=== PATIENT | female | born 1985 | race African-American/Black ===

== ENCOUNTER 2017-09-22 23:35 | Inpatient (IN) ==
[2017-09-23] MEDS ORDERED: ONDANSETRON 4 MG/2 ML VIAL IV STA ×2 (00:25→03:13)
[2017-09-23] MEDS ORDERED: HYDROmorphone 2 MG/1 ML VIAL IV STA (00:25)
[2017-09-23] MEDS ORDERED: SODIUM CHLORIDE 0.9% 1,000 ML IV STA (00:25)
[2017-09-23] MEDS ORDERED: metroNIDAZOLE INJ 500 MG in PREMIX 1 EACH IV STA (00:28)
[2017-09-23] MEDS ORDERED: LEVOFLOXACIN INJ 750 MG in PREMIX 1 EACH IV STA (00:28)
[2017-09-23] MEDS ORDERED: metroNIDAZOLE 500 MG/100 ML PREMIX IV ONE (00:51)
[2017-09-23] MEDS ORDERED: HYDROmorphone 2 MG/1 ML VIAL ONE (00:51)
[2017-09-23] MEDS ORDERED: LEVOFLOXACIN INJ 150 ML IV ONE (00:51)
[2017-09-23] MEDS ORDERED: ONDANSETRON 4 MG/2 ML VIAL ONE ×2 (00:51→03:14)
[2017-09-23 01:31] LABS: Basophils # 0.1 10*3/uL (0.0-0.2); Basophils % 0.3 % (0.0-0.8); Eosinophils # 0.1 10*3/uL (0.0-0.87); Eosinophils % 0.6 % (0.00-10.9); Hematocrit 21.6 VOL% (35.7-47.0); Hemoglobin 6.7 GM/DL (12.0-16.0); Immature Granulocytes % 0.4 %; Immature Granulocytes Absolute 0.07 #; Lymphocytes # 1.5 10*3/uL (1.4-4.0); Mean Corpuscular Hemoglobin 25 PG (27-34); Mean Corpuscular Volume 80.3 FL (87-102); Mean Platelet Volume 9.1 FL (9.6-12.0); Monocytes # 0.8 10*3/uL (0.11-0.8); Monocytes % 4.5 % (1.7-12.7); Neutrophils # 14.3 10*3/uL (1.4-7.4); Neutrophils % 85.2 % (38.7-73.9); Platelet Count 490 T/CUMM (130-400); Red Blood Count 2.69 MC/CUMM (3.8-5.5); Red Cell Distribution Width 13.4 % (9.3-17.3); White Blood Count 16.7 T/CUMM (4-12)
[2017-09-23 01:52] LABS: Alanine Aminotransferase < 6 U/L (13-56); Alkaline Phosphatase 95 U/L (45-117); Amylase 26 U/L (25-115); Aspartate Amino Transferase 4 U/L (0-37); Bilirubin,Total < 0.39 MG/DL (0.2-1.0); Blood Urea Nitrogen 52 MG/DL (7-18); Calcium 7.8 MG/DL (8.5-10.1); Glucose 364 MG/DL (74-106); Osmolality,Calculated 292.5 MOS/KG (273-304); Potassium 4.5 MMOL/L (3.5-5.1); Sodium 132 MMOL/L (136-145)
[2017-09-23] MEDS ORDERED: DEXTROSE 50% 25 GM/50 ML VIAL IV PRN (06:05)
[2017-09-23] MEDS ORDERED: ENOXAPARIN 30 MG/0.3 ML SYRINGE SUBCUT SCH (06:05)
[2017-09-23] MEDS ORDERED: GLUCAGON 1 MG VIAL IM PRN (06:05)
[2017-09-23] MEDS ORDERED: INFLUENZA VIRUS VACCINE 0.5 ML SYRINGE IM ONE (06:34)
[2017-09-23] MEDS ORDERED: CEFEPIME 2,000 MG in SODIUM CHLORIDE 0.9% 50 ML IV SCH (07:00)
[2017-09-23] MEDS: SODIUM CHLORIDE 0.9% 1,000 ML IV SCH ×2 (07:00→21:17)
[2017-09-23] MEDS: ONDANSETRON 4 MG/2 ML VIAL IV PRN ×3 (07:02→23:06)
[2017-09-23] MEDS: MORPHINE 2 MG/1 ML SYRINGE IV PRN ×5 (07:04→23:06)
[2017-09-23] MEDS: INSULIN LISPRO 100 UNIT/ML SUBCUT SCH ×3 (07:06→18:17)
[2017-09-23 07:49] LABS: Basophils # 0.1 10*3/uL (0.0-0.2); Basophils % 0.3 % (0.0-0.8); Eosinophils % 0.3 % (0.00-10.9); Hematocrit 21.7 VOL% (35.7-47.0); Hemoglobin 6.7 GM/DL (12.0-16.0); Immature Granulocytes % 0.5 %; Immature Granulocytes Absolute 0.08 #; Lymphocytes # 1.5 10*3/uL (1.4-4.0); Lymphocytes % 9.7 % (21.3-54.2); Mean Corpuscular HGB Conc 30.9 GM/DL (32-36); Mean Corpuscular Hemoglobin 25 PG (27-34); Mean Corpuscular Volume 80.4 FL (87-102); Monocytes # 0.4 10*3/uL (0.11-0.8); Monocytes % 2.7 % (1.7-12.7); Neutrophils # 13.2 10*3/uL (1.4-7.4); Neutrophils % 86.5 % (38.7-73.9); Platelet Count 483 T/CUMM (130-400); Red Cell Distribution Width 13.5 % (9.3-17.3); White Blood Count 15.2 T/CUMM (4-12)
[2017-09-23 08:16] LABS: Lymphocytes 4 % (20-55); Rouleau 1+; Segmented Neutrophils 93 % (50-85); Total Cells Counted 100
[2017-09-23 08:17] LABS: Hypochromasia 1+; Microcytosis 2+; Platelet Estimate Increased
[2017-09-23 08:23] LABS: Folate 5.5 NG/ML (5.4-24.0); Vitamin B12 432 PG/ML (211-911)
[2017-09-23 08:36] LABS: Hemoglobin A1 (Alkaline) 97.2 % (96.5-98.5); Hemoglobin A2 (Alkaline) 2.8 % (1.5-3.5)
[2017-09-23] MEDS ORDERED: PANTOPRAZOLE 40 MG TABLET PO ONE (08:40)
[2017-09-23] MEDS: CARVEDILOL 3.125 MG TABLET PO SCH (08:48)
[2017-09-23] MEDS ORDERED: VANCOMYCIN INJ 1,000 MG in SODIUM CHLORIDE 0.9% 250 ML IV SCH (09:00)
[2017-09-23] MEDS ORDERED: SODIUM CHLORIDE 0.9% 250 ML IV SCH (09:00)
[2017-09-23 09:30] LABS: Apearance,Urine CLOUDY (Clear); Bacteria,Urine Occasional /HPF (Few); Bilirubin,Urine Negative (Negative); Blood, Urine Moderate mg/dL (Negative); Glucose,Urine (UA) Negative (Negative); Ketones,Urine 5 mg/dL (Negative); Mucus,Urine Many /LPF (Occasional); Nitrite,Urine Negative (Negative); Protein,Urine >=500 MG/DL; Urine Urobilinogen < 2.0 EU/DL (0.2-1.0); WBC,Urine 490 /HPF (0-6)
[2017-09-23 09:31] LABS: Urine Color Yellow (Yellow)
[2017-09-23] MEDS ORDERED: VANCOMYCIN INJ 1,250 MG in SODIUM CHLORIDE 0.9% 250 ML IV PRN (09:36)
[2017-09-23] MEDS ORDERED: VANCOMYCIN INJ 1,500 MG in SODIUM CHLORIDE 0.9% 500 ML IV ONE (10:00)
[2017-09-23 10:47] LABS: Barbiturates Screen,Urine Negative (Negative); Benzodiazepines Screen,Urine Negative (Negative); Cannabinoid Screen,Urine Positive (Negative); Opiate Screen,Urine Positive (Negative); Phencyclidine Screen,Urine Negative (Negative)
[2017-09-23 11:53] LABS: Sedimentation Rate-Westergren 127 MM/HR (0-20)
[2017-09-23 12:21] LABS: % Iron Saturation 22.9 % (18-50)
[2017-09-23] MEDS: prednisoLONE ACETATE 1% OPH SUSP 5 ML BOTTLE BOTH EYES SCH ×3 (12:49→21:11)
[2017-09-23] MEDS: TIMOLOL 0.5% OPH SOLN 5 ML BOTTLE BOTH EYES SCH ×3 (12:50→21:11)
[2017-09-23] MEDS: DOCUSATE SODIUM 100 MG CAPSULE PO SCH ×2 (13:33→21:11)
[2017-09-23] MEDS: sulfaSALAzine 500 MG TABLET PO SCH ×3 (13:33→21:12)
[2017-09-23] MEDS: PIPERACILLIN/TAZOBACTAM 3,375 MG in SODIUM CHLORIDE 0.9% 100 ML IV SCH (14:00)
[2017-09-23] MEDS: PANTOPRAZOLE 40 MG TABLET PO SCH (14:06)
[2017-09-23] MEDS ORDERED: PROPOFOL 200 MG/20 ML VIAL IV ONE (14:17)
[2017-09-23] MEDS ORDERED: KETAMINE 500 MG/10 ML VIAL ONE (14:17)
[2017-09-23] MEDS ORDERED: fentaNYL 100 MCG/2 ML VIAL ONE (14:17)
[2017-09-23] MEDS ORDERED: SODIUM CHLORIDE 0.9% 100 ML IV ONE (14:17)
[2017-09-23] MEDS ORDERED: MIDAZOLAM 2 MG/2 ML VIAL ONE (14:17)
[2017-09-23] MEDS: SODIUM CHLORIDE 23.4% CONC INJ 38.5 MEQ, SODIUM BICARB INJ 150 MEQ in STERILE WATER INJ... IV SCH (18:11)
[2017-09-23] MEDS ORDERED: oxyCODONE/ACETAMINOPHEN 5-325 MG TABLET PO PRN (18:11)
[2017-09-23] MEDS: ERYTHROMYCIN IV SCH (21:03)
[2017-09-23] MEDS: SODIUM CHLORIDE 0.9% IV SCH (21:03)
[2017-09-23] MEDS: amLODIPine 5 MG TABLET PO SCH (21:11)
[2017-09-23] MEDS: tiZANidine 4 MG TABLET PO SCH (21:12)
[2017-09-24] MEDS: ERYTHROMYCIN IV SCH ×2 (00:47→11:07)
[2017-09-24] MEDS: INSULIN LISPRO 100 UNIT/ML SUBCUT SCH ×4 (00:47→18:59)
[2017-09-24] MEDS: SODIUM CHLORIDE 0.9% IV SCH ×2 (00:47→11:07)
[2017-09-24] MEDS: PIPERACILLIN/TAZOBACTAM 3,375 MG in SODIUM CHLORIDE 0.9% 100 ML IV SCH ×2 (01:19→13:08)
[2017-09-24] MEDS: ONDANSETRON 4 MG/2 ML VIAL IV PRN ×5 (03:14→20:37)
[2017-09-24] MEDS: MORPHINE 2 MG/1 ML SYRINGE IV PRN ×5 (03:14→20:38)
[2017-09-24] MEDS: SODIUM CHLORIDE 23.4% CONC INJ 38.5 MEQ, SODIUM BICARB INJ 150 MEQ in STERILE WATER INJ... IV SCH ×3 (06:29→20:35)
[2017-09-24 06:35] LABS: Basophils % 0.2 % (0.0-0.8); Eosinophils # 0.1 10*3/uL (0.0-0.87); Eosinophils % 0.9 % (0.00-10.9); Hematocrit 19.1 VOL% (35.7-47.0); Immature Granulocytes % 0.5 %; Immature Granulocytes Absolute 0.06 #; Lymphocytes # 1.7 10*3/uL (1.4-4.0); Lymphocytes % 14.1 % (21.3-54.2); Mean Corpuscular HGB Conc 29.8 GM/DL (32-36); Mean Corpuscular Hemoglobin 24 PG (27-34); Mean Corpuscular Volume 80.3 FL (87-102); Mean Platelet Volume 9.6 FL (9.6-12.0); Monocytes # 0.7 10*3/uL (0.11-0.8); Monocytes % 5.5 % (1.7-12.7); Neutrophils # 9.4 10*3/uL (1.4-7.4); Neutrophils % 78.8 % (38.7-73.9); Platelet Count 459 T/CUMM (130-400); Red Blood Count 2.38 MC/CUMM (3.8-5.5); Red Cell Distribution Width 13.8 % (9.3-17.3); White Blood Count 11.9 T/CUMM (4-12)
[2017-09-24 06:40] LABS: Hemoglobin 5.7 GM/DL (12.0-16.0)
[2017-09-24] MEDS ORDERED: CEFEPIME 2,000 MG in SODIUM CHLORIDE 0.9% 50 ML IV SCH (07:00)
[2017-09-24 07:02] LABS: Calcium 7.9 MG/DL (8.5-10.1); Magnesium 1.8 MG/DL (1.8-2.4); Osmolality,Calculated 294.5 MOS/KG (273-304); Potassium 4.6 MMOL/L (3.5-5.1)
[2017-09-24] MEDS ORDERED: INSULIN GLARGINE 100 UNIT/ML SUBCUT SCH (09:00)
[2017-09-24] MEDS: SODIUM HYPOCHLORITE 0.25% IRRIG 473 ML BOTTLE TOP SCH ×2 (09:28→20:36)
[2017-09-24] MEDS: PANTOPRAZOLE 40 MG TABLET PO SCH (09:37)
[2017-09-24] MEDS: sulfaSALAzine 500 MG TABLET PO SCH ×3 (09:37→20:30)
[2017-09-24] MEDS: DOCUSATE SODIUM 100 MG CAPSULE PO SCH ×2 (09:37→20:31)
[2017-09-24] MEDS: TIMOLOL 0.5% OPH SOLN 5 ML BOTTLE BOTH EYES SCH ×2 (09:37→20:30)
[2017-09-24] MEDS: tiZANidine 4 MG TABLET PO SCH ×2 (09:37→20:33)
[2017-09-24] MEDS: IRON (CARBONYL)/VIT C/B12/FA TABLET PO SCH (09:37)
[2017-09-24] MEDS: prednisoLONE ACETATE 1% OPH SUSP 5 ML BOTTLE BOTH EYES SCH ×2 (09:37→20:30)
[2017-09-24] MEDS: CARVEDILOL 3.125 MG TABLET PO SCH (09:37)
[2017-09-24] MEDS: METOCLOPRAMIDE 10 MG/2 ML VIAL IV SCH ×2 (12:08→18:59)
[2017-09-24] MEDS ORDERED: ACETAMINOPHEN 325 MG TABLET PO PRN (13:18)
[2017-09-24] MEDS ORDERED: diphenhydrAMINE CAP 25 MG CAPSULE PO PRN (13:18)
[2017-09-24] MEDS ORDERED: SODIUM CHLORIDE 0.9% 250 ML IV PRN (13:18)
[2017-09-24] MEDS: INSULIN REGULAR 100 UNIT/ML SUBCUT SCH (20:30)
[2017-09-24] MEDS: amLODIPine 5 MG TABLET PO SCH (20:34)
[2017-09-25] MEDS: ONDANSETRON 4 MG/2 ML VIAL IV PRN ×2 (00:49→05:44)
[2017-09-25] MEDS: PIPERACILLIN/TAZOBACTAM 3,375 MG in SODIUM CHLORIDE 0.9% 100 ML IV SCH ×2 (00:49→16:41)
[2017-09-25] MEDS: METOCLOPRAMIDE 10 MG/2 ML VIAL IV SCH ×4 (00:50→17:22)
[2017-09-25] MEDS: MORPHINE 2 MG/1 ML SYRINGE IV PRN ×4 (00:50→14:24)
[2017-09-25] MEDS: INSULIN LISPRO 100 UNIT/ML SUBCUT SCH ×4 (00:50→18:20)
[2017-09-25] MEDS: SODIUM HYPOCHLORITE 0.25% IRRIG 473 ML BOTTLE TOP SCH ×2 (07:35→22:37)
[2017-09-25] MEDS: INSULIN REGULAR 100 UNIT/ML SUBCUT SCH ×4 (08:35→20:33)
[2017-09-25] MEDS ORDERED: VANCOMYCIN INJ 1,250 MG in SODIUM CHLORIDE 0.9% 250 ML IV ONE (10:00)
[2017-09-25] MEDS: SODIUM CHLORIDE 23.4% CONC INJ 38.5 MEQ, SODIUM BICARB INJ 150 MEQ in STERILE WATER INJ... IV SCH (10:10)
[2017-09-25] MEDS: PANTOPRAZOLE 40 MG TABLET PO SCH (10:16)
[2017-09-25] MEDS: sulfaSALAzine 500 MG TABLET PO SCH ×3 (10:16→20:34)
[2017-09-25] MEDS: IRON (CARBONYL)/VIT C/B12/FA TABLET PO SCH (10:16)
[2017-09-25] MEDS: tiZANidine 4 MG TABLET PO SCH ×2 (10:16→20:34)
[2017-09-25] MEDS: DOCUSATE SODIUM 100 MG CAPSULE PO SCH ×2 (10:16→20:34)
[2017-09-25] MEDS: CARVEDILOL 3.125 MG TABLET PO SCH (10:16)
[2017-09-25] MEDS: prednisoLONE ACETATE 1% OPH SUSP 5 ML BOTTLE BOTH EYES SCH ×2 (10:17→20:34)
[2017-09-25] MEDS: TIMOLOL 0.5% OPH SOLN 5 ML BOTTLE BOTH EYES SCH ×2 (10:17→20:34)
[2017-09-25] MEDS: INSULIN GLARGINE 100 UNIT/ML SUBCUT SCH (10:17)
[2017-09-25] MEDS: amLODIPine 5 MG TABLET PO SCH (20:33)
[2017-09-26] MEDS: INSULIN LISPRO 100 UNIT/ML SUBCUT SCH ×3 (00:05→14:22)
[2017-09-26] MEDS: METOCLOPRAMIDE 10 MG/2 ML VIAL IV SCH ×3 (00:06→14:23)
[2017-09-26] MEDS: PIPERACILLIN/TAZOBACTAM 3,375 MG in SODIUM CHLORIDE 0.9% 100 ML IV SCH (00:09)
[2017-09-26] MEDS: MORPHINE 2 MG/1 ML SYRINGE IV PRN ×3 (02:23→11:23)
[2017-09-26] MEDS: SODIUM CHLORIDE 23.4% CONC INJ 38.5 MEQ, SODIUM BICARB INJ 150 MEQ in STERILE WATER INJ... IV SCH (04:13)
[2017-09-26 07:01] LABS: Basophils # 0.1 10*3/uL (0.0-0.2); Basophils % 0.5 % (0.0-0.8); Eosinophils # 0.2 10*3/uL (0.0-0.87); Eosinophils % 2.1 % (0.00-10.9); Hematocrit 23.4 VOL% (35.7-47.0); Hemoglobin 7.1 GM/DL (12.0-16.0); Immature Granulocytes % 0.6 %; Immature Granulocytes Absolute 0.06 #; Lymphocytes # 3.4 10*3/uL (1.4-4.0); Lymphocytes % 31.2 % (21.3-54.2); Mean Corpuscular HGB Conc 30.3 GM/DL (32-36); Mean Corpuscular Hemoglobin 24 PG (27-34); Mean Corpuscular Volume 80.1 FL (87-102); Mean Platelet Volume 9.3 FL (9.6-12.0); Monocytes # 0.5 10*3/uL (0.11-0.8); Monocytes % 4.8 % (1.7-12.7); Neutrophils # 6.5 10*3/uL (1.4-7.4); Neutrophils % 60.8 % (38.7-73.9); Platelet Count 546 T/CUMM (130-400); Red Blood Count 2.92 MC/CUMM (3.8-5.5); Red Cell Distribution Width 13.8 % (9.3-17.3); White Blood Count 10.7 T/CUMM (4-12)
[2017-09-26 07:23] LABS: Calcium 7.9 MG/DL (8.5-10.1); Potassium 4.5 MMOL/L (3.5-5.1)
[2017-09-26] MEDS: prednisoLONE ACETATE 1% OPH SUSP 5 ML BOTTLE BOTH EYES SCH (08:06)
[2017-09-26] MEDS: DOCUSATE SODIUM 100 MG CAPSULE PO SCH (08:07)
[2017-09-26] MEDS: INSULIN REGULAR 100 UNIT/ML SUBCUT SCH ×2 (08:07→14:21)
[2017-09-26] MEDS: tiZANidine 4 MG TABLET PO SCH (08:07)
[2017-09-26] MEDS: CARVEDILOL 3.125 MG TABLET PO SCH (08:07)
[2017-09-26] MEDS: sulfaSALAzine 500 MG TABLET PO SCH (08:07)
[2017-09-26] MEDS: PANTOPRAZOLE 40 MG TABLET PO SCH (08:07)
[2017-09-26] MEDS: TIMOLOL 0.5% OPH SOLN 5 ML BOTTLE BOTH EYES SCH (08:07)
[2017-09-26] MEDS: IRON (CARBONYL)/VIT C/B12/FA TABLET PO SCH (08:07)
[2017-09-26] MEDS: SODIUM HYPOCHLORITE 0.25% IRRIG 473 ML BOTTLE TOP SCH (10:15)
[2017-09-26] MEDS: INSULIN GLARGINE 100 UNIT/ML SUBCUT SCH (11:18)
[2017-09-26 11:30] VITALS: BP 139/82
== END 2017-09-26 12:45 | disposition home health service (06) | DRG 854 ==
LOC: EDUNIT# → N.ED 23:35 → N.EDINP 09-23 05:08 → N.3E 09-23 05:32
PROVIDERS: ADMIT Internal Medicine; ATTEND Internal Medicine

== ENCOUNTER 2019-07-30 21:17 | Inpatient (IN) ==
[2019-07-30] MEDS ORDERED: VANCOMYCIN INJ 1,000 MG in SODIUM CHLORIDE 0.9% 250 ML IV STA (21:42)
[2019-07-30] MEDS ORDERED: SODIUM CHLORIDE 0.9% 1,000 ML IV STA (21:42)
[2019-07-30] MEDS ORDERED: CEFEPIME 2,000 MG in SODIUM CHLORIDE 0.9% 100 ML IV STA (21:42)
[2019-07-30 23:39] LABS: Apearance,Urine Slightly Hazy (Clear); Bacteria,Urine Occasional /HPF (Few); Bilirubin,Urine Negative (Negative); Blood, Urine Small mg/dL (Negative); Glucose,Urine (UA) >=500 mg/dL (Negative); Ketones,Urine 20 mg/dL (Negative); Mucus,Urine Occasional /LPF (Occasional); Nitrite,Urine Positive (Negative); Protein,Urine >=500 MG/DL; RBC,Urine 4 /HPF (0-4); Squamous Epithelial Cell,Urine Occasional /HPF (0-10); Urine Color Yellow (Yellow); Urine Specific Gravity 1.011 (1.001-1.035); Urine Urobilinogen < 2.0 EU/DL (0.2-1.0); WBC,Urine 52 /HPF (0-6)
[2019-07-31 00:05] LABS: Basophils % 0.4 % (0.0-0.8); Eosinophils % 0.2 % (0.00-10.9); Hematocrit 25.7 VOL% (35.7-47.0); Hemoglobin 7.7 GM/DL (12.0-16.0); Immature Granulocytes % 0.6 %; Immature Granulocytes Absolute 0.07 #; Lymphocytes # 1.6 10*3/uL (1.4-4.0); Lymphocytes % 14.6 % (21.3-54.2); Mean Corpuscular Volume 78.4 FL (87-102); Mean Platelet Volume 9.1 FL (9.6-12.0); Monocytes % 6.5 % (1.7-12.7); Neutrophils % 77.7 % (38.7-73.9); Platelet Count 424 T/CUMM (130-400); Red Blood Count 3.28 MC/CUMM (3.8-5.5); Red Cell Distribution Width 15.4 % (9.3-17.3); White Blood Count 10.9 T/CUMM (4-12)
[2019-07-31] MEDS ORDERED: hydrALAZINE 20 MG/1 ML VIAL IV STA (00:20)
[2019-07-31] MEDS ORDERED: MORPHINE 4 MG/1 ML VIAL IV STA (00:20)
[2019-07-31] MEDS ORDERED: ONDANSETRON 4 MG/2 ML VIAL IV STA (00:20)
[2019-07-31] MEDS ORDERED: VANCOMYCIN INJ 1,000 MG in SODIUM CHLORIDE 0.9% 250 ML IV STA (00:34)
[2019-07-31 00:40] LABS: Alanine Aminotransferase 9 U/L (13-56); Albumin 2.9 G/DL (3.4-5.0); Aspartate Amino Transferase 4 U/L (0-37); Calcium 8.5 MG/DL (8.5-10.1)
[2019-07-31 00:41] LABS: Alkaline Phosphatase 158 U/L (45-117); Blood Urea Nitrogen 81 MG/DL (7-18)
[2019-07-31 00:42] LABS: Bilirubin,Total < 0.39 MG/DL (0.2-1.0); Glucose 290 MG/DL (74-106); Osmolality,Calculated 324.6 MOS/KG (273-304); Total Protein 8.8 G/DL (6.4-8.3)
[2019-07-31] MEDS ORDERED: INSULIN REGULAR DRIP 100 ML IV PRN (01:00)
[2019-07-31] MEDS ORDERED: POTASSIUM CHLORIDE RIDER 10 MEQ in PREMIX 1 EACH IV PRN (02:15)
[2019-07-31] MEDS ORDERED: DEXTROSE 50% 25 GM/50 ML VIAL IV PRN ×2 (02:15)
[2019-07-31] MEDS ORDERED: SODIUM PHOSPHATE INJ 15.9 MMOL in SODIUM CHLORIDE 0.9% 250 ML IV PRN (02:15)
[2019-07-31] MEDS ORDERED: MAGNESIUM SULF RIDER 2 GM in PREMIX 1 EACH IV PRN (02:15)
[2019-07-31] MEDS ORDERED: MAGNESIUM SULF RIDER 4 GM in PREMIX 1 EACH IV PRN (02:15)
[2019-07-31 02:19] LABS: Sedimentation Rate-Westergren 98 MM/HR (0-20)
[2019-07-31] MEDS ORDERED: SODIUM CHLORIDE 0.9% 1,000 ML IV SCH (02:33)
[2019-07-31] MEDS ORDERED: PROMETHAZINE 25 MG/1 ML VIAL IM PRN (02:44)
[2019-07-31 03:01] LABS: Calcium 8.4 MG/DL (8.5-10.1); Osmolality,Calculated 327.3 MOS/KG (273-304)
[2019-07-31] MEDS: HYDROmorphone 2 MG/1 ML VIAL IV PRN ×6 (03:30→22:32)
[2019-07-31] MEDS ORDERED: INSULIN REGULAR DRIP 100 ML IV SCH (03:30)
[2019-07-31] MEDS ORDERED: SODIUM BICARB INJ 100 MEQ in STERILE WATER INJ 400 ML IV PRN (03:30)
[2019-07-31] MEDS: hydrALAZINE 20 MG/1 ML VIAL IV PRN ×3 (04:01→18:29)
[2019-07-31] MEDS: ONDANSETRON 4 MG/2 ML VIAL IV PRN ×4 (04:01→17:04)
[2019-07-31 05:10] LABS: Basophils % 0.3 % (0.0-0.8); Eosinophils % 0.1 % (0.00-10.9); Hematocrit 24.8 VOL% (35.7-47.0); Hemoglobin 7.5 GM/DL (12.0-16.0); Immature Granulocytes % 1.1 %; Immature Granulocytes Absolute 0.14 #; Lymphocytes # 2.1 10*3/uL (1.4-4.0); Lymphocytes % 16.2 % (21.3-54.2); Mean Corpuscular HGB Conc 30.2 GM/DL (32-36); Mean Corpuscular Volume 79.5 FL (87-102); Mean Platelet Volume 9.3 FL (9.6-12.0); Monocytes % 5.6 % (1.7-12.7); Neutrophils % 76.7 % (38.7-73.9); Platelet Count 430 T/CUMM (130-400); Red Blood Count 3.12 MC/CUMM (3.8-5.5); Red Cell Distribution Width 15.3 % (9.3-17.3); White Blood Count 13.1 T/CUMM (4-12)
[2019-07-31 05:29] LABS: Hypochromasia 1+; Platelet Estimate Adequate
[2019-07-31] MEDS ORDERED: SODIUM CHLORIDE 0.45% 1,000 ML IV SCH (06:33)
[2019-07-31 07:14] LABS: Calcium 8.8 MG/DL (8.5-10.1); Osmolality,Calculated 320.3 MOS/KG (273-304)
[2019-07-31] MEDS ORDERED: VANCOMYCIN INJ 1,000 MG in SODIUM CHLORIDE 0.9% 250 ML IV PRN (08:11)
[2019-07-31] MEDS ORDERED: DEXTROSE 5% NACL 0.45% 1,000 ML IV SCH ×2 (08:27→13:30)
[2019-07-31 12:00] LABS: Calcium 8.8 MG/DL (8.5-10.1); Osmolality,Calculated 313.3 MOS/KG (273-304)
[2019-07-31 15:24] LABS: Calcium 8.5 MG/DL (8.5-10.1); Osmolality,Calculated 311.6 MOS/KG (273-304)
[2019-07-31 19:15] LABS: Calcium 8.7 MG/DL (8.5-10.1); Osmolality,Calculated 300.1 MOS/KG (273-304)
[2019-07-31] MEDS: SODIUM CHLORIDE 0.45% 1,000 ML IV SCH (20:32)
[2019-07-31] MEDS: DEXTROSE 5% NACL 0.45% 1,000 ML IV SCH ×2 (20:33→21:21)
[2019-07-31] MEDS ORDERED: DEXTROSE 10% 250 ML BAG IV PRN (20:35)
[2019-07-31] MEDS ORDERED: GLUCAGON 1 MG VIAL IM PRN (20:35)
[2019-07-31] MEDS: INSULIN REGULAR 100 UNIT/ML SUBCUT SCH (21:22)
[2019-07-31] MEDS: CARVEDILOL 3.125 MG TABLET PO SCH (21:59)
[2019-07-31] MEDS: prednisoLONE ACETATE 1% OPH SUSP 5 ML BOTTLE BOTH EYES SCH (22:00)
[2019-07-31] MEDS: TIMOLOL 0.5% OPH SOLN 5 ML BOTTLE BOTH EYES SCH (22:00)
[2019-07-31 23:03] LABS: Calcium 8.5 MG/DL (8.5-10.1); Osmolality,Calculated 295.3 MOS/KG (273-304)
[2019-08-01] MEDS: INSULIN REGULAR 100 UNIT/ML SUBCUT SCH ×6 (00:44→21:03)
[2019-08-01] MEDS: CEFEPIME 1,000 MG in SODIUM CHLORIDE 0.9% 100 ML IV SCH (01:06)
[2019-08-01] MEDS: HYDROmorphone 2 MG/1 ML VIAL IV PRN ×4 (01:13→22:50)
[2019-08-01] MEDS: SODIUM CHLORIDE 0.45% 1,000 ML IV SCH ×2 (05:20→12:11)
[2019-08-01 05:42] LABS: Basophils # 0.1 10*3/uL (0.0-0.2); Basophils % 0.5 % (0.0-0.8); Eosinophils # 0.4 10*3/uL (0.0-0.87); Eosinophils % 3.4 % (0.00-10.9); Hematocrit 25.3 VOL% (35.7-47.0); Hemoglobin 7.3 GM/DL (12.0-16.0); Immature Granulocytes % 0.8 %; Lymphocytes # 4.2 10*3/uL (1.4-4.0); Lymphocytes % 33.4 % (21.3-54.2); Mean Corpuscular HGB Conc 28.9 GM/DL (32-36); Mean Corpuscular Volume 83.2 FL (87-102); Mean Platelet Volume 9.2 FL (9.6-12.0); Monocytes % 9.1 % (1.7-12.7); Neutrophils % 52.8 % (38.7-73.9); Platelet Count 347 T/CUMM (130-400); Red Blood Count 3.04 MC/CUMM (3.8-5.5); Red Cell Distribution Width 15.5 % (9.3-17.3); White Blood Count 12.5 T/CUMM (4-12)
[2019-08-01 06:08] LABS: Calcium 8.5 MG/DL (8.5-10.1); Osmolality,Calculated 293.4 MOS/KG (273-304)
[2019-08-01 06:20] LABS: Platelet Estimate Normal; Poikilocytosis Slight
[2019-08-01 06:21] LABS: Anisocytosis 2+
[2019-08-01] MEDS ORDERED: LIDOCAINE 1% 20 ML VIAL ONE (07:28)
[2019-08-01] MEDS ORDERED: fentaNYL 100 MCG/2 ML VIAL ONE (08:16)
[2019-08-01] MEDS ORDERED: MIDAZOLAM 2 MG/2 ML VIAL ONE (08:16)
[2019-08-01] MEDS: TIMOLOL 0.5% OPH SOLN 5 ML BOTTLE BOTH EYES SCH ×2 (08:32→22:55)
[2019-08-01] MEDS: CARVEDILOL 3.125 MG TABLET PO SCH ×2 (08:32→22:47)
[2019-08-01] MEDS: MULTIVITAMIN (CENTRUM) TABLET PO SCH (08:32)
[2019-08-01] MEDS: prednisoLONE ACETATE 1% OPH SUSP 5 ML BOTTLE BOTH EYES SCH ×2 (08:32→22:55)
[2019-08-01] MEDS: hydrALAZINE 20 MG/1 ML VIAL IV PRN (12:03)
[2019-08-01] MEDS: LACTATED RINGERS 1,000 ML IV SCH (12:05)
[2019-08-01] MEDS ORDERED: VANCOMYCIN INJ 1,000 MG in SODIUM CHLORIDE 0.9% 250 ML IV ONE (15:30)
[2019-08-01] MEDS: amLODIPine 5 MG TABLET PO SCH (22:47)
[2019-08-02] MEDS: hydrALAZINE 20 MG/1 ML VIAL IV PRN ×2 (01:09→14:29)
[2019-08-02] MEDS: INSULIN REGULAR 100 UNIT/ML SUBCUT SCH ×6 (01:15→21:49)
[2019-08-02] MEDS: CEFEPIME 1,000 MG in SODIUM CHLORIDE 0.9% 100 ML IV SCH (01:20)
[2019-08-02 06:04] LABS: Basophils # 0.1 10*3/uL (0.0-0.2); Basophils % 0.6 % (0.0-0.8); Eosinophils # 0.4 10*3/uL (0.0-0.87); Eosinophils % 4.5 % (0.00-10.9); Hematocrit 24.5 VOL% (35.7-47.0); Hemoglobin 7.2 GM/DL (12.0-16.0); Immature Granulocytes % 0.8 %; Immature Granulocytes Absolute 0.07 #; Lymphocytes # 3.3 10*3/uL (1.4-4.0); Lymphocytes % 37.8 % (21.3-54.2); Mean Corpuscular HGB Conc 29.4 GM/DL (32-36); Mean Corpuscular Volume 80.3 FL (87-102); Mean Platelet Volume 9.8 FL (9.6-12.0); Monocytes % 10.6 % (1.7-12.7); Neutrophils % 45.7 % (38.7-73.9); Platelet Count 374 T/CUMM (130-400); Red Blood Count 3.05 MC/CUMM (3.8-5.5); Red Cell Distribution Width 15.2 % (9.3-17.3); White Blood Count 8.7 T/CUMM (4-12)
[2019-08-02 06:20] LABS: % Iron Saturation 35.3 % (18-50); Ferritin 535.5 ng/ml (8-252)
[2019-08-02 06:28] LABS: Folate 7.4 NG/ML (5.4-24.0); Vitamin B12 377 PG/ML (211-911)
[2019-08-02 07:58] LABS: Sedimentation Rate-Westergren 106 MM/HR (0-20)
[2019-08-02] MEDS: MULTIVITAMIN (CENTRUM) TABLET PO SCH (08:41)
[2019-08-02] MEDS: TIMOLOL 0.5% OPH SOLN 5 ML BOTTLE BOTH EYES SCH ×2 (08:41→21:49)
[2019-08-02] MEDS: CARVEDILOL 3.125 MG TABLET PO SCH ×2 (08:41→21:47)
[2019-08-02] MEDS: prednisoLONE ACETATE 1% OPH SUSP 5 ML BOTTLE BOTH EYES SCH ×2 (08:41→21:49)
[2019-08-02] MEDS: LACTATED RINGERS 1,000 ML IV SCH ×3 (08:45→23:23)
[2019-08-02] MEDS: HYDROmorphone 2 MG/1 ML VIAL IV PRN ×4 (09:04→23:01)
[2019-08-02] MEDS ORDERED: VANCOMYCIN INJ 1,000 MG in SODIUM CHLORIDE 0.9% 250 ML IV ONE (16:30)
[2019-08-02] MEDS: HEPARIN LOCK FLUSH 500 UNIT/5 ML SYRINGE IV SCH (21:49)
[2019-08-02] MEDS: amLODIPine 5 MG TABLET PO SCH (23:23)
[2019-08-03] MEDS: CEFEPIME 1,000 MG in SODIUM CHLORIDE 0.9% 100 ML IV SCH (01:03)
[2019-08-03] MEDS: INSULIN REGULAR 100 UNIT/ML SUBCUT SCH ×3 (01:28→08:59)
[2019-08-03] MEDS: ONDANSETRON 4 MG/2 ML VIAL IV PRN (04:31)
[2019-08-03] MEDS: LACTATED RINGERS 1,000 ML IV SCH (07:48)
[2019-08-03] MEDS: prednisoLONE ACETATE 1% OPH SUSP 5 ML BOTTLE BOTH EYES SCH (08:59)
[2019-08-03] MEDS: MULTIVITAMIN (CENTRUM) TABLET PO SCH (08:59)
[2019-08-03] MEDS: CARVEDILOL 3.125 MG TABLET PO SCH (08:59)
[2019-08-03] MEDS: TIMOLOL 0.5% OPH SOLN 5 ML BOTTLE BOTH EYES SCH (08:59)
[2019-08-03] MEDS: HEPARIN LOCK FLUSH 500 UNIT/5 ML SYRINGE IV SCH (09:01)
[2019-08-03 10:03] VITALS: BP 148/97
[2019-08-04 07:54] LABS: Hemoglobin A1 (Alkaline) 97.8 % (96.5-98.5); Hemoglobin A2 (Alkaline) 2.2 % (1.5-3.5)
== END 2019-08-03 10:08 | disposition home or self-care (01) | DRG 623 ==
LOC: EDUNIT# → EDBD → N.ED 21:17 → SUATTDRO 07-31 02:15 → N.EDINP 07-31 02:15 → SUPCPDRO 07-31 02:15 → N.ICU 07-31 02:59 → N.3E 08-01 15:30
PROVIDERS: ADMIT Family Medicine; ATTEND Hospitalist

== ENCOUNTER 2019-10-22 18:32 | Inpatient (IN) ==
[2019-10-22] MEDS ORDERED: SODIUM CHLORIDE 0.9% 1,000 ML IV STA (18:55)
[2019-10-22] MEDS ORDERED: ONDANSETRON 4 MG/2 ML VIAL IV STA (18:55)
[2019-10-22] MEDS ORDERED: PANTOPRAZOLE 40 MG VIAL IV STA (18:55)
[2019-10-22 19:55] LABS: ABG Base Excess -10.3 MMOL/L (-2.5-2.5); ABG HCO3 16.2 MMOL/L (20-26); ABG PCO2 31.2 MM HG (35-48); ABG PH 7.298 (7.35-7.45); ABG TCO2 14.5 MMOL/L (23-27); Allen Test Positive; Pt O2 Delivery Device Room Air
[2019-10-22] MEDS ORDERED: HYDROmorphone 2 MG/1 ML VIAL IV ONE (19:58)
[2019-10-22 20:15] LABS: Apearance,Urine Slightly Hazy (Clear); Bacteria,Urine Moderate /HPF (Few); Bilirubin,Urine Negative (Negative); Blood, Urine Small mg/dL (Negative); Glucose,Urine (UA) >=500 mg/dL (Negative); Ketones,Urine 5 mg/dL (Negative); Nitrite,Urine Negative (Negative); Protein,Urine >=500 MG/DL; RBC,Urine 16 /HPF (0-4); Squamous Epithelial Cell,Urine Occasional /HPF (0-10); Urine Color Yellow (Yellow); Urine Specific Gravity 1.009 (1.001-1.035); Urine Urobilinogen < 2.0 EU/DL (0.2-1.0); WBC,Urine 51 /HPF (0-6)
[2019-10-22 20:18] LABS: Basophils # 0.1 10*3/uL (0.0-0.2); Basophils % 0.5 % (0.0-0.8); Hematocrit 24.4 VOL% (35.7-47.0); Hemoglobin 7.4 GM/DL (12.0-16.0); Immature Granulocytes % 0.4 %; Immature Granulocytes Absolute 0.04 #; Lymphocytes % 9.9 % (21.3-54.2); Mean Corpuscular HGB Conc 30.3 GM/DL (32-36); Mean Corpuscular Volume 77.5 FL (87-102); Mean Platelet Volume 9.9 FL (9.6-12.0); Monocytes % 1.3 % (1.7-12.7); Neutrophils % 87.9 % (38.7-73.9); Platelet Count 365 T/CUMM (130-400); Red Blood Count 3.15 MC/CUMM (3.8-5.5); Red Cell Distribution Width 15.6 % (9.3-17.3); White Blood Count 10.3 T/CUMM (4-12)
[2019-10-22] MEDS ORDERED: cefTRIAXone 1,000 MG in SODIUM CHLORIDE 0.9% 100 ML IV STA (20:24)
[2019-10-22 20:29] LABS: Alanine Aminotransferase 11 U/L (13-56); Alkaline Phosphatase 153 U/L (45-117); Amylase 53 U/L (25-115); Aspartate Amino Transferase 9 U/L (0-37); Bilirubin,Total < 0.39 MG/DL (0.2-1.0); Blood Urea Nitrogen 42 MG/DL (7-18); Calcium 8.3 MG/DL (8.5-10.1); Estimated Glom Filtration Rate 13 ML/MIN; Glucose 304 MG/DL (74-106); Total Protein 8.1 G/DL (6.4-8.3)
[2019-10-22] MEDS ORDERED: INSULIN REGULAR 100 UNIT/ML IV STA ×2 (20:31→21:02)
[2019-10-22] MEDS ORDERED: DOCUSATE SODIUM 100 MG CAPSULE PO PRN (23:23)
[2019-10-22] MEDS ORDERED: traZODone 50 MG TABLET PO PRN (23:23)
[2019-10-22] MEDS ORDERED: PROMETHAZINE 25 MG/1 ML VIAL IM PRN (23:23)
[2019-10-22] MEDS ORDERED: ACETAMINOPHEN 325 MG TABLET PO PRN (23:23)
[2019-10-22] MEDS ORDERED: GLUCAGON 1 MG VIAL IM PRN (23:28)
[2019-10-22] MEDS ORDERED: DEXTROSE 50% 25 GM/50 ML VIAL IV PRN (23:28)
[2019-10-23] MEDS: MORPHINE 4 MG/1 ML VIAL IV PRN ×6 (00:10→23:12)
[2019-10-23] MEDS: SODIUM CHLORIDE 0.9% 1,000 ML IV SCH ×2 (00:14→08:59)
[2019-10-23] MEDS: ONDANSETRON 4 MG/2 ML VIAL IV PRN ×5 (02:09→23:12)
[2019-10-23] MEDS: INSULIN REGULAR 100 UNIT/ML SUBCUT SCH ×5 (02:16→22:26)
[2019-10-23 09:20] LABS: Calcium 8.3 MG/DL (8.5-10.1); Osmolality,Calculated 301.6 MOS/KG (273-304)
[2019-10-23] MEDS: PANTOPRAZOLE 40 MG VIAL IV SCH (09:25)
[2019-10-23 10:45] LABS: Basophils % 0.1 % (0.0-0.8); Hematocrit 24.5 VOL% (35.7-47.0); Hemoglobin 7.4 GM/DL (12.0-16.0); Immature Granulocytes % 0.5 %; Immature Granulocytes Absolute 0.07 #; Lymphocytes # 1.6 10*3/uL (1.4-4.0); Mean Corpuscular HGB Conc 30.2 GM/DL (32-36); Mean Corpuscular Volume 77.8 FL (87-102); Mean Platelet Volume 9.3 FL (9.6-12.0); Monocytes % 4.1 % (1.7-12.7); Neutrophils % 83.3 % (38.7-73.9); Platelet Count 365 T/CUMM (130-400); Red Blood Count 3.15 MC/CUMM (3.8-5.5); Red Cell Distribution Width 15.5 % (9.3-17.3); White Blood Count 13.6 T/CUMM (4-12)
[2019-10-23] MEDS: SODIUM CHLORIDE 23.4% CONC INJ 38.5 MEQ, SODIUM BICARB INJ 100 MEQ in STERILE WATER INJ... IV SCH ×2 (10:46→20:20)
[2019-10-23] MEDS: METOPROLOL TARTRATE 5 MG/5 ML VIAL IV PRN (15:21)
[2019-10-23] MEDS: cefTRIAXone 1,000 MG in SYRINGE 1 EACH IV SCH (20:20)
[2019-10-24] MEDS: ONDANSETRON 4 MG/2 ML VIAL IV PRN ×3 (04:55→12:57)
[2019-10-24] MEDS: MORPHINE 4 MG/1 ML VIAL IV PRN ×5 (04:55→21:21)
[2019-10-24] MEDS: SODIUM CHLORIDE 23.4% CONC INJ 38.5 MEQ, SODIUM BICARB INJ 100 MEQ in STERILE WATER INJ... IV SCH ×2 (04:59→13:38)
[2019-10-24 05:19] LABS: Basophils % 0.2 % (0.0-0.8); Eosinophils % 0.3 % (0.00-10.9); Hematocrit 24.7 VOL% (35.7-47.0); Hemoglobin 7.6 GM/DL (12.0-16.0); Immature Granulocytes % 0.4 %; Immature Granulocytes Absolute 0.06 #; Lymphocytes # 2.4 10*3/uL (1.4-4.0); Lymphocytes % 16.5 % (21.3-54.2); Mean Corpuscular HGB Conc 30.8 GM/DL (32-36); Mean Corpuscular Volume 76.7 FL (87-102); Mean Platelet Volume 9.6 FL (9.6-12.0); Monocytes % 3.7 % (1.7-12.7); Neutrophils % 78.9 % (38.7-73.9); Platelet Count 377 T/CUMM (130-400); Red Blood Count 3.22 MC/CUMM (3.8-5.5); Red Cell Distribution Width 15.2 % (9.3-17.3); White Blood Count 14.6 T/CUMM (4-12)
[2019-10-24 05:49] LABS: Calcium 7.9 MG/DL (8.5-10.1); Osmolality,Calculated 288.3 MOS/KG (273-304)
[2019-10-24] MEDS: INSULIN REGULAR 100 UNIT/ML SUBCUT SCH ×4 (08:51→21:22)
[2019-10-24] MEDS: PANTOPRAZOLE 40 MG VIAL IV SCH (08:58)
[2019-10-24] MEDS: METOPROLOL TARTRATE 5 MG/5 ML VIAL IV PRN (13:00)
[2019-10-24] MEDS: METOCLOPRAMIDE 10 MG/2 ML VIAL IV PRN ×2 (16:58→22:42)
[2019-10-24] MEDS: SODIUM BICARB INJ 100 MEQ in DEXTROSE 5% 1,000 ML IV SCH (17:02)
[2019-10-24] MEDS: cloNIDine 0.1 MG TABLET PO SCH (21:20)
[2019-10-24] MEDS: carvediloL 12.5 MG TABLET PO SCH (21:20)
[2019-10-24] MEDS: cefTRIAXone 1,000 MG in SYRINGE 1 EACH IV SCH (21:21)
[2019-10-25] MEDS: SODIUM BICARB INJ 100 MEQ in DEXTROSE 5% 1,000 ML IV SCH ×2 (03:06→11:50)
[2019-10-25] MEDS: MORPHINE 4 MG/1 ML VIAL IV PRN ×2 (06:23→11:06)
[2019-10-25] MEDS: METOCLOPRAMIDE 10 MG/2 ML VIAL IV PRN (06:23)
[2019-10-25 06:30] LABS: Basophils # 0.1 10*3/uL (0.0-0.2); Basophils % 0.5 % (0.0-0.8); Eosinophils # 0.2 10*3/uL (0.0-0.87); Eosinophils % 1.5 % (0.00-10.9); Hematocrit 22.9 VOL% (35.7-47.0); Immature Granulocytes % 0.4 %; Immature Granulocytes Absolute 0.04 #; Lymphocytes # 3.8 10*3/uL (1.4-4.0); Lymphocytes % 33.2 % (21.3-54.2); Mean Corpuscular HGB Conc 30.6 GM/DL (32-36); Mean Corpuscular Volume 75.8 FL (87-102); Mean Platelet Volume 9.8 FL (9.6-12.0); Monocytes % 5.9 % (1.7-12.7); Neutrophils % 58.5 % (38.7-73.9); Platelet Count 335 T/CUMM (130-400); Red Blood Count 3.02 MC/CUMM (3.8-5.5); Red Cell Distribution Width 15.1 % (9.3-17.3); White Blood Count 11.3 T/CUMM (4-12)
[2019-10-25 06:44] LABS: Calcium 6.8 MG/DL (8.5-10.1); Osmolality,Calculated 284.5 MOS/KG (273-304)
[2019-10-25] MEDS ORDERED: SODIUM CHLORIDE 0.9% 1,000 ML IV PRN (06:52)
[2019-10-25] MEDS ORDERED: POTASSIUM CHLORIDE RIDER 10 MEQ in PREMIX 1 EACH IV PRN (06:52)
[2019-10-25] MEDS: INSULIN REGULAR 100 UNIT/ML SUBCUT SCH ×2 (07:59→12:01)
[2019-10-25] MEDS ORDERED: FERROUS SULFATE ER 140 MG TABLET PO SCH (09:30)
[2019-10-25 09:54] LABS: % Iron Saturation 27.7 % (18-50); Ferritin 372.5 ng/ml (8-252)
[2019-10-25] MEDS: PANTOPRAZOLE 40 MG VIAL IV SCH (09:55)
[2019-10-25] MEDS: POTASSIUM CHLORIDE 20 MEQ TABLET PO PRN ×2 (09:56→12:02)
[2019-10-25] MEDS: cloNIDine 0.1 MG TABLET PO SCH (09:56)
[2019-10-25] MEDS: carvediloL 12.5 MG TABLET PO SCH (09:56)
[2019-10-25] MEDS ORDERED: SODIUM CHLOR 0.9% KCL 20 MEQ 20 MEQ/1,000 ML BAG IV SCH (10:00)
[2019-10-25] MEDS ORDERED: CALCIUM (CARBONATE) 600 MG TABLET PO SCH (10:00)
[2019-10-25] MEDS: ONDANSETRON 4 MG/2 ML VIAL IV PRN (11:06)
[2019-10-25] MEDS ORDERED: HEPARIN LOCK FLUSH 500 UNIT/5 ML SYRINGE IV PRN (15:28)
[2019-10-25 15:54] VITALS: BP 162/90
== END 2019-10-25 16:20 | disposition home or self-care (01) | DRG 689 ==
LOC: EDBD → EDUNIT# → N.EDINP 18:32 → N.ED 18:32 → N.2W 23:20 → N.2E 10-23 12:51
PROVIDERS: ADMIT Internal Medicine; ATTEND Internal Medicine

== ENCOUNTER 2019-12-24 11:45 | Inpatient (IN) ==
[2019-12-24 12:24] LABS: Basophils % 0.3 % (0.0-0.8); Eosinophils % 0.3 % (0.00-10.9); Hematocrit 29.8 VOL% (35.7-47.0); Hemoglobin 9.5 GM/DL (12.0-16.0); Immature Granulocytes % 0.2 %; Immature Granulocytes Absolute 0.02 #; Lymphocytes # 2.1 10*3/uL (1.4-4.0); Lymphocytes % 21.3 % (21.3-54.2); Mean Corpuscular HGB Conc 31.9 GM/DL (32-36); Mean Corpuscular Volume 74.9 FL (87-102); Mean Platelet Volume 10.2 FL (9.6-12.0); Monocytes % 3.9 % (1.7-12.7); Platelet Count 345 T/CUMM (130-400); Red Blood Count 3.98 MC/CUMM (3.8-5.5); Red Cell Distribution Width 15.2 % (9.3-17.3); White Blood Count 9.9 T/CUMM (4-12)
[2019-12-24 12:39] LABS: Alanine Aminotransferase 12 U/L (13-56); Albumin 3.1 G/DL (3.4-5.0); Alkaline Phosphatase 178 U/L (45-117); Aspartate Amino Transferase 9 U/L (0-37); Blood Urea Nitrogen 46 MG/DL (7-18); Calcium 7.9 MG/DL (8.5-10.1); Estimated Glom Filtration Rate 11 ML/MIN; Glucose 394 MG/DL (74-106); Osmolality,Calculated 291.5 MOS/KG (273-304); Total Protein 8.6 G/DL (6.4-8.3)
[2019-12-24] MEDS ORDERED: SODIUM CHLORIDE 0.9% 1,000 ML IV STA (12:54)
[2019-12-24] MEDS ORDERED: INSULIN REGULAR 100 UNIT/ML IV STA (12:55)
[2019-12-24] MEDS ORDERED: ZALEPLON 5 MG CAPSULE PO PRN (13:25)
[2019-12-24] MEDS ORDERED: ACETAMINOPHEN 325 MG TABLET PO PRN (13:25)
[2019-12-24] MEDS ORDERED: GLUCAGON 1 MG VIAL IM PRN (13:29)
[2019-12-24] MEDS ORDERED: DEXTROSE 10% 250 ML BAG IV PRN (13:29)
[2019-12-24] MEDS ORDERED: ONDANSETRON 4 MG TABLET PO PRN (13:29)
[2019-12-24] MEDS ORDERED: BACLOFEN 10 MG TABLET PO PRN (13:29)
[2019-12-24] MEDS: ONDANSETRON 4 MG/2 ML VIAL IV PRN ×2 (14:57→20:27)
[2019-12-24] MEDS: SODIUM CHLORIDE 0.9% 1,000 ML IV SCH (14:57)
[2019-12-24] MEDS: MORPHINE 4 MG/1 ML VIAL IV PRN ×2 (14:58→20:25)
[2019-12-24] MEDS: INSULIN REGULAR 100 UNIT/ML SUBCUT SCH ×2 (15:40→23:28)
[2019-12-24] MEDS: PROMETHAZINE 25 MG/1 ML VIAL IM PRN (15:45)
[2019-12-24] MEDS: PANTOPRAZOLE 40 MG TABLET PO SCH (15:46)
[2019-12-24] MEDS: PROCHLORPERAZINE 5 MG TABLET PO SCH ×2 (15:47→20:27)
[2019-12-24 15:55] LABS: Apearance,Urine CLOUDY (Clear); Bacteria,Urine Many /HPF (Few); Bilirubin,Urine Negative (Negative); Blood, Urine Small mg/dL (Negative); Glucose,Urine (UA) >=500 mg/dL (Negative); Ketones,Urine 5 mg/dL (Negative); Nitrite,Urine Negative (Negative); Protein,Urine >=500 MG/DL; RBC,Urine 9 /HPF (0-4); Squamous Epithelial Cell,Urine Occasional /HPF (0-10); Urine Color Amber (Yellow); Urine Specific Gravity 1.012 (1.001-1.035); Urine Urobilinogen < 2.0 EU/DL (0.2-1.0); WBC,Urine 677 /HPF (0-6)
[2019-12-24] MEDS ORDERED: INSULIN REGULAR 100 UNIT/ML SUBCUT SCH (16:30)
[2019-12-24] MEDS ORDERED: VANCOMYCIN INJ 1,000 MG in SODIUM CHLORIDE 0.9% 250 ML IV SCH (16:30)
[2019-12-24] MEDS ORDERED: SODIUM CHLORIDE 0.9% 1,500 ML IV ONE (16:38)
[2019-12-24] MEDS ORDERED: hydrALAZINE 20 MG/1 ML VIAL IV PRN (16:40)
[2019-12-24] MEDS ORDERED: cefTRIAXone 2,000 MG in SODIUM CHLORIDE 0.9% 100 ML IV SCH (17:00)
[2019-12-24] MEDS: METOCLOPRAMIDE 10 MG/2 ML VIAL IV SCH (18:17)
[2019-12-24] MEDS: HEPARIN 5,000 UNIT/1 ML VIAL SUBCUT SCH (20:26)
[2019-12-24] MEDS: TIMOLOL 0.5% OPH SOLN 5 ML BOTTLE BOTH EYES SCH (20:27)
[2019-12-24] MEDS: CEFTAROLINE 200 MG in SODIUM CHLORIDE 0.9% 100 ML IV SCH (20:27)
[2019-12-24] MEDS: prednisoLONE ACETATE 1% OPH SUSP 5 ML BOTTLE BOTH EYES SCH (20:27)
[2019-12-24] MEDS: cloNIDine 0.1 MG TABLET PO SCH (20:31)
[2019-12-24] MEDS ORDERED: amLODIPine 5 MG TABLET PO SCH (21:00)
[2019-12-24] MEDS: oxyCODONE/ACETAMINOPHEN 5-325 MG TABLET PO PRN (23:29)
[2019-12-25] MEDS: METOCLOPRAMIDE 10 MG/2 ML VIAL IV SCH ×2 (00:45→06:28)
[2019-12-25] MEDS: INSULIN REGULAR 100 UNIT/ML SUBCUT SCH ×4 (03:38→22:14)
[2019-12-25] MEDS: MORPHINE 4 MG/1 ML VIAL IV PRN (05:05)
[2019-12-25] MEDS: ONDANSETRON 4 MG/2 ML VIAL IV PRN (05:08)
[2019-12-25 05:19] LABS: Basophils % 0.5 % (0.0-0.8); Eosinophils # 0.1 10*3/uL (0.0-0.87); Eosinophils % 1.2 % (0.00-10.9); Hematocrit 27.1 VOL% (35.7-47.0); Hemoglobin 8.3 GM/DL (12.0-16.0); Immature Granulocytes % 0.1 %; Immature Granulocytes Absolute 0.01 #; Lymphocytes # 3.3 10*3/uL (1.4-4.0); Lymphocytes % 42.6 % (21.3-54.2); Mean Corpuscular HGB Conc 30.6 GM/DL (32-36); Mean Corpuscular Volume 78.1 FL (87-102); Mean Platelet Volume 10.3 FL (9.6-12.0); Monocytes % 6.9 % (1.7-12.7); Neutrophils % 48.7 % (38.7-73.9); Platelet Count 287 T/CUMM (130-400); Red Blood Count 3.47 MC/CUMM (3.8-5.5); White Blood Count 7.7 T/CUMM (4-12)
[2019-12-25 05:39] LABS: Albumin 2.5 G/DL (3.4-5.0); Bilirubin,Total 0.4 MG/DL (0.2-1.0); Calcium 7.3 MG/DL (8.5-10.1); Osmolality,Calculated 287.4 MOS/KG (273-304); Total Protein 6.9 G/DL (6.4-8.3)
[2019-12-25] MEDS: SODIUM CHLORIDE 0.9% 1,000 ML IV SCH ×3 (06:25→19:11)
[2019-12-25] MEDS ORDERED: MAGNESIUM SULF RIDER 2 GM in PREMIX 1 EACH IV ONE (07:42)
[2019-12-25] MEDS: cloNIDine 0.1 MG TABLET PO SCH ×2 (08:57→21:08)
[2019-12-25] MEDS: MULTIVITAMIN (CENTRUM) TABLET PO SCH (08:57)
[2019-12-25] MEDS: carvediloL 12.5 MG TABLET PO SCH (08:57)
[2019-12-25] MEDS: PANTOPRAZOLE 40 MG TABLET PO SCH (08:57)
[2019-12-25] MEDS: TIMOLOL 0.5% OPH SOLN 5 ML BOTTLE BOTH EYES SCH ×2 (08:58→21:08)
[2019-12-25] MEDS: PROCHLORPERAZINE 5 MG TABLET PO SCH ×3 (08:58→21:08)
[2019-12-25] MEDS: prednisoLONE ACETATE 1% OPH SUSP 5 ML BOTTLE BOTH EYES SCH ×2 (09:10→21:08)
[2019-12-25] MEDS: PROMETHAZINE 25 MG/1 ML VIAL IM PRN ×3 (09:10→23:19)
[2019-12-25] MEDS: HEPARIN 5,000 UNIT/1 ML VIAL SUBCUT SCH ×2 (09:10→21:09)
[2019-12-25] MEDS ORDERED: METOCLOPRAMIDE 10 MG/2 ML VIAL IV SCH (09:27)
[2019-12-25] MEDS ORDERED: LEVOFLOXACIN 750 MG TABLET PO ONE (10:00)
[2019-12-25] MEDS: CEFTAROLINE 200 MG in SODIUM CHLORIDE 0.9% 100 ML IV SCH (10:57)
[2019-12-25] MEDS ORDERED: AZITHROMYCIN INJ 500 MG in SODIUM CHLORIDE 0.9% 250 ML IV SCH (11:00)
[2019-12-25] MEDS: DOCUSATE/SENNA 50-8.6 MG TABLET PO SCH ×2 (11:28→21:08)
[2019-12-25] MEDS: amLODIPine 5 MG TABLET PO SCH (11:34)
[2019-12-25] MEDS: SODIUM HYPOCHLORITE 0.25% IRRIG 473 ML BOTTLE TOP SCH (14:05)
[2019-12-25] MEDS: oxyCODONE/ACETAMINOPHEN 5-325 MG TABLET PO PRN ×2 (14:09→23:18)
[2019-12-25] MEDS: CHLORHEXIDINE 4% SOLN 118 ML BOTTLE TOP SCH (14:12)
[2019-12-25] MEDS: METOCLOPRAMIDE 10 MG/10 ML UDCUP PO SCH ×2 (16:51→21:09)
[2019-12-25] MEDS ORDERED: KETOROLAC 15 MG/1 ML VIAL IV ONE (20:20)
[2019-12-26] MEDS: SODIUM CHLORIDE 0.9% 1,000 ML IV SCH (02:28)
[2019-12-26] MEDS: INSULIN REGULAR 100 UNIT/ML SUBCUT SCH ×2 (02:45→09:36)
[2019-12-26 05:36] LABS: Basophils # 0.1 10*3/uL (0.0-0.2); Basophils % 0.5 % (0.0-0.8); Eosinophils # 0.2 10*3/uL (0.0-0.87); Eosinophils % 1.3 % (0.00-10.9); Hematocrit 24.9 VOL% (35.7-47.0); Hemoglobin 7.5 GM/DL (12.0-16.0); Immature Granulocytes % 0.4 %; Immature Granulocytes Absolute 0.05 #; Lymphocytes # 2.7 10*3/uL (1.4-4.0); Lymphocytes % 24.2 % (21.3-54.2); Mean Corpuscular HGB Conc 30.1 GM/DL (32-36); Mean Corpuscular Volume 79.6 FL (87-102); Mean Platelet Volume 10.1 FL (9.6-12.0); Monocytes % 6.7 % (1.7-12.7); Neutrophils % 66.9 % (38.7-73.9); Platelet Count 251 T/CUMM (130-400); Red Blood Count 3.13 MC/CUMM (3.8-5.5); White Blood Count 11.1 T/CUMM (4-12)
[2019-12-26 05:51] LABS: Calcium 7.2 MG/DL (8.5-10.1); Osmolality,Calculated 287.7 MOS/KG (273-304)
[2019-12-26] MEDS: oxyCODONE/ACETAMINOPHEN 5-325 MG TABLET PO PRN ×2 (08:07→13:10)
[2019-12-26] MEDS: PROMETHAZINE 25 MG/1 ML VIAL IM PRN (08:09)
[2019-12-26] MEDS: TIMOLOL 0.5% OPH SOLN 5 ML BOTTLE BOTH EYES SCH (08:12)
[2019-12-26] MEDS: MULTIVITAMIN (CENTRUM) TABLET PO SCH (08:12)
[2019-12-26] MEDS: METOCLOPRAMIDE 10 MG/10 ML UDCUP PO SCH ×2 (08:12→12:00)
[2019-12-26] MEDS: prednisoLONE ACETATE 1% OPH SUSP 5 ML BOTTLE BOTH EYES SCH (08:12)
[2019-12-26] MEDS: amLODIPine 5 MG TABLET PO SCH (08:13)
[2019-12-26] MEDS: carvediloL 12.5 MG TABLET PO SCH (08:13)
[2019-12-26] MEDS: cloNIDine 0.1 MG TABLET PO SCH (08:13)
[2019-12-26] MEDS: HEPARIN 5,000 UNIT/1 ML VIAL SUBCUT SCH (08:13)
[2019-12-26] MEDS: DOCUSATE/SENNA 50-8.6 MG TABLET PO SCH (08:13)
[2019-12-26] MEDS: PROCHLORPERAZINE 5 MG TABLET PO SCH (08:13)
[2019-12-26] MEDS: SODIUM HYPOCHLORITE 0.25% IRRIG 473 ML BOTTLE TOP SCH (08:17)
[2019-12-26] MEDS: CHLORHEXIDINE 4% SOLN 118 ML BOTTLE TOP SCH (08:18)
[2019-12-26] MEDS: PANTOPRAZOLE 40 MG TABLET PO SCH (09:28)
[2019-12-26 12:37] VITALS: BP 112/66
[2019-12-26] MEDS ORDERED: INSULIN ASPART PROTAMINE/ASPART 70/30 100 UNIT/ML SUBCUT SCH (13:41)
[2019-12-27] MEDS ORDERED: LEVOFLOXACIN 500 MG TABLET PO SCH (09:00)
[2019-12-28] MEDS ORDERED: CEFUROXIME 250 MG TABLET PO SCH (12:16)
== END 2019-12-26 16:00 | disposition left against medical advice (07) | DRG 74 ==
LOC: N.ED 11:45 → N.EDINP 11:45 → SUATTDRO 13:25 → N.2W 14:23
PROVIDERS: ADMIT Internal Medicine; ATTEND Internal Medicine

== ENCOUNTER 2019-12-30 04:21 | Inpatient (IN) ==
[2019-12-30] MEDS ORDERED: METOCLOPRAMIDE 10 MG/2 ML VIAL IV STA (04:41)
[2019-12-30] MEDS ORDERED: SODIUM CHLORIDE 0.9% 1,000 ML IV STA (04:41)
[2019-12-30] MEDS ORDERED: ONDANSETRON 4 MG/2 ML VIAL IV STA (04:41)
[2019-12-30] MEDS ORDERED: HYDROmorphone 2 MG/1 ML VIAL IV STA (04:41)
[2019-12-30] MEDS ORDERED: PIPERACILLIN/TAZOBACTAM 3,375 MG in SODIUM CHLORIDE 0.9% 100 ML IV STA (04:41)
[2019-12-30] MEDS ORDERED: PANTOPRAZOLE 40 MG VIAL IV STA (04:41)
[2019-12-30 05:26] LABS: Basophils % 0.5 % (0.0-0.8); Eosinophils # 0.1 10*3/uL (0.0-0.87); Hematocrit 46.2 VOL% (35.7-47.0); Hemoglobin 14.2 GM/DL (12.0-16.0); Immature Granulocytes % 0.3 %; Immature Granulocytes Absolute 0.02 #; Lymphocytes # 1.3 10*3/uL (1.4-4.0); Lymphocytes % 21.3 % (21.3-54.2); Mean Corpuscular HGB Conc 30.7 GM/DL (32-36); Mean Corpuscular Volume 77.3 FL (87-102); Mean Platelet Volume 9.5 FL (9.6-12.0); Monocytes % 4.5 % (1.7-12.7); Neutrophils % 72.4 % (38.7-73.9); Platelet Count 238 T/CUMM (130-400); Red Blood Count 5.98 MC/CUMM (3.8-5.5); Red Cell Distribution Width 15.6 % (9.3-17.3)
[2019-12-30 05:46] LABS: Albumin 2.8 G/DL (3.4-5.0); Bilirubin,Total 0.6 MG/DL (0.2-1.0); Calcium 8.7 MG/DL (8.5-10.1); Total Protein 8.6 G/DL (6.4-8.3)
[2019-12-30] MEDS ORDERED: PROMETHAZINE 25 MG/1 ML VIAL IM PRN ×2 (06:04→11:22)
[2019-12-30] MEDS ORDERED: DEXTROSE 50% 25 GM/50 ML SYRINGE IV PRN (06:14)
[2019-12-30] MEDS ORDERED: GLUCAGON 1 MG VIAL IM PRN (06:14)
[2019-12-30] MEDS ORDERED: LEVOFLOXACIN 500 MG TABLET PO ONE (06:30)
[2019-12-30] MEDS: SODIUM CHLORIDE 0.9% 1,000 ML IV SCH ×2 (07:30→22:31)
[2019-12-30 07:40] LABS: Amorphous Crystals,Urine Few /HPF (Few); Apearance,Urine CLEAR (Clear); Bacteria,Urine Occasional /HPF (Few); Bilirubin,Urine Negative (Negative); Blood, Urine Small mg/dL (Negative); Glucose,Urine (UA) >=500 mg/dL (Negative); Ketones,Urine 5 mg/dL (Negative); Mucus,Urine Occasional /LPF (Occasional); Nitrite,Urine Negative (Negative); Protein,Urine 100 MG/DL; RBC,Urine 4 /HPF (0-4); Squamous Epithelial Cell,Urine Occasional /HPF (0-10); Urine Color Straw (Yellow); Urine Specific Gravity 1.008 (1.001-1.035); Urine Urobilinogen < 2.0 EU/DL (0.2-1.0); WBC,Urine 2 /HPF (0-6)
[2019-12-30] MEDS: INSULIN REGULAR 100 UNIT/ML SUBCUT SCH ×4 (07:55→21:16)
[2019-12-30] MEDS: LEVOFLOXACIN 500 MG TABLET PO SCH (08:29)
[2019-12-30] MEDS ORDERED: ENOXAPARIN 30 MG/0.3 ML SYRINGE SUBCUT SCH (09:00)
[2019-12-30] MEDS: ONDANSETRON 4 MG/2 ML VIAL IV PRN ×2 (10:42→21:09)
[2019-12-30] MEDS ORDERED: oxyCODONE/ACETAMINOPHEN 5-325 MG TABLET PO PRN (11:37)
[2019-12-30] MEDS ORDERED: DAPTOmycin 500 MG VIAL IV SCH (12:00)
[2019-12-30] MEDS: cloNIDine 0.1 MG TABLET PO SCH ×2 (12:07→21:08)
[2019-12-30] MEDS: MORPHINE 4 MG/1 ML VIAL IV PRN ×2 (12:07→17:45)
[2019-12-30] MEDS: carvediloL 12.5 MG TABLET PO SCH (12:07)
[2019-12-30] MEDS: METOCLOPRAMIDE 10 MG/2 ML VIAL IV SCH ×2 (12:08→17:01)
[2019-12-30] MEDS: HEPARIN 5,000 UNIT/1 ML VIAL SUBCUT SCH ×2 (12:08→22:30)
[2019-12-30] MEDS: amLODIPine 5 MG TABLET PO SCH (21:08)
[2019-12-30] MEDS: prednisoLONE ACETATE 1% OPH SUSP 5 ML BOTTLE BOTH EYES SCH (21:18)
[2019-12-30] MEDS: TIMOLOL 0.5% OPH SOLN 5 ML BOTTLE BOTH EYES SCH (21:18)
[2019-12-31] MEDS: INSULIN REGULAR 100 UNIT/ML SUBCUT SCH ×4 (00:05→21:34)
[2019-12-31] MEDS: METOCLOPRAMIDE 10 MG/2 ML VIAL IV SCH ×4 (00:09→17:43)
[2019-12-31] MEDS: MORPHINE 4 MG/1 ML VIAL IV PRN ×3 (00:11→20:26)
[2019-12-31 08:00] LABS: Albumin 2.1 G/DL (3.4-5.0); Bilirubin,Total 0.4 MG/DL (0.2-1.0); Calcium 7.6 MG/DL (8.5-10.1); Osmolality,Calculated 282.8 MOS/KG (273-304); Total Protein 6.8 G/DL (6.4-8.3)
[2019-12-31 08:21] LABS: Basophils % 0.5 % (0.0-0.8); Eosinophils # 0.2 10*3/uL (0.0-0.87); Eosinophils % 1.7 % (0.00-10.9); Hematocrit 25.6 VOL% (35.7-47.0); Immature Granulocytes % 0.3 %; Immature Granulocytes Absolute 0.03 #; Lymphocytes # 2.7 10*3/uL (1.4-4.0); Lymphocytes % 31.7 % (21.3-54.2); Mean Corpuscular HGB Conc 30.1 GM/DL (32-36); Mean Corpuscular Volume 78.3 FL (87-102); Monocytes % 7.8 % (1.7-12.7); Red Cell Distribution Width 15.4 % (9.3-17.3)
[2019-12-31 08:22] LABS: Platelet Count 364 T/CUMM (130-400); Red Blood Count 3.27 MC/CUMM (3.8-5.5); White Blood Count 8.6 T/CUMM (4-12)
[2019-12-31 08:23] LABS: Hemoglobin 7.7 GM/DL (12.0-16.0)
[2019-12-31] MEDS: carvediloL 12.5 MG TABLET PO SCH (09:04)
[2019-12-31] MEDS: cloNIDine 0.1 MG TABLET PO SCH ×2 (09:04→20:32)
[2019-12-31] MEDS: ONDANSETRON 4 MG/2 ML VIAL IV PRN ×2 (09:07→20:30)
[2019-12-31] MEDS: prednisoLONE ACETATE 1% OPH SUSP 5 ML BOTTLE BOTH EYES SCH ×2 (10:05→20:37)
[2019-12-31] MEDS: TIMOLOL 0.5% OPH SOLN 5 ML BOTTLE BOTH EYES SCH ×2 (10:05→20:37)
[2019-12-31] MEDS: HEPARIN 5,000 UNIT/1 ML VIAL SUBCUT SCH (10:11)
[2019-12-31] MEDS: SODIUM CHLORIDE 0.9% 1,000 ML IV SCH (11:55)
[2019-12-31] MEDS ORDERED: BACLOFEN 10 MG TABLET PO PRN (14:48)
[2019-12-31] MEDS ORDERED: SODIUM CHLORIDE 0.9% 1,000 ML IV PRN (14:50)
[2019-12-31] MEDS: INSULIN GLARGINE 100 UNIT/ML SUBCUT SCH (17:46)
[2019-12-31] MEDS: amLODIPine 5 MG TABLET PO SCH (20:32)
[2020-01-01] MEDS ORDERED: DEXTROSE 10% 250 ML IV PRN (00:14)
[2020-01-01] MEDS: MORPHINE 4 MG/1 ML VIAL IV PRN ×2 (00:45→03:53)
[2020-01-01] MEDS: METOCLOPRAMIDE 10 MG/2 ML VIAL IV SCH ×3 (01:06→12:27)
[2020-01-01 03:39] LABS: Basophils # 0.1 10*3/uL (0.0-0.2); Basophils % 0.7 % (0.0-0.8); Eosinophils # 0.3 10*3/uL (0.0-0.87); Eosinophils % 2.7 % (0.00-10.9); Hemoglobin 8.4 GM/DL (12.0-16.0); Immature Granulocytes % 0.5 %; Immature Granulocytes Absolute 0.05 #; Lymphocytes # 3.5 10*3/uL (1.4-4.0); Lymphocytes % 36.6 % (21.3-54.2); Mean Corpuscular Volume 78.4 FL (87-102); Mean Platelet Volume 8.9 FL (9.6-12.0); Monocytes % 7.9 % (1.7-12.7); Neutrophils % 51.6 % (38.7-73.9); Platelet Count 446 T/CUMM (130-400); Red Blood Count 3.57 MC/CUMM (3.8-5.5); Red Cell Distribution Width 15.3 % (9.3-17.3); White Blood Count 9.7 T/CUMM (4-12)
[2020-01-01 03:59] LABS: Calcium 8.1 MG/DL (8.5-10.1)
[2020-01-01] MEDS ORDERED: DEXTROSE 5% NACL 0.9% 1,000 ML IV SCH (05:00)
[2020-01-01] MEDS: SODIUM CHLORIDE 0.9% 1,000 ML IV SCH (05:58)
[2020-01-01] MEDS: INSULIN REGULAR 100 UNIT/ML SUBCUT SCH ×2 (08:27→12:26)
[2020-01-01] MEDS: cloNIDine 0.1 MG TABLET PO SCH (08:28)
[2020-01-01] MEDS: LEVOFLOXACIN 500 MG TABLET PO SCH (08:28)
[2020-01-01] MEDS: carvediloL 12.5 MG TABLET PO SCH (08:28)
[2020-01-01] MEDS ORDERED: LEVOFLOXACIN 500 MG TABLET PO SCH (09:00)
[2020-01-01] MEDS: prednisoLONE ACETATE 1% OPH SUSP 5 ML BOTTLE BOTH EYES SCH (10:48)
[2020-01-01] MEDS: TIMOLOL 0.5% OPH SOLN 5 ML BOTTLE BOTH EYES SCH (10:48)
[2020-01-01] MEDS: INSULIN GLARGINE 100 UNIT/ML SUBCUT SCH (10:48)
[2020-01-01 12:02] VITALS: BP 185/110
== END 2020-01-01 15:30 | disposition home health service (06) | DRG 74 ==
LOC: EDUNIT# → EDBD → N.ED 04:21 → N.EDINP 06:04 → N.2W 08:05
PROVIDERS: ADMIT Internal Medicine; ATTEND Internal Medicine

== ENCOUNTER 2020-02-01 18:18 | Inpatient (IN) ==
[2020-02-01] MEDS ORDERED: SODIUM CHLORIDE 0.9% 1,000 ML IV STA (18:45)
[2020-02-01] MEDS ORDERED: PANTOPRAZOLE 40 MG VIAL IV STA (18:45)
[2020-02-01] MEDS ORDERED: ONDANSETRON 4 MG/2 ML VIAL IV STA (18:45)
[2020-02-01] MEDS ORDERED: METOCLOPRAMIDE 10 MG/2 ML VIAL IV STA (18:45)
[2020-02-01 19:03] LABS: Basophils # 0.1 10*3/uL (0.0-0.2); Basophils % 0.7 % (0.0-0.8); Eosinophils % 0.1 % (0.00-10.9); Hematocrit 27.6 VOL% (35.7-47.0); Hemoglobin 8.5 GM/DL (12.0-16.0); Immature Granulocytes % 0.4 %; Immature Granulocytes Absolute 0.03 #; Lymphocytes # 1.1 10*3/uL (1.4-4.0); Lymphocytes % 14.1 % (21.3-54.2); Mean Corpuscular HGB Conc 30.8 GM/DL (32-36); Mean Corpuscular Volume 76.5 FL (87-102); Mean Platelet Volume 9.7 FL (9.6-12.0); Monocytes % 2.3 % (1.7-12.7); Neutrophils % 82.4 % (38.7-73.9); Platelet Count 350 T/CUMM (130-400); Red Blood Count 3.61 MC/CUMM (3.8-5.5); Red Cell Distribution Width 16.1 % (9.3-17.3); White Blood Count 8.1 T/CUMM (4-12)
[2020-02-01] MEDS ORDERED: HYDROmorphone 2 MG/1 ML VIAL IV ONE (19:20)
[2020-02-01] MEDS ORDERED: hydrALAZINE 20 MG/1 ML VIAL IV STA ×2 (19:21→20:54)
[2020-02-01] MEDS ORDERED: hydrALAZINE 20 MG/1 ML VIAL ONE (19:21)
[2020-02-01] MEDS ORDERED: HYDROmorphone 2 MG/1 ML VIAL ONE (19:22)
[2020-02-01 19:45] LABS: ABG Oxygen Saturation 98.8 % (95-100); ABG PCO2 27.3 MM HG (35-48); ABG PH 7.375 (7.35-7.45); ABG TCO2 14.3 MMOL/L (23-27); Allen Test Positive; Pt O2 Delivery Device Room Air
[2020-02-01 20:02] LABS: Alanine Aminotransferase 12 U/L (13-56); Albumin 3.1 G/DL (3.4-5.0); Alkaline Phosphatase 195 U/L (45-117); Amylase 68 U/L (25-115); Aspartate Amino Transferase 9 U/L (0-37); Bilirubin,Total < 0.39 MG/DL (0.2-1.0); Blood Urea Nitrogen 48 MG/DL (7-18); Calcium 8.9 MG/DL (8.5-10.1); Estimated Glom Filtration Rate 11 ML/MIN; Glucose 340 MG/DL (74-106); Osmolality,Calculated 298.8 MOS/KG (273-304)
[2020-02-01] MEDS ORDERED: INSULIN REGULAR 100 UNIT/ML IV STA (20:07)
[2020-02-01 20:08] LABS: Apearance,Urine CLEAR (Clear); Bacteria,Urine Occasional /HPF (Few); Bilirubin,Urine Negative (Negative); Blood, Urine Negative (Negative); Glucose,Urine (UA) >=500 mg/dL (Negative); Ketones,Urine 5 mg/dL (Negative); Nitrite,Urine Negative (Negative); Protein,Urine >=500 MG/DL; RBC,Urine 1 /HPF (0-4); Squamous Epithelial Cell,Urine Occasional /HPF (0-10); Urine Color Straw (Yellow); Urine Specific Gravity 1.011 (1.001-1.035); Urine Urobilinogen < 2.0 EU/DL (0.2-1.0); WBC,Urine 3 /HPF (0-6)
[2020-02-01] MEDS ORDERED: PROMETHAZINE 25 MG/1 ML VIAL ONE (20:52)
[2020-02-01] MEDS ORDERED: PROMETHAZINE 25 MG/1 ML VIAL IM STA (20:54)
[2020-02-01] MEDS ORDERED: diphenhydrAMINE CAP 25 MG CAPSULE PO PRN (20:55)
[2020-02-01] MEDS ORDERED: NICOTINE 21 MG/24 HR PATCH TRANSDERM PRN (20:55)
[2020-02-01] MEDS ORDERED: traZODone 50 MG TABLET PO PRN (20:55)
[2020-02-01] MEDS ORDERED: ACETAMINOPHEN 325 MG TABLET PO PRN (20:55)
[2020-02-01] MEDS ORDERED: ALUMINUM/MAGNES/SIMETH MAX STR 30 ML UDCUP PO PRN (20:55)
[2020-02-01] MEDS ORDERED: DEXTROSE 50% 25 GM/50 ML VIAL IV PRN ×2 (21:41→22:21)
[2020-02-01] MEDS ORDERED: GLUCAGON 1 MG VIAL IM PRN ×2 (21:41→22:21)
[2020-02-01] MEDS: LACTATED RINGERS 1,000 ML IV SCH (22:20)
[2020-02-01] MEDS ORDERED: Timolol Maleate [Timolol Maleate] 1 DROP BOTH EYES SCH (22:21)
[2020-02-01] MEDS ORDERED: PROMETHAZINE 25 MG TABLET PO PRN (22:21)
[2020-02-01] MEDS ORDERED: INSULIN REGULAR 100 UNIT/ML SUBCUT SCH (22:21)
[2020-02-01] MEDS ORDERED: PREDNISOLONE ACETATE BOTH EYES SCH (22:21)
[2020-02-01] MEDS ORDERED: amLODIPine 5 MG TABLET PO SCH (22:21)
[2020-02-01] MEDS ORDERED: LACTATED RINGERS 1,000 ML IV ONE (22:31)
[2020-02-01] MEDS: METOCLOPRAMIDE 10 MG TABLET PO SCH (22:49)
[2020-02-01] MEDS: AMITRIPTYLINE 25 MG TABLET PO SCH (22:49)
[2020-02-01] MEDS: cloNIDine 0.1 MG TABLET PO SCH (22:49)
[2020-02-01] MEDS: INSULIN LISPRO 100 UNIT/ML SUBCUT SCH (23:16)
[2020-02-01] MEDS: ONDANSETRON 4 MG/2 ML VIAL IV PRN (23:17)
[2020-02-01 23:21] LABS: Calcium 8.4 MG/DL (8.5-10.1); Osmolality,Calculated 304.1 MOS/KG (273-304)
[2020-02-02] MEDS: hydrALAZINE 20 MG/1 ML VIAL IV PRN ×2 (00:10→09:04)
[2020-02-02] MEDS: MORPHINE 4 MG/1 ML VIAL IV PRN ×2 (00:13→07:39)
[2020-02-02] MEDS: TIMOLOL 0.5% OPH SOLN 5 ML BOTTLE BOTH EYES SCH ×3 (00:58→21:04)
[2020-02-02] MEDS: INSULIN LISPRO 100 UNIT/ML SUBCUT SCH ×6 (03:47→23:39)
[2020-02-02] MEDS: LACTATED RINGERS 1,000 ML IV SCH ×4 (04:27→23:43)
[2020-02-02 05:25] LABS: Basophils % 0.4 % (0.0-0.8); Hematocrit 27.4 VOL% (35.7-47.0); Hemoglobin 8.3 GM/DL (12.0-16.0); Immature Granulocytes % 0.3 %; Immature Granulocytes Absolute 0.03 #; Lymphocytes # 1.6 10*3/uL (1.4-4.0); Lymphocytes % 17.6 % (21.3-54.2); Mean Corpuscular HGB Conc 30.3 GM/DL (32-36); Mean Corpuscular Volume 76.1 FL (87-102); Mean Platelet Volume 9.6 FL (9.6-12.0); Monocytes % 4.6 % (1.7-12.7); Neutrophils % 77.1 % (38.7-73.9); Platelet Count 342 T/CUMM (130-400); Red Cell Distribution Width 16.5 % (9.3-17.3); White Blood Count 8.9 T/CUMM (4-12)
[2020-02-02 05:51] LABS: Calcium 8.7 MG/DL (8.5-10.1); Osmolality,Calculated 297.3 MOS/KG (273-304)
[2020-02-02] MEDS ORDERED: INSULIN LISPRO 100 UNIT/ML SUBCUT SCH (07:30)
[2020-02-02 07:33] LABS: Calcium 8.7 MG/DL (8.5-10.1)
[2020-02-02] MEDS: ONDANSETRON 4 MG/2 ML VIAL IV PRN (07:37)
[2020-02-02] MEDS ORDERED: carvediloL 12.5 MG TABLET PO SCH ×2 (08:00→14:15)
[2020-02-02] MEDS: METOCLOPRAMIDE 10 MG TABLET PO SCH ×4 (09:00→21:03)
[2020-02-02] MEDS: prednisoLONE ACETATE 1% OPH SUSP 5 ML BOTTLE BOTH EYES SCH ×2 (09:07→21:04)
[2020-02-02] MEDS ORDERED: DAPTOmycin 500 MG VIAL IV SCH (09:30)
[2020-02-02] MEDS ORDERED: PROCHLORPERAZINE 25 MG SUPP RECTAL ONE (10:30)
[2020-02-02] MEDS ORDERED: PROMETHAZINE INJ 25 MG in SODIUM CHLORIDE 0.9% 50 ML IV ONE (10:30)
[2020-02-02 11:17] LABS: Calcium 8.8 MG/DL (8.5-10.1); Osmolality,Calculated 295.5 MOS/KG (273-304)
[2020-02-02] MEDS: cloNIDine 0.1 MG TABLET PO SCH ×2 (12:02→21:02)
[2020-02-02] MEDS ORDERED: amLODIPine 10 MG TABLET PO ONE (14:15)
[2020-02-02] MEDS ORDERED: LABETALOL 20 MG/4 ML SYRINGE IV ONE (14:16)
[2020-02-02] MEDS ORDERED: BISACODYL 10 MG SUPP RECTAL ONE (14:21)
[2020-02-02] MEDS: PROMETHAZINE INJ 25 MG in SODIUM CHLORIDE 0.9% 50 ML IV SCH ×2 (14:55→21:01)
[2020-02-02] MEDS: MULTIVITAMIN (CENTRUM) TABLET PO SCH (14:55)
[2020-02-02] MEDS ORDERED: amLODIPine 5 MG TABLET PO SCH (21:00)
[2020-02-02] MEDS: carvediloL 12.5 MG TABLET PO SCH (21:03)
[2020-02-02] MEDS: AMITRIPTYLINE 25 MG TABLET PO SCH (21:03)
[2020-02-03 04:21] LABS: Basophils # 0.1 10*3/uL (0.0-0.2); Basophils % 0.6 % (0.0-0.8); Eosinophils # 0.1 10*3/uL (0.0-0.87); Eosinophils % 0.8 % (0.00-10.9); Hematocrit 23.1 VOL% (35.7-47.0); Hemoglobin 6.7 GM/DL (12.0-16.0); Immature Granulocytes % 0.3 %; Immature Granulocytes Absolute 0.03 #; Lymphocytes # 4.1 10*3/uL (1.4-4.0); Lymphocytes % 47.6 % (21.3-54.2); Mean Corpuscular Volume 79.4 FL (87-102); Mean Platelet Volume 10.3 FL (9.6-12.0); Monocytes % 7.3 % (1.7-12.7); Neutrophils % 43.4 % (38.7-73.9); Platelet Count 276 T/CUMM (130-400); Red Blood Count 2.91 MC/CUMM (3.8-5.5); Red Cell Distribution Width 16.5 % (9.3-17.3); White Blood Count 8.6 T/CUMM (4-12)
[2020-02-03] MEDS: PROMETHAZINE INJ 25 MG in SODIUM CHLORIDE 0.9% 50 ML IV SCH ×2 (04:38→09:33)
[2020-02-03] MEDS: INSULIN LISPRO 100 UNIT/ML SUBCUT SCH ×3 (04:38→13:04)
[2020-02-03 04:46] LABS: Calcium 7.8 MG/DL (8.5-10.1); Osmolality,Calculated 286.5 MOS/KG (273-304)
[2020-02-03] MEDS ORDERED: MAGNESIUM SULF RIDER 2 GM in PREMIX 1 EACH IV ONE (07:25)
[2020-02-03] MEDS ORDERED: PANTOPRAZOLE 40 MG TABLET PO SCH (09:00)
[2020-02-03] MEDS: prednisoLONE ACETATE 1% OPH SUSP 5 ML BOTTLE BOTH EYES SCH (09:22)
[2020-02-03] MEDS: TIMOLOL 0.5% OPH SOLN 5 ML BOTTLE BOTH EYES SCH (09:22)
[2020-02-03] MEDS: METOCLOPRAMIDE 10 MG TABLET PO SCH ×2 (09:32→13:05)
[2020-02-03 12:11] VITALS: BP 141/79
[2020-02-03] MEDS: carvediloL 12.5 MG TABLET PO SCH (13:04)
[2020-02-03] MEDS: MULTIVITAMIN (CENTRUM) TABLET PO SCH (13:05)
[2020-02-03] MEDS: cloNIDine 0.1 MG TABLET PO SCH (13:05)
== END 2020-02-03 15:59 | disposition left against medical advice (07) | DRG 74 ==
LOC: N.ED 18:18 → SUATTDRO 20:55 → N.EDINP 20:55 → N.TELEN 21:13
PROVIDERS: ADMIT Internal Medicine; ATTEND Internal Medicine

== ENCOUNTER 2020-02-29 11:36 | Inpatient (IN) ==
[2020-02-29] MEDS ORDERED: PANTOPRAZOLE 40 MG VIAL IV STA (12:13)
[2020-02-29] MEDS ORDERED: SODIUM CHLORIDE 0.9% 1,000 ML IV STA (12:13)
[2020-02-29] MEDS ORDERED: METOCLOPRAMIDE 10 MG/2 ML VIAL IV STA (12:13)
[2020-02-29] MEDS ORDERED: HYDROmorphone 2 MG/1 ML VIAL IV STA (12:13)
[2020-02-29] MEDS ORDERED: ONDANSETRON 4 MG/2 ML VIAL IV STA (12:13)
[2020-02-29 12:31] LABS: Basophils # 0.1 10*3/uL (0.0-0.2); Basophils % 0.5 % (0.0-0.8); Eosinophils % 0.1 % (0.00-10.9); Hematocrit 28.9 VOL% (35.7-47.0); Hemoglobin 8.7 GM/DL (12.0-16.0); Immature Granulocytes % 0.4 %; Immature Granulocytes Absolute 0.04 #; Lymphocytes # 1.3 10*3/uL (1.4-4.0); Mean Corpuscular HGB Conc 30.1 GM/DL (32-36); Mean Corpuscular Volume 77.7 FL (87-102); Monocytes % 1.4 % (1.7-12.7); Neutrophils % 85.6 % (38.7-73.9); Platelet Count 437 T/CUMM (130-400); Red Blood Count 3.72 MC/CUMM (3.8-5.5); Red Cell Distribution Width 15.4 % (9.3-17.3); White Blood Count 11.1 T/CUMM (4-12)
[2020-02-29 12:42] LABS: Alanine Aminotransferase 22 U/L (13-56); Albumin 3.2 G/DL (3.4-5.0); Alkaline Phosphatase 181 U/L (45-117); Amylase 64 U/L (25-115); Aspartate Amino Transferase 20 U/L (0-37); Bilirubin,Total < 0.39 MG/DL (0.2-1.0); Blood Urea Nitrogen 44 MG/DL (7-18); Calcium 8.8 MG/DL (8.5-10.1); Estimated Glom Filtration Rate 13 ML/MIN; Glucose 392 MG/DL (74-106); Osmolality,Calculated 301.7 MOS/KG (273-304); Total Protein 8.9 G/DL (6.4-8.3); Troponin I < 0.015 NG/ML (0.00-0.045)
[2020-02-29 12:43] LABS: ABG Base Excess -7.1 MMOL/L (-2.5-2.5); ABG HCO3 17.8 MMOL/L (20-26); ABG Oxygen Saturation 98.7 % (95-100); ABG PCO2 33.1 MM HG (35-48); ABG PH 7.348 (7.35-7.45); ABG PO2 154.9 MM HG (80-95); ABG TCO2 18.8 MMOL/L (23-27)
[2020-02-29] MEDS ORDERED: INSULIN REGULAR 100 UNIT/ML IV STA (12:48)
[2020-02-29] MEDS ORDERED: hydrALAZINE 20 MG/1 ML VIAL IV STA (12:49)
[2020-02-29] MEDS ORDERED: PANTOPRAZOLE 40 MG VIAL IV SCH (13:30)
[2020-02-29] MEDS ORDERED: SCOPOLAMINE 1.5 MG PATCH TRANSDERM ONE (13:45)
[2020-02-29] MEDS ORDERED: GLUCAGON 1 MG VIAL IM PRN (13:48)
[2020-02-29] MEDS ORDERED: DEXTROSE 50% 25 GM/50 ML VIAL IV PRN (13:48)
[2020-02-29] MEDS ORDERED: niCARdipine INJ 50 MG in SODIUM CHLORIDE 0.9% 230 ML IV SCH (14:00)
[2020-02-29] MEDS ORDERED: ONDANSETRON 4 MG/2 ML VIAL IV ONE (14:27)
[2020-02-29] MEDS ORDERED: MAGNESIUM SULF RIDER 2 GM in PREMIX 1 EACH IV PRN (14:33)
[2020-02-29] MEDS ORDERED: MAGNESIUM SULF RIDER 4 GM in PREMIX 1 EACH IV PRN (14:33)
[2020-02-29] MEDS: MORPHINE 4 MG/1 ML VIAL IV PRN ×3 (15:14→23:49)
[2020-02-29] MEDS: HEPARIN 5,000 UNIT/1 ML VIAL SUBCUT SCH ×2 (15:25→22:49)
[2020-02-29] MEDS: SODIUM CHLORIDE 0.9% 1,000 ML IV SCH (15:27)
[2020-02-29] MEDS ORDERED: VANCOMYCIN INJ 1,500 MG in SODIUM CHLORIDE 0.9% 500 ML IV ONE (16:00)
[2020-02-29] MEDS ORDERED: LABETALOL 20 MG/4 ML SYRINGE IV PRN (16:28)
[2020-02-29] MEDS ORDERED: ONDANSETRON 4 MG/2 ML VIAL IV PRN (16:31)
[2020-02-29] MEDS ORDERED: cloNIDine 0.1 MG/24 HR PATCH TRANSDERM SCH (17:00)
[2020-02-29] MEDS: INSULIN REGULAR 100 UNIT/ML SUBCUT SCH ×2 (17:29→23:33)
[2020-02-29] MEDS ORDERED: VANCOMYCIN INJ 1,000 MG in SODIUM CHLORIDE 0.9% 250 ML IV PRN (18:00)
[2020-02-29] MEDS ORDERED: IRON DEXTRAN 25 MG in SYRINGE 1 EACH IV ONE (20:00)
[2020-02-29] MEDS: PROMETHAZINE INJ 25 MG in SODIUM CHLORIDE 0.9% 50 ML IV PRN (20:14)
[2020-02-29] MEDS: hydrALAZINE 20 MG/1 ML VIAL IV PRN (21:40)
[2020-02-29] MEDS: AZITHROMYCIN INJ 250 MG in SODIUM CHLORIDE 0.9% 250 ML IV SCH (21:50)
[2020-02-29] MEDS: PANTOPRAZOLE 40 MG VIAL IV SCH (22:12)
[2020-02-29] MEDS ORDERED: IRON DEXTRAN IV ONE (23:00)
[2020-02-29] MEDS ORDERED: SODIUM CHLORIDE 0.9% IV ONE (23:00)
[2020-02-29] MEDS: METOCLOPRAMIDE 10 MG/2 ML VIAL IV SCH (23:48)
[2020-03-01] MEDS: INSULIN REGULAR 100 UNIT/ML SUBCUT SCH ×3 (05:43→18:28)
[2020-03-01] MEDS: HEPARIN 5,000 UNIT/1 ML VIAL SUBCUT SCH ×3 (05:43→21:41)
[2020-03-01] MEDS: METOCLOPRAMIDE 10 MG/2 ML VIAL IV SCH ×3 (05:44→18:27)
[2020-03-01] MEDS: hydrALAZINE 20 MG/1 ML VIAL IV PRN (05:44)
[2020-03-01] MEDS: MORPHINE 4 MG/1 ML VIAL IV PRN ×3 (05:44→21:42)
[2020-03-01] MEDS: PROMETHAZINE INJ 25 MG in SODIUM CHLORIDE 0.9% 50 ML IV PRN (05:45)
[2020-03-01 06:01] LABS: Basophils % 0.4 % (0.0-0.8); Eosinophils # 0.1 10*3/uL (0.0-0.87); Hematocrit 24.8 VOL% (35.7-47.0); Hemoglobin 7.5 GM/DL (12.0-16.0); Immature Granulocytes % 0.3 %; Immature Granulocytes Absolute 0.03 #; Lymphocytes # 3.6 10*3/uL (1.4-4.0); Lymphocytes % 33.4 % (21.3-54.2); Mean Corpuscular HGB Conc 30.2 GM/DL (32-36); Mean Corpuscular Volume 78.7 FL (87-102); Mean Platelet Volume 9.8 FL (9.6-12.0); Monocytes % 5.9 % (1.7-12.7); Platelet Count 430 T/CUMM (130-400); Red Blood Count 3.15 MC/CUMM (3.8-5.5); Red Cell Distribution Width 15.4 % (9.3-17.3); White Blood Count 10.8 T/CUMM (4-12)
[2020-03-01 06:24] LABS: Apearance,Urine CLEAR (Clear); Bacteria,Urine Occasional /HPF (Few); Bilirubin,Urine Negative (Negative); Blood, Urine Negative (Negative); Glucose,Urine (UA) 150 mg/dL (Negative); Ketones,Urine Negative (Negative); Mucus,Urine Occasional /LPF (Occasional); Nitrite,Urine Negative (Negative); Protein,Urine >=500 MG/DL; RBC,Urine 3 /HPF (0-4); Squamous Epithelial Cell,Urine Occasional /HPF (0-10); Urine Color Straw (Yellow); Urine Urobilinogen < 2.0 EU/DL (0.2-1.0); WBC,Urine 6 /HPF (0-6)
[2020-03-01 06:38] LABS: % Iron Saturation 146.9 % (18-50); Ferritin 543.6 ng/ml (8-252)
[2020-03-01 06:40] LABS: Barbiturates Screen,Urine Negative (Negative); Benzodiazepines Screen,Urine Negative (Negative); Cannabinoid Screen,Urine Positive (Negative); Opiate Screen,Urine Positive (Negative); Phencyclidine Screen,Urine Negative (Negative)
[2020-03-01 06:46] LABS: Albumin 2.7 G/DL (3.4-5.0); Bilirubin,Total 0.4 MG/DL (0.2-1.0); Calcium 8.1 MG/DL (8.5-10.1); Osmolality,Calculated 289.3 MOS/KG (273-304); Risk Ratio 3.05; Total Protein 7.4 G/DL (6.4-8.3); VLDL CHOLESTEROL 22.6 MG/DL
[2020-03-01 06:59] LABS: Folate 18.3 NG/ML (5.4-24.0)
[2020-03-01] MEDS ORDERED: BACLOFEN 10 MG TABLET PO PRN (07:08)
[2020-03-01] MEDS: SODIUM CHLORIDE 0.9% 1,000 ML IV SCH ×2 (07:21→08:26)
[2020-03-01] MEDS: MULTIVITAMIN (CENTRUM) TABLET PO SCH (08:26)
[2020-03-01] MEDS: carvediloL 6.25 MG TABLET PO SCH ×2 (08:26→21:41)
[2020-03-01] MEDS: PANTOPRAZOLE 40 MG VIAL IV SCH ×2 (08:26→21:42)
[2020-03-01] MEDS: AZITHROMYCIN INJ 250 MG in SODIUM CHLORIDE 0.9% 250 ML IV SCH (21:41)
[2020-03-01] MEDS: amLODIPine 5 MG TABLET PO SCH (22:32)
[2020-03-02] MEDS: METOCLOPRAMIDE 10 MG/2 ML VIAL IV SCH ×6 (01:08→23:54)
[2020-03-02] MEDS: INSULIN REGULAR 100 UNIT/ML SUBCUT SCH ×5 (01:08→23:54)
[2020-03-02] MEDS ORDERED: DEXTROSE 10% 250 ML BAG IV PRN (04:30)
[2020-03-02 05:31] LABS: Total Protein (Chem) 8.5 G/DL (6.4-8.3)
[2020-03-02] MEDS: MORPHINE 4 MG/1 ML VIAL IV PRN ×2 (05:45→21:58)
[2020-03-02] MEDS: HEPARIN 5,000 UNIT/1 ML VIAL SUBCUT SCH ×3 (05:45→21:59)
[2020-03-02 06:03] LABS: Basophils # 0.1 10*3/uL (0.0-0.2); Basophils % 0.5 % (0.0-0.8); Eosinophils # 0.4 10*3/uL (0.0-0.87); Eosinophils % 2.7 % (0.00-10.9); Hematocrit 25.5 VOL% (35.7-47.0); Hemoglobin 7.7 GM/DL (12.0-16.0); Immature Granulocytes % 0.3 %; Immature Granulocytes Absolute 0.04 #; Lymphocytes # 3.9 10*3/uL (1.4-4.0); Lymphocytes % 29.2 % (21.3-54.2); Mean Corpuscular HGB Conc 30.2 GM/DL (32-36); Mean Corpuscular Volume 79.7 FL (87-102); Monocytes % 5.3 % (1.7-12.7); Platelet Count 434 T/CUMM (130-400); Red Cell Distribution Width 15.7 % (9.3-17.3); White Blood Count 13.3 T/CUMM (4-12)
[2020-03-02 06:52] LABS: Albumin 2.8 G/DL (3.4-5.0); Alkaline Phosphatase 166 U/L (45-117); Aspartate Amino Transferase 15 U/L (0-37); Bilirubin,Total < 0.39 MG/DL (0.2-1.0); Blood Urea Nitrogen 28 MG/DL (7-18); Calcium 8.3 MG/DL (8.5-10.1); Estimated Glom Filtration Rate 14 ML/MIN; Glucose 113 MG/DL (74-106); Osmolality,Calculated 283.5 MOS/KG (273-304); Total Protein 7.6 G/DL (6.4-8.3)
[2020-03-02 08:04] LABS: Alanine Aminotransferase < 9 U/L (13-56)
[2020-03-02] MEDS: MULTIVITAMIN (CENTRUM) TABLET PO SCH (08:33)
[2020-03-02] MEDS: SODIUM CHLORIDE 0.9% 1,000 ML IV SCH ×2 (08:33→18:16)
[2020-03-02] MEDS: PANTOPRAZOLE 40 MG VIAL IV SCH ×2 (08:33→21:59)
[2020-03-02] MEDS: carvediloL 6.25 MG TABLET PO SCH ×2 (08:33→21:59)
[2020-03-02 08:53] LABS: Albumin (SPE) 4.4 G/DL (3.2-5.3); Albumin (SPE) Rel % 51.5 %; Alpha 1 (SPE) 0.2 G/DL (0.1-0.4); Alpha 1 (SPE) Rel % 2.6 %; Alpha 2 (SPE) 1.2 G/DL (0.4-1.0); Alpha 2 (SPE) Rel % 14.3 %; Beta (SPE) 0.8 G/DL (0.5-1.1); Beta (SPE) Rel % 9.2 %; Gamma (SPE) 1.9 G/DL (0.7-1.7); Gamma (SPE) Rel % 22.4 %
[2020-03-02] MEDS ORDERED: DEXTROSE 50% 25 GM/50 ML VIAL IV PRN (11:56)
[2020-03-02] MEDS ORDERED: GLUCAGON 1 MG VIAL IM PRN (11:56)
[2020-03-02 18:17] LABS: Protein/Creatinine Ratio,Urine 6.2 RATIO
[2020-03-02] MEDS: amLODIPine 5 MG TABLET PO SCH (21:59)
[2020-03-02] MEDS: AZITHROMYCIN INJ 250 MG in SODIUM CHLORIDE 0.9% 250 ML IV SCH (22:09)
[2020-03-03] MEDS: HEPARIN 5,000 UNIT/1 ML VIAL SUBCUT SCH (05:14)
[2020-03-03] MEDS: METOCLOPRAMIDE 10 MG/2 ML VIAL IV SCH (05:15)
[2020-03-03] MEDS: MORPHINE 4 MG/1 ML VIAL IV PRN (05:15)
[2020-03-03] MEDS: INSULIN REGULAR 100 UNIT/ML SUBCUT SCH (05:58)
[2020-03-03 06:37] LABS: Albumin 2.2 G/DL (3.4-5.0); Bilirubin,Total 0.5 MG/DL (0.2-1.0); Calcium 7.6 MG/DL (8.5-10.1); Osmolality,Calculated 280.7 MOS/KG (273-304); Total Protein 6.4 G/DL (6.4-8.3)
[2020-03-03] MEDS ORDERED: AZITHROMYCIN 250 MG TABLET PO ONE (07:45)
[2020-03-03] MEDS: PANTOPRAZOLE 40 MG VIAL IV SCH (08:00)
[2020-03-03] MEDS: carvediloL 6.25 MG TABLET PO SCH (08:05)
[2020-03-03] MEDS: MULTIVITAMIN (CENTRUM) TABLET PO SCH (08:05)
[2020-03-03 08:22] LABS: Basophils % 0.5 % (0.0-0.8); Eosinophils # 0.3 10*3/uL (0.0-0.87); Eosinophils % 3.7 % (0.00-10.9); Hematocrit 22.6 VOL% (35.7-47.0); Hemoglobin 6.9 GM/DL (12.0-16.0); Immature Granulocytes % 0.4 %; Immature Granulocytes Absolute 0.03 #; Lymphocytes # 3.9 10*3/uL (1.4-4.0); Lymphocytes % 45.9 % (21.3-54.2); Mean Corpuscular HGB Conc 30.5 GM/DL (32-36); Mean Corpuscular Volume 77.9 FL (87-102); Mean Platelet Volume 9.7 FL (9.6-12.0); Monocytes % 5.9 % (1.7-12.7); Neutrophils % 43.6 % (38.7-73.9); Platelet Count 352 T/CUMM (130-400); Red Cell Distribution Width 15.8 % (9.3-17.3); White Blood Count 8.5 T/CUMM (4-12)
[2020-03-03] MEDS ORDERED: LEVOFLOXACIN 250 MG TABLET PO ONE (09:04)
[2020-03-03 09:09] LABS: Total Volume,Urine 1100 ML (400-2000)
[2020-03-03 09:17] LABS: Total Protein 24 Hr Ur Result 3190 MG/24HR (0-149.1)
[2020-03-03] MEDS ORDERED: FERROUS SULFATE 325 MG TABLET PO SCH (10:00)
[2020-03-03 10:08] LABS: Albumin (UPE) Rel % 66.4 %; Alpha 1 (UPE) Rel % 4.4 %; Alpha 2 (UPE) Rel % 6.2 %; Beta (UPE) Rel % 7.2 %; Gamma (UPE) Rel % 15.8 %
[2020-03-03 10:10] LABS: Albumin (UPE) 2118.2 MG/24H; Alpha 1 (UPE) 140.4 MG/24H; Alpha 2 (UPE) 197.8 MG/24H; Beta (UPE) 229.7 MG/24H
[2020-03-03 11:00] VITALS: BP 154/95
[2020-03-03] MEDS: SODIUM CHLORIDE 0.9% 1,000 ML IV SCH (11:01)
[2020-03-03 12:04] LABS: Immuno Free Light Chain Kappa 17.11 MG/DL (0.33-1.94); Immuno Free Light Chain Lambda 6.87 MG/DL (0.57-2.63); Immuno Free Light Chain Ratio 2.49 MG/DL (0.26-1.65)
== END 2020-03-03 11:15 | disposition home or self-care (01) | DRG 74 ==
LOC: N.ED 11:36 → SUATTDRO 13:30 → N.EDINP 13:30 → N.CC 13:52 → N.5E 03-01 08:52
PROVIDERS: ADMIT Internal Medicine Cardiovascular Disease; ATTEND Internal Medicine

== ENCOUNTER 2020-03-05 09:45 | Inpatient (IN) ==
[2020-03-05] MEDS ORDERED: LABETALOL 20 MG/4 ML SYRINGE IV STA (10:11)
[2020-03-05] MEDS ORDERED: MORPHINE 4 MG/1 ML VIAL IV ONE (10:11)
[2020-03-05] MEDS ORDERED: SODIUM CHLORIDE 0.9% 1,000 ML IV STA ×2 (10:11→10:53)
[2020-03-05] MEDS ORDERED: ONDANSETRON 4 MG/2 ML VIAL IV ONE (10:11)
[2020-03-05 10:23] LABS: Basophils % 0.4 % (0.0-0.8); Eosinophils # 0.2 10*3/uL (0.0-0.87); Eosinophils % 1.7 % (0.00-10.9); Hematocrit 26.6 VOL% (35.7-47.0); Immature Granulocytes % 0.3 %; Immature Granulocytes Absolute 0.03 #; Lymphocytes # 1.7 10*3/uL (1.4-4.0); Lymphocytes % 17.8 % (21.3-54.2); Mean Corpuscular HGB Conc 30.1 GM/DL (32-36); Mean Corpuscular Volume 77.3 FL (87-102); Mean Platelet Volume 9.4 FL (9.6-12.0); Monocytes % 3.5 % (1.7-12.7); Neutrophils % 76.3 % (38.7-73.9); Platelet Count 385 T/CUMM (130-400); Red Blood Count 3.44 MC/CUMM (3.8-5.5); Red Cell Distribution Width 16.2 % (9.3-17.3); White Blood Count 9.7 T/CUMM (4-12)
[2020-03-05 10:32] LABS: INR 0.9
[2020-03-05 10:48] LABS: Alanine Aminotransferase 19 U/L (13-56); Albumin 2.7 G/DL (3.4-5.0); Alkaline Phosphatase 189 U/L (45-117); Aspartate Amino Transferase 19 U/L (0-37); Bilirubin,Total < 0.39 MG/DL (0.2-1.0); Blood Urea Nitrogen 21 MG/DL (7-18); Calcium 8.8 MG/DL (8.5-10.1); Estimated Glom Filtration Rate 14 ML/MIN; Glucose 377 MG/DL (74-106); Osmolality,Calculated 287.1 MOS/KG (273-304); Total Protein 7.9 G/DL (6.4-8.3)
[2020-03-05] MEDS ORDERED: PIPERACILLIN/TAZOBACTAM 3,375 MG in SODIUM CHLORIDE 0.9% 100 ML IV STA (10:57)
[2020-03-05] MEDS ORDERED: VANCOMYCIN INJ 1,000 MG in SODIUM CHLORIDE 0.9% 250 ML IV STA (10:57)
[2020-03-05 11:21] LABS: Apearance,Urine Slightly Hazy (Clear); Bacteria,Urine Occasional /HPF (Few); Bilirubin,Urine Negative (Negative); Blood, Urine Negative (Negative); Glucose,Urine (UA) >=500 mg/dL (Negative); Ketones,Urine Negative (Negative); Nitrite,Urine Negative (Negative); Protein,Urine 100 MG/DL; RBC,Urine 4 /HPF (0-4); Squamous Epithelial Cell,Urine Moderate /HPF (0-10); Urine Color Straw (Yellow); Urine Specific Gravity 1.007 (1.001-1.035); Urine Urobilinogen < 2.0 EU/DL (0.2-1.0); WBC,Urine <1 /HPF (0-6)
[2020-03-05 11:38] LABS: Barbiturates Screen,Urine Negative (Negative); Benzodiazepines Screen,Urine Negative (Negative); Cannabinoid Screen,Urine Positive (Negative); Opiate Screen,Urine Positive (Negative); Phencyclidine Screen,Urine Negative (Negative)
[2020-03-05 11:47] LABS: ABG HCO3 17.9 MMOL/L (20-26); ABG Oxygen Saturation 98.3 % (95-100); ABG PCO2 35.5 MM HG (35-48); ABG PH 7.304 (7.35-7.45); ABG TCO2 16.7 MMOL/L (23-27)
[2020-03-05] MEDS ORDERED: DEXTROSE 50% 25 GM/50 ML VIAL IV PRN (12:54)
[2020-03-05] MEDS ORDERED: MORPHINE 4 MG/1 ML VIAL IV PRN (12:54)
[2020-03-05] MEDS ORDERED: GLUCAGON 1 MG VIAL IM PRN (12:54)
[2020-03-05] MEDS ORDERED: LEVOFLOXACIN INJ 250 MG in PREMIX 1 EACH IV STA (12:57)
[2020-03-05] MEDS ORDERED: AZITHROMYCIN INJ 500 MG in SODIUM CHLORIDE 0.9% 250 ML IV SCH ×2 (13:00→18:00)
[2020-03-05] MEDS: METOCLOPRAMIDE 10 MG/2 ML VIAL IV SCH ×2 (14:37→18:19)
[2020-03-05] MEDS: ONDANSETRON 4 MG/2 ML VIAL IV PRN (15:03)
[2020-03-05] MEDS: MORPHINE 4 MG/1 ML VIAL IV PRN (15:10)
[2020-03-05] MEDS: INSULIN REGULAR 100 UNIT/ML SUBCUT SCH (16:48)
[2020-03-05] MEDS: PROMETHAZINE INJ 25 MG in SODIUM CHLORIDE 0.9% 50 ML IV PRN (18:18)
[2020-03-06] MEDS: MORPHINE 4 MG/1 ML VIAL IV PRN ×4 (00:29→21:09)
[2020-03-06] MEDS: METOCLOPRAMIDE 10 MG/2 ML VIAL IV SCH ×4 (00:30→18:31)
[2020-03-06] MEDS: INSULIN REGULAR 100 UNIT/ML SUBCUT SCH ×5 (01:31→21:44)
[2020-03-06 05:13] LABS: Basophils # 0.1 10*3/uL (0.0-0.2); Basophils % 0.6 % (0.0-0.8); Eosinophils # 0.3 10*3/uL (0.0-0.87); Eosinophils % 3.8 % (0.00-10.9); Hematocrit 21.6 VOL% (35.7-47.0); Hemoglobin 6.6 GM/DL (12.0-16.0); Immature Granulocytes % 0.2 %; Immature Granulocytes Absolute 0.02 #; Lymphocytes # 3.1 10*3/uL (1.4-4.0); Lymphocytes % 35.6 % (21.3-54.2); Mean Corpuscular HGB Conc 30.6 GM/DL (32-36); Mean Corpuscular Volume 79.4 FL (87-102); Mean Platelet Volume 9.8 FL (9.6-12.0); Monocytes % 6.8 % (1.7-12.7); Platelet Count 334 T/CUMM (130-400); Red Blood Count 2.72 MC/CUMM (3.8-5.5); Red Cell Distribution Width 16.5 % (9.3-17.3); White Blood Count 8.7 T/CUMM (4-12)
[2020-03-06] MEDS: hydrALAZINE 20 MG/1 ML VIAL IV PRN (05:38)
[2020-03-06 05:47] LABS: Albumin 2.3 G/DL (3.4-5.0); Bilirubin,Total 0.6 MG/DL (0.2-1.0); Calcium 8.2 MG/DL (8.5-10.1); Osmolality,Calculated 280.5 MOS/KG (273-304); Total Protein 6.7 G/DL (6.4-8.3)
[2020-03-06] MEDS: PROMETHAZINE INJ 25 MG in SODIUM CHLORIDE 0.9% 50 ML IV PRN ×2 (07:25→13:34)
[2020-03-06] MEDS ORDERED: SODIUM CHLORIDE 0.9% 1,000 ML IV PRN (07:36)
[2020-03-06] MEDS ORDERED: tiZANidine 4 MG TABLET PO PRN (07:38)
[2020-03-06] MEDS ORDERED: BACLOFEN 10 MG TABLET PO PRN (07:38)
[2020-03-06] MEDS ORDERED: cloNIDine 0.1 MG/24 HR PATCH TRANSDERM SCH (09:00)
[2020-03-06] MEDS ORDERED: IRON SUCROSE 300 MG in SODIUM CHLORIDE 0.9% 100 ML IV ONE (09:00)
[2020-03-06] MEDS: carvediloL 12.5 MG TABLET PO SCH (09:08)
[2020-03-06] MEDS: PANTOPRAZOLE 40 MG TABLET PO SCH ×2 (09:08→21:10)
[2020-03-06] MEDS: MULTIVITAMIN (CENTRUM) TABLET PO SCH (09:08)
[2020-03-06] MEDS: SODIUM CHLORIDE 0.45% 1,000 ML IV SCH (09:09)
[2020-03-06] MEDS: oxyCODONE/ACETAMINOPHEN 5-325 MG TABLET PO PRN ×2 (17:47→23:26)
[2020-03-06] MEDS: AZITHROMYCIN 40 MG/ML 15 ML/BOTTLE PO SCH (17:48)
[2020-03-06] MEDS ORDERED: amLODIPine 5 MG TABLET PO SCH (19:00)
[2020-03-06] MEDS: ONDANSETRON 4 MG/2 ML VIAL IV PRN (21:10)
[2020-03-06] MEDS ORDERED: DEXTROSE 10% 250 ML IV ONE (22:32)
[2020-03-06] MEDS: DEXTROSE 10% 250 ML IV SCH (23:04)
[2020-03-06] MEDS ORDERED: DEXTROSE 10% 250 ML BAG IV PRN (23:30)
[2020-03-07] MEDS: DEXTROSE 10% 250 ML IV SCH (00:45)
[2020-03-07] MEDS: METOCLOPRAMIDE 10 MG/2 ML VIAL IV SCH ×3 (03:18→13:57)
[2020-03-07] MEDS: oxyCODONE/ACETAMINOPHEN 5-325 MG TABLET PO PRN ×2 (05:36→12:02)
[2020-03-07] MEDS: SODIUM CHLORIDE 0.45% 1,000 ML IV SCH (05:40)
[2020-03-07 06:09] LABS: Basophils % 0.5 % (0.0-0.8); Eosinophils # 0.3 10*3/uL (0.0-0.87); Eosinophils % 4.2 % (0.00-10.9); Hematocrit 23.3 VOL% (35.7-47.0); Immature Granulocytes % 0.4 %; Immature Granulocytes Absolute 0.03 #; Lymphocytes # 3.1 10*3/uL (1.4-4.0); Lymphocytes % 39.6 % (21.3-54.2); Mean Corpuscular Volume 77.9 FL (87-102); Mean Platelet Volume 9.7 FL (9.6-12.0); Monocytes % 7.3 % (1.7-12.7); Platelet Count 375 T/CUMM (130-400); Red Blood Count 2.99 MC/CUMM (3.8-5.5); Red Cell Distribution Width 16.6 % (9.3-17.3); White Blood Count 7.9 T/CUMM (4-12)
[2020-03-07 06:23] LABS: Albumin 2.4 G/DL (3.4-5.0); Bilirubin,Total 0.5 MG/DL (0.2-1.0); Osmolality,Calculated 269.5 MOS/KG (273-304); Total Protein 6.8 G/DL (6.4-8.3)
[2020-03-07] MEDS: INSULIN REGULAR 100 UNIT/ML SUBCUT SCH ×3 (08:45→15:35)
[2020-03-07] MEDS: carvediloL 12.5 MG TABLET PO SCH (08:47)
[2020-03-07] MEDS: MULTIVITAMIN (CENTRUM) TABLET PO SCH (08:47)
[2020-03-07] MEDS: PANTOPRAZOLE 40 MG TABLET PO SCH (08:47)
[2020-03-07] MEDS: AZITHROMYCIN 40 MG/ML 15 ML/BOTTLE PO SCH (08:48)
[2020-03-07] MEDS: hydrALAZINE 20 MG/1 ML VIAL IV PRN (08:51)
[2020-03-07] MEDS ORDERED: EPOETIN ALFA 10,000 UNIT/1 ML VIAL SUBCUT SCH (09:00)
[2020-03-07 15:35] VITALS: BP 145/84
[2020-03-07] MEDS: MORPHINE 4 MG/1 ML VIAL IV PRN (16:15)
[2020-03-07] MEDS ORDERED: HEPARIN LOCK FLUSH 500 UNIT/5 ML SYRINGE IV ONE (18:24)
[2020-03-07] MEDS ORDERED: GENTAMICIN 0.1% CREAM 15 GM TUBE TOP SCH (21:00)
== END 2020-03-07 18:58 | disposition home or self-care (01) | DRG 74 ==
LOC: N.ED 09:45 → SUATTDRO 14:06 → N.EDINP 14:06 → N.3E 15:42
PROVIDERS: ADMIT Internal Medicine; ATTEND Internal Medicine

== ENCOUNTER 2020-05-29 13:30 | Inpatient (IN) ==
[2020-05-29] MEDS ORDERED: SODIUM CHLORIDE 0.9% 1,000 ML IV STA (13:56)
[2020-05-29] MEDS ORDERED: ONDANSETRON 4 MG/2 ML VIAL IV STA (14:08)
[2020-05-29] MEDS ORDERED: HYDROmorphone 2 MG/1 ML VIAL IV STA (14:08)
[2020-05-29 14:48] LABS: Basophils # 0.1 10*3/uL (0.0-0.2); Basophils % 0.5 % (0.0-0.8); Eosinophils % 0.2 % (0.00-10.9); Hematocrit 31.8 VOL% (35.7-47.0); Hemoglobin 9.7 GM/DL (12.0-16.0); Immature Granulocytes % 0.5 %; Immature Granulocytes Absolute 0.05 #; Lymphocytes # 1.7 10*3/uL (1.4-4.0); Lymphocytes % 16.6 % (21.3-54.2); Mean Corpuscular HGB Conc 30.5 GM/DL (32-36); Mean Corpuscular Volume 79.7 FL (87-102); Mean Platelet Volume 9.3 FL (9.6-12.0); Monocytes % 4.5 % (1.7-12.7); Neutrophils % 77.7 % (38.7-73.9); Platelet Count 327 T/CUMM (130-400); Red Blood Count 3.99 MC/CUMM (3.8-5.5); Red Cell Distribution Width 14.8 % (9.3-17.3); White Blood Count 10.4 T/CUMM (4-12)
[2020-05-29 15:02] LABS: Calcium 7.2 MG/DL (8.5-10.1); Osmolality,Calculated 305.7 MOS/KG (273-304)
[2020-05-29] MEDS ORDERED: MAGNESIUM SULF RIDER 2 GM in PREMIX 1 EACH IV PRN (15:11)
[2020-05-29] MEDS ORDERED: PROMETHAZINE 25 MG/1 ML VIAL IM PRN (15:11)
[2020-05-29] MEDS ORDERED: MAGNESIUM SULF RIDER 4 GM in PREMIX 1 EACH IV PRN (15:11)
[2020-05-29 15:15] LABS: Apearance,Urine CLOUDY (Clear); Bilirubin,Urine Negative (Negative); Blood, Urine Negative (Negative); Glucose,Urine (UA) >=500 mg/dL (Negative); Ketones,Urine 5 mg/dL (Negative); Nitrite,Urine Negative (Negative); Protein,Urine >=500 MG/DL; RBC,Urine 2 /HPF (0-4); Squamous Epithelial Cell,Urine Occasional /HPF (0-10); Urine Color Yellow (Yellow); Urine Specific Gravity 1.015 (1.001-1.035); Urine Urobilinogen < 2.0 EU/DL (0.2-1.0); WBC,Urine 165 /HPF (0-6)
[2020-05-29] MEDS ORDERED: GLUCAGON 1 MG VIAL IM PRN (15:24)
[2020-05-29] MEDS ORDERED: DEXTROSE 50% 25 GM/50 ML VIAL IV PRN (15:24)
[2020-05-29] MEDS: hydrALAZINE 20 MG/1 ML VIAL IV SCH ×2 (16:23→21:27)
[2020-05-29] MEDS: HYDROmorphone 2 MG/1 ML VIAL IV PRN ×3 (17:45→22:43)
[2020-05-29] MEDS: SODIUM CHLORIDE 0.9% 1,000 ML IV SCH (17:46)
[2020-05-29] MEDS: AZITHROMYCIN INJ 500 MG in SODIUM CHLORIDE 0.9% 250 ML IV SCH (17:46)
[2020-05-29] MEDS ORDERED: tiZANidine 4 MG TABLET PO PRN (18:12)
[2020-05-29] MEDS: INSULIN REGULAR 100 UNIT/ML SUBCUT SCH (18:16)
[2020-05-29] MEDS: METOCLOPRAMIDE 10 MG/2 ML VIAL IV SCH (18:16)
[2020-05-29] MEDS: MEROPENEM 500 MG in SODIUM CHLORIDE 0.9% 100 ML IV SCH (18:56)
[2020-05-29] MEDS ORDERED: cloNIDine 0.1 MG/24 HR PATCH TRANSDERM SCH (21:00)
[2020-05-29] MEDS: amLODIPine 5 MG TABLET PO SCH (21:26)
[2020-05-29] MEDS: oxyCODONE/ACETAMINOPHEN 5-325 MG TABLET PO PRN (21:59)
[2020-05-29] MEDS: ONDANSETRON 4 MG/2 ML VIAL IV PRN (22:00)
[2020-05-30] MEDS: METOCLOPRAMIDE 10 MG/2 ML VIAL IV SCH ×4 (00:52→17:16)
[2020-05-30] MEDS: HYDROmorphone 2 MG/1 ML VIAL IV PRN ×6 (00:53→22:44)
[2020-05-30] MEDS: INSULIN REGULAR 100 UNIT/ML SUBCUT SCH ×4 (01:08→17:23)
[2020-05-30] MEDS: hydrALAZINE 20 MG/1 ML VIAL IV SCH ×4 (03:45→22:16)
[2020-05-30] MEDS: MEROPENEM 500 MG in SODIUM CHLORIDE 0.9% 100 ML IV SCH ×2 (03:46→16:58)
[2020-05-30] MEDS ORDERED: ALTEPLASE 2 MG VIAL IV ONE (07:44)
[2020-05-30] MEDS ORDERED: PANTOPRAZOLE 40 MG VIAL IV SCH (09:00)
[2020-05-30] MEDS: carvediloL 12.5 MG TABLET PO SCH (09:27)
[2020-05-30] MEDS: PANTOPRAZOLE 40 MG VIAL IV SCH ×2 (09:28→22:16)
[2020-05-30] MEDS: ONDANSETRON 4 MG/2 ML VIAL IV PRN (09:29)
[2020-05-30 11:40] LABS: Basophils % 0.3 % (0.0-0.8); Eosinophils # 0.1 10*3/uL (0.0-0.87); Eosinophils % 0.4 % (0.00-10.9); Hematocrit 28.9 VOL% (35.7-47.0); Hemoglobin 8.6 GM/DL (12.0-16.0); Immature Granulocytes % 0.3 %; Immature Granulocytes Absolute 0.04 #; Lymphocytes # 1.8 10*3/uL (1.4-4.0); Lymphocytes % 15.6 % (21.3-54.2); Mean Corpuscular HGB Conc 29.8 GM/DL (32-36); Mean Corpuscular Volume 82.1 FL (87-102); Mean Platelet Volume 10.2 FL (9.6-12.0); Neutrophils % 79.4 % (38.7-73.9); Platelet Count 318 T/CUMM (130-400); Red Blood Count 3.52 MC/CUMM (3.8-5.5); Red Cell Distribution Width 15.1 % (9.3-17.3); White Blood Count 11.6 T/CUMM (4-12)
[2020-05-30 12:05] LABS: Alanine Aminotransferase 12 U/L (13-56); Albumin 2.7 G/DL (3.4-5.0); Alkaline Phosphatase 127 U/L (45-117); Aspartate Amino Transferase 9 U/L (0-37); Bilirubin,Total < 0.39 MG/DL (0.2-1.0); Blood Urea Nitrogen 49 MG/DL (7-18); Calcium 7.3 MG/DL (8.5-10.1); Estimated Glom Filtration Rate 10 ML/MIN; Glucose 427 MG/DL (74-106); Osmolality,Calculated 300.1 MOS/KG (273-304); Total Protein 6.9 G/DL (6.4-8.3)
[2020-05-30] MEDS: oxyCODONE/ACETAMINOPHEN 5-325 MG TABLET PO PRN (14:33)
[2020-05-30] MEDS: SODIUM CHLORIDE 0.9% 1,000 ML IV SCH (16:58)
[2020-05-30] MEDS: GENTAMICIN 0.1% OINT 15 GM TUBE TOP SCH ×2 (16:59→22:15)
[2020-05-30] MEDS: AZITHROMYCIN INJ 500 MG in SODIUM CHLORIDE 0.9% 250 ML IV SCH (17:25)
[2020-05-30] MEDS: amLODIPine 5 MG TABLET PO SCH (22:15)
[2020-05-31] MEDS: METOCLOPRAMIDE 10 MG/2 ML VIAL IV SCH ×2 (01:09→05:36)
[2020-05-31] MEDS: INSULIN REGULAR 100 UNIT/ML SUBCUT SCH ×4 (01:09→17:21)
[2020-05-31] MEDS: HYDROmorphone 2 MG/1 ML VIAL IV PRN ×7 (01:10→23:15)
[2020-05-31] MEDS: SODIUM CHLORIDE 0.9% 1,000 ML IV SCH ×4 (02:52→23:17)
[2020-05-31] MEDS: hydrALAZINE 20 MG/1 ML VIAL IV SCH ×4 (03:41→21:04)
[2020-05-31] MEDS: MEROPENEM 500 MG in SODIUM CHLORIDE 0.9% 100 ML IV SCH ×2 (04:48→17:19)
[2020-05-31 05:13] LABS: Basophils % 0.4 % (0.0-0.8); Eosinophils # 0.2 10*3/uL (0.0-0.87); Eosinophils % 2.4 % (0.00-10.9); Hematocrit 24.8 VOL% (35.7-47.0); Hemoglobin 7.5 GM/DL (12.0-16.0); Immature Granulocytes % 0.5 %; Immature Granulocytes Absolute 0.05 #; Lymphocytes # 3.3 10*3/uL (1.4-4.0); Lymphocytes % 33.8 % (21.3-54.2); Mean Corpuscular HGB Conc 30.2 GM/DL (32-36); Mean Corpuscular Volume 80.5 FL (87-102); Mean Platelet Volume 10.1 FL (9.6-12.0); Monocytes % 5.6 % (1.7-12.7); Neutrophils % 57.3 % (38.7-73.9); Platelet Count 273 T/CUMM (130-400); Red Blood Count 3.08 MC/CUMM (3.8-5.5); Red Cell Distribution Width 14.9 % (9.3-17.3); White Blood Count 9.7 T/CUMM (4-12)
[2020-05-31 05:34] LABS: Albumin 2.3 G/DL (3.4-5.0); Bilirubin,Total 0.4 MG/DL (0.2-1.0); Calcium 6.8 MG/DL (8.5-10.1); Osmolality,Calculated 287.5 MOS/KG (273-304); Total Protein 5.8 G/DL (6.4-8.3)
[2020-05-31 07:11] LABS: Eosinophils 2 % (0-10); Lymphocytes 37 % (20-55); Segmented Neutrophils 56 % (50-85); Total Cells Counted 100
[2020-05-31 07:12] LABS: Hypochromasia 1+; Microcytosis Slight; Platelet Estimate Normal
[2020-05-31] MEDS ORDERED: propofoL 200 MG/20 ML VIAL IV ONE (09:00)
[2020-05-31] MEDS ORDERED: LIDOCAINE 2% 5 ML VIAL ONE (09:00)
[2020-05-31] MEDS: carvediloL 12.5 MG TABLET PO SCH (09:28)
[2020-05-31] MEDS: PANTOPRAZOLE 40 MG VIAL IV SCH ×2 (09:30→21:03)
[2020-05-31] MEDS: AZITHROMYCIN 40 MG/ML 15 ML/BOTTLE PO SCH (09:30)
[2020-05-31] MEDS: METOCLOPRAMIDE 10 MG/10 ML UDCUP PO SCH ×3 (11:53→21:02)
[2020-05-31] MEDS: GENTAMICIN 0.1% OINT 15 GM TUBE TOP SCH ×3 (15:05→21:11)
[2020-05-31] MEDS: amLODIPine 5 MG TABLET PO SCH (21:02)
[2020-06-01] MEDS: INSULIN REGULAR 100 UNIT/ML SUBCUT SCH ×3 (00:55→11:54)
[2020-06-01] MEDS: HYDROmorphone 2 MG/1 ML VIAL IV PRN ×3 (01:15→06:05)
[2020-06-01] MEDS: hydrALAZINE 20 MG/1 ML VIAL IV SCH ×2 (03:22→08:57)
[2020-06-01] MEDS: MEROPENEM 500 MG in SODIUM CHLORIDE 0.9% 100 ML IV SCH (03:55)
[2020-06-01 05:47] LABS: Basophils % 0.3 % (0.0-0.8); Eosinophils # 0.2 10*3/uL (0.0-0.87); Eosinophils % 2.4 % (0.00-10.9); Hemoglobin 7.6 GM/DL (12.0-16.0); Immature Granulocytes % 0.2 %; Immature Granulocytes Absolute 0.02 #; Lymphocytes # 3.4 10*3/uL (1.4-4.0); Lymphocytes % 38.6 % (21.3-54.2); Mean Corpuscular HGB Conc 31.7 GM/DL (32-36); Mean Corpuscular Volume 78.9 FL (87-102); Mean Platelet Volume 9.6 FL (9.6-12.0); Monocytes % 5.7 % (1.7-12.7); Neutrophils % 52.8 % (38.7-73.9); Platelet Count 241 T/CUMM (130-400); Red Blood Count 3.04 MC/CUMM (3.8-5.5); Red Cell Distribution Width 14.6 % (9.3-17.3); White Blood Count 8.8 T/CUMM (4-12)
[2020-06-01 06:09] LABS: Albumin 2.2 G/DL (3.4-5.0); Bilirubin,Total 0.4 MG/DL (0.2-1.0); Osmolality,Calculated 290.4 MOS/KG (273-304); Total Protein 5.7 G/DL (6.4-8.3)
[2020-06-01] MEDS: carvediloL 12.5 MG TABLET PO SCH (08:56)
[2020-06-01] MEDS: PANTOPRAZOLE 40 MG VIAL IV SCH (08:57)
[2020-06-01] MEDS: AZITHROMYCIN 40 MG/ML 15 ML/BOTTLE PO SCH (08:57)
[2020-06-01] MEDS: METOCLOPRAMIDE 10 MG/10 ML UDCUP PO SCH ×2 (08:57→11:57)
[2020-06-01] MEDS: oxyCODONE/ACETAMINOPHEN 5-325 MG TABLET PO PRN (08:58)
[2020-06-01] MEDS: GENTAMICIN 0.1% OINT 15 GM TUBE TOP SCH (08:59)
[2020-06-01] MEDS ORDERED: HEPARIN LOCK FLUSH 500 UNIT/5 ML SYRINGE IV ONE (10:27)
[2020-06-01 11:46] VITALS: BP 121/73
== END 2020-06-01 12:29 | disposition home or self-care (01) | DRG 73 ==
LOC: EDUNIT# → N.ED 13:30 → N.EDINP 16:31 → SUATTDRO 16:31 → N.TELEN 17:20
PROVIDERS: ADMIT Hospitalist; ATTEND Emergency Medicine

== ENCOUNTER 2020-07-25 07:29 | Inpatient (IN) ==
[2020-07-25] MEDS ORDERED: VANCOMYCIN INJ 1,000 MG in SODIUM CHLORIDE 0.9% 250 ML IV STA ×2 (08:05→08:19)
[2020-07-25] MEDS ORDERED: MEROPENEM 2,000 MG in SODIUM CHLORIDE 0.9% 100 ML IV ONE (08:06)
[2020-07-25] MEDS ORDERED: ONDANSETRON 4 MG/2 ML VIAL IV STA (08:07)
[2020-07-25] MEDS ORDERED: HYDROmorphone 2 MG/1 ML VIAL IV STA (08:07)
[2020-07-25] MEDS ORDERED: DEXTROSE 50% 25 GM/50 ML VIAL IV PRN (08:41)
[2020-07-25] MEDS ORDERED: BISACODYL 5 MG TABLET PO PRN (08:41)
[2020-07-25] MEDS ORDERED: ALBUTEROL/IPRATROPIUM 3 ML NEB RESP TX PRN (08:41)
[2020-07-25] MEDS ORDERED: GLUCAGON 1 MG VIAL IM PRN (08:41)
[2020-07-25] MEDS ORDERED: ACETAMINOPHEN 325 MG TABLET PO PRN (08:41)
[2020-07-25] MEDS ORDERED: tiZANidine 4 MG TABLET PO PRN (08:44)
[2020-07-25] MEDS ORDERED: LACTATED RINGERS 1,000 ML IV SCH (09:00)
[2020-07-25] MEDS ORDERED: PANTOPRAZOLE 40 MG TABLET PO SCH (09:00)
[2020-07-25] MEDS ORDERED: DIAZEPAM 5 MG TABLET PO ONE (09:00)
[2020-07-25 09:12] LABS: Basophils % 0.2 % (0.0-0.8); Hematocrit 28.6 VOL% (35.7-47.0); Hemoglobin 8.9 GM/DL (12.0-16.0); Immature Granulocytes % 0.5 %; Immature Granulocytes Absolute 0.07 #; Lymphocytes # 0.9 10*3/uL (1.4-4.0); Lymphocytes % 6.4 % (21.3-54.2); Mean Corpuscular HGB Conc 31.1 GM/DL (32-36); Mean Corpuscular Volume 81.7 FL (87-102); Mean Platelet Volume 9.9 FL (9.6-12.0); Monocytes % 1.3 % (1.7-12.7); Neutrophils % 91.6 % (38.7-73.9); Platelet Count 342 T/CUMM (130-400); Red Cell Distribution Width 15.1 % (9.3-17.3); White Blood Count 13.5 T/CUMM (4-12)
[2020-07-25] MEDS ORDERED: LIDOCAINE 1% 20 ML VIAL ONE (09:16)
[2020-07-25 09:23] LABS: PT Patient Result 10.7 SECS (9.8-11.9); Partial Thromboplastin Time 26.2 SECS (23.9-33.8)
[2020-07-25 09:31] LABS: Hypochromasia 1+; Lymphocytes 7 % (20-55); Segmented Neutrophils 93 % (50-85); Total Cells Counted 100
[2020-07-25 09:32] LABS: Microcytosis 1+; Platelet Estimate Normal
[2020-07-25 09:33] LABS: Albumin 3.7 G/DL (3.4-5.0); Bilirubin,Total 0.4 MG/DL (0.2-1.0); Calcium 8.6 MG/DL (8.5-10.1); Total Protein 8.7 G/DL (6.4-8.3)
[2020-07-25] MEDS ORDERED: fentaNYL 100 MCG/2 ML VIAL ONE (11:57)
[2020-07-25] MEDS ORDERED: MIDAZOLAM 2 MG/2 ML VIAL ONE (11:57)
[2020-07-25] MEDS ORDERED: SODIUM CHLORIDE 0.9% 250 ML IV ONE (11:57)
[2020-07-25] MEDS ORDERED: PROMETHAZINE 25 MG/1 ML VIAL ONE (11:57)
[2020-07-25] MEDS ORDERED: propofoL 200 MG/20 ML VIAL IV ONE (11:57)
[2020-07-25] MEDS: INSULIN LISPRO 100 UNIT/ML SUBCUT SCH ×2 (12:00→16:47)
[2020-07-25] MEDS: MULTIVITAMIN (CENTRUM) TABLET PO SCH (12:36)
[2020-07-25] MEDS: carvediloL 12.5 MG TABLET PO SCH (12:36)
[2020-07-25] MEDS: PANTOPRAZOLE 40 MG TABLET PO SCH ×2 (12:37→21:52)
[2020-07-25] MEDS: HYDROmorphone 2 MG/1 ML VIAL IV PRN ×3 (14:04→21:52)
[2020-07-25] MEDS: ONDANSETRON 4 MG/2 ML VIAL IV PRN (14:06)
[2020-07-25] MEDS: SODIUM CHLORIDE 23.4% CONC INJ 38.5 MEQ, SODIUM BICARB INJ 50 MEQ in STERILE WATER INJ ... IV SCH (17:44)
[2020-07-25] MEDS: amLODIPine 5 MG TABLET PO SCH (18:41)
[2020-07-26] MEDS: HYDROmorphone 2 MG/1 ML VIAL IV PRN ×4 (02:11→11:52)
[2020-07-26] MEDS: SODIUM CHLORIDE 23.4% CONC INJ 38.5 MEQ, SODIUM BICARB INJ 50 MEQ in STERILE WATER INJ ... IV SCH ×2 (04:22→15:42)
[2020-07-26 05:47] LABS: Basophils # 0.1 10*3/uL (0.0-0.2); Basophils % 0.5 % (0.0-0.8); Eosinophils # 0.2 10*3/uL (0.0-0.87); Eosinophils % 2.1 % (0.00-10.9); Hematocrit 25.9 VOL% (35.7-47.0); Immature Granulocytes % 0.2 %; Immature Granulocytes Absolute 0.02 #; Lymphocytes # 3.2 10*3/uL (1.4-4.0); Lymphocytes % 32.2 % (21.3-54.2); Mean Corpuscular HGB Conc 30.9 GM/DL (32-36); Mean Corpuscular Volume 79.2 FL (87-102); Mean Platelet Volume 9.6 FL (9.6-12.0); Monocytes % 6.4 % (1.7-12.7); Neutrophils % 58.6 % (38.7-73.9); Platelet Count 274 T/CUMM (130-400); Red Blood Count 3.27 MC/CUMM (3.8-5.5); Red Cell Distribution Width 14.7 % (9.3-17.3)
[2020-07-26 06:00] LABS: Calcium 7.9 MG/DL (8.5-10.1); Osmolality,Calculated 284.1 MOS/KG (273-304)
[2020-07-26] MEDS: INSULIN LISPRO 100 UNIT/ML SUBCUT SCH ×7 (07:34→18:46)
[2020-07-26] MEDS: ONDANSETRON 4 MG/2 ML VIAL IV PRN (08:55)
[2020-07-26] MEDS: carvediloL 12.5 MG TABLET PO SCH (08:56)
[2020-07-26] MEDS: MULTIVITAMIN (CENTRUM) TABLET PO SCH (08:56)
[2020-07-26] MEDS: PANTOPRAZOLE 40 MG TABLET PO SCH (08:57)
[2020-07-26] MEDS ORDERED: SODIUM HYPOCHLORITE 0.25% IRRIG 473 ML BOTTLE TOP SCH (11:00)
[2020-07-26] MEDS ORDERED: oxyCODONE/ACETAMINOPHEN 5-325 MG TABLET PO PRN (11:54)
[2020-07-26] MEDS ORDERED: BENZONATATE 100 MG CAPSULE PO PRN (12:11)
[2020-07-26] MEDS ORDERED: ERTAPENEM 500 MG in SODIUM CHLORIDE 0.9% 100 ML IV SCH (18:00)
[2020-07-26 18:04] VITALS: BP 168/101
[2020-07-26] MEDS: amLODIPine 5 MG TABLET PO SCH (18:08)
[2020-07-27] MEDS ORDERED: VANCOMYCIN INJ 1,000 MG in SODIUM CHLORIDE 0.9% 250 ML IV SCH (09:00)
[2020-07-30] MEDS ORDERED: cloNIDine 0.1 MG/24 HR PATCH TRANSDERM SCH (09:00)
== END 2020-07-26 19:24 | disposition home health service (06) | DRG 464 ==
LOC: EDBD → EDUNIT# → N.ED 07:29 → N.EDINP 08:41 → N.3E 11:00
PROVIDERS: ADMIT Surgery; ATTEND Surgery

== ENCOUNTER 2020-09-24 11:46 | Inpatient (IN) ==
[2020-09-24] MEDS ORDERED: PANTOPRAZOLE 40 MG VIAL IV STA (12:59)
[2020-09-24] MEDS ORDERED: ONDANSETRON 4 MG/2 ML VIAL IV STA (12:59)
[2020-09-24] MEDS ORDERED: MORPHINE 4 MG/1 ML VIAL IV STA (12:59)
[2020-09-24] MEDS ORDERED: SODIUM CHLORIDE 0.9% 1,000 ML IV STA (12:59)
[2020-09-24 13:10] LABS: Basophils # 0.1 10*3/uL (0.0-0.2); Basophils % 0.5 % (0.0-0.8); Eosinophils # 0.1 10*3/uL (0.0-0.87); Eosinophils % 0.6 % (0.00-10.9); Hemoglobin 9.3 GM/DL (12.0-16.0); Immature Granulocytes % 0.5 %; Immature Granulocytes Absolute 0.05 #; Lymphocytes # 1.7 10*3/uL (1.4-4.0); Lymphocytes % 15.2 % (21.3-54.2); Mean Corpuscular HGB Conc 32.1 GM/DL (32-36); Mean Corpuscular Volume 78.2 FL (87-102); Mean Platelet Volume 10.1 FL (9.6-12.0); Monocytes % 4.7 % (1.7-12.7); Neutrophils % 78.5 % (38.7-73.9); Platelet Count 430 T/CUMM (130-400); Red Blood Count 3.71 MC/CUMM (3.8-5.5); Red Cell Distribution Width 15.1 % (9.3-17.3); White Blood Count 10.9 T/CUMM (4-12)
[2020-09-24 13:16] LABS: Amorphous Crystals,Urine Few /HPF (Few); Bilirubin,Urine Negative (Negative); Blood, Urine Negative (Negative); Glucose,Urine (UA) >=500 mg/dL (Negative); Ketones,Urine Negative (Negative); Nitrite,Urine Negative (Negative); Protein,Urine >=500 MG/DL; RBC,Urine 5 /HPF (0-4); Squamous Epithelial Cell,Urine Few /HPF (0-10); Urine Appearance Slightly Hazy (Clear); Urine Color Yellow (Yellow); Urine Specific Gravity 1.014 (1.001-1.035); Urine Urobilinogen < 2.0 EU/DL (0.2-1.0); WBC,Urine 1 /HPF (0-6)
[2020-09-24 14:00] LABS: Alanine Aminotransferase 18 U/L (13-56); Albumin 3.1 G/DL (3.4-5.0); Alkaline Phosphatase 189 U/L (45-117); Amylase 43 U/L (25-115); Aspartate Amino Transferase 7 U/L (0-37); Bilirubin,Total < 0.39 MG/DL (0.2-1.0); Blood Urea Nitrogen 59 MG/DL (7-18); Estimated Glom Filtration Rate 8 ML/MIN; Glucose 404 MG/DL (74-106); Osmolality,Calculated 301.2 MOS/KG (273-304); Total Protein 8.6 G/DL (6.4-8.3)
[2020-09-24] MEDS ORDERED: hydrALAZINE 20 MG/1 ML VIAL IV STA (15:05)
[2020-09-24] MEDS ORDERED: DOCUSATE SODIUM 100 MG CAPSULE PO PRN (15:27)
[2020-09-24] MEDS ORDERED: hydrALAZINE 20 MG/1 ML VIAL IV PRN (15:27)
[2020-09-24] MEDS ORDERED: GLUCAGON 1 MG VIAL IM PRN (15:27)
[2020-09-24] MEDS ORDERED: DEXTROSE 50% 25 GM/50 ML VIAL IV PRN (15:27)
[2020-09-24] MEDS ORDERED: guaiFENesin/DM ER 600-30 MG TABLET PO PRN (15:27)
[2020-09-24] MEDS ORDERED: ACETAMINOPHEN 325 MG TABLET PO PRN (15:27)
[2020-09-24] MEDS ORDERED: cloNIDine 0.1 MG/24 HR PATCH TRANSDERM STA (15:35)
[2020-09-24] MEDS ORDERED: INFLUENZA VIRUS VACCINE 0.5 ML SYRINGE IM ONE (16:55)
[2020-09-24] MEDS: INSULIN REGULAR 100 UNIT/ML SUBCUT SCH ×2 (17:27→21:29)
[2020-09-24] MEDS: ONDANSETRON 4 MG/2 ML VIAL IV PRN ×2 (17:28→21:48)
[2020-09-24] MEDS: MORPHINE 4 MG/1 ML VIAL IV PRN ×2 (17:28→21:31)
[2020-09-24] MEDS: SODIUM CHLORIDE 0.9% 1,000 ML IV SCH (17:29)
[2020-09-24] MEDS ORDERED: amLODIPine 5 MG TABLET PO SCH (21:00)
[2020-09-24] MEDS ORDERED: INSULIN GLARGINE 100 UNIT/ML SUBCUT SCH (21:00)
[2020-09-24] MEDS: PANTOPRAZOLE 40 MG VIAL IV SCH (21:30)
[2020-09-24] MEDS: ENOXAPARIN 40 MG/0.4 ML SYRINGE SUBCUT SCH (21:30)
[2020-09-25] MEDS: SODIUM CHLORIDE 0.9% 1,000 ML IV SCH ×3 (01:58→22:04)
[2020-09-25] MEDS: MORPHINE 4 MG/1 ML VIAL IV PRN ×4 (05:08→22:58)
[2020-09-25] MEDS: ONDANSETRON 4 MG/2 ML VIAL IV PRN ×2 (07:33→17:58)
[2020-09-25] MEDS ORDERED: PANTOPRAZOLE 40 MG TABLET PO SCH (09:00)
[2020-09-25] MEDS ORDERED: carvediloL 12.5 MG TABLET PO SCH (09:00)
[2020-09-25] MEDS: amLODIPine 10 MG TABLET PO SCH (09:03)
[2020-09-25] MEDS: carvediloL 25 MG TABLET PO SCH (09:03)
[2020-09-25] MEDS: INSULIN REGULAR 100 UNIT/ML SUBCUT SCH ×4 (09:03→20:30)
[2020-09-25] MEDS: PANTOPRAZOLE 40 MG VIAL IV SCH ×2 (09:03→20:50)
[2020-09-25] MEDS: METOCLOPRAMIDE 10 MG TABLET PO SCH ×3 (11:47→20:42)
[2020-09-25] MEDS ORDERED: AZITHROMYCIN 250 MG TABLET ONE (19:22)
[2020-09-25] MEDS: ENOXAPARIN 40 MG/0.4 ML SYRINGE SUBCUT SCH (20:42)
[2020-09-25] MEDS ORDERED: AZITHROMYCIN INJ 250 MG in SODIUM CHLORIDE 0.9% 250 ML IV SCH (21:00)
[2020-09-26] MEDS: MORPHINE 4 MG/1 ML VIAL IV PRN ×4 (03:20→21:58)
[2020-09-26] MEDS: INSULIN REGULAR 100 UNIT/ML SUBCUT SCH ×3 (08:57→21:57)
[2020-09-26] MEDS: PANTOPRAZOLE 40 MG VIAL IV SCH ×2 (09:29→22:11)
[2020-09-26] MEDS: ONDANSETRON 4 MG/2 ML VIAL IV PRN ×3 (09:29→22:11)
[2020-09-26] MEDS: amLODIPine 10 MG TABLET PO SCH (09:30)
[2020-09-26] MEDS: carvediloL 25 MG TABLET PO SCH (09:30)
[2020-09-26] MEDS: METOCLOPRAMIDE 10 MG TABLET PO SCH (09:30)
[2020-09-26] MEDS ORDERED: HEPARIN LOCK FLUSH 500 UNIT/5 ML SYRINGE IV PRN (10:31)
[2020-09-26] MEDS: METOCLOPRAMIDE 5 MG TABLET PO SCH ×3 (11:30→21:57)
[2020-09-26] MEDS ORDERED: AZITHROMYCIN INJ 250 MG in SODIUM CHLORIDE 0.9% 250 ML IV SCH (21:00)
[2020-09-26] MEDS: HEPARIN 5,000 UNIT/1 ML VIAL SUBCUT SCH (22:11)
[2020-09-27] MEDS: SODIUM CHLORIDE 0.9% 1,000 ML IV SCH ×2 (01:07→02:07)
[2020-09-27] MEDS: MORPHINE 4 MG/1 ML VIAL IV PRN ×3 (04:39→13:37)
[2020-09-27 05:41] LABS: Basophils % 0.3 % (0.0-0.8); Eosinophils # 0.2 10*3/uL (0.0-0.87); Eosinophils % 1.9 % (0.00-10.9); Hematocrit 22.7 VOL% (35.7-47.0); Hemoglobin 7.3 GM/DL (12.0-16.0); Immature Granulocytes % 0.4 %; Immature Granulocytes Absolute 0.05 #; Lymphocytes # 2.3 10*3/uL (1.4-4.0); Lymphocytes % 17.8 % (21.3-54.2); Mean Corpuscular HGB Conc 32.2 GM/DL (32-36); Mean Corpuscular Volume 80.8 FL (87-102); Monocytes % 6.2 % (1.7-12.7); Neutrophils % 73.4 % (38.7-73.9); Platelet Count 284 T/CUMM (130-400); Red Blood Count 2.81 MC/CUMM (3.8-5.5); Red Cell Distribution Width 14.9 % (9.3-17.3); White Blood Count 12.9 T/CUMM (4-12)
[2020-09-27 06:14] LABS: Calcium 6.8 MG/DL (8.5-10.1)
[2020-09-27] MEDS: ONDANSETRON 4 MG/2 ML VIAL IV PRN ×2 (08:38→13:38)
[2020-09-27] MEDS: PANTOPRAZOLE 40 MG VIAL IV SCH (08:39)
[2020-09-27] MEDS: HEPARIN 5,000 UNIT/1 ML VIAL SUBCUT SCH (08:42)
[2020-09-27] MEDS ORDERED: carvediloL 12.5 MG TABLET PO SCH (09:00)
[2020-09-27] MEDS: amLODIPine 10 MG TABLET PO SCH (09:51)
[2020-09-27] MEDS: METOCLOPRAMIDE 5 MG TABLET PO SCH (11:32)
[2020-09-27 11:55] VITALS: BP 148/91
== END 2020-09-27 14:21 | disposition home or self-care (01) | DRG 74 ==
LOC: EDUNIT# → N.ED 11:46 → N.EDINP 15:27 → SUATTDRO 15:27 → N.3E 16:09
PROVIDERS: ADMIT Internal Medicine; ATTEND Emergency Medicine

== ENCOUNTER 2020-11-07 12:28 | Inpatient (IN) ==
[2020-11-07] MEDS ORDERED: HYDROmorphone 2 MG/1 ML VIAL IV STA (12:50)
[2020-11-07] MEDS ORDERED: PROMETHAZINE 25 MG/1 ML VIAL IM STA (12:50)
[2020-11-07] MEDS ORDERED: SODIUM CHLORIDE 0.9% 1,000 ML IV STA ×2 (12:50→15:36)
[2020-11-07 13:58] LABS: Bacteria,Urine Occasional /HPF (Few); Bilirubin,Urine Negative (Negative); Blood, Urine Negative (Negative); Glucose,Urine (UA) >=500 mg/dL (Negative); Ketones,Urine 5 mg/dL (Negative); Mucus,Urine Occasional /LPF (Occasional); Nitrite,Urine Negative (Negative); Protein,Urine >=500 MG/DL; RBC,Urine 4 /HPF (0-4); Squamous Epithelial Cell,Urine Occasional /HPF (0-10); Urine Appearance CLEAR (Clear); Urine Color Yellow (Yellow); Urine Specific Gravity 1.012 (1.001-1.035); Urine Urobilinogen < 2.0 EU/DL (0.2-1.0); WBC,Urine 8 /HPF (0-6)
[2020-11-07 14:09] LABS: Basophils # 0.1 10*3/uL (0.0-0.2); Basophils % 0.4 % (0.0-0.8); Eosinophils % 0.1 % (0.00-10.9); Immature Granulocytes % 0.4 %; Immature Granulocytes Absolute 0.06 #; Lymphocytes # 2.1 10*3/uL (1.4-4.0); Lymphocytes % 15.6 % (21.3-54.2); Mean Corpuscular Volume 79.5 FL (87-102); Mean Platelet Volume 9.9 FL (9.6-12.0); Monocytes % 3.6 % (1.7-12.7); Neutrophils % 79.9 % (38.7-73.9); Platelet Count 480 T/CUMM (130-400); Red Blood Count 3.65 MC/CUMM (3.8-5.5); Red Cell Distribution Width 16.3 % (9.3-17.3); White Blood Count 13.4 T/CUMM (4-12)
[2020-11-07 14:28] LABS: Albumin 3.7 G/DL (3.4-5.0); Bilirubin,Total 0.4 MG/DL (0.2-1.0); Calcium 8.8 MG/DL (8.5-10.1); Osmolality,Calculated 300.4 MOS/KG (273-304); Total Protein 9.4 G/DL (6.4-8.3)
[2020-11-07] MEDS ORDERED: MEROPENEM 1,000 MG in SODIUM CHLORIDE 0.9% 100 ML IV STA (15:37)
[2020-11-07] MEDS ORDERED: GLUCAGON 1 MG VIAL IM PRN (16:13)
[2020-11-07] MEDS ORDERED: DEXTROSE 50% 25 GM/50 ML VIAL IV PRN (16:13)
[2020-11-07] MEDS ORDERED: MEROPENEM 500 MG VIAL ONE (16:15)
[2020-11-07] MEDS ORDERED: SODIUM PHOSPHATE ENEMA 133 ML BOTTLE RECTAL ONE (16:29)
[2020-11-07] MEDS ORDERED: cloNIDine 0.1 MG/24 HR PATCH TRANSDERM SCH (16:30)
[2020-11-07] MEDS: INSULIN LISPRO 100 UNIT/ML SUBCUT SCH ×2 (21:00→21:01)
[2020-11-07] MEDS: ONDANSETRON 4 MG/2 ML VIAL IV PRN (21:27)
[2020-11-07] MEDS: MORPHINE 4 MG/1 ML VIAL IV PRN (21:27)
[2020-11-07] MEDS: SODIUM CHLORIDE 0.45% 1,000 ML IV SCH (21:48)
[2020-11-08] MEDS ORDERED: hydrALAZINE 20 MG/1 ML VIAL IV PRN (00:26)
[2020-11-08] MEDS: ONDANSETRON 4 MG/2 ML VIAL IV PRN ×4 (00:51→20:38)
[2020-11-08] MEDS: MORPHINE 4 MG/1 ML VIAL IV PRN ×5 (00:51→20:37)
[2020-11-08] MEDS ORDERED: LABETALOL 20 MG/4 ML SYRINGE IV ONE ×2 (01:00→01:30)
[2020-11-08] MEDS: SODIUM CHLORIDE 0.45% 1,000 ML IV SCH ×3 (01:48→09:25)
[2020-11-08] MEDS ORDERED: ONDANSETRON 4 MG/2 ML VIAL IV ONE (03:15)
[2020-11-08] MEDS: INSULIN LISPRO 100 UNIT/ML SUBCUT SCH ×4 (08:25→20:38)
[2020-11-08] MEDS ORDERED: MAGNESIUM CITRATE 300 ML BOTTLE PO ONE (09:00)
[2020-11-08 09:59] LABS: Basophils # 0.1 10*3/uL (0.0-0.2); Basophils % 0.5 % (0.0-0.8); Eosinophils # 0.2 10*3/uL (0.0-0.87); Eosinophils % 1.4 % (0.00-10.9); Hematocrit 24.1 VOL% (35.7-47.0); Immature Granulocytes % 0.4 %; Immature Granulocytes Absolute 0.05 #; Lymphocytes % 25.6 % (21.3-54.2); Mean Corpuscular HGB Conc 30.3 GM/DL (32-36); Mean Corpuscular Volume 81.4 FL (87-102); Mean Platelet Volume 9.8 FL (9.6-12.0); Monocytes % 5.1 % (1.7-12.7); Red Blood Count 2.96 MC/CUMM (3.8-5.5); Red Cell Distribution Width 16.5 % (9.3-17.3); White Blood Count 11.8 T/CUMM (4-12)
[2020-11-08 10:00] LABS: Hemoglobin 7.3 GM/DL (12.0-16.0); Platelet Count 383 T/CUMM (130-400)
[2020-11-08 10:35] LABS: Osmolality,Calculated 290.8 MOS/KG (273-304)
[2020-11-08] MEDS: ACETIC ACID 0.25% IRRIGATION 1,000 ML BOTTLE IRRIG SCH (16:07)
[2020-11-08] MEDS: GENTAMICIN 0.1% OINT 15 GM TUBE TOP SCH (16:08)
[2020-11-08] MEDS ORDERED: DEXTROSE 50% 25 GM/50 ML VIAL IV PRN (16:12)
[2020-11-08] MEDS ORDERED: GLUCAGON 1 MG VIAL IM PRN (16:12)
[2020-11-08] MEDS ORDERED: MEROPENEM 500 MG in SODIUM CHLORIDE 0.9% 100 ML IV SCH (17:00)
[2020-11-09] MEDS: SODIUM CHLORIDE 0.45% 1,000 ML IV SCH (02:43)
[2020-11-09] MEDS: MORPHINE 4 MG/1 ML VIAL IV PRN ×3 (02:43→14:58)
[2020-11-09 05:50] LABS: Basophils # 0.1 10*3/uL (0.0-0.2); Basophils % 0.6 % (0.0-0.8); Eosinophils # 0.3 10*3/uL (0.0-0.87); Eosinophils % 3.1 % (0.00-10.9); Hemoglobin 6.6 GM/DL (12.0-16.0); Immature Granulocytes % 0.3 %; Immature Granulocytes Absolute 0.03 #; Lymphocytes # 4.5 10*3/uL (1.4-4.0); Lymphocytes % 46.3 % (21.3-54.2); Mean Corpuscular Volume 80.9 FL (87-102); Monocytes % 5.7 % (1.7-12.7); Platelet Count 319 T/CUMM (130-400); Red Blood Count 2.72 MC/CUMM (3.8-5.5); Red Cell Distribution Width 16.1 % (9.3-17.3); White Blood Count 9.7 T/CUMM (4-12)
[2020-11-09 06:40] LABS: Calcium 7.9 MG/DL (8.5-10.1); Osmolality,Calculated 279.1 MOS/KG (273-304)
[2020-11-09] MEDS: INSULIN LISPRO 100 UNIT/ML SUBCUT SCH ×3 (08:01→16:00)
[2020-11-09] MEDS: ONDANSETRON 4 MG/2 ML VIAL IV PRN ×2 (08:21→14:58)
[2020-11-09] MEDS: ACETIC ACID 0.25% IRRIGATION 1,000 ML BOTTLE IRRIG SCH (08:24)
[2020-11-09] MEDS: GENTAMICIN 0.1% OINT 15 GM TUBE TOP SCH (08:25)
[2020-11-09] MEDS ORDERED: SODIUM CHLORIDE 0.9% 1,000 ML IV PRN (08:44)
[2020-11-09] MEDS ORDERED: CEFEPIME 1,000 MG in SODIUM CHLORIDE 0.9% 100 ML IV SCH (14:00)
[2020-11-09 15:53] VITALS: BP 142/88
== END 2020-11-09 17:50 | disposition home health service (06) | DRG 638 ==
LOC: EDUNIT# → EDBD → N.ED 12:28 → N.EDINP 16:13 → N.3E 11-08 00:15
PROVIDERS: ADMIT Internal Medicine; ATTEND Internal Medicine

== ENCOUNTER 2020-12-07 09:37 | Inpatient (IN) ==
[2020-12-07] MEDS ORDERED: SODIUM CHLORIDE 0.9% 1,000 ML IV STA (10:17)
[2020-12-07] MEDS ORDERED: HYDROmorphone 2 MG/1 ML VIAL IV STA (10:17)
[2020-12-07] MEDS ORDERED: ONDANSETRON 4 MG/2 ML VIAL IV STA (10:17)
[2020-12-07 10:27] LABS: Basophils % 0.2 % (0.0-0.8); Hematocrit 28.3 VOL% (35.7-47.0); Immature Granulocytes % 0.4 %; Immature Granulocytes Absolute 0.06 #; Lymphocytes # 1.4 10*3/uL (1.4-4.0); Lymphocytes % 9.4 % (21.3-54.2); Mean Corpuscular HGB Conc 31.8 GM/DL (32-36); Mean Corpuscular Volume 80.2 FL (87-102); Mean Platelet Volume 9.9 FL (9.6-12.0); Monocytes % 3.1 % (1.7-12.7); Neutrophils % 86.9 % (38.7-73.9); Platelet Count 422 T/CUMM (130-400); Red Blood Count 3.53 MC/CUMM (3.8-5.5); Red Cell Distribution Width 15.3 % (9.3-17.3); White Blood Count 14.7 T/CUMM (4-12)
[2020-12-07 10:49] LABS: Alanine Aminotransferase 12 U/L (13-56); Albumin 3.4 G/DL (3.4-5.0); Alkaline Phosphatase 184 U/L (45-117); Aspartate Amino Transferase 7 U/L (0-37); Bilirubin,Total < 0.39 MG/DL (0.2-1.0); Blood Urea Nitrogen 48 MG/DL (7-18); Calcium 8.1 MG/DL (8.5-10.1); Carbon Dioxide 20 MMOL/L (21-32); Estimated Glom Filtration Rate 9 ML/MIN; Glucose 273 MG/DL (74-106); Osmolality,Calculated 303.3 MOS/KG (273-304); Potassium 4.2 MMOL/L (3.5-5.1); Sodium 141 MMOL/L (136-145); Total Protein 9.1 G/DL (6.4-8.3)
[2020-12-07 11:06] LABS: Amorphous Crystals,Urine Few /HPF (Few); Bilirubin,Urine Negative (Negative); Blood, Urine Negative (Negative); Glucose,Urine (UA) >=500 mg/dL (Negative); Ketones,Urine 5 mg/dL (Negative); Nitrite,Urine Negative (Negative); Protein,Urine >=500 MG/DL; RBC,Urine 2 /HPF (0-4); Squamous Epithelial Cell,Urine Occasional /HPF (0-10); Urine Appearance CLEAR (Clear); Urine Color Yellow (Yellow); Urine Specific Gravity 1.015 (1.001-1.035); Urine Urobilinogen < 2.0 EU/DL (0.2-1.0); WBC,Urine <1 /HPF (0-6)
[2020-12-07] MEDS ORDERED: hydrALAZINE 20 MG/1 ML VIAL ONE (11:38)
[2020-12-07] MEDS ORDERED: PROMETHAZINE 25 MG/1 ML VIAL ONE (11:43)
[2020-12-07] MEDS ORDERED: hydrALAZINE 20 MG/1 ML VIAL IV STA (11:46)
[2020-12-07] MEDS ORDERED: PROMETHAZINE 25 MG/1 ML VIAL IM STA (11:46)
[2020-12-07] MEDS ORDERED: INFLUENZA VIRUS VACCINE 0.5 ML SYRINGE IM ONE (13:19)
[2020-12-07] MEDS ORDERED: ACETAMINOPHEN 325 MG TABLET PO PRN (13:50)
[2020-12-07] MEDS ORDERED: GLUCAGON 1 MG VIAL IM PRN ×2 (13:50→14:19)
[2020-12-07] MEDS ORDERED: MAGNESIUM CITRATE 300 ML BOTTLE PO PRN (13:59)
[2020-12-07] MEDS ORDERED: DEXTROSE 50% 25 GM/50 ML VIAL IV PRN (14:19)
[2020-12-07] MEDS: DOCUSATE SODIUM 100 MG CAPSULE PO SCH ×3 (15:09→20:48)
[2020-12-07] MEDS: ONDANSETRON 4 MG/2 ML VIAL IV PRN ×2 (15:09→20:38)
[2020-12-07] MEDS: POLYETHYLENE GLYCOL POWDER 17 GM PACK PO SCH (15:09)
[2020-12-07] MEDS: HEPARIN 5,000 UNIT/1 ML VIAL SUBCUT SCH ×2 (15:23→21:47)
[2020-12-07] MEDS: HYDROmorphone 2 MG/1 ML VIAL IV PRN ×2 (16:08→20:37)
[2020-12-07] MEDS: INSULIN LISPRO 100 UNIT/ML SUBCUT SCH ×2 (16:42→23:03)
[2020-12-07] MEDS: hydrALAZINE 20 MG/1 ML VIAL IV PRN (16:58)
[2020-12-07] MEDS: SODIUM CHLORIDE 0.45% 1,000 ML IV SCH (17:01)
[2020-12-08] MEDS: HYDROmorphone 2 MG/1 ML VIAL IV PRN ×6 (01:50→22:17)
[2020-12-08] MEDS: ONDANSETRON 4 MG/2 ML VIAL IV PRN ×5 (01:50→22:13)
[2020-12-08] MEDS: hydrALAZINE 20 MG/1 ML VIAL IV PRN ×2 (05:14→16:34)
[2020-12-08] MEDS: HEPARIN 5,000 UNIT/1 ML VIAL SUBCUT SCH ×3 (05:15→22:18)
[2020-12-08 06:08] LABS: Basophils % 0.3 % (0.0-0.8); Eosinophils # 0.2 10*3/uL (0.0-0.87); Eosinophils % 1.2 % (0.00-10.9); Hematocrit 25.9 VOL% (35.7-47.0); Hemoglobin 7.9 GM/DL (12.0-16.0); Immature Granulocytes % 0.3 %; Immature Granulocytes Absolute 0.04 #; Lymphocytes # 3.9 10*3/uL (1.4-4.0); Lymphocytes % 31.7 % (21.3-54.2); Mean Corpuscular HGB Conc 30.5 GM/DL (32-36); Mean Corpuscular Volume 80.9 FL (87-102); Mean Platelet Volume 10.4 FL (9.6-12.0); Monocytes % 6.2 % (1.7-12.7); Neutrophils % 60.3 % (38.7-73.9); Platelet Count 340 T/CUMM (130-400); Red Cell Distribution Width 15.1 % (9.3-17.3); White Blood Count 12.3 T/CUMM (4-12)
[2020-12-08 06:12] LABS: Albumin 2.9 G/DL (3.4-5.0); Bilirubin,Total 0.4 MG/DL (0.2-1.0); Calcium 7.8 MG/DL (8.5-10.1); Potassium 3.5 MMOL/L (3.5-5.1); Total Protein 7.3 G/DL (6.4-8.3)
[2020-12-08] MEDS: SODIUM CHLORIDE 0.45% 1,000 ML IV SCH (06:44)
[2020-12-08] MEDS: INSULIN LISPRO 100 UNIT/ML SUBCUT SCH ×4 (08:46→21:00)
[2020-12-08] MEDS: POLYETHYLENE GLYCOL POWDER 17 GM PACK PO SCH (09:00)
[2020-12-08] MEDS: DOCUSATE SODIUM 100 MG CAPSULE PO SCH ×2 (09:00→20:59)
[2020-12-08] MEDS: PANTOPRAZOLE 40 MG TABLET PO SCH (09:00)
[2020-12-08] MEDS: GENTAMICIN 0.1% OINT 15 GM TUBE TOP SCH (13:43)
[2020-12-08] MEDS: DEXTROSE 50% 25 GM/50 ML VIAL IV PRN (16:31)
[2020-12-08] MEDS: amLODIPine 10 MG TABLET PO SCH (17:48)
[2020-12-08] MEDS ORDERED: cloNIDine 0.1 MG/24 HR PATCH TRANSDERM SCH (18:00)
[2020-12-08] MEDS: oxyCODONE/ACETAMINOPHEN 5-325 MG TABLET PO PRN (20:59)
[2020-12-08] MEDS: carvediloL 6.25 MG TABLET PO SCH (21:01)
[2020-12-09] MEDS: DEXTROSE 50% 25 GM/50 ML VIAL IV PRN ×3 (00:02→23:22)
[2020-12-09] MEDS: SODIUM CHLORIDE 0.45% 1,000 ML IV SCH ×2 (00:41→11:19)
[2020-12-09] MEDS: oxyCODONE/ACETAMINOPHEN 5-325 MG TABLET PO PRN ×4 (01:41→17:57)
[2020-12-09] MEDS: HYDROmorphone 2 MG/1 ML VIAL IV PRN ×4 (02:17→15:31)
[2020-12-09] MEDS: ONDANSETRON 4 MG/2 ML VIAL IV PRN ×3 (02:17→15:31)
[2020-12-09] MEDS: HEPARIN 5,000 UNIT/1 ML VIAL SUBCUT SCH ×3 (05:07→21:16)
[2020-12-09 05:55] LABS: Basophils # 0.1 10*3/uL (0.0-0.2); Basophils % 0.4 % (0.0-0.8); Eosinophils # 0.2 10*3/uL (0.0-0.87); Eosinophils % 1.6 % (0.00-10.9); Hematocrit 26.9 VOL% (35.7-47.0); Hemoglobin 8.3 GM/DL (12.0-16.0); Immature Granulocytes % 0.4 %; Immature Granulocytes Absolute 0.05 #; Lymphocytes # 3.2 10*3/uL (1.4-4.0); Lymphocytes % 26.3 % (21.3-54.2); Mean Corpuscular HGB Conc 30.9 GM/DL (32-36); Mean Corpuscular Volume 81.3 FL (87-102); Mean Platelet Volume 9.9 FL (9.6-12.0); Monocytes % 5.6 % (1.7-12.7); Neutrophils % 65.7 % (38.7-73.9); Platelet Count 366 T/CUMM (130-400); Red Blood Count 3.31 MC/CUMM (3.8-5.5); Red Cell Distribution Width 14.9 % (9.3-17.3); White Blood Count 12.2 T/CUMM (4-12)
[2020-12-09 06:18] LABS: Alanine Aminotransferase 10 U/L (13-56); Albumin 2.7 G/DL (3.4-5.0); Alkaline Phosphatase 155 U/L (45-117); Aspartate Amino Transferase 10 U/L (0-37); Bilirubin,Total < 0.39 MG/DL (0.2-1.0); Blood Urea Nitrogen 35 MG/DL (7-18); Calcium 7.9 MG/DL (8.5-10.1); Carbon Dioxide 21 MMOL/L (21-32); Estimated Glom Filtration Rate 10 ML/MIN; Glucose 204 MG/DL (74-106); Osmolality,Calculated 275.7 MOS/KG (273-304); Potassium 4.3 MMOL/L (3.5-5.1); Sodium 131 MMOL/L (136-145); Total Protein 7.3 G/DL (6.4-8.3)
[2020-12-09] MEDS: carvediloL 6.25 MG TABLET PO SCH ×2 (09:29→20:53)
[2020-12-09] MEDS: DOCUSATE SODIUM 100 MG CAPSULE PO SCH ×2 (09:29→20:53)
[2020-12-09] MEDS: amLODIPine 10 MG TABLET PO SCH (09:29)
[2020-12-09] MEDS: POLYETHYLENE GLYCOL POWDER 17 GM PACK PO SCH (09:29)
[2020-12-09] MEDS: INSULIN LISPRO 100 UNIT/ML SUBCUT SCH ×4 (09:30→20:53)
[2020-12-09] MEDS: GENTAMICIN 0.1% OINT 15 GM TUBE TOP SCH (09:31)
[2020-12-09] MEDS: PANTOPRAZOLE 40 MG TABLET PO SCH (09:31)
[2020-12-09] MEDS ORDERED: KETOROLAC 15 MG/1 ML VIAL IV ONE (21:02)
[2020-12-09] MEDS: hydrALAZINE 20 MG/1 ML VIAL IV PRN (23:58)
[2020-12-10] MEDS: HEPARIN 5,000 UNIT/1 ML VIAL SUBCUT SCH ×3 (05:15→21:17)
[2020-12-10 05:55] LABS: Basophils # 0.1 10*3/uL (0.0-0.2); Basophils % 0.6 % (0.0-0.8); Eosinophils # 0.1 10*3/uL (0.0-0.87); Eosinophils % 1.5 % (0.00-10.9); Hemoglobin 8.1 GM/DL (12.0-16.0); Immature Granulocytes % 0.3 %; Immature Granulocytes Absolute 0.03 #; Lymphocytes # 2.1 10*3/uL (1.4-4.0); Lymphocytes % 23.2 % (21.3-54.2); Mean Corpuscular HGB Conc 31.2 GM/DL (32-36); Mean Corpuscular Volume 80.7 FL (87-102); Mean Platelet Volume 10.4 FL (9.6-12.0); Monocytes % 4.9 % (1.7-12.7); Neutrophils % 69.5 % (38.7-73.9); Platelet Count 346 T/CUMM (130-400); Red Blood Count 3.22 MC/CUMM (3.8-5.5); Red Cell Distribution Width 14.8 % (9.3-17.3); White Blood Count 8.9 T/CUMM (4-12)
[2020-12-10 06:12] LABS: Alanine Aminotransferase 9 U/L (13-56); Albumin 2.4 G/DL (3.4-5.0); Alkaline Phosphatase 156 U/L (45-117); Aspartate Amino Transferase 11 U/L (0-37); Bilirubin,Total < 0.39 MG/DL (0.2-1.0); Blood Urea Nitrogen 30 MG/DL (7-18); Calcium 7.6 MG/DL (8.5-10.1); Carbon Dioxide 20 MMOL/L (21-32); Estimated Glom Filtration Rate 10 ML/MIN; Glucose 247 MG/DL (74-106); Osmolality,Calculated 271.9 MOS/KG (273-304); Potassium 4.5 MMOL/L (3.5-5.1); Sodium 129 MMOL/L (136-145); Total Protein 6.9 G/DL (6.4-8.3)
[2020-12-10] MEDS: oxyCODONE/ACETAMINOPHEN 5-325 MG TABLET PO PRN ×2 (07:36→15:30)
[2020-12-10] MEDS: PROMETHAZINE INJ 12.5 MG in SODIUM CHLORIDE 0.9% 50 ML IV PRN ×2 (08:10→14:10)
[2020-12-10] MEDS: amLODIPine 10 MG TABLET PO SCH (09:21)
[2020-12-10] MEDS: DOCUSATE SODIUM 100 MG CAPSULE PO SCH (09:21)
[2020-12-10] MEDS: PANTOPRAZOLE 40 MG TABLET PO SCH (09:21)
[2020-12-10] MEDS: POLYETHYLENE GLYCOL POWDER 17 GM PACK PO SCH ×2 (09:23→18:59)
[2020-12-10] MEDS: GENTAMICIN 0.1% OINT 15 GM TUBE TOP SCH (09:24)
[2020-12-10] MEDS: INSULIN LISPRO 100 UNIT/ML SUBCUT SCH ×4 (12:21→21:18)
[2020-12-10] MEDS: METOCLOPRAMIDE 10 MG/2 ML VIAL IV SCH ×3 (12:32→23:06)
[2020-12-10] MEDS: carvediloL 6.25 MG TABLET PO SCH ×2 (13:02→21:17)
[2020-12-10] MEDS: SODIUM CHLORIDE 0.45% 1,000 ML IV SCH (16:31)
[2020-12-11] MEDS: oxyCODONE/ACETAMINOPHEN 5-325 MG TABLET PO PRN ×2 (00:42→09:57)
[2020-12-11] MEDS: PROMETHAZINE INJ 12.5 MG in SODIUM CHLORIDE 0.9% 50 ML IV PRN (01:05)
[2020-12-11] MEDS: HEPARIN 5,000 UNIT/1 ML VIAL SUBCUT SCH (05:16)
[2020-12-11] MEDS: METOCLOPRAMIDE 10 MG/2 ML VIAL IV SCH (05:16)
[2020-12-11] MEDS: INSULIN LISPRO 100 UNIT/ML SUBCUT SCH (08:00)
[2020-12-11 08:48] VITALS: BP 148/93
[2020-12-11] MEDS: amLODIPine 10 MG TABLET PO SCH (09:54)
[2020-12-11] MEDS: PANTOPRAZOLE 40 MG TABLET PO SCH (09:54)
[2020-12-11] MEDS: carvediloL 6.25 MG TABLET PO SCH (09:54)
== END 2020-12-11 10:47 | disposition home or self-care (01) | DRG 74 ==
LOC: EDUNIT# → EDBD → N.ED 09:37 → N.EDINP 09:37 → SUATTDRO 12:09 → N.EDINP 12:50 → N.3E 13:07
PROVIDERS: ADMIT Internal Medicine Geriatric Medicine; ATTEND Internal Medicine Geriatric Medicine

== ENCOUNTER 2021-01-26 04:34 | Inpatient (IN) ==
[2021-01-26] MEDS ORDERED: SODIUM CHLORIDE 0.9% 1,000 ML IV STA (04:54)
[2021-01-26] MEDS ORDERED: PANTOPRAZOLE 40 MG VIAL IV STA (04:54)
[2021-01-26] MEDS ORDERED: METOCLOPRAMIDE 10 MG/2 ML VIAL IV STA (04:54)
[2021-01-26] MEDS ORDERED: ONDANSETRON 4 MG/2 ML VIAL IV STA (04:54)
[2021-01-26] MEDS ORDERED: MORPHINE 4 MG/1 ML VIAL IV STA (04:54)
[2021-01-26 05:00] LABS: Basophils # 0.1 10*3/uL (0.0-0.2); Basophils % 0.5 % (0.0-0.8); Eosinophils # 0.1 10*3/uL (0.0-0.87); Eosinophils % 0.4 % (0.00-10.9); Hematocrit 28.7 VOL% (35.7-47.0); Hemoglobin 8.9 GM/DL (12.0-16.0); Immature Granulocytes % 0.5 %; Immature Granulocytes Absolute 0.07 #; Lymphocytes # 2.6 10*3/uL (1.4-4.0); Lymphocytes % 18.3 % (21.3-54.2); Mean Corpuscular Volume 79.1 FL (87-102); Mean Platelet Volume 9.1 FL (9.6-12.0); Monocytes % 4.3 % (1.7-12.7); Platelet Count 484 T/CUMM (130-400); Red Blood Count 3.63 MC/CUMM (3.8-5.5); Red Cell Distribution Width 16.5 % (9.3-17.3); White Blood Count 14.3 T/CUMM (4-12)
[2021-01-26 05:20] LABS: Alanine Aminotransferase 10 U/L (13-56); Albumin 2.5 G/DL (3.4-5.0); Alkaline Phosphatase 165 U/L (45-117); Aspartate Amino Transferase 10 U/L (0-37); Bilirubin,Total < 0.39 MG/DL (0.2-1.0); Blood Urea Nitrogen 45 MG/DL (7-18); Calcium 8.6 MG/DL (8.5-10.1); Carbon Dioxide 17 MMOL/L (21-32); Estimated Glom Filtration Rate 8 ML/MIN; Glucose 189 MG/DL (74-106); Osmolality,Calculated 295.4 MOS/KG (273-304); Sodium 140 MMOL/L (136-145); Total Protein 8.1 G/DL (6.4-8.3)
[2021-01-26] MEDS ORDERED: HYDROmorphone 2 MG/1 ML VIAL ONE (05:26)
[2021-01-26] MEDS ORDERED: HYDROmorphone 2 MG/1 ML VIAL IV STA (05:27)
[2021-01-26] MEDS ORDERED: ONDANSETRON 4 MG/2 ML VIAL IV PRN (05:36)
[2021-01-26] MEDS ORDERED: GLUCAGON 1 MG VIAL IM PRN (05:36)
[2021-01-26] MEDS ORDERED: LACTULOSE 20 GM/30 ML UDCUP PO PRN (05:36)
[2021-01-26] MEDS ORDERED: DEXTROSE 50% 25 GM/50 ML VIAL IV PRN (05:36)
[2021-01-26 05:55] LABS: Bacteria,Urine Occasional /HPF (Few); Bilirubin,Urine Negative (Negative); Blood, Urine Negative (Negative); Glucose,Urine (UA) >=500 mg/dL (Negative); Ketones,Urine 5 mg/dL (Negative); Nitrite,Urine Negative (Negative); Protein,Urine >=500 MG/DL; RBC,Urine 1 /HPF (0-4); Squamous Epithelial Cell,Urine Occasional /HPF (0-10); Transitional Epi Cells,Urine Occasional /HPF (<1); Urine Appearance CLEAR (Clear); Urine Color Yellow (Yellow); Urine Specific Gravity 1.015 (1.001-1.035); Urine Urobilinogen < 2.0 EU/DL (0.2-1.0); WBC,Urine 2 /HPF (0-6)
[2021-01-26] MEDS: hydrALAZINE 20 MG/1 ML VIAL IV PRN ×3 (06:11→17:16)
[2021-01-26] MEDS: ENOXAPARIN 30 MG/0.3 ML SYRINGE SUBCUT SCH (06:11)
[2021-01-26] MEDS: PANTOPRAZOLE 40 MG VIAL IV SCH ×2 (08:17→21:59)
[2021-01-26] MEDS ORDERED: MORPHINE 4 MG/1 ML VIAL IV PRN (08:37)
[2021-01-26] MEDS: SODIUM BICARB INJ 50 MEQ in SODIUM CHLORIDE 0.45% 1,000 ML IV SCH ×3 (09:50→20:00)
[2021-01-26] MEDS: HYDROmorphone 2 MG/1 ML VIAL IV PRN ×3 (09:50→22:02)
[2021-01-26] MEDS: INSULIN REGULAR 100 UNIT/ML SUBCUT SCH ×4 (12:19→21:56)
[2021-01-26] MEDS: METOCLOPRAMIDE 10 MG/2 ML VIAL IV SCH ×3 (12:39→23:23)
[2021-01-26] MEDS: PROMETHAZINE 25 MG/1 ML VIAL IM PRN ×2 (12:49→22:00)
[2021-01-26] MEDS ORDERED: LEVOFLOXACIN INJ 750 MG in PREMIX 1 EACH IV ONE (14:00)
[2021-01-26] MEDS: SILVER SULFADIAZINE 1% CREAM 25 GM TUBE TOP SCH (14:35)
[2021-01-27] MEDS: ENOXAPARIN 30 MG/0.3 ML SYRINGE SUBCUT SCH (05:22)
[2021-01-27] MEDS: METOCLOPRAMIDE 10 MG/2 ML VIAL IV SCH ×2 (05:24→13:05)
[2021-01-27] MEDS: HYDROmorphone 2 MG/1 ML VIAL IV PRN ×4 (05:26→23:25)
[2021-01-27] MEDS: SODIUM BICARB INJ 50 MEQ in SODIUM CHLORIDE 0.45% 1,000 ML IV SCH ×2 (06:14→12:54)
[2021-01-27] MEDS: INSULIN REGULAR 100 UNIT/ML SUBCUT SCH ×5 (07:21→21:01)
[2021-01-27 09:01] LABS: Basophils # 0.1 10*3/uL (0.0-0.2); Basophils % 0.4 % (0.0-0.8); Eosinophils # 0.2 10*3/uL (0.0-0.87); Eosinophils % 1.2 % (0.00-10.9); Hematocrit 25.3 VOL% (35.7-47.0); Hemoglobin 7.6 GM/DL (12.0-16.0); Immature Granulocytes % 0.5 %; Immature Granulocytes Absolute 0.07 #; Lymphocytes # 3.2 10*3/uL (1.4-4.0); Lymphocytes % 21.4 % (21.3-54.2); Mean Corpuscular Volume 82.4 FL (87-102); Mean Platelet Volume 9.4 FL (9.6-12.0); Monocytes % 5.5 % (1.7-12.7); Platelet Count 376 T/CUMM (130-400); Red Blood Count 3.07 MC/CUMM (3.8-5.5); Red Cell Distribution Width 16.3 % (9.3-17.3); White Blood Count 14.7 T/CUMM (4-12)
[2021-01-27] MEDS: PANTOPRAZOLE 40 MG VIAL IV SCH ×2 (09:06→21:03)
[2021-01-27] MEDS: SILVER SULFADIAZINE 1% CREAM 25 GM TUBE TOP SCH (09:13)
[2021-01-27 09:22] LABS: Alanine Aminotransferase < 9 U/L (13-56); Albumin 1.7 G/DL (3.4-5.0); Alkaline Phosphatase 128 U/L (45-117); Aspartate Amino Transferase 8 U/L (0-37); Blood Urea Nitrogen 34 MG/DL (7-18); Calcium 7.6 MG/DL (8.5-10.1); Carbon Dioxide 24 MMOL/L (21-32); Estimated Glom Filtration Rate 9 ML/MIN; Glucose 109 MG/DL (74-106); Osmolality,Calculated 283.7 MOS/KG (273-304); Potassium 3.9 MMOL/L (3.5-5.1); Sodium 138 MMOL/L (136-145); Total Protein 6.2 G/DL (6.4-8.3)
[2021-01-27] MEDS ORDERED: VANCOMYCIN INJ 1,000 MG in SODIUM CHLORIDE 0.9% 250 ML IV PRN (09:40)
[2021-01-27] MEDS ORDERED: VANCOMYCIN INJ 1,500 MG in SODIUM CHLORIDE 0.9% 500 ML IV ONE (10:00)
[2021-01-27] MEDS: GABAPENTIN 300 MG CAPSULE PO SCH (10:19)
[2021-01-27] MEDS: carvediloL 6.25 MG TABLET PO SCH ×2 (10:19→20:59)
[2021-01-27] MEDS: oxyCODONE/ACETAMINOPHEN 5-325 MG TABLET PO PRN ×2 (13:05→20:59)
[2021-01-27] MEDS ORDERED: tiZANidine 4 MG TABLET PO PRN (15:38)
[2021-01-27] MEDS: SODIUM CHLORIDE 0.45% 1,000 ML IV SCH (17:02)
[2021-01-27] MEDS: GENTAMICIN 0.1% CREAM 15 GM TUBE TOP SCH (17:02)
[2021-01-27] MEDS: CEFEPIME 2,000 MG in SODIUM CHLORIDE 0.9% 100 ML IV SCH (17:03)
[2021-01-27] MEDS: METOCLOPRAMIDE 5 MG TABLET PO SCH ×2 (17:03→20:59)
[2021-01-27] MEDS ORDERED: INSULIN GLARGINE 100 UNIT/ML SUBCUT SCH (21:00)
[2021-01-28] MEDS: SODIUM CHLORIDE 0.45% 1,000 ML IV SCH ×2 (01:45→11:11)
[2021-01-28] MEDS: oxyCODONE/ACETAMINOPHEN 5-325 MG TABLET PO PRN (04:26)
[2021-01-28] MEDS: ENOXAPARIN 30 MG/0.3 ML SYRINGE SUBCUT SCH (05:09)
[2021-01-28] MEDS: INSULIN REGULAR 100 UNIT/ML SUBCUT SCH ×2 (08:45→11:47)
[2021-01-28] MEDS ORDERED: LEVOFLOXACIN INJ 500 MG in PREMIX 1 EACH IV SCH (09:00)
[2021-01-28] MEDS ORDERED: MULTIVITAMIN (CENTRUM) TABLET PO SCH (09:00)
[2021-01-28] MEDS: carvediloL 6.25 MG TABLET PO SCH (10:06)
[2021-01-28] MEDS: GABAPENTIN 300 MG CAPSULE PO SCH (10:06)
[2021-01-28] MEDS: METOCLOPRAMIDE 5 MG TABLET PO SCH ×2 (10:06→11:44)
[2021-01-28] MEDS: GENTAMICIN 0.1% CREAM 15 GM TUBE TOP SCH (10:07)
[2021-01-28] MEDS: SILVER SULFADIAZINE 1% CREAM 25 GM TUBE TOP SCH (10:07)
[2021-01-28 10:54] LABS: Basophils # 0.1 10*3/uL (0.0-0.2); Basophils % 0.4 % (0.0-0.8); Eosinophils # 0.3 10*3/uL (0.0-0.87); Eosinophils % 2.1 % (0.00-10.9); Hematocrit 26.1 VOL% (35.7-47.0); Hemoglobin 7.8 GM/DL (12.0-16.0); Immature Granulocytes % 0.4 %; Immature Granulocytes Absolute 0.06 #; Lymphocytes # 3.4 10*3/uL (1.4-4.0); Lymphocytes % 25.2 % (21.3-54.2); Mean Corpuscular HGB Conc 29.9 GM/DL (32-36); Mean Corpuscular Volume 82.1 FL (87-102); Monocytes % 6.7 % (1.7-12.7); Neutrophils % 65.2 % (38.7-73.9); Platelet Count 355 T/CUMM (130-400); Red Blood Count 3.18 MC/CUMM (3.8-5.5); Red Cell Distribution Width 15.9 % (9.3-17.3); White Blood Count 13.5 T/CUMM (4-12)
[2021-01-28] MEDS: CEFEPIME 2,000 MG in SODIUM CHLORIDE 0.9% 100 ML IV SCH (11:11)
[2021-01-28] MEDS: PANTOPRAZOLE 40 MG VIAL IV SCH (11:11)
[2021-01-28 11:59] VITALS: BP 162/100
[2021-01-30] MEDS ORDERED: cloNIDine 0.1 MG/24 HR PATCH TRANSDERM SCH (09:00)
== END 2021-01-28 12:39 | disposition left against medical advice (07) | DRG 74 ==
LOC: EDUNIT# → EDBD → N.ED 04:34 → N.EDINP 05:36 → SUATTDRO 05:36 → N.3E 06:07
PROVIDERS: ADMIT Internal Medicine; ATTEND Internal Medicine

== ENCOUNTER 2021-02-03 03:46 | Inpatient (IN) ==
[2021-02-03] MEDS ORDERED: SODIUM CHLORIDE 0.9% 1,000 ML IV STA (04:17)
[2021-02-03] MEDS ORDERED: METOCLOPRAMIDE 10 MG/2 ML VIAL IV STA (04:17)
[2021-02-03] MEDS ORDERED: ONDANSETRON 4 MG/2 ML VIAL IV STA (04:17)
[2021-02-03] MEDS ORDERED: PANTOPRAZOLE 40 MG VIAL IV STA (04:17)
[2021-02-03] MEDS ORDERED: HYDROmorphone 2 MG/1 ML VIAL IV STA (04:17)
[2021-02-03 04:40] LABS: Basophils # 0.1 10*3/uL (0.0-0.2); Basophils % 0.4 % (0.0-0.8); Eosinophils # 0.1 10*3/uL (0.0-0.87); Eosinophils % 0.2 % (0.00-10.9); Hematocrit 25.5 VOL% (35.7-47.0); Hemoglobin 8.2 GM/DL (12.0-16.0); Immature Granulocytes % 0.7 %; Immature Granulocytes Absolute 0.15 #; Lymphocytes # 1.5 10*3/uL (1.4-4.0); Lymphocytes % 7.5 % (21.3-54.2); Mean Corpuscular HGB Conc 32.2 GM/DL (32-36); Mean Corpuscular Volume 78.2 FL (87-102); Mean Platelet Volume 9.3 FL (9.6-12.0); Monocytes % 3.7 % (1.7-12.7); Neutrophils % 87.5 % (38.7-73.9); Platelet Count 466 T/CUMM (130-400); Red Blood Count 3.26 MC/CUMM (3.8-5.5); Red Cell Distribution Width 15.7 % (9.3-17.3); White Blood Count 20.4 T/CUMM (4-12)
[2021-02-03 05:08] LABS: Alanine Aminotransferase < 9 U/L (13-56); Albumin 1.8 G/DL (3.4-5.0); Alkaline Phosphatase 190 U/L (45-117); Amylase 87 U/L (25-115); Aspartate Amino Transferase 7 U/L (0-37); Bilirubin,Total < 0.39 MG/DL (0.2-1.0); Blood Urea Nitrogen 33 MG/DL (7-18); Carbon Dioxide 24 MMOL/L (21-32); Estimated Glom Filtration Rate 8 ML/MIN; Glucose 266 MG/DL (74-106); Potassium 3.6 MMOL/L (3.5-5.1); Sodium 143 MMOL/L (136-145); Total Protein 7.6 G/DL (5.0-7.5)
[2021-02-03] MEDS ORDERED: hydrALAZINE 20 MG/1 ML VIAL IV STA (05:10)
[2021-02-03 05:11] LABS: Bilirubin,Urine Negative (Negative); Blood, Urine Negative (Negative); Glucose,Urine (UA) >=500 mg/dL (Negative); Ketones,Urine 5 mg/dL (Negative); Nitrite,Urine Negative (Negative); Protein,Urine >=500 MG/DL; RBC,Urine 1 /HPF (0-4); Squamous Epithelial Cell,Urine Occasional /HPF (0-10); Urine Appearance CLEAR (Clear); Urine Color Yellow (Yellow); Urine Specific Gravity 1.012 (1.001-1.035); Urine Urobilinogen < 2.0 EU/DL (0.2-1.0); WBC,Urine <1 /HPF (0-6)
[2021-02-03] MEDS ORDERED: MEPERIDINE 50 MG/1 ML VIAL IV STA (06:00)
[2021-02-03] MEDS ORDERED: diphenhydrAMINE 50 MG/1 ML VIAL IV STA (06:00)
[2021-02-03] MEDS ORDERED: PROMETHAZINE INJ 25 MG in SODIUM CHLORIDE 0.9% 50 ML IV STA (06:00)
[2021-02-03] MEDS ORDERED: PROMETHAZINE 25 MG/1 ML VIAL ONE (06:00)
[2021-02-03] MEDS ORDERED: MEPERIDINE 50 MG/1 ML VIAL ONE (06:01)
[2021-02-03] MEDS ORDERED: diphenhydrAMINE 50 MG/1 ML VIAL ONE (06:01)
[2021-02-03] MEDS ORDERED: GLUCAGON 1 MG VIAL IM PRN (06:12)
[2021-02-03] MEDS ORDERED: diphenhydrAMINE CAP 25 MG CAPSULE PO PRN (06:12)
[2021-02-03] MEDS ORDERED: DEXTROSE 50% 25 GM/50 ML VIAL IV PRN (06:12)
[2021-02-03] MEDS ORDERED: NICOTINE 21 MG/24 HR PATCH TRANSDERM PRN (06:12)
[2021-02-03] MEDS ORDERED: MORPHINE 4 MG/1 ML VIAL IV STA (06:28)
[2021-02-03 06:42] LABS: ABG Base Excess -2.1 MMOL/L (-2.5-2.5); ABG HCO3 22.7 MMOL/L (20-26); ABG Oxygen Saturation 98.7 % (95-100); ABG PCO2 36.8 MM HG (35-48); ABG PH 7.394 (7.35-7.45); ABG TCO2 20.9 MMOL/L (23-27)
[2021-02-03 06:56] LABS: Lymphocytes 8 % (20-55); Platelet Estimate Increased; Segmented Neutrophils 88 % (50-85); Total Cells Counted 100
[2021-02-03 06:57] LABS: Hypochromasia Slight; Microcytosis Slight
[2021-02-03] MEDS: SODIUM CHLORIDE 0.9% 1,000 ML IV SCH ×3 (07:33→17:41)
[2021-02-03] MEDS: MORPHINE 4 MG/1 ML VIAL IV PRN ×3 (08:33→13:29)
[2021-02-03] MEDS: PROMETHAZINE 25 MG/1 ML VIAL IM PRN (08:33)
[2021-02-03] MEDS ORDERED: INFLUENZA VIRUS VACCINE 0.5 ML SYRINGE IM ONE (08:37)
[2021-02-03] MEDS: ONDANSETRON 4 MG/2 ML VIAL IV PRN ×2 (10:26→19:58)
[2021-02-03] MEDS ORDERED: METOCLOPRAMIDE 5 MG TABLET PO PRN (11:31)
[2021-02-03] MEDS ORDERED: HEPARIN LOCK FLUSH 500 UNIT/5 ML SYRINGE IV PRN (12:08)
[2021-02-03] MEDS: INSULIN REGULAR 100 UNIT/ML SUBCUT SCH ×2 (13:28→17:28)
[2021-02-03] MEDS: HYDROmorphone 2 MG/1 ML VIAL IV PRN ×2 (15:19→19:51)
[2021-02-03] MEDS: CEFEPIME 2,000 MG in SODIUM CHLORIDE 0.9% 100 ML IV SCH (15:19)
[2021-02-03] MEDS: HEPARIN LOCK FLUSH 500 UNIT/5 ML SYRINGE IV SCH (21:10)
[2021-02-04] MEDS: INSULIN REGULAR 100 UNIT/ML SUBCUT SCH ×4 (00:09→17:22)
[2021-02-04] MEDS: hydrALAZINE 20 MG/1 ML VIAL IV PRN ×2 (00:17→23:35)
[2021-02-04] MEDS: PROMETHAZINE 25 MG/1 ML VIAL IM PRN ×3 (00:17→19:51)
[2021-02-04] MEDS: HYDROmorphone 2 MG/1 ML VIAL IV PRN ×6 (00:17→20:42)
[2021-02-04] MEDS: ONDANSETRON 4 MG/2 ML VIAL IV PRN ×4 (03:07→23:41)
[2021-02-04] MEDS: SODIUM CHLORIDE 0.9% 1,000 ML IV SCH ×3 (03:07→21:44)
[2021-02-04 06:56] LABS: Basophils # 0.1 10*3/uL (0.0-0.2); Basophils % 0.3 % (0.0-0.8); Eosinophils # 0.3 10*3/uL (0.0-0.87); Eosinophils % 1.3 % (0.00-10.9); Hematocrit 24.5 VOL% (35.7-47.0); Hemoglobin 7.1 GM/DL (12.0-16.0); Immature Granulocytes % 1.1 %; Immature Granulocytes Absolute 0.22 #; Lymphocytes # 2.8 10*3/uL (1.4-4.0); Lymphocytes % 13.9 % (21.3-54.2); Mean Corpuscular Volume 83.3 FL (87-102); Mean Platelet Volume 9.3 FL (9.6-12.0); Monocytes % 4.6 % (1.7-12.7); Neutrophils % 78.8 % (38.7-73.9); Platelet Count 371 T/CUMM (130-400); Red Blood Count 2.94 MC/CUMM (3.8-5.5); Red Cell Distribution Width 15.9 % (9.3-17.3); White Blood Count 20.2 T/CUMM (4-12)
[2021-02-04 07:07] LABS: Calcium 7.5 MG/DL (8.5-10.1); Osmolality,Calculated 285.7 MOS/KG (273-304); Potassium 3.4 MMOL/L (3.5-5.1)
[2021-02-04 07:10] LABS: Alanine Aminotransferase < 6 U/L (13-56); Albumin 1.6 G/DL (3.4-5.0); Alkaline Phosphatase 156 U/L (45-117); Aspartate Amino Transferase 9 U/L (0-37); Bilirubin,Total < 0.39 MG/DL (0.2-1.0); Blood Urea Nitrogen 27 MG/DL (7-18); Calcium 7.4 MG/DL (8.5-10.1); Carbon Dioxide 21 MMOL/L (21-32); Estimated Glom Filtration Rate 10 ML/MIN; Glucose 182 MG/DL (74-106); Osmolality,Calculated 288.4 MOS/KG (273-304); Potassium 3.5 MMOL/L (3.5-5.1); Sodium 140 MMOL/L (136-145); Total Protein 6.3 G/DL (5.0-7.5)
[2021-02-04 07:36] LABS: Hypochromasia 2+; Lymphocytes 15 % (20-55); Microcytosis 1+; Platelet Estimate Adequate; Segmented Neutrophils 82 % (50-85); Total Cells Counted 100
[2021-02-04] MEDS: HEPARIN LOCK FLUSH 500 UNIT/5 ML SYRINGE IV SCH ×2 (08:08→20:45)
[2021-02-04] MEDS ORDERED: SODIUM CHLORIDE 0.9% 1,000 ML IV PRN (09:57)
[2021-02-04] MEDS ORDERED: METOCLOPRAMIDE 5 MG TABLET PO SCH (10:00)
[2021-02-04 10:25] LABS: % Iron Saturation 70.5 % (18-50)
[2021-02-04] MEDS: METOCLOPRAMIDE 10 MG/2 ML VIAL IV SCH ×2 (14:38→21:45)
[2021-02-04] MEDS: CEFEPIME 2,000 MG in SODIUM CHLORIDE 0.9% 100 ML IV SCH (14:50)
[2021-02-05] MEDS: INSULIN REGULAR 100 UNIT/ML SUBCUT SCH ×4 (00:19→17:05)
[2021-02-05] MEDS: PROMETHAZINE 25 MG/1 ML VIAL IM PRN ×3 (03:29→22:05)
[2021-02-05] MEDS: HYDROmorphone 2 MG/1 ML VIAL IV PRN ×3 (03:32→12:20)
[2021-02-05] MEDS ORDERED: LABETALOL 20 MG/4 ML SYRINGE IV ONE (04:19)
[2021-02-05 05:33] LABS: Basophils # 0.1 10*3/uL (0.0-0.2); Basophils % 0.4 % (0.0-0.8); Eosinophils # 0.2 10*3/uL (0.0-0.87); Eosinophils % 1.3 % (0.00-10.9); Hematocrit 23.4 VOL% (35.7-47.0); Hemoglobin 7.1 GM/DL (12.0-16.0); Immature Granulocytes Absolute 0.15 #; Lymphocytes # 2.6 10*3/uL (1.4-4.0); Lymphocytes % 16.9 % (21.3-54.2); Mean Corpuscular HGB Conc 30.3 GM/DL (32-36); Mean Corpuscular Volume 81.5 FL (87-102); Mean Platelet Volume 9.5 FL (9.6-12.0); Neutrophils % 74.4 % (38.7-73.9); Platelet Count 368 T/CUMM (130-400); Red Blood Count 2.87 MC/CUMM (3.8-5.5); Red Cell Distribution Width 15.7 % (9.3-17.3); White Blood Count 15.6 T/CUMM (4-12)
[2021-02-05] MEDS: SODIUM CHLORIDE 0.9% 1,000 ML IV SCH ×4 (06:11→19:00)
[2021-02-05 06:46] LABS: Calcium 6.9 MG/DL (8.5-10.1); Potassium 3.1 MMOL/L (3.5-5.1)
[2021-02-05] MEDS: METOCLOPRAMIDE 10 MG/2 ML VIAL IV SCH ×3 (08:04→21:15)
[2021-02-05] MEDS: HEPARIN LOCK FLUSH 500 UNIT/5 ML SYRINGE IV SCH ×2 (08:07→21:11)
[2021-02-05] MEDS: ONDANSETRON 4 MG/2 ML VIAL IV PRN ×3 (09:53→22:30)
[2021-02-05] MEDS: CYANOCOBALAMIN 1000 MCG/1 ML VIAL SUBCUT SCH (12:21)
[2021-02-05] MEDS: FOLIC ACID INJ 1 MG in SYRINGE 1 EACH IV SCH (12:21)
[2021-02-05] MEDS: hydrALAZINE 20 MG/1 ML VIAL IV PRN ×2 (12:27→17:05)
[2021-02-05] MEDS ORDERED: METOCLOPRAMIDE 10 MG/2 ML VIAL IV SCH (14:00)
[2021-02-05] MEDS: CEFEPIME 2,000 MG in SODIUM CHLORIDE 0.9% 100 ML IV SCH (14:04)
[2021-02-05] MEDS: PANTOPRAZOLE 40 MG VIAL IV SCH (21:12)
[2021-02-05] MEDS: ACETAMINOPHEN 325 MG TABLET PO PRN (22:30)
[2021-02-06] MEDS: SODIUM CHLORIDE 0.9% 1,000 ML IV SCH ×2 (00:40→03:57)
[2021-02-06] MEDS: INSULIN REGULAR 100 UNIT/ML SUBCUT SCH ×4 (00:40→18:26)
[2021-02-06] MEDS: ONDANSETRON 4 MG/2 ML VIAL IV PRN ×4 (02:47→18:15)
[2021-02-06] MEDS: METOCLOPRAMIDE 10 MG/2 ML VIAL IV SCH (05:57)
[2021-02-06] MEDS: PROMETHAZINE 25 MG/1 ML VIAL IM PRN ×3 (05:58→20:40)
[2021-02-06 06:12] LABS: Basophils # 0.1 10*3/uL (0.0-0.2); Basophils % 0.7 % (0.0-0.8); Eosinophils # 0.2 10*3/uL (0.0-0.87); Eosinophils % 1.4 % (0.00-10.9); Hemoglobin 6.8 GM/DL (12.0-16.0); Immature Granulocytes % 1.4 %; Immature Granulocytes Absolute 0.19 #; Lymphocytes # 2.8 10*3/uL (1.4-4.0); Lymphocytes % 21.4 % (21.3-54.2); Mean Corpuscular HGB Conc 29.6 GM/DL (32-36); Mean Corpuscular Volume 82.7 FL (87-102); Mean Platelet Volume 9.4 FL (9.6-12.0); Monocytes % 6.4 % (1.7-12.7); Neutrophils % 68.7 % (38.7-73.9); Platelet Count 421 T/CUMM (130-400); Red Blood Count 2.78 MC/CUMM (3.8-5.5); Red Cell Distribution Width 15.6 % (9.3-17.3); White Blood Count 13.1 T/CUMM (4-12)
[2021-02-06 06:28] LABS: % Iron Saturation 66.3 % (18-50); Calcium 6.8 MG/DL (8.5-10.1); Osmolality,Calculated 291.8 MOS/KG (273-304); Potassium 3.4 MMOL/L (3.5-5.1)
[2021-02-06] MEDS: CYANOCOBALAMIN 1000 MCG/1 ML VIAL SUBCUT SCH (08:47)
[2021-02-06] MEDS: PANTOPRAZOLE 40 MG VIAL IV SCH ×2 (08:49→20:45)
[2021-02-06] MEDS: HEPARIN LOCK FLUSH 500 UNIT/5 ML SYRINGE IV SCH ×2 (08:49→20:45)
[2021-02-06] MEDS: FOLIC ACID INJ 1 MG in SYRINGE 1 EACH IV SCH (08:50)
[2021-02-06] MEDS: SODIUM BICARB INJ 50 MEQ in SODIUM CHLORIDE 0.45% 1,000 ML IV SCH ×2 (09:56→21:07)
[2021-02-06] MEDS: hydrALAZINE 20 MG/1 ML VIAL IV PRN (09:57)
[2021-02-06] MEDS: traMADol 50 MG TABLET PO PRN ×2 (09:57→16:24)
[2021-02-06] MEDS: ACETAMINOPHEN 325 MG TABLET PO PRN (12:49)
[2021-02-06] MEDS ORDERED: MAGNESIUM SULF RIDER 2 GM in PREMIX 1 EACH IV ONE (13:00)
[2021-02-06] MEDS: CEFEPIME 2,000 MG in SODIUM CHLORIDE 0.9% 100 ML IV SCH (14:50)
[2021-02-06] MEDS: ERYTHROMYCIN INJ 250 MG in SODIUM CHLORIDE 0.9% 100 ML IV SCH ×2 (16:24→20:40)
[2021-02-06] MEDS: FERRIC GLUCONATE COMPLEX 125 MG in SODIUM CHLORIDE 0.9% 100 ML IV SCH (17:22)
[2021-02-07] MEDS: INSULIN REGULAR 100 UNIT/ML SUBCUT SCH ×5 (00:09→23:39)
[2021-02-07] MEDS: ONDANSETRON 4 MG/2 ML VIAL IV PRN ×3 (02:27→22:15)
[2021-02-07] MEDS: SODIUM BICARB INJ 50 MEQ in SODIUM CHLORIDE 0.45% 1,000 ML IV SCH ×3 (02:37→23:39)
[2021-02-07] MEDS: ERYTHROMYCIN INJ 250 MG in SODIUM CHLORIDE 0.9% 100 ML IV SCH ×4 (03:40→22:15)
[2021-02-07] MEDS: PROMETHAZINE 25 MG/1 ML VIAL IM PRN ×3 (04:13→16:27)
[2021-02-07] MEDS: traMADol 50 MG TABLET PO PRN ×2 (04:16→16:27)
[2021-02-07 06:14] LABS: Basophils # 0.1 10*3/uL (0.0-0.2); Basophils % 0.6 % (0.0-0.8); Eosinophils # 0.2 10*3/uL (0.0-0.87); Eosinophils % 1.8 % (0.00-10.9); Hematocrit 23.1 VOL% (35.7-47.0); Hemoglobin 6.9 GM/DL (12.0-16.0); Immature Granulocytes % 0.9 %; Immature Granulocytes Absolute 0.11 #; Lymphocytes % 15.9 % (21.3-54.2); Mean Corpuscular HGB Conc 29.9 GM/DL (32-36); Mean Corpuscular Volume 80.8 FL (87-102); Mean Platelet Volume 9.3 FL (9.6-12.0); Monocytes % 5.4 % (1.7-12.7); Neutrophils % 75.4 % (38.7-73.9); Platelet Count 406 T/CUMM (130-400); Red Blood Count 2.86 MC/CUMM (3.8-5.5); Red Cell Distribution Width 15.6 % (9.3-17.3); White Blood Count 12.6 T/CUMM (4-12)
[2021-02-07 06:43] LABS: Calcium 7.2 MG/DL (8.5-10.1); Osmolality,Calculated 287.1 MOS/KG (273-304)
[2021-02-07] MEDS: FOLIC ACID INJ 1 MG in SYRINGE 1 EACH IV SCH (09:08)
[2021-02-07] MEDS: CYANOCOBALAMIN 1000 MCG/1 ML VIAL SUBCUT SCH (09:08)
[2021-02-07] MEDS: PANTOPRAZOLE 40 MG VIAL IV SCH ×2 (09:09→22:13)
[2021-02-07] MEDS: HEPARIN LOCK FLUSH 500 UNIT/5 ML SYRINGE IV SCH ×2 (09:10→22:14)
[2021-02-07] MEDS: GENTAMICIN 0.1% OINT 15 GM TUBE TOP SCH ×3 (09:11→22:45)
[2021-02-07] MEDS: hydrALAZINE 20 MG/1 ML VIAL IV PRN (12:04)
[2021-02-07] MEDS: FERRIC GLUCONATE COMPLEX 125 MG in SODIUM CHLORIDE 0.9% 100 ML IV SCH (12:04)
[2021-02-07] MEDS ORDERED: GLUCAGON 1 MG VIAL IM PRN (14:37)
[2021-02-07] MEDS ORDERED: DEXTROSE 50% 25 GM/50 ML VIAL IV PRN (14:37)
[2021-02-07] MEDS ORDERED: POTASSIUM CHLORIDE 20 MEQ TABLET PO ONE (15:00)
[2021-02-07] MEDS: CEFEPIME 2,000 MG in SODIUM CHLORIDE 0.9% 100 ML IV SCH (16:18)
[2021-02-07] MEDS: LORazepam 2 MG/1 ML VIAL IV PRN (16:27)
[2021-02-08] MEDS: LORazepam 2 MG/1 ML VIAL IV PRN ×2 (01:29→09:21)
[2021-02-08] MEDS: PROMETHAZINE 25 MG/1 ML VIAL IM PRN (01:29)
[2021-02-08] MEDS: ERYTHROMYCIN INJ 250 MG in SODIUM CHLORIDE 0.9% 100 ML IV SCH ×2 (03:58→09:06)
[2021-02-08] MEDS: traMADol 50 MG TABLET PO PRN ×2 (03:58→09:05)
[2021-02-08 04:59] LABS: Basophils # 0.1 10*3/uL (0.0-0.2); Basophils % 0.5 % (0.0-0.8); Eosinophils # 0.3 10*3/uL (0.0-0.87); Eosinophils % 1.9 % (0.00-10.9); Hematocrit 23.1 VOL% (35.7-47.0); Hemoglobin 7.3 GM/DL (12.0-16.0); Immature Granulocytes % 0.9 %; Immature Granulocytes Absolute 0.12 #; Lymphocytes # 2.5 10*3/uL (1.4-4.0); Lymphocytes % 19.3 % (21.3-54.2); Mean Corpuscular HGB Conc 31.6 GM/DL (32-36); Mean Corpuscular Volume 79.4 FL (87-102); Monocytes % 6.1 % (1.7-12.7); Neutrophils % 71.3 % (38.7-73.9); Platelet Count 347 T/CUMM (130-400); Red Blood Count 2.91 MC/CUMM (3.8-5.5); Red Cell Distribution Width 15.7 % (9.3-17.3); White Blood Count 12.9 T/CUMM (4-12)
[2021-02-08 05:17] LABS: Calcium 7.3 MG/DL (8.5-10.1); Osmolality,Calculated 281.4 MOS/KG (273-304); Potassium 3.3 MMOL/L (3.5-5.1)
[2021-02-08] MEDS: INSULIN REGULAR 100 UNIT/ML SUBCUT SCH ×2 (05:18→12:30)
[2021-02-08] MEDS: PANTOPRAZOLE 40 MG VIAL IV SCH (09:03)
[2021-02-08] MEDS: ONDANSETRON 4 MG/2 ML VIAL IV PRN (09:03)
[2021-02-08] MEDS: FOLIC ACID INJ 1 MG in SYRINGE 1 EACH IV SCH (09:04)
[2021-02-08] MEDS: CYANOCOBALAMIN 1000 MCG/1 ML VIAL SUBCUT SCH (09:04)
[2021-02-08] MEDS: GENTAMICIN 0.1% OINT 15 GM TUBE TOP SCH (09:05)
[2021-02-08] MEDS: HEPARIN LOCK FLUSH 500 UNIT/5 ML SYRINGE IV SCH (09:06)
[2021-02-08] MEDS: FERRIC GLUCONATE COMPLEX 125 MG in SODIUM CHLORIDE 0.9% 100 ML IV SCH (10:32)
[2021-02-08] MEDS ORDERED: MAGNESIUM SULFATE 1 GM/2 ML VIAL IM ONE (11:00)
[2021-02-08] MEDS ORDERED: POTASSIUM CHLORIDE 20 MEQ TABLET PO ONE (11:00)
[2021-02-08 12:20] VITALS: BP 152/108
[2021-02-08] MEDS: SODIUM BICARB INJ 50 MEQ in SODIUM CHLORIDE 0.45% 1,000 ML IV SCH (12:29)
== END 2021-02-08 12:08 | disposition home health service (06) | DRG 74 ==
LOC: EDUNIT# → EDBD → SUATTDRO → N.EDINP 03:46 → N.ED 03:46 → N.5E 07:49
PROVIDERS: ADMIT Internal Medicine; ATTEND Internal Medicine

== ENCOUNTER 2021-04-08 10:57 | Inpatient (IN) ==
[2021-04-08] MEDS ORDERED: HYDROmorphone 2 MG/1 ML VIAL IV STA ×2 (11:22→13:45)
[2021-04-08] MEDS ORDERED: ONDANSETRON 4 MG/2 ML VIAL IV STA (11:22)
[2021-04-08] MEDS ORDERED: SODIUM CHLORIDE 0.9% 1,000 ML IV STA (11:22)
[2021-04-08 11:56] LABS: Basophils # 0.1 10*3/uL (0.0-0.2); Basophils % 0.6 % (0.0-0.8); Eosinophils % 0.2 % (0.00-10.9); Hematocrit 30.2 VOL% (35.7-47.0); Hemoglobin 9.2 GM/DL (12.0-16.0); Immature Granulocytes % 0.4 %; Immature Granulocytes Absolute 0.04 #; Lymphocytes % 9.8 % (21.3-54.2); Mean Corpuscular HGB Conc 30.5 GM/DL (32-36); Mean Corpuscular Volume 81.4 FL (87-102); Mean Platelet Volume 9.8 FL (9.6-12.0); Monocytes % 1.8 % (1.7-12.7); Neutrophils % 87.2 % (38.7-73.9); Platelet Count 377 T/CUMM (130-400); Red Blood Count 3.71 MC/CUMM (3.8-5.5); Red Cell Distribution Width 14.4 % (9.3-17.3); White Blood Count 10.3 T/CUMM (4-12)
[2021-04-08 12:13] LABS: Alanine Aminotransferase 11 U/L (13-56); Albumin 2.7 G/DL (3.4-5.0); Alkaline Phosphatase 151 U/L (45-117); Aspartate Amino Transferase 13 U/L (0-37); Bilirubin,Total < 0.39 MG/DL (0.2-1.0); Blood Urea Nitrogen 50 MG/DL (7-18); Calcium 8.2 MG/DL (8.5-10.1); Carbon Dioxide 17 MMOL/L (21-32); Estimated Glom Filtration Rate 7 ML/MIN; Glucose 336 MG/DL (74-106); Osmolality,Calculated 302.5 MOS/KG (273-304); Potassium 4.2 MMOL/L (3.5-5.1); Sodium 139 MMOL/L (136-145); Total Protein 7.5 G/DL (6.4-8.2)
[2021-04-08] MEDS ORDERED: hydrALAZINE 20 MG/1 ML VIAL IV STA (13:45)
[2021-04-08] MEDS ORDERED: PROMETHAZINE 25 MG/1 ML VIAL ONE (13:48)
[2021-04-08] MEDS ORDERED: PROMETHAZINE 25 MG/1 ML VIAL IM STA (13:59)
[2021-04-08] MEDS ORDERED: LABETALOL 20 MG/4 ML SYRINGE IV STA (14:47)
[2021-04-08] MEDS ORDERED: PROMETHAZINE 25 MG/1 ML VIAL IV PRN (14:56)
[2021-04-08] MEDS ORDERED: DEXTROSE 50% 25 GM/50 ML VIAL IV PRN (14:56)
[2021-04-08] MEDS ORDERED: GLUCAGON 1 MG VIAL IM PRN (14:56)
[2021-04-08] MEDS: SODIUM BICARB INJ 100 MEQ in SODIUM CHLORIDE 0.45% 1,000 ML IV SCH (17:43)
[2021-04-08] MEDS: PIPERACILLIN/TAZOBACTAM 3,375 MG in SODIUM CHLORIDE 0.9% 100 ML IV SCH (17:44)
[2021-04-08] MEDS: ONDANSETRON 4 MG/2 ML VIAL IV PRN (17:44)
[2021-04-08] MEDS: INSULIN REGULAR 100 UNIT/ML SUBCUT SCH ×2 (18:02→22:06)
[2021-04-08] MEDS: HEPARIN 5,000 UNIT/1 ML VIAL SUBCUT SCH (18:02)
[2021-04-08] MEDS: ACETAMINOPHEN 325 MG TABLET PO PRN (22:06)
[2021-04-08] MEDS: PROMETHAZINE INJ 25 MG in SODIUM CHLORIDE 0.9% 50 ML IV PRN (22:07)
[2021-04-08] MEDS: PANTOPRAZOLE 40 MG VIAL IV SCH (22:08)
[2021-04-08] MEDS: ERYTHROMYCIN INJ 250 MG in SODIUM CHLORIDE 0.9% 100 ML IV SCH ×2 (22:48→22:55)
[2021-04-09] MEDS: ZALEPLON 5 MG CAPSULE PO PRN ×2 (00:54→20:10)
[2021-04-09] MEDS: HEPARIN 5,000 UNIT/1 ML VIAL SUBCUT SCH ×3 (02:20→17:06)
[2021-04-09] MEDS: ERYTHROMYCIN INJ 250 MG in SODIUM CHLORIDE 0.9% 100 ML IV SCH ×4 (04:30→23:58)
[2021-04-09] MEDS: PIPERACILLIN/TAZOBACTAM 3,375 MG in SODIUM CHLORIDE 0.9% 100 ML IV SCH (07:15)
[2021-04-09] MEDS: PROMETHAZINE INJ 25 MG in SODIUM CHLORIDE 0.9% 50 ML IV PRN ×2 (07:32→15:03)
[2021-04-09 08:08] LABS: Basophils % 0.4 % (0.0-0.8); Eosinophils % 0.1 % (0.00-10.9); Hemoglobin 8.4 GM/DL (12.0-16.0); Immature Granulocytes % 0.4 %; Immature Granulocytes Absolute 0.03 #; Lymphocytes # 1.4 10*3/uL (1.4-4.0); Lymphocytes % 20.2 % (21.3-54.2); Mean Corpuscular HGB Conc 31.1 GM/DL (32-36); Mean Corpuscular Volume 80.6 FL (87-102); Mean Platelet Volume 9.7 FL (9.6-12.0); Monocytes % 5.3 % (1.7-12.7); Neutrophils % 73.6 % (38.7-73.9); Platelet Count 351 T/CUMM (130-400); Red Blood Count 3.35 MC/CUMM (3.8-5.5); Red Cell Distribution Width 14.3 % (9.3-17.3); White Blood Count 6.9 T/CUMM (4-12)
[2021-04-09 08:31] LABS: Alanine Aminotransferase < 9 U/L (13-56); Albumin 2.5 G/DL (3.4-5.0); Alkaline Phosphatase 136 U/L (45-117); Aspartate Amino Transferase 9 U/L (0-37); Bilirubin,Total < 0.39 MG/DL (0.2-1.0); Blood Urea Nitrogen 48 MG/DL (7-18); Calcium 7.6 MG/DL (8.5-10.1); Carbon Dioxide 19 MMOL/L (21-32); Estimated Glom Filtration Rate 7 ML/MIN; Glucose 172 MG/DL (74-106); HDL Cholesterol 54 MG/DL (40-60); Osmolality,Calculated 302.8 MOS/KG (273-304); Potassium 3.5 MMOL/L (3.5-5.1); Risk Ratio 2.46; Sodium 144 MMOL/L (136-145); Total Protein 7.1 G/DL (6.4-8.2); Triglycerides 81 MG/DL (2-150); VLDL CHOLESTEROL 16.2 MG/DL
[2021-04-09] MEDS ORDERED: LABETALOL 20 MG/4 ML SYRINGE IV ONE (10:01)
[2021-04-09] MEDS: SODIUM BICARB INJ 100 MEQ in SODIUM CHLORIDE 0.45% 1,000 ML IV SCH ×3 (10:15→22:28)
[2021-04-09] MEDS: traMADol 50 MG TABLET PO PRN ×2 (10:33→22:31)
[2021-04-09] MEDS: PANTOPRAZOLE 40 MG VIAL IV SCH ×2 (10:37→20:10)
[2021-04-09] MEDS: INSULIN REGULAR 100 UNIT/ML SUBCUT SCH ×4 (10:38→22:26)
[2021-04-09] MEDS: hydrALAZINE 20 MG/1 ML VIAL IV PRN (13:57)
[2021-04-09] MEDS: ACETAMINOPHEN 325 MG TABLET PO PRN (13:57)
[2021-04-09] MEDS ORDERED: cloNIDine 0.2 MG/24 HR PATCH TRANSDERM SCH (16:40)
[2021-04-10] MEDS: PROMETHAZINE INJ 25 MG in SODIUM CHLORIDE 0.9% 50 ML IV PRN ×3 (01:10→21:58)
[2021-04-10] MEDS: HEPARIN 5,000 UNIT/1 ML VIAL SUBCUT SCH ×3 (01:55→17:05)
[2021-04-10] MEDS: ERYTHROMYCIN INJ 250 MG in SODIUM CHLORIDE 0.9% 100 ML IV SCH ×3 (05:34→17:04)
[2021-04-10] MEDS: ONDANSETRON 4 MG/2 ML VIAL IV PRN ×2 (05:55→09:52)
[2021-04-10 06:03] LABS: Basophils # 0.1 10*3/uL (0.0-0.2); Basophils % 0.7 % (0.0-0.8); Eosinophils # 0.1 10*3/uL (0.0-0.87); Eosinophils % 0.7 % (0.00-10.9); Hemoglobin 8.2 GM/DL (12.0-16.0); Immature Granulocytes % 0.4 %; Immature Granulocytes Absolute 0.03 #; Lymphocytes # 1.6 10*3/uL (1.4-4.0); Lymphocytes % 21.5 % (21.3-54.2); Mean Corpuscular HGB Conc 30.4 GM/DL (32-36); Mean Corpuscular Volume 83.9 FL (87-102); Mean Platelet Volume 9.9 FL (9.6-12.0); Monocytes % 4.4 % (1.7-12.7); Neutrophils % 72.3 % (38.7-73.9); Platelet Count 308 T/CUMM (130-400); Red Blood Count 3.22 MC/CUMM (3.8-5.5); Red Cell Distribution Width 14.2 % (9.3-17.3); White Blood Count 7.3 T/CUMM (4-12)
[2021-04-10 06:32] LABS: Alanine Aminotransferase < 9 U/L (13-56); Albumin 2.4 G/DL (3.4-5.0); Alkaline Phosphatase 123 U/L (45-117); Aspartate Amino Transferase 11 U/L (0-37); Bilirubin,Total < 0.39 MG/DL (0.2-1.0); Blood Urea Nitrogen 39 MG/DL (7-18); Carbon Dioxide 21 MMOL/L (21-32); Estimated Glom Filtration Rate 8 ML/MIN; Glucose 178 MG/DL (74-106); Osmolality,Calculated 289.5 MOS/KG (273-304); Potassium 3.1 MMOL/L (3.5-5.1); Sodium 139 MMOL/L (136-145); Total Protein 6.8 G/DL (6.4-8.2)
[2021-04-10] MEDS: hydrALAZINE 20 MG/1 ML VIAL IV PRN ×4 (07:58→20:32)
[2021-04-10] MEDS: INSULIN REGULAR 100 UNIT/ML SUBCUT SCH ×4 (07:59→20:46)
[2021-04-10] MEDS: PANTOPRAZOLE 40 MG VIAL IV SCH ×2 (08:01→21:43)
[2021-04-10] MEDS ORDERED: HYDROmorphone 2 MG/1 ML VIAL IV ONE (09:21)
[2021-04-10] MEDS: SODIUM BICARB INJ 100 MEQ in SODIUM CHLORIDE 0.45% 1,000 ML IV SCH ×3 (13:15→23:55)
[2021-04-10] MEDS: COLLAGENASE OINT 30 GM TUBE TOP SCH (13:21)
[2021-04-10] MEDS: oxyCODONE/ACETAMINOPHEN 5-325 MG TABLET PO PRN ×2 (15:18→21:42)
[2021-04-10] MEDS: ZALEPLON 5 MG CAPSULE PO PRN (21:43)
[2021-04-11] MEDS: ONDANSETRON 4 MG/2 ML VIAL IV PRN ×2 (00:05→06:10)
[2021-04-11] MEDS: ERYTHROMYCIN INJ 250 MG in SODIUM CHLORIDE 0.9% 100 ML IV SCH ×4 (01:13→17:21)
[2021-04-11] MEDS: HEPARIN 5,000 UNIT/1 ML VIAL SUBCUT SCH ×3 (03:20→17:21)
[2021-04-11] MEDS: PROMETHAZINE INJ 25 MG in SODIUM CHLORIDE 0.9% 50 ML IV PRN (03:22)
[2021-04-11] MEDS: hydrALAZINE 20 MG/1 ML VIAL IV PRN (03:28)
[2021-04-11] MEDS: oxyCODONE/ACETAMINOPHEN 5-325 MG TABLET PO PRN (06:10)
[2021-04-11 06:45] LABS: Basophils # 0.1 10*3/uL (0.0-0.2); Basophils % 0.6 % (0.0-0.8); Eosinophils # 0.1 10*3/uL (0.0-0.87); Eosinophils % 0.8 % (0.00-10.9); Hematocrit 27.8 VOL% (35.7-47.0); Hemoglobin 8.4 GM/DL (12.0-16.0); Immature Granulocytes % 0.3 %; Immature Granulocytes Absolute 0.02 #; Lymphocytes # 2.4 10*3/uL (1.4-4.0); Lymphocytes % 30.2 % (21.3-54.2); Mean Corpuscular HGB Conc 30.2 GM/DL (32-36); Mean Corpuscular Volume 82.7 FL (87-102); Mean Platelet Volume 10.3 FL (9.6-12.0); Neutrophils % 63.1 % (38.7-73.9); Platelet Count 340 T/CUMM (130-400); Red Blood Count 3.36 MC/CUMM (3.8-5.5); Red Cell Distribution Width 14.3 % (9.3-17.3)
[2021-04-11 07:06] LABS: Alanine Aminotransferase < 9 U/L (13-56); Albumin 2.3 G/DL (3.4-5.0); Alkaline Phosphatase 118 U/L (45-117); Aspartate Amino Transferase 11 U/L (0-37); Bilirubin,Total < 0.39 MG/DL (0.2-1.0); Blood Urea Nitrogen 33 MG/DL (7-18); Calcium 6.1 MG/DL (8.5-10.1); Carbon Dioxide 26 MMOL/L (21-32); Estimated Glom Filtration Rate 9 ML/MIN; Glucose 171 MG/DL (74-106); Osmolality,Calculated 287.5 MOS/KG (273-304); Potassium 3.1 MMOL/L (3.5-5.1); Sodium 139 MMOL/L (136-145); Total Protein 6.3 G/DL (6.4-8.2)
[2021-04-11] MEDS ORDERED: MULTIVITAMIN (BEROCCA) TABLET PO SCH (09:00)
[2021-04-11] MEDS: PANTOPRAZOLE 40 MG VIAL IV SCH (09:00)
[2021-04-11] MEDS ORDERED: GABAPENTIN 300 MG CAPSULE PO SCH (09:00)
[2021-04-11] MEDS ORDERED: carvediloL 12.5 MG TABLET PO SCH (09:00)
[2021-04-11] MEDS: COLLAGENASE OINT 30 GM TUBE TOP SCH (09:01)
[2021-04-11] MEDS: INSULIN REGULAR 100 UNIT/ML SUBCUT SCH ×3 (09:01→17:21)
[2021-04-11] MEDS ORDERED: SODIUM CHLORIDE 0.45% 1,000 ML IV SCH (09:30)
[2021-04-11] MEDS: SODIUM BICARB INJ 100 MEQ in SODIUM CHLORIDE 0.45% 1,000 ML IV SCH (09:49)
[2021-04-11] MEDS ORDERED: POTASSIUM CHLORIDE RIDER 10 MEQ in PREMIX 1 EACH IV PRN (10:13)
[2021-04-11 13:48] VITALS: BP 145/82
[2021-04-16] MEDS ORDERED: cloNIDine 0.2 MG/24 HR PATCH TRANSDERM SCH (14:15)
== END 2021-04-11 18:00 | disposition home or self-care (01) | DRG 74 ==
LOC: EDUNIT# → N.ED 10:57 → N.EDINP 14:56 → SUATTDRO 14:56 → N.EDINP 16:21 → N.TELEN 16:47
PROVIDERS: ADMIT Internal Medicine; ATTEND Internal Medicine

== ENCOUNTER 2021-06-26 11:18 | Inpatient (IN) ==
[2021-06-26] MEDS ORDERED: ONDANSETRON 4 MG/2 ML VIAL IV STA (15:12)
[2021-06-26] MEDS ORDERED: SODIUM CHLORIDE 0.9% 1,000 ML IV STA ×2 (15:12→17:04)
[2021-06-26] MEDS ORDERED: MORPHINE 2 MG/1 ML SYRINGE IV STA (15:14)
[2021-06-26 16:15] LABS: Basophils % 0.4 % (0.0-0.8); Eosinophils % 0.1 % (0.00-10.9); Hematocrit 28.6 VOL% (35.7-47.0); Immature Granulocytes % 0.5 %; Immature Granulocytes Absolute 0.05 #; Lymphocytes # 0.8 10*3/uL (1.4-4.0); Lymphocytes % 7.8 % (21.3-54.2); Mean Corpuscular HGB Conc 31.5 GM/DL (32-36); Mean Corpuscular Volume 79.4 FL (87-102); Mean Platelet Volume 9.8 FL (9.6-12.0); Monocytes % 1.5 % (1.7-12.7); Neutrophils % 89.7 % (38.7-73.9); Platelet Count 345 T/CUMM (130-400); Red Cell Distribution Width 16.2 % (9.3-17.3); White Blood Count 10.8 T/CUMM (4-12)
[2021-06-26 16:31] LABS: Albumin 2.9 G/DL (3.4-5.0); Bilirubin,Total 0.9 MG/DL (0.20-1.00); Calcium 8.2 MG/DL (8.5-10.1); Potassium 4.5 MMOL/L (3.5-5.1); Total Protein 8.2 G/DL (6.4-8.2)
[2021-06-26 16:43] LABS: Bilirubin,Urine Negative (Negative); Blood, Urine Negative (Negative); Glucose,Urine (UA) >=500 mg/dL (Negative); Ketones,Urine 5 mg/dL (Negative); Mucus,Urine Occasional /LPF (Occasional); Nitrite,Urine Negative (Negative); Protein,Urine >=500 MG/DL; RBC,Urine 1 /HPF (0-4); Squamous Epithelial Cell,Urine Occasional /HPF (0-10); Urine Appearance CLEAR (Clear); Urine Color Yellow (Yellow); Urine Specific Gravity 1.012 (1.001-1.035); Urine Urobilinogen < 2.0 EU/DL (0.2-1.0)
[2021-06-26] MEDS ORDERED: INSULIN REGULAR 100 UNIT/ML IV STA (17:04)
[2021-06-26] MEDS ORDERED: hydrALAZINE 20 MG/1 ML VIAL ONE (17:16)
[2021-06-26] MEDS ORDERED: hydrALAZINE 20 MG/1 ML VIAL IV STA (17:21)
[2021-06-26 17:26] LABS: ABG Base Excess -11.2 MMOL/L (-2.5-2.5); ABG HCO3 15.5 MMOL/L (20-26); ABG Oxygen Saturation 97.8 % (95-100); ABG PCO2 29.3 MM HG (35-48); ABG PH 7.295 (7.35-7.45); ABG TCO2 13.3 MMOL/L (23-27)
[2021-06-26] MEDS ORDERED: SODIUM CHLORIDE 0.9% 1,000 ML IV ONE (17:57)
[2021-06-26] MEDS ORDERED: DEXTROSE 50% 25 GM/50 ML VIAL IV PRN ×2 (17:57)
[2021-06-26] MEDS ORDERED: SODIUM BICARB INJ 100 MEQ in STERILE WATER INJ 400 ML IV PRN (17:57)
[2021-06-26] MEDS ORDERED: POTASSIUM CHLORIDE RIDER 10 MEQ/100 ML PREMIX IV PRN (17:57)
[2021-06-26] MEDS ORDERED: MAGNESIUM SULF RIDER 2 GM/50 ML PREMIX IV PRN (17:57)
[2021-06-26] MEDS ORDERED: MAGNESIUM SULF RIDER 4 GM/100 ML PREMIX IV PRN (17:57)
[2021-06-26] MEDS ORDERED: SODIUM PHOSPHATE INJ 15.9 MMOL in SODIUM CHLORIDE 0.9% 250 ML IV PRN (17:57)
[2021-06-26 19:33] LABS: Calcium 7.5 MG/DL (8.5-10.1); Osmolality,Calculated 306.4 MOS/KG (273-304); Potassium 4.1 MMOL/L (3.5-5.1)
[2021-06-26] MEDS: cefTRIAXone 1,000 MG in SODIUM CHLORIDE 0.9% 100 ML IV SCH (19:50)
[2021-06-26] MEDS: CLINDAMYCIN INJ 600 MG/50 ML PREMIX IV SCH (19:55)
[2021-06-26] MEDS ORDERED: PROMETHAZINE 25 MG/1 ML VIAL ONE (20:04)
[2021-06-26] MEDS: hydrALAZINE 20 MG/1 ML VIAL IV PRN (20:10)
[2021-06-26] MEDS: HYDROmorphone 2 MG/1 ML VIAL IV PRN (20:18)
[2021-06-26] MEDS: ENOXAPARIN 30 MG/0.3 ML SYRINGE SUBCUT SCH (20:19)
[2021-06-26] MEDS: PROMETHAZINE INJ 25 MG in SODIUM CHLORIDE 0.9% 50 ML IV PRN (20:20)
[2021-06-26] MEDS: NACL 0.9% IV SCH (20:40)
[2021-06-26] MEDS: INSULIN REGULAR DRIP 100 ML IV SCH (20:40)
[2021-06-26] MEDS: DEXTROSE 5% IV SCH (20:40)
[2021-06-26] MEDS ORDERED: cloNIDine 0.1 MG/24 HR PATCH TRANSDERM SCH (21:00)
[2021-06-26] MEDS: SODIUM CHLORIDE 0.9% 1,000 ML IV SCH ×2 (21:48→22:40)
[2021-06-26] MEDS ORDERED: SODIUM CHLORIDE 0.9% 1,000 ML IV SCH (23:00)
[2021-06-26 23:13] LABS: Calcium 7.1 MG/DL (8.5-10.1); Osmolality,Calculated 297.5 MOS/KG (273-304); Potassium 3.8 MMOL/L (3.5-5.1)
[2021-06-27] MEDS: SODIUM CHLOR 0.45% KCL 20 MEQ 20 MEQ/1,000 ML BAG IV SCH ×2 (00:40→09:37)
[2021-06-27] MEDS: HYDROmorphone 2 MG/1 ML VIAL IV PRN ×6 (01:58→23:06)
[2021-06-27] MEDS ORDERED: DEXTROSE 50% 25 GM/50 ML SYRINGE IV ONE (02:42)
[2021-06-27] MEDS: DEXT 5% NACL 0.45% KCL 20 MEQ 20 MEQ/1,000 ML BAG IV SCH ×4 (03:00→20:15)
[2021-06-27] MEDS: NACL 0.9% IV SCH (03:06)
[2021-06-27] MEDS: DEXTROSE 5% IV SCH (03:06)
[2021-06-27 03:17] LABS: Potassium 4.2 MMOL/L (3.5-5.1)
[2021-06-27 03:20] LABS: Osmolality,Calculated 293.8 MOS/KG (273-304)
[2021-06-27 03:58] LABS: Basophils % 0.2 % (0.0-0.8); Eosinophils % 0.5 % (0.00-10.9); Hematocrit 25.1 VOL% (35.7-47.0); Hemoglobin 7.3 GM/DL (12.0-16.0); Immature Granulocytes % 0.5 %; Immature Granulocytes Absolute 0.04 #; Lymphocytes # 2.8 10*3/uL (1.4-4.0); Lymphocytes % 32.7 % (21.3-54.2); Mean Corpuscular HGB Conc 29.1 GM/DL (32-36); Mean Corpuscular Volume 83.7 FL (87-102); Mean Platelet Volume 10.4 FL (9.6-12.0); Neutrophils % 53.1 % (38.7-73.9); Platelet Count 271 T/CUMM (130-400); Red Cell Distribution Width 16.4 % (9.3-17.3); White Blood Count 8.7 T/CUMM (4-12)
[2021-06-27] MEDS: CLINDAMYCIN INJ 600 MG/50 ML PREMIX IV SCH ×2 (06:00→14:28)
[2021-06-27] MEDS: ONDANSETRON 4 MG/2 ML VIAL IV PRN ×5 (06:10→23:06)
[2021-06-27] MEDS ORDERED: INSULIN LISPRO 100 UNIT/ML ONE (06:20)
[2021-06-27] MEDS: INSULIN LISPRO 100 UNIT/ML SUBCUT SCH ×5 (06:27→23:07)
[2021-06-27 07:38] LABS: Calcium 7.3 MG/DL (8.5-10.1); Osmolality,Calculated 292.4 MOS/KG (273-304); Potassium 4.1 MMOL/L (3.5-5.1)
[2021-06-27] MEDS: carvediloL 12.5 MG TABLET PO SCH (09:59)
[2021-06-27] MEDS: GABAPENTIN 300 MG CAPSULE PO SCH (09:59)
[2021-06-27 10:57] LABS: Calcium 7.4 MG/DL (8.5-10.1); Osmolality,Calculated 288.3 MOS/KG (273-304); Potassium 4.2 MMOL/L (3.5-5.1)
[2021-06-27] MEDS ORDERED: SODIUM CHLORIDE 0.45% 1,000 ML IV SCH (11:00)
[2021-06-27] MEDS: hydrALAZINE 20 MG/1 ML VIAL IV PRN ×2 (13:09→20:16)
[2021-06-27] MEDS: PROMETHAZINE INJ 25 MG in SODIUM CHLORIDE 0.9% 50 ML IV PRN ×2 (13:10→21:00)
[2021-06-27] MEDS: COLLAGENASE OINT 30 GM TUBE TOP SCH (14:11)
[2021-06-27 14:28] LABS: Calcium 7.4 MG/DL (8.5-10.1); Osmolality,Calculated 288.3 MOS/KG (273-304); Potassium 4.6 MMOL/L (3.5-5.1)
[2021-06-27] MEDS: ENOXAPARIN 30 MG/0.3 ML SYRINGE SUBCUT SCH (18:14)
[2021-06-27 18:57] LABS: Calcium 7.2 MG/DL (8.5-10.1); Osmolality,Calculated 284.7 MOS/KG (273-304); Potassium 4.8 MMOL/L (3.5-5.1)
[2021-06-27] MEDS: INSULIN REGULAR DRIP 100 ML IV SCH (20:15)
[2021-06-27] MEDS: cefTRIAXone 1,000 MG in SODIUM CHLORIDE 0.9% 100 ML IV SCH (20:44)
[2021-06-28] MEDS: CLINDAMYCIN INJ 600 MG/50 ML PREMIX IV SCH ×3 (00:08→17:10)
[2021-06-28] MEDS ORDERED: SODIUM CHLORIDE 0.9% IV ONE (00:23)
[2021-06-28] MEDS ORDERED: PROMETHAZINE IV ONE (00:23)
[2021-06-28] MEDS ORDERED: ATROPINE 1 MG/10 ML SYRINGE IV ONE (00:25)
[2021-06-28] MEDS ORDERED: diphenhydrAMINE 50 MG/1 ML VIAL IV ONE ×2 (00:26→01:26)
[2021-06-28] MEDS: DEXT 5% NACL 0.45% KCL 20 MEQ 20 MEQ/1,000 ML BAG IV SCH ×6 (00:48→21:23)
[2021-06-28] MEDS ORDERED: METOCLOPRAMIDE 10 MG/2 ML VIAL IV ONE (00:57)
[2021-06-28] MEDS ORDERED: PANTOPRAZOLE 40 MG VIAL IV ONE (00:57)
[2021-06-28] MEDS ORDERED: ONDANSETRON 4 MG/2 ML VIAL IV ONE (00:57)
[2021-06-28 01:25] LABS: Calcium 7.5 MG/DL (8.5-10.1); Potassium 4.9 MMOL/L (3.5-5.1)
[2021-06-28] MEDS: INSULIN LISPRO 100 UNIT/ML SUBCUT SCH (03:36)
[2021-06-28] MEDS: HYDROmorphone 2 MG/1 ML VIAL IV PRN ×5 (04:01→21:19)
[2021-06-28 05:21] LABS: Basophils % 0.3 % (0.0-0.8); Eosinophils # 0.1 10*3/uL (0.0-0.87); Eosinophils % 0.5 % (0.00-10.9); Hematocrit 24.8 VOL% (35.7-47.0); Hemoglobin 7.4 GM/DL (12.0-16.0); Immature Granulocytes % 0.6 %; Immature Granulocytes Absolute 0.08 #; Lymphocytes # 1.9 10*3/uL (1.4-4.0); Lymphocytes % 13.2 % (21.3-54.2); Mean Corpuscular HGB Conc 29.8 GM/DL (32-36); Mean Corpuscular Volume 82.4 FL (87-102); Mean Platelet Volume 9.5 FL (9.6-12.0); Monocytes % 5.1 % (1.7-12.7); Neutrophils % 80.3 % (38.7-73.9); Platelet Count 277 T/CUMM (130-400); Red Blood Count 3.01 MC/CUMM (3.8-5.5); Red Cell Distribution Width 16.6 % (9.3-17.3); White Blood Count 14.1 T/CUMM (4-12)
[2021-06-28 05:36] LABS: Calcium 7.1 MG/DL (8.5-10.1); Osmolality,Calculated 284.8 MOS/KG (273-304); Potassium 5.3 MMOL/L (3.5-5.1)
[2021-06-28] MEDS: ONDANSETRON 4 MG/2 ML VIAL IV PRN ×4 (06:09→21:22)
[2021-06-28] MEDS ORDERED: SODIUM BICARBONATE 50 MEQ/50 ML VIAL IV ONE (09:30)
[2021-06-28] MEDS ORDERED: HYDROCORTISONE 100 MG VIAL IV ONE (09:30)
[2021-06-28] MEDS: COLLAGENASE OINT 30 GM TUBE TOP SCH (09:30)
[2021-06-28] MEDS: hydrALAZINE 20 MG/1 ML VIAL IV PRN ×2 (10:08→18:10)
[2021-06-28 12:02] LABS: Calcium 7.3 MG/DL (8.5-10.1); Osmolality,Calculated 281.7 MOS/KG (273-304); Potassium 5.1 MMOL/L (3.5-5.1)
[2021-06-28] MEDS: GABAPENTIN 300 MG CAPSULE PO SCH (13:42)
[2021-06-28] MEDS: carvediloL 12.5 MG TABLET PO SCH (13:42)
[2021-06-28] MEDS: ENOXAPARIN 30 MG/0.3 ML SYRINGE SUBCUT SCH (17:37)
[2021-06-28] MEDS: HYDROCORTISONE 100 MG VIAL IV SCH (17:52)
[2021-06-28] MEDS: INSULIN REGULAR DRIP 100 ML IV SCH (18:09)
[2021-06-28] MEDS: cefTRIAXone 1,000 MG in SODIUM CHLORIDE 0.9% 100 ML IV SCH (21:22)
[2021-06-28] MEDS: PROMETHAZINE INJ 25 MG in SODIUM CHLORIDE 0.9% 50 ML IV PRN (22:40)
[2021-06-28] MEDS: cloNIDine 0.1 MG TABLET PO PRN (23:14)
[2021-06-29] MEDS: DEXT 5% NACL 0.45% KCL 20 MEQ 20 MEQ/1,000 ML BAG IV SCH ×2 (00:20→03:38)
[2021-06-29] MEDS: ONDANSETRON 4 MG/2 ML VIAL IV PRN ×5 (01:30→21:14)
[2021-06-29] MEDS: CLINDAMYCIN INJ 600 MG/50 ML PREMIX IV SCH ×3 (01:30→17:17)
[2021-06-29] MEDS: HYDROCORTISONE 100 MG VIAL IV SCH ×3 (01:34→17:18)
[2021-06-29] MEDS: HYDROmorphone 2 MG/1 ML VIAL IV PRN ×5 (01:36→21:30)
[2021-06-29 03:03] LABS: Basophils % 0.1 % (0.0-0.8); Eosinophils # 0.1 10*3/uL (0.0-0.87); Eosinophils % 0.6 % (0.00-10.9); Hematocrit 22.9 VOL% (35.7-47.0); Hemoglobin 6.9 GM/DL (12.0-16.0); Immature Granulocytes % 0.6 %; Immature Granulocytes Absolute 0.06 #; Lymphocytes # 1.3 10*3/uL (1.4-4.0); Lymphocytes % 12.4 % (21.3-54.2); Mean Corpuscular HGB Conc 30.1 GM/DL (32-36); Mean Corpuscular Volume 82.4 FL (87-102); Mean Platelet Volume 9.5 FL (9.6-12.0); Monocytes % 3.5 % (1.7-12.7); Neutrophils % 82.8 % (38.7-73.9); Platelet Count 254 T/CUMM (130-400); Red Blood Count 2.78 MC/CUMM (3.8-5.5); Red Cell Distribution Width 16.4 % (9.3-17.3); White Blood Count 10.6 T/CUMM (4-12)
[2021-06-29 03:18] LABS: Calcium 7.2 MG/DL (8.5-10.1); Potassium 5.6 MMOL/L (3.5-5.1)
[2021-06-29] MEDS: DEXTROSE 5% NACL 0.45% 1,000 ML IV SCH ×2 (03:30→09:35)
[2021-06-29] MEDS ORDERED: SODIUM CHLORIDE 0.9% 1,000 ML IV PRN (08:22)
[2021-06-29] MEDS: GABAPENTIN 300 MG CAPSULE PO SCH (08:54)
[2021-06-29] MEDS: carvediloL 12.5 MG TABLET PO SCH (08:54)
[2021-06-29] MEDS: SKIN HEALING OINT (AQUAPHOR) 50 GM TUBE TOP PRN (08:55)
[2021-06-29] MEDS: COLLAGENASE OINT 30 GM TUBE TOP SCH (08:55)
[2021-06-29] MEDS: SODIUM BICARBONATE 650 MG TABLET PO SCH ×2 (09:36→21:13)
[2021-06-29] MEDS: PROMETHAZINE INJ 25 MG in SODIUM CHLORIDE 0.9% 50 ML IV PRN ×2 (09:36→22:57)
[2021-06-29] MEDS ORDERED: DEXTROSE 5% NACL 0.45% 1,000 ML IV SCH (10:00)
[2021-06-29] MEDS: INSULIN LISPRO 100 UNIT/ML SUBCUT SCH ×3 (11:40→21:13)
[2021-06-29 13:31] LABS: Calcium 6.9 MG/DL (8.5-10.1); Osmolality,Calculated 278.4 MOS/KG (273-304); Potassium 5.4 MMOL/L (3.5-5.1)
[2021-06-29] MEDS: FERROUS SULFATE 325 MG TABLET PO SCH (13:56)
[2021-06-29] MEDS ORDERED: tiZANidine 4 MG TABLET PO PRN (14:51)
[2021-06-29] MEDS: SODIUM CHLORIDE 0.45% 1,000 ML IV SCH ×2 (15:20→22:52)
[2021-06-29] MEDS: ENOXAPARIN 30 MG/0.3 ML SYRINGE SUBCUT SCH (17:17)
[2021-06-29] MEDS: INSULIN GLARGINE 100 UNIT/ML SUBCUT SCH (21:13)
[2021-06-29] MEDS: cloNIDine 0.1 MG TABLET PO PRN (21:13)
[2021-06-29] MEDS: cefTRIAXone 1,000 MG in SODIUM CHLORIDE 0.9% 100 ML IV SCH (21:31)
[2021-06-29] MEDS: hydrALAZINE 20 MG/1 ML VIAL IV PRN (22:27)
[2021-06-30] MEDS: CLINDAMYCIN INJ 600 MG/50 ML PREMIX IV SCH ×3 (00:19→17:29)
[2021-06-30] MEDS: HYDROCORTISONE 100 MG VIAL IV SCH ×3 (01:08→21:57)
[2021-06-30] MEDS: ONDANSETRON 4 MG/2 ML VIAL IV PRN ×3 (02:38→15:24)
[2021-06-30] MEDS: HYDROmorphone 2 MG/1 ML VIAL IV PRN (02:38)
[2021-06-30 05:52] LABS: Basophils % 0.1 % (0.0-0.8); Eosinophils % 0.4 % (0.00-10.9); Hematocrit 22.4 VOL% (35.7-47.0); Hemoglobin 6.6 GM/DL (12.0-16.0); Immature Granulocytes Absolute 0.08 #; Lymphocytes # 1.2 10*3/uL (1.4-4.0); Lymphocytes % 14.8 % (21.3-54.2); Mean Corpuscular HGB Conc 29.5 GM/DL (32-36); Mean Corpuscular Volume 82.4 FL (87-102); Mean Platelet Volume 10.4 FL (9.6-12.0); Monocytes % 2.9 % (1.7-12.7); Neutrophils % 80.8 % (38.7-73.9); Platelet Count 251 T/CUMM (130-400); Red Blood Count 2.72 MC/CUMM (3.8-5.5); Red Cell Distribution Width 16.4 % (9.3-17.3)
[2021-06-30 06:22] LABS: Calcium 6.5 MG/DL (8.5-10.1); Osmolality,Calculated 276.5 MOS/KG (273-304); Potassium 5.6 MMOL/L (3.5-5.1)
[2021-06-30] MEDS: INSULIN LISPRO 100 UNIT/ML SUBCUT SCH ×4 (10:20→21:57)
[2021-06-30] MEDS: SODIUM CHLORIDE 0.45% 1,000 ML IV SCH ×2 (10:21→22:06)
[2021-06-30] MEDS: GABAPENTIN 300 MG CAPSULE PO SCH (10:22)
[2021-06-30] MEDS: SODIUM BICARBONATE 650 MG TABLET PO SCH ×3 (10:22→21:57)
[2021-06-30] MEDS: FERROUS SULFATE 325 MG TABLET PO SCH (10:22)
[2021-06-30] MEDS: carvediloL 12.5 MG TABLET PO SCH (10:22)
[2021-06-30] MEDS: amLODIPine 5 MG TABLET PO SCH (10:23)
[2021-06-30] MEDS ORDERED: IRON SUCROSE 200 MG in SODIUM CHLORIDE 0.9% 100 ML IV ONE (11:00)
[2021-06-30] MEDS: SKIN HEALING OINT (AQUAPHOR) 50 GM TUBE TOP PRN (14:31)
[2021-06-30] MEDS: oxyCODONE/ACETAMINOPHEN 5-325 MG TABLET PO PRN (14:37)
[2021-06-30] MEDS: COLLAGENASE OINT 30 GM TUBE TOP SCH (15:23)
[2021-06-30] MEDS: ENOXAPARIN 30 MG/0.3 ML SYRINGE SUBCUT SCH (18:12)
[2021-06-30] MEDS: INSULIN GLARGINE 100 UNIT/ML SUBCUT SCH (21:57)
[2021-06-30] MEDS: cefTRIAXone 1,000 MG in SODIUM CHLORIDE 0.9% 100 ML IV SCH (22:00)
[2021-07-01] MEDS: oxyCODONE/ACETAMINOPHEN 5-325 MG TABLET PO PRN ×2 (00:02→07:20)
[2021-07-01] MEDS: PROMETHAZINE INJ 25 MG in SODIUM CHLORIDE 0.9% 50 ML IV PRN (00:03)
[2021-07-01] MEDS: CLINDAMYCIN INJ 600 MG/50 ML PREMIX IV SCH ×2 (01:21→08:43)
[2021-07-01 05:46] LABS: Basophils % 0.1 % (0.0-0.8); Eosinophils # 0.1 10*3/uL (0.0-0.87); Eosinophils % 0.8 % (0.00-10.9); Hematocrit 22.9 VOL% (35.7-47.0); Hemoglobin 6.9 GM/DL (12.0-16.0); Immature Granulocytes % 1.5 %; Immature Granulocytes Absolute 0.14 #; Lymphocytes # 1.8 10*3/uL (1.4-4.0); Lymphocytes % 19.2 % (21.3-54.2); Mean Corpuscular HGB Conc 30.1 GM/DL (32-36); Mean Corpuscular Volume 80.9 FL (87-102); Mean Platelet Volume 9.9 FL (9.6-12.0); Monocytes % 4.9 % (1.7-12.7); Neutrophils % 73.5 % (38.7-73.9); Platelet Count 305 T/CUMM (130-400); Red Blood Count 2.83 MC/CUMM (3.8-5.5); White Blood Count 9.2 T/CUMM (4-12)
[2021-07-01 06:21] LABS: Calcium 6.8 MG/DL (8.5-10.1); Osmolality,Calculated 280.8 MOS/KG (273-304); Potassium 5.5 MMOL/L (3.5-5.1)
[2021-07-01] MEDS: SODIUM CHLORIDE 0.45% 1,000 ML IV SCH ×2 (06:22→09:50)
[2021-07-01] MEDS: INSULIN LISPRO 100 UNIT/ML SUBCUT SCH ×2 (08:10→12:16)
[2021-07-01] MEDS ORDERED: SODIUM POLYSTYRENE SULFATE 15 GM/60 ML BOTTLE PO ONE (08:14)
[2021-07-01] MEDS: HYDROCORTISONE 100 MG VIAL IV SCH (08:45)
[2021-07-01] MEDS ORDERED: IRON SUCROSE 200 MG in SODIUM CHLORIDE 0.9% 100 ML IV ONE (09:30)
[2021-07-01] MEDS: SODIUM BICARBONATE 650 MG TABLET PO SCH (09:51)
[2021-07-01] MEDS: amLODIPine 5 MG TABLET PO SCH (09:51)
[2021-07-01] MEDS: carvediloL 12.5 MG TABLET PO SCH (09:51)
[2021-07-01] MEDS: GABAPENTIN 300 MG CAPSULE PO SCH (09:51)
[2021-07-01] MEDS: COLLAGENASE OINT 30 GM TUBE TOP SCH (09:52)
[2021-07-01 12:30] VITALS: BP 187/97
== END 2021-07-01 17:53 | disposition home or self-care (01) | DRG 638 ==
LOC: N.ED 11:18 → SUATTDRO 17:57 → N.EDINP 17:57 → N.ICU 06-27 11:26 → N.TELES 06-29 22:18
PROVIDERS: ADMIT Family Medicine; ATTEND Internal Medicine

== ENCOUNTER 2021-10-03 19:00 | Inpatient (IN) ==
[2021-10-03] MEDS ORDERED: SODIUM CHLORIDE 0.9% 1,000 ML IV STA (22:20)
[2021-10-03] MEDS ORDERED: HYDROmorphone 2 MG/1 ML VIAL IV STA (22:20)
[2021-10-03] MEDS ORDERED: PROMETHAZINE 25 MG/1 ML VIAL IM STA (22:20)
[2021-10-03] MEDS ORDERED: INSULIN REGULAR 100 UNIT/ML IV STA (22:20)
[2021-10-03 22:43] LABS: ABG Base Excess -7.6 MMOL/L (-2.5-2.5); ABG HCO3 18.2 MMOL/L (20-26); ABG PCO2 29.5 MM HG (35-48); ABG PH 7.364 (7.35-7.45); ABG TCO2 15.7 MMOL/L (23-27)
[2021-10-03 23:06] LABS: Basophils % 0.3 % (0.0-0.8); Eosinophils % 0.2 % (0.00-10.9); Hematocrit 26.1 VOL% (35.7-47.0); Hemoglobin 8.1 GM/DL (12.0-16.0); Immature Granulocytes % 0.5 %; Immature Granulocytes Absolute 0.05 #; Lymphocytes # 1.7 10*3/uL (1.4-4.0); Lymphocytes % 15.4 % (21.3-54.2); Mean Corpuscular Volume 76.3 FL (87-102); Mean Platelet Volume 9.1 FL (9.6-12.0); Monocytes % 5.5 % (1.7-12.7); Neutrophils % 78.1 % (38.7-73.9); Platelet Count 402 T/CUMM (130-400); Red Blood Count 3.42 MC/CUMM (3.8-5.5); Red Cell Distribution Width 15.5 % (9.3-17.3); White Blood Count 11.1 T/CUMM (4-12)
[2021-10-03 23:27] LABS: Alanine Aminotransferase 18 U/L (13-56); Albumin 3.6 G/DL (3.4-5.0); Alkaline Phosphatase 182 U/L (45-117); Amylase 85 U/L (25-115); Aspartate Amino Transferase 10 U/L (0-37); Bilirubin,Total < 0.39 MG/DL (0.20-1.00); Blood Urea Nitrogen 83 MG/DL (7-18); Calcium 7.9 MG/DL (8.5-10.1); Carbon Dioxide 18 MMOL/L (21-32); Estimated Glom Filtration Rate 5 ML/MIN; Glucose 314 MG/DL (74-106); Osmolality,Calculated 315.4 MOS/KG (273-304); Potassium 4.2 MMOL/L (3.5-5.1); Sodium 140 MMOL/L (136-145); Total Protein 8.1 G/DL (6.4-8.2)
[2021-10-03 23:46] LABS: Bilirubin,Urine Negative (Negative); Blood, Urine Negative (Negative); Glucose,Urine (UA) >=500 mg/dL (Negative); Ketones,Urine Negative (Negative); Nitrite,Urine Negative (Negative); Protein,Urine >=500 MG/DL; RBC,Urine 1 /HPF (0-4); Squamous Epithelial Cell,Urine Occasional /HPF (0-10); Urine Appearance CLEAR (Clear); Urine Color Yellow (Yellow); Urine Specific Gravity 1.014 (1.001-1.035); Urine Urobilinogen < 2.0 EU/DL (0.2-1.0)
[2021-10-04] MEDS ORDERED: GLUCAGON 1 MG VIAL IM PRN (01:58)
[2021-10-04] MEDS ORDERED: DEXTROSE 50% 25 GM/50 ML VIAL IV PRN (01:58)
[2021-10-04] MEDS ORDERED: ACETAMINOPHEN 325 MG TABLET PO PRN (01:58)
[2021-10-04] MEDS ORDERED: tiZANidine 4 MG TABLET PO PRN (02:07)
[2021-10-04] MEDS: SODIUM CHLORIDE 0.9% 1,000 ML IV SCH ×2 (03:10→11:50)
[2021-10-04] MEDS: ENOXAPARIN 30 MG/0.3 ML SYRINGE SUBCUT SCH ×2 (03:10→21:09)
[2021-10-04] MEDS: ONDANSETRON 4 MG/2 ML VIAL IV PRN (03:20)
[2021-10-04] MEDS ORDERED: HYDROmorphone 2 MG/1 ML VIAL IV ONE (04:11)
[2021-10-04] MEDS: PROMETHAZINE 25 MG/1 ML VIAL IM PRN ×2 (04:37→17:23)
[2021-10-04] MEDS: LABETALOL 20 MG/4 ML SYRINGE IV PRN ×4 (04:38→17:11)
[2021-10-04 07:21] LABS: Basophils % 0.4 % (0.0-0.8); Eosinophils # 0.1 10*3/uL (0.0-0.87); Eosinophils % 0.7 % (0.00-10.9); Hematocrit 24.9 VOL% (35.7-47.0); Hemoglobin 7.9 GM/DL (12.0-16.0); Immature Granulocytes % 0.6 %; Immature Granulocytes Absolute 0.07 #; Lymphocytes # 2.4 10*3/uL (1.4-4.0); Lymphocytes % 21.5 % (21.3-54.2); Mean Corpuscular HGB Conc 31.7 GM/DL (32-36); Mean Corpuscular Volume 77.6 FL (87-102); Mean Platelet Volume 9.2 FL (9.6-12.0); Monocytes % 5.2 % (1.7-12.7); Neutrophils % 71.6 % (38.7-73.9); Platelet Count 366 T/CUMM (130-400); Red Blood Count 3.21 MC/CUMM (3.8-5.5); Red Cell Distribution Width 15.7 % (9.3-17.3); White Blood Count 11.1 T/CUMM (4-12)
[2021-10-04 07:45] LABS: Albumin 3.2 G/DL (3.4-5.0); Bilirubin,Total 1.1 MG/DL (0.20-1.00); Calcium 7.9 MG/DL (8.5-10.1); Osmolality,Calculated 309.3 MOS/KG (273-304); Total Protein 7.9 G/DL (6.4-8.2)
[2021-10-04] MEDS: INSULIN REGULAR 100 UNIT/ML SUBCUT SCH ×4 (08:52→21:06)
[2021-10-04] MEDS: FERROUS SULFATE 325 MG TABLET PO SCH (09:28)
[2021-10-04] MEDS: amLODIPine 5 MG TABLET PO SCH (09:28)
[2021-10-04] MEDS: GABAPENTIN 300 MG CAPSULE PO SCH (09:28)
[2021-10-04] MEDS: carvediloL 12.5 MG TABLET PO SCH (09:28)
[2021-10-04] MEDS ORDERED: MORPHINE 2 MG/1 ML SYRINGE IV STA (10:55)
[2021-10-04] MEDS ORDERED: PROMETHAZINE INJ 25 MG in SODIUM CHLORIDE 0.9% 50 ML IV STA (11:11)
[2021-10-04] MEDS ORDERED: cloNIDine 0.3 MG/24 HR PATCH TRANSDERM SCH (15:00)
[2021-10-04] MEDS: PANTOPRAZOLE 40 MG VIAL IV SCH ×2 (15:47→21:05)
[2021-10-04] MEDS: SODIUM BICARB INJ 150 MEQ in STERILE WATER INJ 1,000 ML IV SCH (15:47)
[2021-10-05] MEDS: PROMETHAZINE 25 MG/1 ML VIAL IM PRN ×3 (06:07→21:51)
[2021-10-05] MEDS: INSULIN REGULAR 100 UNIT/ML SUBCUT SCH ×4 (09:08→21:36)
[2021-10-05] MEDS: carvediloL 12.5 MG TABLET PO SCH (09:08)
[2021-10-05] MEDS: FERROUS SULFATE 325 MG TABLET PO SCH (09:09)
[2021-10-05] MEDS: amLODIPine 5 MG TABLET PO SCH (09:09)
[2021-10-05] MEDS: GABAPENTIN 300 MG CAPSULE PO SCH (09:09)
[2021-10-05] MEDS: PANTOPRAZOLE 40 MG VIAL IV SCH ×2 (09:15→21:51)
[2021-10-05] MEDS: HYDROmorphone 2 MG/1 ML VIAL IV PRN ×3 (12:42→21:51)
[2021-10-05 14:08] LABS: Basophils % 0.4 % (0.0-0.8); Eosinophils % 0.3 % (0.00-10.9); Hematocrit 24.2 VOL% (35.7-47.0); Hemoglobin 7.6 GM/DL (12.0-16.0); Immature Granulocytes % 0.7 %; Immature Granulocytes Absolute 0.08 #; Lymphocytes # 1.8 10*3/uL (1.4-4.0); Lymphocytes % 16.2 % (21.3-54.2); Mean Corpuscular HGB Conc 31.4 GM/DL (32-36); Mean Corpuscular Volume 75.9 FL (87-102); Mean Platelet Volume 9.8 FL (9.6-12.0); Monocytes % 5.5 % (1.7-12.7); Neutrophils % 76.9 % (38.7-73.9); Platelet Count 392 T/CUMM (130-400); Red Blood Count 3.19 MC/CUMM (3.8-5.5); Red Cell Distribution Width 15.8 % (9.3-17.3); White Blood Count 11.4 T/CUMM (4-12)
[2021-10-05 14:29] LABS: Albumin 2.9 G/DL (3.4-5.0); Bilirubin,Total 0.4 MG/DL (0.20-1.00); Calcium 7.2 MG/DL (8.5-10.1); Osmolality,Calculated 305.1 MOS/KG (273-304); Potassium 3.6 MMOL/L (3.5-5.1); Total Protein 7.1 G/DL (6.4-8.2)
[2021-10-05] MEDS: COLLAGENASE OINT 30 GM TUBE TOP SCH (17:25)
[2021-10-05 19:34] LABS: Calcium 6.5 MG/DL (8.5-10.1); Osmolality,Calculated 306.1 MOS/KG (273-304); Potassium 3.5 MMOL/L (3.5-5.1)
[2021-10-05] MEDS: LACTATED RINGERS 1,000 ML IV SCH (20:10)
[2021-10-05] MEDS: ENOXAPARIN 30 MG/0.3 ML SYRINGE SUBCUT SCH (21:50)
[2021-10-06] MEDS: SODIUM BICARB INJ 150 MEQ in STERILE WATER INJ 1,000 ML IV SCH (02:48)
[2021-10-06] MEDS: PROMETHAZINE 25 MG/1 ML VIAL IM PRN ×3 (05:18→16:32)
[2021-10-06 06:52] LABS: Basophils # 0.1 10*3/uL (0.0-0.2); Basophils % 0.6 % (0.0-0.8); Eosinophils # 0.2 10*3/uL (0.0-0.87); Eosinophils % 1.6 % (0.00-10.9); Hematocrit 23.2 VOL% (35.7-47.0); Immature Granulocytes % 0.3 %; Immature Granulocytes Absolute 0.03 #; Lymphocytes # 3.9 10*3/uL (1.4-4.0); Lymphocytes % 39.9 % (21.3-54.2); Mean Corpuscular HGB Conc 30.2 GM/DL (32-36); Mean Corpuscular Volume 77.3 FL (87-102); Mean Platelet Volume 9.5 FL (9.6-12.0); Monocytes % 6.9 % (1.7-12.7); Neutrophils % 50.7 % (38.7-73.9); Platelet Count 314 T/CUMM (130-400); Red Cell Distribution Width 15.8 % (9.3-17.3); White Blood Count 9.7 T/CUMM (4-12)
[2021-10-06] MEDS: HYDROmorphone 2 MG/1 ML VIAL IV PRN ×4 (06:59→20:30)
[2021-10-06] MEDS: ONDANSETRON 4 MG/2 ML VIAL IV PRN ×2 (07:02→20:29)
[2021-10-06 07:11] LABS: Albumin 2.5 G/DL (3.4-5.0); Bilirubin,Total 0.5 MG/DL (0.20-1.00); Calcium 6.4 MG/DL (8.5-10.1); Osmolality,Calculated 301.4 MOS/KG (273-304); Potassium 3.1 MMOL/L (3.5-5.1); Total Protein 6.4 G/DL (6.4-8.2)
[2021-10-06] MEDS: PANTOPRAZOLE 40 MG VIAL IV SCH ×2 (08:27→20:29)
[2021-10-06] MEDS: INSULIN REGULAR 100 UNIT/ML SUBCUT SCH ×4 (08:29→20:52)
[2021-10-06] MEDS: carvediloL 12.5 MG TABLET PO SCH (08:29)
[2021-10-06] MEDS: amLODIPine 5 MG TABLET PO SCH (08:30)
[2021-10-06] MEDS: FERROUS SULFATE 325 MG TABLET PO SCH (08:30)
[2021-10-06] MEDS: GABAPENTIN 300 MG CAPSULE PO SCH (08:30)
[2021-10-06 09:46] LABS: % Iron Saturation 57.1 % (18-50)
[2021-10-06] MEDS: SKIN HEALING OINT (AQUAPHOR) 50 GM TUBE TOP SCH ×2 (11:21→14:03)
[2021-10-06] MEDS: COLLAGENASE OINT 30 GM TUBE TOP SCH ×2 (11:21→14:02)
[2021-10-06] MEDS: LABETALOL 20 MG/4 ML SYRINGE IV PRN (11:22)
[2021-10-06] MEDS: LACTATED RINGERS 1,000 ML IV SCH (15:00)
[2021-10-06] MEDS ORDERED: SODIUM CHLORIDE 0.9% 1,000 ML IV PRN (17:52)
[2021-10-06] MEDS: POTASSIUM CHLORIDE RIDER 10 MEQ/100 ML PREMIX IV SCH ×4 (18:12→22:59)
[2021-10-06] MEDS: ENOXAPARIN 30 MG/0.3 ML SYRINGE SUBCUT SCH (20:29)
[2021-10-07] MEDS: PROMETHAZINE 25 MG/1 ML VIAL IM PRN ×3 (00:34→15:48)
[2021-10-07] MEDS: HYDROmorphone 2 MG/1 ML VIAL IV PRN ×6 (00:34→20:04)
[2021-10-07] MEDS: LACTATED RINGERS 1,000 ML IV SCH ×2 (04:07→16:10)
[2021-10-07] MEDS: ONDANSETRON 4 MG/2 ML VIAL IV PRN ×2 (04:46→20:04)
[2021-10-07 04:52] LABS: Basophils % 0.4 % (0.0-0.8); Eosinophils # 0.3 10*3/uL (0.0-0.87); Eosinophils % 2.4 % (0.00-10.9); Hematocrit 21.9 VOL% (35.7-47.0); Hemoglobin 6.7 GM/DL (12.0-16.0); Immature Granulocytes % 0.2 %; Immature Granulocytes Absolute 0.02 #; Lymphocytes # 4.6 10*3/uL (1.4-4.0); Mean Corpuscular HGB Conc 30.6 GM/DL (32-36); Mean Corpuscular Volume 79.6 FL (87-102); Mean Platelet Volume 9.6 FL (9.6-12.0); Monocytes % 6.5 % (1.7-12.7); Neutrophils % 48.5 % (38.7-73.9); Platelet Count 253 T/CUMM (130-400); Red Blood Count 2.75 MC/CUMM (3.8-5.5); Red Cell Distribution Width 15.6 % (9.3-17.3)
[2021-10-07 05:10] LABS: Alanine Aminotransferase 12 U/L (13-56); Albumin 2.4 G/DL (3.4-5.0); Alkaline Phosphatase 121 U/L (45-117); Aspartate Amino Transferase 23 U/L (0-37); Bilirubin,Total < 0.39 MG/DL (0.20-1.00); Blood Urea Nitrogen 59 MG/DL (7-18); Calcium 6.8 MG/DL (8.5-10.1); Carbon Dioxide 29 MMOL/L (21-32); Estimated Glom Filtration Rate 6 ML/MIN; Glucose 107 MG/DL (74-106); Osmolality,Calculated 293.5 MOS/KG (273-304); Potassium 3.5 MMOL/L (3.5-5.1); Sodium 139 MMOL/L (136-145); Total Protein 5.9 G/DL (6.4-8.2)
[2021-10-07] MEDS: INSULIN REGULAR 100 UNIT/ML SUBCUT SCH ×4 (08:26→20:08)
[2021-10-07] MEDS: carvediloL 12.5 MG TABLET PO SCH (08:27)
[2021-10-07] MEDS: GABAPENTIN 300 MG CAPSULE PO SCH (08:29)
[2021-10-07] MEDS: FERROUS SULFATE 325 MG TABLET PO SCH (08:29)
[2021-10-07] MEDS: amLODIPine 5 MG TABLET PO SCH (08:30)
[2021-10-07] MEDS: PANTOPRAZOLE 40 MG VIAL IV SCH ×2 (09:50→20:04)
[2021-10-07] MEDS: COLLAGENASE OINT 30 GM TUBE TOP SCH (10:00)
[2021-10-07] MEDS: LABETALOL 20 MG/4 ML SYRINGE IV PRN (15:48)
[2021-10-07] MEDS: ENOXAPARIN 30 MG/0.3 ML SYRINGE SUBCUT SCH (20:03)
[2021-10-08] MEDS: HYDROmorphone 2 MG/1 ML VIAL IV PRN ×6 (00:03→20:48)
[2021-10-08] MEDS: PROMETHAZINE 25 MG/1 ML VIAL IM PRN ×3 (00:04→16:45)
[2021-10-08] MEDS: ONDANSETRON 4 MG/2 ML VIAL IV PRN ×3 (04:12→20:50)
[2021-10-08] MEDS: LABETALOL 20 MG/4 ML SYRINGE IV PRN ×3 (04:16→18:06)
[2021-10-08] MEDS: LACTATED RINGERS 1,000 ML IV SCH ×3 (04:37→20:55)
[2021-10-08 05:27] LABS: Basophils # 0.1 10*3/uL (0.0-0.2); Basophils % 0.5 % (0.0-0.8); Eosinophils # 0.4 10*3/uL (0.0-0.87); Eosinophils % 3.9 % (0.00-10.9); Hematocrit 22.4 VOL% (35.7-47.0); Hemoglobin 6.7 GM/DL (12.0-16.0); Immature Granulocytes % 0.2 %; Immature Granulocytes Absolute 0.02 #; Lymphocytes # 3.6 10*3/uL (1.4-4.0); Lymphocytes % 37.9 % (21.3-54.2); Mean Corpuscular HGB Conc 29.9 GM/DL (32-36); Mean Platelet Volume 9.8 FL (9.6-12.0); Monocytes % 6.7 % (1.7-12.7); Neutrophils % 50.8 % (38.7-73.9); Platelet Count 273 T/CUMM (130-400); Red Cell Distribution Width 15.1 % (9.3-17.3); White Blood Count 9.4 T/CUMM (4-12)
[2021-10-08 05:50] LABS: Alanine Aminotransferase 12 U/L (13-56); Albumin 2.4 G/DL (3.4-5.0); Alkaline Phosphatase 123 U/L (45-117); Aspartate Amino Transferase 19 U/L (0-37); Bilirubin,Total < 0.39 MG/DL (0.20-1.00); Blood Urea Nitrogen 51 MG/DL (7-18); Calcium 7.3 MG/DL (8.5-10.1); Carbon Dioxide 28 MMOL/L (21-32); Estimated Glom Filtration Rate 6 ML/MIN; Glucose 147 MG/DL (74-106); Osmolality,Calculated 291.7 MOS/KG (273-304); Potassium 3.7 MMOL/L (3.5-5.1); Sodium 138 MMOL/L (136-145); Total Protein 6.1 G/DL (6.4-8.2)
[2021-10-08] MEDS: INSULIN REGULAR 100 UNIT/ML SUBCUT SCH ×4 (08:54→22:20)
[2021-10-08] MEDS: amLODIPine 5 MG TABLET PO SCH (08:57)
[2021-10-08] MEDS: carvediloL 12.5 MG TABLET PO SCH (08:57)
[2021-10-08] MEDS: GABAPENTIN 300 MG CAPSULE PO SCH (08:57)
[2021-10-08] MEDS: FERROUS SULFATE 325 MG TABLET PO SCH (08:57)
[2021-10-08] MEDS: SKIN HEALING OINT (AQUAPHOR) 50 GM TUBE TOP SCH (10:07)
[2021-10-08] MEDS: PANTOPRAZOLE 40 MG VIAL IV SCH ×2 (10:08→20:51)
[2021-10-08] MEDS: ENOXAPARIN 30 MG/0.3 ML SYRINGE SUBCUT SCH (20:53)
[2021-10-09] MEDS: PROMETHAZINE 25 MG/1 ML VIAL IM PRN ×3 (00:58→20:54)
[2021-10-09] MEDS: HYDROmorphone 2 MG/1 ML VIAL IV PRN ×4 (01:01→13:31)
[2021-10-09] MEDS: ONDANSETRON 4 MG/2 ML VIAL IV PRN ×3 (05:47→17:48)
[2021-10-09 06:54] LABS: Basophils % 0.4 % (0.0-0.8); Eosinophils # 0.4 10*3/uL (0.0-0.87); Eosinophils % 3.7 % (0.00-10.9); Hematocrit 21.3 VOL% (35.7-47.0); Immature Granulocytes % 0.5 %; Immature Granulocytes Absolute 0.06 #; Lymphocytes # 3.2 10*3/uL (1.4-4.0); Mean Corpuscular HGB Conc 29.6 GM/DL (32-36); Mean Corpuscular Volume 79.5 FL (87-102); Mean Platelet Volume 10.3 FL (9.6-12.0); Monocytes % 5.9 % (1.7-12.7); Neutrophils % 60.5 % (38.7-73.9); Platelet Count 248 T/CUMM (130-400); Red Blood Count 2.68 MC/CUMM (3.8-5.5); Red Cell Distribution Width 15.3 % (9.3-17.3)
[2021-10-09 07:20] LABS: Hemoglobin 6.3 GM/DL (12.0-16.0)
[2021-10-09 07:24] LABS: Albumin 2.2 G/DL (3.4-5.0); Bilirubin,Total 0.6 MG/DL (0.20-1.00); Calcium 6.9 MG/DL (8.5-10.1); Osmolality,Calculated 292.7 MOS/KG (273-304); Potassium 4.5 MMOL/L (3.5-5.1)
[2021-10-09] MEDS: INSULIN REGULAR 100 UNIT/ML SUBCUT SCH ×4 (08:40→20:52)
[2021-10-09] MEDS ORDERED: cloNIDine 0.1 MG/24 HR PATCH TRANSDERM SCH (09:00)
[2021-10-09] MEDS ORDERED: COLLAGENASE OINT 30 GM TUBE TOP SCH (09:00)
[2021-10-09] MEDS: amLODIPine 5 MG TABLET PO SCH (09:27)
[2021-10-09] MEDS: FERROUS SULFATE 325 MG TABLET PO SCH (09:27)
[2021-10-09] MEDS: carvediloL 12.5 MG TABLET PO SCH (09:27)
[2021-10-09] MEDS: GABAPENTIN 300 MG CAPSULE PO SCH (09:27)
[2021-10-09] MEDS: PANTOPRAZOLE 40 MG VIAL IV SCH ×2 (09:28→20:52)
[2021-10-09] MEDS: LACTATED RINGERS 1,000 ML IV SCH (09:29)
[2021-10-09] MEDS: LABETALOL 20 MG/4 ML SYRINGE IV PRN (09:31)
[2021-10-09] MEDS: METOCLOPRAMIDE 10 MG/2 ML VIAL IV SCH ×2 (13:30→20:52)
[2021-10-09] MEDS ORDERED: EPOETIN ALFA-EPBX 10,000 UNIT/ML VIAL SUBCUT ONE (15:00)
[2021-10-09] MEDS ORDERED: MAGNESIUM SULF RIDER 2 GM/50 ML PREMIX IV ONE (15:00)
[2021-10-09] MEDS: oxyCODONE/ACETAMINOPHEN 5-325 MG TABLET PO PRN (17:46)
[2021-10-10] MEDS: oxyCODONE/ACETAMINOPHEN 5-325 MG TABLET PO PRN ×2 (00:12→11:00)
[2021-10-10] MEDS: METOCLOPRAMIDE 10 MG/2 ML VIAL IV SCH ×2 (03:14→10:28)
[2021-10-10] MEDS: HYDROmorphone 2 MG/1 ML VIAL IV PRN (04:00)
[2021-10-10] MEDS: ONDANSETRON 4 MG/2 ML VIAL IV PRN (04:01)
[2021-10-10] MEDS: LACTATED RINGERS 1,000 ML IV SCH ×2 (04:10→14:18)
[2021-10-10 05:34] LABS: Basophils % 0.4 % (0.0-0.8); Eosinophils # 0.4 10*3/uL (0.0-0.87); Eosinophils % 3.6 % (0.00-10.9); Hematocrit 21.2 VOL% (35.7-47.0); Hemoglobin 6.5 GM/DL (12.0-16.0); Immature Granulocytes % 0.4 %; Immature Granulocytes Absolute 0.04 #; Lymphocytes # 2.8 10*3/uL (1.4-4.0); Lymphocytes % 28.8 % (21.3-54.2); Mean Corpuscular HGB Conc 30.7 GM/DL (32-36); Mean Corpuscular Volume 79.7 FL (87-102); Monocytes % 6.5 % (1.7-12.7); Neutrophils % 60.3 % (38.7-73.9); Platelet Count 242 T/CUMM (130-400); Red Blood Count 2.66 MC/CUMM (3.8-5.5); Red Cell Distribution Width 15.2 % (9.3-17.3); White Blood Count 9.8 T/CUMM (4-12)
[2021-10-10 05:56] LABS: Albumin 2.1 G/DL (3.4-5.0); Bilirubin,Total 0.6 MG/DL (0.20-1.00); Calcium 7.2 MG/DL (8.5-10.1); Potassium 4.9 MMOL/L (3.5-5.1); Total Protein 5.9 G/DL (6.4-8.2)
[2021-10-10] MEDS: amLODIPine 5 MG TABLET PO SCH (10:27)
[2021-10-10] MEDS: carvediloL 12.5 MG TABLET PO SCH (10:27)
[2021-10-10] MEDS: GABAPENTIN 300 MG CAPSULE PO SCH ×2 (10:27→11:00)
[2021-10-10] MEDS: FERROUS SULFATE 325 MG TABLET PO SCH (10:27)
[2021-10-10] MEDS: PANTOPRAZOLE 40 MG VIAL IV SCH (10:28)
[2021-10-10] MEDS: SKIN HEALING OINT (AQUAPHOR) 50 GM TUBE TOP SCH (10:28)
[2021-10-10] MEDS: INSULIN REGULAR 100 UNIT/ML SUBCUT SCH ×2 (10:29→14:18)
[2021-10-10 12:10] VITALS: BP 166/90
== END 2021-10-10 12:55 | disposition home or self-care (01) | DRG 73 ==
LOC: N.ED 19:00 → N.EDINP 10-04 01:58 → SUATTDRO 10-04 01:58 → N.5E 10-04 16:46
PROVIDERS: ADMIT Internal Medicine; ATTEND Internal Medicine

== ENCOUNTER 2021-10-10 20:23 | Inpatient (IN) ==
[2021-10-10] MEDS ORDERED: hydrALAZINE 20 MG/1 ML VIAL IV STA (20:52)
[2021-10-10] MEDS ORDERED: ONDANSETRON 4 MG/2 ML VIAL IV STA (20:52)
[2021-10-10 22:27] LABS: Basophils # 0.1 10*3/uL (0.0-0.2); Basophils % 0.5 % (0.0-0.8); Eosinophils # 0.4 10*3/uL (0.0-0.87); Eosinophils % 3.8 % (0.00-10.9); Hematocrit 21.5 VOL% (35.7-47.0); Immature Granulocytes % 0.5 %; Immature Granulocytes Absolute 0.05 #; Lymphocytes % 18.1 % (21.3-54.2); Mean Corpuscular HGB Conc 29.8 GM/DL (32-36); Monocytes % 6.2 % (1.7-12.7); Neutrophils % 70.9 % (38.7-73.9); Platelet Count 268 T/CUMM (130-400); Red Blood Count 2.72 MC/CUMM (3.8-5.5); Red Cell Distribution Width 15.4 % (9.3-17.3); White Blood Count 10.9 T/CUMM (4-12)
[2021-10-10 22:32] LABS: Hemoglobin 6.4 GM/DL (12.0-16.0)
[2021-10-10 22:42] LABS: Bilirubin,Urine Negative (Negative); Blood, Urine Small mg/dL (Negative); Glucose,Urine (UA) >=500 mg/dL (Negative); Ketones,Urine Negative (Negative); Mucus,Urine Occasional /LPF (Occasional); Nitrite,Urine Negative (Negative); Protein,Urine 100 MG/DL; RBC,Urine 3 /HPF (0-4); Squamous Epithelial Cell,Urine Occasional /HPF (0-10); Urine Appearance CLEAR (Clear); Urine Color Straw (Yellow); Urine Specific Gravity 1.005 (1.001-1.035); Urine Urobilinogen < 2.0 EU/DL (0.2-1.0)
[2021-10-10 22:44] LABS: Alanine Aminotransferase 14 U/L (13-56); Albumin 2.3 G/DL (3.4-5.0); Alkaline Phosphatase 126 U/L (45-117); Aspartate Amino Transferase 20 U/L (0-37); Bilirubin,Total < 0.39 MG/DL (0.20-1.00); Blood Urea Nitrogen 46 MG/DL (7-18); Calcium 7.4 MG/DL (8.5-10.1); Carbon Dioxide 26 MMOL/L (21-32); Estimated Glom Filtration Rate 6 ML/MIN; Glucose 140 MG/DL (74-106); Potassium 5.2 MMOL/L (3.5-5.1); Sodium 136 MMOL/L (136-145); Total Protein 6.5 G/DL (6.4-8.2)
[2021-10-10 22:56] LABS: Barbiturates Screen,Urine Negative (Negative); Benzodiazepines Screen,Urine Negative (Negative); Cannabinoid Screen,Urine Negative (Negative); Opiate Screen,Urine Positive (Negative); Phencyclidine Screen,Urine Negative (Negative)
[2021-10-11] MEDS ORDERED: GLUCAGON 1 MG VIAL IM PRN ×2 (00:06)
[2021-10-11] MEDS ORDERED: DEXTROSE 50% 25 GM/50 ML VIAL IV PRN (00:06)
[2021-10-11] MEDS: LACTATED RINGERS 1,000 ML IV SCH ×2 (01:40→21:07)
[2021-10-11] MEDS: ACETAMINOPHEN 325 MG TABLET PO PRN ×4 (01:58→22:00)
[2021-10-11 07:47] LABS: Basophils % 0.4 % (0.0-0.8); Eosinophils # 0.3 10*3/uL (0.0-0.87); Eosinophils % 2.9 % (0.00-10.9); Hematocrit 19.5 VOL% (35.7-47.0); Immature Granulocytes % 0.4 %; Immature Granulocytes Absolute 0.04 #; Lymphocytes % 30.1 % (21.3-54.2); Mean Corpuscular HGB Conc 30.8 GM/DL (32-36); Mean Corpuscular Volume 79.3 FL (87-102); Mean Platelet Volume 10.2 FL (9.6-12.0); Neutrophils % 59.2 % (38.7-73.9); Platelet Count 240 T/CUMM (130-400); Red Blood Count 2.46 MC/CUMM (3.8-5.5); Red Cell Distribution Width 15.4 % (9.3-17.3)
[2021-10-11 08:00] LABS: Calcium 7.4 MG/DL (8.5-10.1); Osmolality,Calculated 292.2 MOS/KG (273-304); Potassium 4.9 MMOL/L (3.5-5.1)
[2021-10-11] MEDS: INSULIN REGULAR 100 UNIT/ML SUBCUT SCH ×4 (09:23→20:32)
[2021-10-11] MEDS: GABAPENTIN 300 MG CAPSULE PO PRN (09:26)
[2021-10-11] MEDS: carvediloL 12.5 MG TABLET PO SCH (09:27)
[2021-10-11] MEDS: METOCLOPRAMIDE 10 MG TABLET PO SCH ×4 (09:27→20:32)
[2021-10-11] MEDS: COLLAGENASE OINT 30 GM TUBE TOP SCH (09:27)
[2021-10-11] MEDS: FERROUS SULFATE 325 MG TABLET PO SCH (09:27)
[2021-10-11] MEDS: PANTOPRAZOLE 40 MG TABLET PO SCH (09:27)
[2021-10-11] MEDS: amLODIPine 5 MG TABLET PO SCH (09:27)
[2021-10-11] MEDS ORDERED: oxyCODONE/ACETAMINOPHEN 5-325 MG TABLET PO PRN (09:49)
[2021-10-11] MEDS ORDERED: EPOETIN ALFA-EPBX 10,000 UNIT/ML VIAL SUBCUT ONE ×2 (16:23→20:00)
[2021-10-11] MEDS ORDERED: TUBERCULIN SKIN TEST 0.1 ML SYRINGE INTRADERM ONE (20:08)
[2021-10-12 05:35] LABS: Basophils # 0.1 10*3/uL (0.0-0.2); Basophils % 0.4 % (0.0-0.8); Eosinophils # 0.3 10*3/uL (0.0-0.87); Eosinophils % 2.2 % (0.00-10.9); Immature Granulocytes % 0.5 %; Immature Granulocytes Absolute 0.07 #; Lymphocytes # 2.5 10*3/uL (1.4-4.0); Lymphocytes % 16.9 % (21.3-54.2); Mean Corpuscular HGB Conc 30.4 GM/DL (32-36); Mean Corpuscular Volume 79.7 FL (87-102); Mean Platelet Volume 9.9 FL (9.6-12.0); Monocytes % 5.9 % (1.7-12.7); Neutrophils % 74.1 % (38.7-73.9); Platelet Count 334 T/CUMM (130-400); Red Blood Count 3.01 MC/CUMM (3.8-5.5); Red Cell Distribution Width 15.2 % (9.3-17.3); White Blood Count 14.8 T/CUMM (4-12)
[2021-10-12 05:37] LABS: Hemoglobin 7.3 GM/DL (12.0-16.0)
[2021-10-12 05:49] LABS: Calcium 7.9 MG/DL (8.5-10.1); Osmolality,Calculated 283.1 MOS/KG (273-304); Potassium 5.3 MMOL/L (3.5-5.1)
[2021-10-12] MEDS: INSULIN REGULAR 100 UNIT/ML SUBCUT SCH ×4 (10:03→21:29)
[2021-10-12] MEDS: INSULIN GLARGINE 100 UNIT/ML SUBCUT SCH (10:03)
[2021-10-12] MEDS: amLODIPine 5 MG TABLET PO SCH (10:04)
[2021-10-12] MEDS: METOCLOPRAMIDE 10 MG TABLET PO SCH ×4 (10:04→22:59)
[2021-10-12] MEDS: FERROUS SULFATE 325 MG TABLET PO SCH (10:05)
[2021-10-12] MEDS: ACETAMINOPHEN 325 MG TABLET PO PRN ×2 (10:05→17:04)
[2021-10-12] MEDS: PANTOPRAZOLE 40 MG TABLET PO SCH (10:05)
[2021-10-12] MEDS: GABAPENTIN 300 MG CAPSULE PO PRN (10:05)
[2021-10-12] MEDS: carvediloL 12.5 MG TABLET PO SCH (10:06)
[2021-10-12] MEDS ORDERED: INSULIN REGULAR 10 UNIT, CALCIUM GLUCONATE 1,000 MG in DEXTROSE 10% 250 ML IV ONE (14:00)
[2021-10-12] MEDS ORDERED: LORazepam 2 MG/1 ML VIAL IV ONE (19:45)
[2021-10-12] MEDS ORDERED: LORazepam 2 MG/1 ML VIAL ONE (19:46)
[2021-10-12] MEDS: DEXTROSE 50% 25 GM/50 ML VIAL IV PRN ×3 (19:47→21:59)
[2021-10-12] MEDS ORDERED: ONDANSETRON 4 MG/2 ML VIAL IV ONE (20:00)
[2021-10-12] MEDS: SODIUM ZIRCONIUM CYCLOSILICATE 10 GM PACK PO SCH (22:59)
[2021-10-13] MEDS: LACTATED RINGERS 1,000 ML IV SCH ×2 (00:03→16:22)
[2021-10-13 05:23] LABS: Basophils % 0.2 % (0.0-0.8); Eosinophils # 0.1 10*3/uL (0.0-0.87); Eosinophils % 0.4 % (0.00-10.9); Hemoglobin 6.9 GM/DL (12.0-16.0); Immature Granulocytes % 0.9 %; Immature Granulocytes Absolute 0.18 #; Lymphocytes # 1.9 10*3/uL (1.4-4.0); Lymphocytes % 9.6 % (21.3-54.2); Mean Platelet Volume 9.6 FL (9.6-12.0); Monocytes % 4.4 % (1.7-12.7); Neutrophils % 84.5 % (38.7-73.9); Platelet Count 353 T/CUMM (130-400); Red Blood Count 2.91 MC/CUMM (3.8-5.5); Red Cell Distribution Width 15.3 % (9.3-17.3); White Blood Count 19.4 T/CUMM (4-12)
[2021-10-13 05:39] LABS: Osmolality,Calculated 287.1 MOS/KG (273-304); Potassium 5.6 MMOL/L (3.5-5.1)
[2021-10-13 06:06] LABS: Band Neutrophils 6 % (0-10); Lymphocytes 15 % (20-55); Platelet Estimate Normal; Segmented Neutrophils 74 % (50-85); Total Cells Counted 100
[2021-10-13 06:07] LABS: Anisocytosis 2+; Burr Cells Few; Poikilocytosis Slight
[2021-10-13] MEDS: ALBUTEROL 2.5 MG/3 ML NEB RESP TX SCH ×2 (07:40→19:42)
[2021-10-13 08:55] LABS: Free T4 (Free Thyroxine) 1.02 NG/DL (0.76-1.46); Thyroid Stimulating Hormone 1.13 uIU/ml (0.358-3.74)
[2021-10-13] MEDS: INSULIN REGULAR 100 UNIT/ML SUBCUT SCH ×4 (09:10→20:35)
[2021-10-13] MEDS: PANTOPRAZOLE 40 MG TABLET PO SCH (10:01)
[2021-10-13] MEDS: amLODIPine 5 MG TABLET PO SCH (10:01)
[2021-10-13] MEDS: carvediloL 12.5 MG TABLET PO SCH (10:01)
[2021-10-13] MEDS: FERROUS SULFATE 325 MG TABLET PO SCH (10:01)
[2021-10-13] MEDS: COLLAGENASE OINT 30 GM TUBE TOP SCH (10:02)
[2021-10-13] MEDS: METOCLOPRAMIDE 10 MG TABLET PO SCH ×4 (10:02→20:35)
[2021-10-13] MEDS: INSULIN GLARGINE 100 UNIT/ML SUBCUT SCH (10:17)
[2021-10-13] MEDS: GABAPENTIN 300 MG CAPSULE PO PRN (10:38)
[2021-10-13] MEDS: ACETAMINOPHEN 325 MG TABLET PO PRN (10:43)
[2021-10-13] MEDS: SODIUM ZIRCONIUM CYCLOSILICATE 10 GM PACK PO SCH ×3 (15:32→20:34)
[2021-10-13] MEDS: AZITHROMYCIN INJ 500 MG in SODIUM CHLORIDE 0.9% 250 ML IV SCH (15:33)
[2021-10-13] MEDS: PIPERACILLIN/TAZOBACTAM 3,375 MG in SODIUM CHLORIDE 0.9% 100 ML IV SCH (17:47)
[2021-10-13] MEDS ORDERED: LORazepam 2 MG/1 ML VIAL IV ONE (19:45)
[2021-10-14] MEDS: ONDANSETRON 4 MG/2 ML VIAL IV PRN (02:08)
[2021-10-14] MEDS: DEXTROSE 50% 25 GM/50 ML VIAL IV PRN (02:31)
[2021-10-14] MEDS: PIPERACILLIN/TAZOBACTAM 3,375 MG in SODIUM CHLORIDE 0.9% 100 ML IV SCH ×2 (05:23→17:05)
[2021-10-14 06:37] LABS: Basophils # 0.1 10*3/uL (0.0-0.2); Basophils % 0.4 % (0.0-0.8); Eosinophils # 0.4 10*3/uL (0.0-0.87); Eosinophils % 2.9 % (0.00-10.9); Hematocrit 19.4 VOL% (35.7-47.0); Immature Granulocytes % 0.5 %; Immature Granulocytes Absolute 0.07 #; Lymphocytes # 3.3 10*3/uL (1.4-4.0); Lymphocytes % 22.8 % (21.3-54.2); Mean Corpuscular HGB Conc 30.4 GM/DL (32-36); Mean Corpuscular Volume 80.2 FL (87-102); Mean Platelet Volume 9.4 FL (9.6-12.0); Monocytes % 6.4 % (1.7-12.7); Platelet Count 355 T/CUMM (130-400); Red Blood Count 2.42 MC/CUMM (3.8-5.5); Red Cell Distribution Width 15.6 % (9.3-17.3); White Blood Count 14.4 T/CUMM (4-12)
[2021-10-14 06:41] LABS: Hemoglobin 5.9 GM/DL (12.0-16.0)
[2021-10-14 07:07] LABS: Albumin 1.8 G/DL (3.4-5.0); Bilirubin,Total 0.7 MG/DL (0.20-1.00); Calcium 7.1 MG/DL (8.5-10.1); Osmolality,Calculated 285.8 MOS/KG (273-304); Potassium 4.2 MMOL/L (3.5-5.1); Total Protein 5.9 G/DL (6.4-8.2)
[2021-10-14] MEDS ORDERED: EPOETIN ALFA-EPBX 10,000 UNIT/ML VIAL SUBCUT ONE (07:19)
[2021-10-14] MEDS: ALBUTEROL 2.5 MG/3 ML NEB RESP TX SCH ×3 (07:40→20:11)
[2021-10-14] MEDS: INSULIN REGULAR 100 UNIT/ML SUBCUT SCH ×4 (08:09→21:07)
[2021-10-14] MEDS ORDERED: VANCOMYCIN INJ 1,250 MG in SODIUM CHLORIDE 0.9% 250 ML IV ONE (10:00)
[2021-10-14] MEDS: carvediloL 12.5 MG TABLET PO SCH (10:04)
[2021-10-14] MEDS: PANTOPRAZOLE 40 MG TABLET PO SCH (10:04)
[2021-10-14] MEDS: FERROUS SULFATE 325 MG TABLET PO SCH (10:04)
[2021-10-14] MEDS: amLODIPine 5 MG TABLET PO SCH (10:04)
[2021-10-14] MEDS: SODIUM ZIRCONIUM CYCLOSILICATE 10 GM PACK PO SCH ×3 (10:05→21:06)
[2021-10-14] MEDS: METOCLOPRAMIDE 10 MG TABLET PO SCH ×4 (10:06→21:06)
[2021-10-14] MEDS: AZITHROMYCIN INJ 500 MG in SODIUM CHLORIDE 0.9% 250 ML IV SCH (12:46)
[2021-10-14] MEDS ORDERED: VANCOMYCIN INJ 500 MG in SODIUM CHLORIDE 0.9% 100 ML IV PRN (17:19)
[2021-10-14] MEDS: GABAPENTIN 300 MG CAPSULE PO PRN (17:37)
[2021-10-14] MEDS: ACETAMINOPHEN 325 MG TABLET PO PRN (17:39)
[2021-10-14] MEDS: LACTATED RINGERS 1,000 ML IV SCH (19:11)
[2021-10-14] MEDS ORDERED: traMADol 50 MG TABLET PO ONE (20:46)
[2021-10-15] MEDS: ALBUTEROL 2.5 MG/3 ML NEB RESP TX SCH ×4 (01:43→19:35)
[2021-10-15] MEDS: ACETAMINOPHEN 325 MG TABLET PO PRN (03:57)
[2021-10-15] MEDS: LACTATED RINGERS 1,000 ML IV SCH (05:37)
[2021-10-15 05:47] LABS: Basophils # 0.1 10*3/uL (0.0-0.2); Basophils % 0.6 % (0.0-0.8); Eosinophils # 0.4 10*3/uL (0.0-0.87); Hematocrit 19.6 VOL% (35.7-47.0); Immature Granulocytes % 0.6 %; Immature Granulocytes Absolute 0.06 #; Lymphocytes % 27.1 % (21.3-54.2); Mean Corpuscular HGB Conc 30.1 GM/DL (32-36); Mean Corpuscular Volume 79.4 FL (87-102); Mean Platelet Volume 9.2 FL (9.6-12.0); Monocytes % 8.5 % (1.7-12.7); Neutrophils % 59.2 % (38.7-73.9); Platelet Count 432 T/CUMM (130-400); Red Blood Count 2.47 MC/CUMM (3.8-5.5); Red Cell Distribution Width 15.5 % (9.3-17.3); White Blood Count 10.9 T/CUMM (4-12)
[2021-10-15 05:56] LABS: Hemoglobin 5.9 GM/DL (12.0-16.0)
[2021-10-15 06:05] LABS: Alanine Aminotransferase 9 U/L (13-56); Albumin 1.9 G/DL (3.4-5.0); Alkaline Phosphatase 127 U/L (45-117); Aspartate Amino Transferase 5 U/L (0-37); Bilirubin,Total < 0.39 MG/DL (0.20-1.00); Blood Urea Nitrogen 43 MG/DL (7-18); Calcium 7.5 MG/DL (8.5-10.1); Carbon Dioxide 22 MMOL/L (21-32); Estimated Glom Filtration Rate 6 ML/MIN; Glucose 280 MG/DL (74-106); Osmolality,Calculated 288.2 MOS/KG (273-304); Potassium 4.2 MMOL/L (3.5-5.1); Sodium 134 MMOL/L (136-145); Total Protein 6.2 G/DL (6.4-8.2)
[2021-10-15] MEDS: PIPERACILLIN/TAZOBACTAM 3,375 MG in SODIUM CHLORIDE 0.9% 100 ML IV SCH ×2 (06:47→16:56)
[2021-10-15] MEDS ORDERED: cloNIDine 0.1 MG TABLET PO ONE (06:55)
[2021-10-15] MEDS ORDERED: hydrALAZINE 20 MG/1 ML VIAL IV PRN (06:56)
[2021-10-15] MEDS ORDERED: oxyCODONE/ACETAMINOPHEN 5-325 MG TABLET PO ONE (07:53)
[2021-10-15] MEDS: INSULIN REGULAR 100 UNIT/ML SUBCUT SCH ×4 (08:39→21:40)
[2021-10-15] MEDS: PANTOPRAZOLE 40 MG TABLET PO SCH (08:39)
[2021-10-15] MEDS: FERROUS SULFATE 325 MG TABLET PO SCH (08:40)
[2021-10-15] MEDS: amLODIPine 5 MG TABLET PO SCH (08:40)
[2021-10-15] MEDS: carvediloL 12.5 MG TABLET PO SCH (08:40)
[2021-10-15] MEDS: METOCLOPRAMIDE 10 MG TABLET PO SCH ×4 (08:40→20:28)
[2021-10-15] MEDS: SODIUM ZIRCONIUM CYCLOSILICATE 10 GM PACK PO SCH ×3 (08:41→20:27)
[2021-10-15] MEDS ORDERED: MORPHINE 2 MG/1 ML SYRINGE IV ONE ×2 (12:31→19:40)
[2021-10-15] MEDS: AZITHROMYCIN INJ 500 MG in SODIUM CHLORIDE 0.9% 250 ML IV SCH (12:32)
[2021-10-15] MEDS: PROMETHAZINE 25 MG/1 ML VIAL IM PRN ×2 (13:19→21:41)
[2021-10-16] MEDS: PIPERACILLIN/TAZOBACTAM 3,375 MG in SODIUM CHLORIDE 0.9% 100 ML IV SCH (05:25)
[2021-10-16 06:49] LABS: Basophils # 0.1 10*3/uL (0.0-0.2); Basophils % 0.6 % (0.0-0.8); Eosinophils # 0.5 10*3/uL (0.0-0.87); Eosinophils % 4.8 % (0.00-10.9); Hematocrit 19.6 VOL% (35.7-47.0); Immature Granulocytes % 0.5 %; Immature Granulocytes Absolute 0.05 #; Lymphocytes # 3.8 10*3/uL (1.4-4.0); Lymphocytes % 36.6 % (21.3-54.2); Mean Corpuscular HGB Conc 30.1 GM/DL (32-36); Mean Corpuscular Volume 78.7 FL (87-102); Mean Platelet Volume 8.9 FL (9.6-12.0); Monocytes % 7.9 % (1.7-12.7); Neutrophils % 49.6 % (38.7-73.9); Platelet Count 447 T/CUMM (130-400); Red Blood Count 2.49 MC/CUMM (3.8-5.5); Red Cell Distribution Width 15.6 % (9.3-17.3); White Blood Count 10.3 T/CUMM (4-12)
[2021-10-16 07:00] LABS: Hemoglobin 5.9 GM/DL (12.0-16.0)
[2021-10-16] MEDS: ALBUTEROL 2.5 MG/3 ML NEB RESP TX SCH ×4 (07:22→20:00)
[2021-10-16 07:27] LABS: Albumin 1.8 G/DL (3.4-5.0); Bilirubin,Total 0.9 MG/DL (0.20-1.00); Calcium 7.4 MG/DL (8.5-10.1); Osmolality,Calculated 288.8 MOS/KG (273-304); Potassium 3.9 MMOL/L (3.5-5.1)
[2021-10-16] MEDS: carvediloL 12.5 MG TABLET PO SCH (08:31)
[2021-10-16] MEDS ORDERED: LIDOCAINE 1%/EPI INJ 20 ML VIAL ONE (08:31)
[2021-10-16] MEDS ORDERED: HEPARIN 5,000 UNIT/1 ML VIAL ONE (08:31)
[2021-10-16] MEDS: FOLIC ACID 1 MG TABLET PO SCH (08:31)
[2021-10-16] MEDS: INSULIN REGULAR 100 UNIT/ML SUBCUT SCH ×4 (08:31→21:09)
[2021-10-16] MEDS ORDERED: BUPIVACAINE MPF 0.25% 30 ML VIAL ONE (08:31)
[2021-10-16] MEDS: METOCLOPRAMIDE 10 MG TABLET PO SCH ×4 (08:32→21:08)
[2021-10-16] MEDS: PANTOPRAZOLE 40 MG TABLET PO SCH (08:32)
[2021-10-16] MEDS: SODIUM ZIRCONIUM CYCLOSILICATE 10 GM PACK PO SCH (08:32)
[2021-10-16] MEDS: CYANOCOBALAMIN 500 MCG TABLET PO SCH (08:32)
[2021-10-16] MEDS: amLODIPine 5 MG TABLET PO SCH (08:32)
[2021-10-16] MEDS ORDERED: MIDAZOLAM 2 MG/2 ML VIAL ONE ×2 (08:44→09:03)
[2021-10-16] MEDS ORDERED: propofoL 200 MG/20 ML VIAL IV ONE (08:44)
[2021-10-16] MEDS ORDERED: LIDOCAINE 2% 5 ML VIAL ONE (08:44)
[2021-10-16] MEDS ORDERED: fentaNYL 100 MCG/2 ML VIAL ONE (08:44)
[2021-10-16] MEDS ORDERED: KETAMINE 500 MG/10 ML VIAL ONE (08:45)
[2021-10-16] MEDS ORDERED: IRON SUCROSE 100 MG/5 ML VIAL IV SCH (09:00)
[2021-10-16] MEDS ORDERED: SODIUM CHLORIDE 0.9% 250 ML IV SCH (09:00)
[2021-10-16] MEDS ORDERED: diphenhydrAMINE 50 MG/1 ML VIAL IV PRN (09:46)
[2021-10-16] MEDS ORDERED: MEPERIDINE 25 MG/1 ML VIAL IV PRN (09:46)
[2021-10-16] MEDS ORDERED: ONDANSETRON 4 MG/2 ML VIAL IV PRN (09:46)
[2021-10-16] MEDS ORDERED: PROMETHAZINE INJ 25 MG in SODIUM CHLORIDE 0.9% 50 ML IV PRN (09:46)
[2021-10-16] MEDS: FERRIC GLUCONATE COMPLEX 125 MG in SODIUM CHLORIDE 0.9% 100 ML IV SCH (10:17)
[2021-10-16] MEDS: COLLAGENASE OINT 30 GM TUBE TOP SCH (10:17)
[2021-10-16] MEDS ORDERED: carvediloL 12.5 MG TABLET PO ONE (14:30)
[2021-10-16] MEDS ORDERED: amLODIPine 5 MG TABLET PO ONE (14:30)
[2021-10-16] MEDS: PROMETHAZINE 25 MG/1 ML VIAL IM PRN ×2 (14:33→21:09)
[2021-10-16] MEDS ORDERED: EPOETIN ALFA-EPBX 10,000 UNIT/ML VIAL IV PRN (14:48)
[2021-10-16] MEDS ORDERED: HEPARIN 10,000 UNIT/10 ML VIAL IV PRN (16:58)
[2021-10-16] MEDS ORDERED: VANCOMYCIN INJ 500 MG in SODIUM CHLORIDE 0.9% 100 ML IV ONE (17:00)
[2021-10-16 19:44] LABS: Hepatitis B Surface Ag Quant < 0.10 Index; Hepatitis B Surface Ag Result Non-Reactive (NonReactive)
[2021-10-16] MEDS: AZITHROMYCIN INJ 500 MG in SODIUM CHLORIDE 0.9% 250 ML IV SCH (20:00)
[2021-10-16] MEDS: oxyCODONE/ACETAMINOPHEN 5-325 MG TABLET PO PRN (21:09)
[2021-10-16] MEDS: LACTATED RINGERS 1,000 ML IV SCH (23:04)
[2021-10-17] MEDS: ALBUTEROL 2.5 MG/3 ML NEB RESP TX SCH ×4 (00:15→19:00)
[2021-10-17] MEDS: oxyCODONE/ACETAMINOPHEN 5-325 MG TABLET PO PRN ×4 (04:12→21:43)
[2021-10-17] MEDS: PROMETHAZINE 25 MG/1 ML VIAL IM PRN ×3 (04:12→15:39)
[2021-10-17 05:54] LABS: Basophils # 0.1 10*3/uL (0.0-0.2); Basophils % 0.6 % (0.0-0.8); Eosinophils # 0.5 10*3/uL (0.0-0.87); Eosinophils % 4.4 % (0.00-10.9); Hematocrit 20.3 VOL% (35.7-47.0); Immature Granulocytes % 0.9 %; Lymphocytes # 3.5 10*3/uL (1.4-4.0); Lymphocytes % 31.3 % (21.3-54.2); Mean Corpuscular Volume 79.6 FL (87-102); Mean Platelet Volume 10.3 FL (9.6-12.0); Monocytes % 8.5 % (1.7-12.7); NRBC # 0.02 10*3/uL; Neutrophils % 54.3 % (38.7-73.9); Platelet Count 384 T/CUMM (130-400); Red Blood Count 2.55 MC/CUMM (3.8-5.5); Red Cell Distribution Width 15.9 % (9.3-17.3); White Blood Count 11.1 T/CUMM (4-12)
[2021-10-17 05:59] LABS: Hemoglobin 6.1 GM/DL (12.0-16.0)
[2021-10-17 06:04] LABS: Alanine Aminotransferase 10 U/L (13-56); Albumin 1.9 G/DL (3.4-5.0); Alkaline Phosphatase 149 U/L (45-117); Aspartate Amino Transferase 9 U/L (0-37); Bilirubin,Total < 0.39 MG/DL (0.20-1.00); Blood Urea Nitrogen 32 MG/DL (7-18); Carbon Dioxide 26 MMOL/L (21-32); Estimated Glom Filtration Rate 9 ML/MIN; Glucose 165 MG/DL (74-106); Osmolality,Calculated 285.7 MOS/KG (273-304); Potassium 4.2 MMOL/L (3.5-5.1); Sodium 138 MMOL/L (136-145)
[2021-10-17 06:05] LABS: Hypochromasia 1+; Microcytosis 1+; Platelet Estimate Normal
[2021-10-17] MEDS: CYANOCOBALAMIN 500 MCG TABLET PO SCH (09:32)
[2021-10-17] MEDS: carvediloL 12.5 MG TABLET PO SCH (09:32)
[2021-10-17] MEDS: amLODIPine 5 MG TABLET PO SCH (09:32)
[2021-10-17] MEDS: PANTOPRAZOLE 40 MG TABLET PO SCH (09:33)
[2021-10-17] MEDS: FOLIC ACID 1 MG TABLET PO SCH (09:33)
[2021-10-17] MEDS: METOCLOPRAMIDE 10 MG TABLET PO SCH ×4 (09:33→22:10)
[2021-10-17] MEDS: FERRIC GLUCONATE COMPLEX 125 MG in SODIUM CHLORIDE 0.9% 100 ML IV SCH (09:34)
[2021-10-17] MEDS: INSULIN REGULAR 100 UNIT/ML SUBCUT SCH ×4 (09:35→22:11)
[2021-10-17] MEDS ORDERED: VANCOMYCIN INJ 500 MG in SODIUM CHLORIDE 0.9% 100 ML IV ONE (17:00)
[2021-10-17] MEDS: LACTATED RINGERS 1,000 ML IV SCH (19:21)
[2021-10-17] MEDS: AZITHROMYCIN INJ 500 MG in SODIUM CHLORIDE 0.9% 250 ML IV SCH (19:22)
[2021-10-17] MEDS: SODIUM ZIRCONIUM CYCLOSILICATE 10 GM PACK PO SCH (19:29)
[2021-10-17] MEDS: ONDANSETRON 4 MG/2 ML VIAL IV PRN (21:43)
[2021-10-18] MEDS: ALBUTEROL 2.5 MG/3 ML NEB RESP TX SCH ×4 (01:46→19:45)
[2021-10-18] MEDS: INSULIN REGULAR 100 UNIT/ML SUBCUT SCH ×4 (08:12→21:19)
[2021-10-18] MEDS: oxyCODONE/ACETAMINOPHEN 5-325 MG TABLET PO PRN ×3 (08:19→22:07)
[2021-10-18 09:10] LABS: Basophils # 0.1 10*3/uL (0.0-0.2); Basophils % 0.4 % (0.0-0.8); Eosinophils # 0.4 10*3/uL (0.0-0.87); Eosinophils % 2.6 % (0.00-10.9); Hematocrit 20.6 VOL% (35.7-47.0); Immature Granulocytes % 1.6 %; Immature Granulocytes Absolute 0.23 #; Lymphocytes # 3.1 10*3/uL (1.4-4.0); Lymphocytes % 21.2 % (21.3-54.2); Mean Corpuscular HGB Conc 29.6 GM/DL (32-36); Mean Corpuscular Volume 80.5 FL (87-102); Mean Platelet Volume 8.9 FL (9.6-12.0); Monocytes % 5.4 % (1.7-12.7); NRBC # 0.05 10*3/uL; Neutrophils % 68.8 % (38.7-73.9); Platelet Count 395 T/CUMM (130-400); Red Blood Count 2.56 MC/CUMM (3.8-5.5); Red Cell Distribution Width 16.3 % (9.3-17.3); White Blood Count 14.8 T/CUMM (4-12)
[2021-10-18 09:20] LABS: Hemoglobin 6.1 GM/DL (12.0-16.0)
[2021-10-18 09:29] LABS: Alanine Aminotransferase 9 U/L (13-56); Albumin 2.1 G/DL (3.4-5.0); Alkaline Phosphatase 149 U/L (45-117); Aspartate Amino Transferase 9 U/L (0-37); Bilirubin,Total < 0.39 MG/DL (0.20-1.00); Blood Urea Nitrogen 19 MG/DL (7-18); Calcium 8.3 MG/DL (8.5-10.1); Carbon Dioxide 28 MMOL/L (21-32); Estimated Glom Filtration Rate 16 ML/MIN; Glucose 183 MG/DL (74-106); Osmolality,Calculated 276.1 MOS/KG (273-304); Potassium 3.8 MMOL/L (3.5-5.1); Sodium 135 MMOL/L (136-145); Total Protein 6.7 G/DL (6.4-8.2)
[2021-10-18] MEDS: PANTOPRAZOLE 40 MG TABLET PO SCH (12:34)
[2021-10-18] MEDS: METOCLOPRAMIDE 10 MG TABLET PO SCH ×4 (12:35→22:06)
[2021-10-18] MEDS: CYANOCOBALAMIN 500 MCG TABLET PO SCH (12:35)
[2021-10-18] MEDS: amLODIPine 5 MG TABLET PO SCH (12:35)
[2021-10-18] MEDS: FOLIC ACID 1 MG TABLET PO SCH (12:35)
[2021-10-18] MEDS: carvediloL 12.5 MG TABLET PO SCH (12:35)
[2021-10-18] MEDS: PROMETHAZINE 25 MG/1 ML VIAL IM PRN ×2 (12:40→22:09)
[2021-10-18] MEDS: FERRIC GLUCONATE COMPLEX 125 MG in SODIUM CHLORIDE 0.9% 100 ML IV SCH (13:54)
[2021-10-18] MEDS: COLLAGENASE OINT 30 GM TUBE TOP SCH (14:17)
[2021-10-18] MEDS: LACTATED RINGERS 1,000 ML IV SCH (14:59)
[2021-10-18] MEDS ORDERED: AZITHROMYCIN INJ 500 MG in SODIUM CHLORIDE 0.9% 250 ML IV SCH (16:00)
[2021-10-18] MEDS: AZITHROMYCIN 250 MG TABLET PO SCH (16:13)
[2021-10-19] MEDS: ALBUTEROL 2.5 MG/3 ML NEB RESP TX SCH ×3 (01:00→13:38)
[2021-10-19] MEDS: oxyCODONE/ACETAMINOPHEN 5-325 MG TABLET PO PRN (04:16)
[2021-10-19] MEDS: INSULIN REGULAR 100 UNIT/ML SUBCUT SCH ×2 (07:52→12:33)
[2021-10-19] MEDS ORDERED: cloNIDine 0.3 MG/24 HR PATCH TRANSDERM SCH (09:00)
[2021-10-19] MEDS ORDERED: amLODIPine 10 MG TABLET PO SCH (09:00)
[2021-10-19] MEDS: FERRIC GLUCONATE COMPLEX 125 MG in SODIUM CHLORIDE 0.9% 100 ML IV SCH (09:05)
[2021-10-19] MEDS: AZITHROMYCIN 250 MG TABLET PO SCH (09:08)
[2021-10-19] MEDS: PANTOPRAZOLE 40 MG TABLET PO SCH (09:09)
[2021-10-19] MEDS: METOCLOPRAMIDE 10 MG TABLET PO SCH ×2 (09:09→13:34)
[2021-10-19] MEDS: FOLIC ACID 1 MG TABLET PO SCH (09:09)
[2021-10-19] MEDS: CYANOCOBALAMIN 500 MCG TABLET PO SCH (09:09)
[2021-10-19] MEDS: carvediloL 12.5 MG TABLET PO SCH (09:09)
[2021-10-19 12:09] VITALS: BP 167/93
[2021-10-19] MEDS: LACTATED RINGERS 1,000 ML IV SCH (12:21)
== END 2021-10-19 16:16 | disposition home or self-care (01) | DRG 193 ==
LOC: EDBD → EDUNIT# → N.EDINP 20:23 → N.ED 20:23 → SUATTDRO 10-11 00:06 → N.2W 10-11 00:58 → SUATTDRO 10-13 12:01 → N.ADMINP 10-16 12:51 → N.5E 10-16 12:53
PROVIDERS: ADMIT Internal Medicine; ATTEND Internal Medicine

== ENCOUNTER 2021-12-08 14:05 | Inpatient (IN) ==
[2021-12-08] MEDS ORDERED: HYDROmorphone 2 MG/1 ML VIAL IV STA (14:28)
[2021-12-08] MEDS ORDERED: PROMETHAZINE 25 MG/1 ML VIAL IM STA (14:29)
[2021-12-08 14:39] LABS: Basophils % 0.3 % (0.0-0.8); Eosinophils % 0.1 % (0.00-10.9); Hematocrit 27.6 VOL% (35.7-47.0); Hemoglobin 8.1 GM/DL (12.0-16.0); Immature Granulocytes % 0.5 %; Immature Granulocytes Absolute 0.05 #; Lymphocytes # 0.7 10*3/uL (1.4-4.0); Lymphocytes % 6.8 % (21.3-54.2); Mean Corpuscular HGB Conc 29.3 GM/DL (32-36); Mean Platelet Volume 9.2 FL (9.6-12.0); Monocytes % 4.5 % (1.7-12.7); Neutrophils % 87.8 % (38.7-73.9); Platelet Count 332 T/CUMM (130-400); Red Blood Count 3.54 MC/CUMM (3.8-5.5); Red Cell Distribution Width 19.9 % (9.3-17.3)
[2021-12-08 15:00] LABS: Alanine Aminotransferase 25 U/L (13-56); Albumin 2.7 G/DL (3.4-5.0); Alkaline Phosphatase 137 U/L (45-117); Aspartate Amino Transferase 23 U/L (0-37); Bilirubin,Total < 0.39 MG/DL (0.20-1.00); Blood Urea Nitrogen 26 MG/DL (7-18); Calcium 8.1 MG/DL (8.5-10.1); Carbon Dioxide 27 MMOL/L (21-32); Estimated Glom Filtration Rate 9 ML/MIN; Glucose 230 MG/DL (74-106); Osmolality,Calculated 288.5 MOS/KG (273-304); Potassium 4.2 MMOL/L (3.5-5.1); Sodium 139 MMOL/L (136-145); Total Protein 7.6 G/DL (6.4-8.2)
[2021-12-08 15:53] LABS: Eosinophils 2 % (0-10); Lymphocytes 9 % (20-55); Segmented Neutrophils 85 % (50-85); Total Cells Counted 100
[2021-12-08 15:54] LABS: Anisocytosis Slight; Hypochromia Slight; Schistocytes Slight
[2021-12-08 15:55] LABS: Platelet Estimate Normal; Target Cells Slight
[2021-12-08] MEDS ORDERED: SODIUM CHLORIDE 0.9% 250 ML IV STA (15:59)
[2021-12-08] MEDS ORDERED: VANCOMYCIN INJ 1,000 MG in SODIUM CHLORIDE 0.9% 250 ML IV STA (16:02)
[2021-12-08] MEDS ORDERED: METOPROLOL TARTRATE 5 MG/5 ML VIAL IV STA (16:28)
[2021-12-08] MEDS ORDERED: GLUCAGON 1 MG VIAL IM PRN (17:02)
[2021-12-08] MEDS ORDERED: ALBUTEROL 2.5 MG/3 ML NEB RESP TX PRN (17:02)
[2021-12-08] MEDS ORDERED: ACETAMINOPHEN 325 MG TABLET PO PRN (17:02)
[2021-12-08] MEDS ORDERED: METOPROLOL TARTRATE 5 MG/5 ML VIAL IV PRN (17:07)
[2021-12-08] MEDS ORDERED: DEXTROSE 50% 25 GM/50 ML SYRINGE IV PRN (17:07)
[2021-12-08] MEDS: MORPHINE 2 MG/1 ML SYRINGE IV PRN (21:04)
[2021-12-08] MEDS: INSULIN REGULAR 100 UNIT/ML SUBCUT SCH (22:12)
[2021-12-09] MEDS: ONDANSETRON 4 MG/2 ML VIAL IV PRN ×2 (00:53→12:45)
[2021-12-09] MEDS ORDERED: MORPHINE 2 MG/1 ML SYRINGE IV ONE (01:10)
[2021-12-09] MEDS ORDERED: VANCOMYCIN INJ 1,000 MG in SODIUM CHLORIDE 0.9% 250 ML IV SCH (08:00)
[2021-12-09] MEDS: INSULIN REGULAR 100 UNIT/ML SUBCUT SCH ×3 (08:24→17:28)
[2021-12-09] MEDS: PROMETHAZINE 25 MG/1 ML VIAL IM PRN ×3 (08:24→20:21)
[2021-12-09] MEDS: MORPHINE 2 MG/1 ML SYRINGE IV PRN ×2 (08:25→16:10)
[2021-12-09] MEDS ORDERED: PANTOPRAZOLE 40 MG TABLET PO SCH (09:00)
[2021-12-09] MEDS: PANTOPRAZOLE 40 MG VIAL IV SCH (09:37)
[2021-12-09] MEDS ORDERED: VANCOMYCIN INJ 750 MG in SODIUM CHLORIDE 0.9% 250 ML IV ONE ×3 (10:00→17:50)
[2021-12-09] MEDS ORDERED: VANCOMYCIN INJ 500 MG in SODIUM CHLORIDE 0.9% 100 ML IV PRN (10:17)
[2021-12-09] MEDS ORDERED: HEPARIN 10,000 UNIT/10 ML VIAL IV ONE (10:45)
[2021-12-09] MEDS: GABAPENTIN 300 MG CAPSULE PO SCH (14:15)
[2021-12-09] MEDS ORDERED: hydrALAZINE 20 MG/1 ML VIAL IV PRN (14:51)
[2021-12-09] MEDS: cefTRIAXone 1,000 MG in SODIUM CHLORIDE 0.9% 100 ML IV SCH (15:39)
[2021-12-09] MEDS: carvediloL 12.5 MG TABLET PO SCH (17:28)
[2021-12-10] MEDS: MORPHINE 2 MG/1 ML SYRINGE IV PRN (00:04)
[2021-12-10] MEDS: INSULIN REGULAR 100 UNIT/ML SUBCUT SCH ×5 (00:24→22:33)
[2021-12-10] MEDS: GABAPENTIN 300 MG CAPSULE PO SCH ×4 (00:25→22:34)
[2021-12-10] MEDS: PROMETHAZINE 25 MG/1 ML VIAL IM PRN ×2 (04:14→16:34)
[2021-12-10] MEDS ORDERED: MORPHINE 2 MG/1 ML SYRINGE IV PRN (07:46)
[2021-12-10] MEDS: PANTOPRAZOLE 40 MG VIAL IV SCH (08:04)
[2021-12-10] MEDS: carvediloL 12.5 MG TABLET PO SCH ×2 (08:20→16:09)
[2021-12-10] MEDS: FERROUS SULFATE 325 MG TABLET PO SCH (08:20)
[2021-12-10] MEDS: amLODIPine 5 MG TABLET PO SCH (08:21)
[2021-12-10] MEDS ORDERED: cloNIDine 0.3 MG/24 HR PATCH TRANSDERM SCH (09:00)
[2021-12-10 09:47] LABS: Basophils % 0.5 % (0.0-0.8); Eosinophils # 0.1 10*3/uL (0.0-0.87); Eosinophils % 1.4 % (0.00-10.9); Hematocrit 26.4 VOL% (35.7-47.0); Hemoglobin 7.5 GM/DL (12.0-16.0); Immature Granulocytes % 0.5 %; Immature Granulocytes Absolute 0.04 #; Lymphocytes # 2.1 10*3/uL (1.4-4.0); Lymphocytes % 25.2 % (21.3-54.2); Mean Corpuscular HGB Conc 28.4 GM/DL (32-36); Mean Corpuscular Volume 78.8 FL (87-102); Mean Platelet Volume 9.6 FL (9.6-12.0); Monocytes % 9.3 % (1.7-12.7); Neutrophils % 63.1 % (38.7-73.9); Platelet Count 268 T/CUMM (130-400); Red Blood Count 3.35 MC/CUMM (3.8-5.5); White Blood Count 8.1 T/CUMM (4-12)
[2021-12-10 10:05] LABS: Alanine Aminotransferase 22 U/L (13-56); Albumin 2.3 G/DL (3.4-5.0); Alkaline Phosphatase 111 U/L (45-117); Aspartate Amino Transferase 16 U/L (0-37); Bilirubin,Total < 0.39 MG/DL (0.20-1.00); Blood Urea Nitrogen 21 MG/DL (7-18); Calcium 8.9 MG/DL (8.5-10.1); Carbon Dioxide 26 MMOL/L (21-32); Estimated Glom Filtration Rate 11 ML/MIN; Glucose 146 MG/DL (74-106); Osmolality,Calculated 275.1 MOS/KG (273-304); Potassium 3.5 MMOL/L (3.5-5.1); Sodium 135 MMOL/L (136-145); Total Protein 7.9 G/DL (6.4-8.2)
[2021-12-10] MEDS ORDERED: cloNIDine 0.1 MG/24 HR PATCH TRANSDERM SCH (12:36)
[2021-12-10] MEDS: cefTRIAXone 1,000 MG in SODIUM CHLORIDE 0.9% 100 ML IV SCH (16:31)
[2021-12-10] MEDS: oxyCODONE/ACETAMINOPHEN 5-325 MG TABLET PO PRN (17:49)
[2021-12-10] MEDS ORDERED: PIPERACILLIN/TAZOBACTAM 3.375 MG in SODIUM CHLORIDE 0.9% 100 ML IV SCH (18:00)
[2021-12-11] MEDS: PIPERACILLIN/TAZOBACTAM 3,375 MG in SODIUM CHLORIDE 0.9% 100 ML IV SCH ×2 (05:50→18:45)
[2021-12-11] MEDS: PROMETHAZINE 25 MG/1 ML VIAL IM PRN ×2 (09:32→18:41)
[2021-12-11] MEDS: INSULIN REGULAR 100 UNIT/ML SUBCUT SCH ×4 (10:40→22:55)
[2021-12-11] MEDS: carvediloL 12.5 MG TABLET PO SCH ×2 (10:41→18:45)
[2021-12-11] MEDS: FERROUS SULFATE 325 MG TABLET PO SCH (10:42)
[2021-12-11] MEDS: GABAPENTIN 300 MG CAPSULE PO SCH ×3 (10:43→22:55)
[2021-12-11] MEDS: amLODIPine 5 MG TABLET PO SCH (10:44)
[2021-12-11] MEDS: PANTOPRAZOLE 40 MG VIAL IV SCH (10:45)
[2021-12-11] MEDS ORDERED: HYDROmorphone 2 MG/1 ML VIAL IV PRN (10:48)
[2021-12-11] MEDS ORDERED: SKIN HEALING OINT (AQUAPHOR) 50 GM TUBE TOP PRN (11:56)
[2021-12-11] MEDS: HYDROmorphone 2 MG/1 ML VIAL IV PRN ×2 (12:26→22:54)
[2021-12-11] MEDS: oxyCODONE/ACETAMINOPHEN 5-325 MG TABLET PO PRN (18:43)
[2021-12-12] MEDS: PIPERACILLIN/TAZOBACTAM 3,375 MG in SODIUM CHLORIDE 0.9% 100 ML IV SCH (06:15)
[2021-12-12] MEDS ORDERED: CEFEPIME 1,000 MG in SODIUM CHLORIDE 0.9% 100 ML IV ONE (09:00)
[2021-12-12] MEDS: INSULIN REGULAR 100 UNIT/ML SUBCUT SCH ×4 (09:12→20:33)
[2021-12-12] MEDS: HYDROmorphone 2 MG/1 ML VIAL IV PRN ×2 (09:12→18:06)
[2021-12-12] MEDS: GABAPENTIN 300 MG CAPSULE PO SCH ×3 (09:14→20:33)
[2021-12-12] MEDS: carvediloL 12.5 MG TABLET PO SCH ×2 (09:14→17:41)
[2021-12-12] MEDS: FERROUS SULFATE 325 MG TABLET PO SCH (09:14)
[2021-12-12] MEDS: amLODIPine 5 MG TABLET PO SCH (09:14)
[2021-12-12] MEDS: PANTOPRAZOLE 40 MG VIAL IV SCH (11:33)
[2021-12-12] MEDS ORDERED: HEPARIN 10,000 UNIT/10 ML VIAL IV SCH (12:00)
[2021-12-12] MEDS: PROMETHAZINE 25 MG/1 ML VIAL IM PRN (18:06)
[2021-12-12] MEDS: CEFEPIME 1,000 MG in SODIUM CHLORIDE 0.9% 100 ML IV SCH (18:10)
[2021-12-13] MEDS: PROMETHAZINE 25 MG/1 ML VIAL IM PRN ×3 (00:14→17:24)
[2021-12-13] MEDS: HYDROmorphone 2 MG/1 ML VIAL IV PRN ×2 (01:47→08:58)
[2021-12-13] MEDS: amLODIPine 5 MG TABLET PO SCH (08:59)
[2021-12-13] MEDS: carvediloL 12.5 MG TABLET PO SCH ×2 (08:59→17:23)
[2021-12-13] MEDS: FERROUS SULFATE 325 MG TABLET PO SCH (08:59)
[2021-12-13] MEDS: INSULIN REGULAR 100 UNIT/ML SUBCUT SCH ×4 (08:59→21:40)
[2021-12-13] MEDS: GABAPENTIN 300 MG CAPSULE PO SCH ×3 (08:59→21:45)
[2021-12-13] MEDS: PANTOPRAZOLE 40 MG VIAL IV SCH (10:53)
[2021-12-13] MEDS: oxyCODONE/ACETAMINOPHEN 5-325 MG TABLET PO PRN (17:24)
[2021-12-13] MEDS: CEFEPIME 1,000 MG in SODIUM CHLORIDE 0.9% 100 ML IV SCH (17:25)
[2021-12-14] MEDS: oxyCODONE/ACETAMINOPHEN 5-325 MG TABLET PO PRN ×2 (01:26→09:07)
[2021-12-14] MEDS: INSULIN REGULAR 100 UNIT/ML SUBCUT SCH ×4 (02:15→16:15)
[2021-12-14] MEDS: FERROUS SULFATE 325 MG TABLET PO SCH (08:58)
[2021-12-14] MEDS: carvediloL 12.5 MG TABLET PO SCH (08:58)
[2021-12-14] MEDS: GABAPENTIN 300 MG CAPSULE PO SCH ×3 (08:58→16:15)
[2021-12-14] MEDS: amLODIPine 5 MG TABLET PO SCH (08:59)
[2021-12-14] MEDS: PANTOPRAZOLE 40 MG VIAL IV SCH (08:59)
[2021-12-14] MEDS ORDERED: DEXTROSE 10% 250 ML BAG IV PRN (09:00)
[2021-12-14] MEDS ORDERED: INFLUENZA VIRUS VACCINE 0.5 ML SYRINGE IM ONE (13:29)
[2021-12-14 13:42] VITALS: BP 136/84
== END 2021-12-14 16:15 | disposition home or self-care (01) | DRG 73 ==
LOC: EDUNIT# → EDBD → N.EDINP 14:05 → N.ED 14:05 → N.3E 19:30 → SUATTDRO 12-09 15:08
PROVIDERS: ADMIT Internal Medicine; ATTEND Internal Medicine

== ENCOUNTER 2022-01-30 05:22 | Inpatient (IN) ==
[2022-01-30 06:05] LABS: Basophils % 0.1 % (0.0-0.8); Eosinophils % 0.1 % (0.00-10.9); Hematocrit 35.8 VOL% (35.7-47.0); Hemoglobin 10.7 GM/DL (12.0-16.0); Immature Granulocytes % 0.8 %; Immature Granulocytes Absolute 0.11 #; Lymphocytes # 1.5 10*3/uL (1.4-4.0); Lymphocytes % 11.1 % (21.3-54.2); Mean Corpuscular HGB Conc 29.9 GM/DL (32-36); Mean Platelet Volume 9.6 FL (9.6-12.0); Monocytes % 6.4 % (1.7-12.7); Neutrophils % 81.5 % (38.7-73.9); Platelet Count 299 T/CUMM (130-400); Red Blood Count 4.84 MC/CUMM (3.8-5.5); Red Cell Distribution Width 23.7 % (9.3-17.3); White Blood Count 13.4 T/CUMM (4-12)
[2022-01-30] MEDS ORDERED: ACETAMINOPHEN 500 MG TABLET ONE (06:10)
[2022-01-30] MEDS ORDERED: ACETAMINOPHEN 500 MG TABLET PO STA (06:15)
[2022-01-30] MEDS ORDERED: ONDANSETRON 4 MG/2 ML VIAL IV ONE (06:18)
[2022-01-30] MEDS ORDERED: HYDROmorphone 2 MG/1 ML VIAL IV STA (06:18)
[2022-01-30 06:33] LABS: Albumin 2.3 G/DL (3.4-5.0); Bilirubin,Total 0.6 MG/DL (0.20-1.00); Calcium 8.9 MG/DL (8.5-10.1); Osmolality,Calculated 282.2 MOS/KG (273-304); Potassium 4.5 MMOL/L (3.5-5.1); Total Protein 8.5 G/DL (6.4-8.2)
[2022-01-30] MEDS ORDERED: PIPERACILLIN/TAZOBACTAM 3,375 MG in SODIUM CHLORIDE 0.9% 100 ML IV STA (07:18)
[2022-01-30] MEDS ORDERED: VANCOMYCIN INJ 1,000 MG in SODIUM CHLORIDE 0.9% 250 ML IV STA (07:18)
[2022-01-30] MEDS ORDERED: DEXTROSE 10% 250 ML BAG IV PRN (08:17)
[2022-01-30] MEDS ORDERED: GLUCAGON 1 MG VIAL IM PRN (08:17)
[2022-01-30] MEDS ORDERED: hydrALAZINE 20 MG/1 ML VIAL IV PRN (08:25)
[2022-01-30] MEDS ORDERED: ACETAMINOPHEN 325 MG TABLET PO PRN (08:25)
[2022-01-30] MEDS: FERROUS SULFATE 325 MG TABLET PO SCH (09:23)
[2022-01-30] MEDS: carvediloL 12.5 MG TABLET PO SCH ×2 (09:23→21:40)
[2022-01-30] MEDS: GABAPENTIN 300 MG CAPSULE PO SCH ×3 (09:24→21:40)
[2022-01-30] MEDS: PANTOPRAZOLE 40 MG TABLET PO SCH (09:24)
[2022-01-30] MEDS: amLODIPine 5 MG TABLET PO SCH (09:24)
[2022-01-30] MEDS ORDERED: VANCOMYCIN INJ 750 MG in SODIUM CHLORIDE 0.9% 250 ML IV PRN (11:34)
[2022-01-30] MEDS ORDERED: VANCOMYCIN INJ 1,000 MG in SODIUM CHLORIDE 0.9% 250 ML IV ONE (12:00)
[2022-01-30] MEDS ORDERED: HEPARIN 10,000 UNIT/10 ML VIAL IV SCH (12:30)
[2022-01-30] MEDS: INSULIN LISPRO 100 UNIT/ML SUBCUT SCH ×3 (14:10→21:41)
[2022-01-30] MEDS: ONDANSETRON 4 MG/2 ML VIAL IV PRN ×2 (14:17→19:44)
[2022-01-30] MEDS ORDERED: METOCLOPRAMIDE 10 MG/2 ML VIAL IV PRN (16:04)
[2022-01-30] MEDS ORDERED: VANCOMYCIN INJ 750 MG in SODIUM CHLORIDE 0.9% 250 ML IV ONE ×2 (18:00→21:00)
[2022-01-30] MEDS: PIPERACILLIN/TAZOBACTAM 3,375 MG in SODIUM CHLORIDE 0.9% 100 ML IV SCH (21:38)
[2022-01-30] MEDS: oxyCODONE/ACETAMINOPHEN 5-325 MG TABLET PO PRN (23:39)
[2022-01-30] MEDS: tiZANidine 4 MG TABLET PO PRN (23:41)
[2022-01-31] MEDS: ONDANSETRON 4 MG/2 ML VIAL IV PRN (04:59)
[2022-01-31 05:46] LABS: Calcium 8.2 MG/DL (8.5-10.1); Osmolality,Calculated 275.1 MOS/KG (273-304); Potassium 4.7 MMOL/L (3.5-5.1)
[2022-01-31 06:09] LABS: Basophils % 0.3 % (0.0-0.8); Eosinophils # 0.2 10*3/uL (0.0-0.87); Eosinophils % 1.6 % (0.00-10.9); Hemoglobin 9.8 GM/DL (12.0-16.0); Immature Granulocytes % 0.9 %; Immature Granulocytes Absolute 0.11 #; Lymphocytes # 1.6 10*3/uL (1.4-4.0); Lymphocytes % 13.9 % (21.3-54.2); Mean Corpuscular HGB Conc 28.8 GM/DL (32-36); Mean Corpuscular Volume 76.2 FL (87-102); Mean Platelet Volume 9.9 FL (9.6-12.0); Monocytes % 7.1 % (1.7-12.7); Neutrophils % 76.2 % (38.7-73.9); Platelet Count 285 T/CUMM (130-400); Red Blood Count 4.46 MC/CUMM (3.8-5.5); Red Cell Distribution Width 23.7 % (9.3-17.3); White Blood Count 11.7 T/CUMM (4-12)
[2022-01-31 06:14] LABS: Eosinophils 1 % (0-10); Hypochromia 1+; Lymphocytes 16 % (20-55); Microcytosis 1+; Platelet Estimate Adequate; Segmented Neutrophils 76 % (50-85); Total Cells Counted 100
[2022-01-31] MEDS: GABAPENTIN 300 MG CAPSULE PO SCH ×3 (09:40→20:37)
[2022-01-31] MEDS: amLODIPine 5 MG TABLET PO SCH (09:40)
[2022-01-31] MEDS: FERROUS SULFATE 325 MG TABLET PO SCH (09:40)
[2022-01-31] MEDS: PANTOPRAZOLE 40 MG TABLET PO SCH (09:40)
[2022-01-31] MEDS: INSULIN LISPRO 100 UNIT/ML SUBCUT SCH ×4 (09:40→20:38)
[2022-01-31] MEDS: carvediloL 12.5 MG TABLET PO SCH ×2 (09:40→20:37)
[2022-01-31] MEDS: oxyCODONE/ACETAMINOPHEN 5-325 MG TABLET PO PRN ×2 (09:41→20:37)
[2022-01-31] MEDS: PIPERACILLIN/TAZOBACTAM 3,375 MG in SODIUM CHLORIDE 0.9% 100 ML IV SCH ×2 (09:41→21:33)
[2022-01-31] MEDS: PROMETHAZINE INJ 12.5 MG in SODIUM CHLORIDE 0.9% 50 ML IV PRN ×2 (10:36→20:37)
[2022-02-01] MEDS: oxyCODONE/ACETAMINOPHEN 5-325 MG TABLET PO PRN ×2 (10:50→22:23)
[2022-02-01] MEDS: GABAPENTIN 300 MG CAPSULE PO SCH ×3 (10:51→21:35)
[2022-02-01] MEDS: FERROUS SULFATE 325 MG TABLET PO SCH (10:51)
[2022-02-01] MEDS: PANTOPRAZOLE 40 MG TABLET PO SCH (10:51)
[2022-02-01] MEDS: INSULIN LISPRO 100 UNIT/ML SUBCUT SCH ×4 (10:52→21:35)
[2022-02-01] MEDS: PROMETHAZINE INJ 12.5 MG in SODIUM CHLORIDE 0.9% 50 ML IV PRN ×2 (10:56→22:24)
[2022-02-01] MEDS: amLODIPine 5 MG TABLET PO SCH (10:58)
[2022-02-01] MEDS: carvediloL 12.5 MG TABLET PO SCH ×2 (10:58→21:35)
[2022-02-01] MEDS ORDERED: VANCOMYCIN INJ 750 MG in SODIUM CHLORIDE 0.9% 250 ML IV ONE (17:00)
[2022-02-02] MEDS: INSULIN LISPRO 100 UNIT/ML SUBCUT SCH ×4 (10:28→20:44)
[2022-02-02] MEDS ORDERED: LIDOCAINE 1%/EPI INJ 20 ML VIAL ONE (12:48)
[2022-02-02] MEDS ORDERED: BUPIVACAINE MPF 0.25% 30 ML VIAL ONE (12:48)
[2022-02-02] MEDS ORDERED: propofoL 200 MG/20 ML VIAL IV ONE (13:03)
[2022-02-02] MEDS ORDERED: SODIUM CHLORIDE 0.9% 250 ML IV SCH (13:30)
[2022-02-02] MEDS: GABAPENTIN 300 MG CAPSULE PO SCH ×3 (14:36→20:44)
[2022-02-02] MEDS: amLODIPine 5 MG TABLET PO SCH (15:51)
[2022-02-02] MEDS: carvediloL 12.5 MG TABLET PO SCH ×2 (15:51→20:44)
[2022-02-02] MEDS: FERROUS SULFATE 325 MG TABLET PO SCH (15:51)
[2022-02-02] MEDS: PROMETHAZINE INJ 12.5 MG in SODIUM CHLORIDE 0.9% 50 ML IV PRN (16:26)
[2022-02-02] MEDS: oxyCODONE/ACETAMINOPHEN 5-325 MG TABLET PO PRN (16:27)
[2022-02-03] MEDS: PROMETHAZINE INJ 12.5 MG in SODIUM CHLORIDE 0.9% 50 ML IV PRN (09:46)
[2022-02-03] MEDS: carvediloL 12.5 MG TABLET PO SCH ×2 (09:47→20:59)
[2022-02-03] MEDS: FERROUS SULFATE 325 MG TABLET PO SCH (09:47)
[2022-02-03] MEDS: GABAPENTIN 300 MG CAPSULE PO SCH ×3 (09:47→20:58)
[2022-02-03] MEDS: amLODIPine 5 MG TABLET PO SCH (09:48)
[2022-02-03] MEDS: oxyCODONE/ACETAMINOPHEN 5-325 MG TABLET PO PRN (09:49)
[2022-02-03] MEDS: INSULIN LISPRO 100 UNIT/ML SUBCUT SCH ×4 (09:49→20:59)
[2022-02-04] MEDS: PROMETHAZINE INJ 12.5 MG in SODIUM CHLORIDE 0.9% 50 ML IV PRN ×3 (00:35→21:35)
[2022-02-04] MEDS: oxyCODONE/ACETAMINOPHEN 5-325 MG TABLET PO PRN ×3 (00:36→21:38)
[2022-02-04] MEDS: carvediloL 12.5 MG TABLET PO SCH ×2 (08:39→21:36)
[2022-02-04] MEDS: INSULIN LISPRO 100 UNIT/ML SUBCUT SCH ×4 (08:40→21:37)
[2022-02-04] MEDS: FERROUS SULFATE 325 MG TABLET PO SCH (08:40)
[2022-02-04] MEDS: amLODIPine 5 MG TABLET PO SCH (08:40)
[2022-02-04] MEDS: GABAPENTIN 300 MG CAPSULE PO SCH ×3 (08:40→21:36)
[2022-02-04] MEDS: tiZANidine 4 MG TABLET PO PRN (21:36)
[2022-02-05] MEDS: PROMETHAZINE INJ 12.5 MG in SODIUM CHLORIDE 0.9% 50 ML IV PRN ×3 (07:11→22:54)
[2022-02-05] MEDS: INSULIN LISPRO 100 UNIT/ML SUBCUT SCH ×4 (09:36→22:04)
[2022-02-05] MEDS: FERROUS SULFATE 325 MG TABLET PO SCH (11:05)
[2022-02-05] MEDS: carvediloL 12.5 MG TABLET PO SCH ×2 (11:05→21:28)
[2022-02-05] MEDS: GABAPENTIN 300 MG CAPSULE PO SCH ×3 (11:05→21:28)
[2022-02-05] MEDS: amLODIPine 5 MG TABLET PO SCH (11:05)
[2022-02-05] MEDS: oxyCODONE/ACETAMINOPHEN 5-325 MG TABLET PO PRN ×2 (14:24→22:55)
[2022-02-06] MEDS: tiZANidine 4 MG TABLET PO PRN (00:11)
[2022-02-06 06:11] LABS: Basophils # 0.1 10*3/uL (0.0-0.2); Basophils % 0.5 % (0.0-0.8); Eosinophils # 0.4 10*3/uL (0.0-0.87); Eosinophils % 2.6 % (0.00-10.9); Hematocrit 30.5 VOL% (35.7-47.0); Hemoglobin 8.9 GM/DL (12.0-16.0); Immature Granulocytes % 0.7 %; Lymphocytes % 19.7 % (21.3-54.2); Mean Corpuscular HGB Conc 29.2 GM/DL (32-36); Mean Corpuscular Volume 74.4 FL (87-102); Mean Platelet Volume 8.7 FL (9.6-12.0); Monocytes % 6.2 % (1.7-12.7); Neutrophils % 70.3 % (38.7-73.9); Platelet Count 844 T/CUMM (130-400); Red Cell Distribution Width 23.9 % (9.3-17.3); White Blood Count 15.1 T/CUMM (4-12)
[2022-02-06 06:25] LABS: Calcium 8.3 MG/DL (8.5-10.1); Osmolality,Calculated 278.9 MOS/KG (273-304)
[2022-02-06 06:28] LABS: Potassium 6.1 MMOL/L (3.5-5.1)
[2022-02-06] MEDS ORDERED: INSULIN REGULAR 10 UNIT, CALCIUM GLUCONATE 1,000 MG in DEXTROSE 10% 250 ML IV ONE ×2 (06:31→07:30)
[2022-02-06] MEDS: INSULIN LISPRO 100 UNIT/ML SUBCUT SCH ×4 (08:49→20:42)
[2022-02-06] MEDS: amLODIPine 5 MG TABLET PO SCH (09:00)
[2022-02-06] MEDS: FERROUS SULFATE 325 MG TABLET PO SCH (09:00)
[2022-02-06] MEDS ORDERED: BUPIVACAINE MPF 0.25% 30 ML VIAL ONE (09:54)
[2022-02-06] MEDS ORDERED: HEPARIN 5,000 UNIT/1 ML VIAL ONE (09:54)
[2022-02-06] MEDS ORDERED: LIDOCAINE 1%/EPI INJ 20 ML VIAL ONE (09:54)
[2022-02-06] MEDS ORDERED: propofoL 200 MG/20 ML VIAL IV ONE ×2 (10:08→11:41)
[2022-02-06] MEDS ORDERED: LIDOCAINE 2% 5 ML VIAL ONE (10:08)
[2022-02-06] MEDS ORDERED: MIDAZOLAM 2 MG/2 ML VIAL ONE (10:08)
[2022-02-06] MEDS ORDERED: SODIUM CHLORIDE 0.9% 100 ML IV ONE (10:08)
[2022-02-06] MEDS ORDERED: fentaNYL 100 MCG/2 ML VIAL ONE (10:08)
[2022-02-06] MEDS ORDERED: SODIUM CHLORIDE 0.9% 250 ML IV SCH (10:30)
[2022-02-06] MEDS ORDERED: ONDANSETRON 4 MG/2 ML VIAL IV PRN (12:02)
[2022-02-06] MEDS: MEPERIDINE 25 MG/1 ML VIAL IV PRN ×2 (12:05→12:23)
[2022-02-06] MEDS: carvediloL 12.5 MG TABLET PO SCH ×2 (12:14→20:43)
[2022-02-06] MEDS: GABAPENTIN 300 MG CAPSULE PO SCH ×3 (12:14→20:43)
[2022-02-06] MEDS ORDERED: CALCIUM GLUCONATE RIDER 1,000 MG/50 ML PREMIX IV ONE (15:00)
[2022-02-06] MEDS: SODIUM ZIRCONIUM CYCLOSILICATE 10 GM PACK PO SCH (20:15)
[2022-02-06] MEDS: PROMETHAZINE INJ 12.5 MG in SODIUM CHLORIDE 0.9% 50 ML IV PRN (21:39)
[2022-02-06] MEDS: oxyCODONE/ACETAMINOPHEN 5-325 MG TABLET PO PRN (21:40)
[2022-02-07] MEDS: tiZANidine 4 MG TABLET PO PRN ×2 (00:32→18:10)
[2022-02-07] MEDS: oxyCODONE/ACETAMINOPHEN 5-325 MG TABLET PO PRN ×2 (06:16→15:50)
[2022-02-07] MEDS: PROMETHAZINE INJ 12.5 MG in SODIUM CHLORIDE 0.9% 50 ML IV PRN ×2 (06:17→15:51)
[2022-02-07] MEDS: INSULIN LISPRO 100 UNIT/ML SUBCUT SCH ×4 (08:13→20:37)
[2022-02-07] MEDS: amLODIPine 5 MG TABLET PO SCH (08:20)
[2022-02-07] MEDS: FERROUS SULFATE 325 MG TABLET PO SCH (08:20)
[2022-02-07] MEDS: SODIUM ZIRCONIUM CYCLOSILICATE 10 GM PACK PO SCH (08:20)
[2022-02-07] MEDS: carvediloL 12.5 MG TABLET PO SCH ×2 (08:20→20:36)
[2022-02-07] MEDS: GABAPENTIN 300 MG CAPSULE PO SCH ×3 (08:20→20:36)
[2022-02-07] MEDS ORDERED: oxyCODONE/ACETAMINOPHEN 5-325 MG TABLET PO PRN (14:22)
[2022-02-07] MEDS ORDERED: oxyCODONE/ACETAMINOPHEN 5-325 MG TABLET PO SCH (15:00)
[2022-02-08] MEDS: PROMETHAZINE INJ 12.5 MG in SODIUM CHLORIDE 0.9% 50 ML IV PRN (00:20)
[2022-02-08] MEDS: oxyCODONE/ACETAMINOPHEN 5-325 MG TABLET PO PRN (00:21)
[2022-02-08] MEDS: tiZANidine 4 MG TABLET PO PRN (02:29)
[2022-02-08 06:44] LABS: Basophils # 0.1 10*3/uL (0.0-0.2); Basophils % 0.5 % (0.0-0.8); Eosinophils # 0.3 10*3/uL (0.0-0.87); Eosinophils % 2.1 % (0.00-10.9); Hematocrit 26.5 VOL% (35.7-47.0); Hemoglobin 7.6 GM/DL (12.0-16.0); Immature Granulocytes % 0.9 %; Immature Granulocytes Absolute 0.12 #; Lymphocytes # 2.6 10*3/uL (1.4-4.0); Lymphocytes % 18.6 % (21.3-54.2); Mean Corpuscular HGB Conc 28.7 GM/DL (32-36); Mean Corpuscular Volume 76.4 FL (87-102); Mean Platelet Volume 8.9 FL (9.6-12.0); Monocytes % 6.7 % (1.7-12.7); Neutrophils % 71.2 % (38.7-73.9); Platelet Count 693 T/CUMM (130-400); Red Blood Count 3.47 MC/CUMM (3.8-5.5); Red Cell Distribution Width 24.1 % (9.3-17.3); White Blood Count 13.8 T/CUMM (4-12)
[2022-02-08 07:15] LABS: Calcium 8.3 MG/DL (8.5-10.1)
[2022-02-08 07:18] LABS: Osmolality,Calculated 261.9 MOS/KG (273-304); Potassium 5.9 MMOL/L (3.5-5.1)
[2022-02-08 07:29] VITALS: BP 173/89
[2022-02-08] MEDS: INSULIN LISPRO 100 UNIT/ML SUBCUT SCH ×2 (09:56→11:55)
[2022-02-08] MEDS: carvediloL 12.5 MG TABLET PO SCH (11:19)
[2022-02-08] MEDS: FERROUS SULFATE 325 MG TABLET PO SCH (11:19)
[2022-02-08] MEDS: amLODIPine 5 MG TABLET PO SCH (11:20)
[2022-02-08] MEDS: GABAPENTIN 300 MG CAPSULE PO SCH (11:20)
== END 2022-02-08 14:00 | disposition home or self-care (01) | DRG 638 ==
LOC: EDUNIT# → EDBD → N.ED 05:22 → SUATTDRO 08:17 → N.EDINP 08:17 → N.5E 17:04
PROVIDERS: ADMIT Internal Medicine; ATTEND Internal Medicine

== ENCOUNTER 2022-04-13 08:59 | Inpatient (IN) ==
[2022-04-13] MEDS ORDERED: ONDANSETRON 4 MG/2 ML VIAL IV STA ×2 (10:01→14:09)
[2022-04-13] MEDS ORDERED: MORPHINE 2 MG/1 ML SYRINGE IV STA (10:01)
[2022-04-13 10:37] LABS: Basophils # 0.1 10*3/uL (0.0-0.2); Basophils % 0.7 % (0.0-0.8); Eosinophils # 0.2 10*3/uL (0.0-0.87); Eosinophils % 1.7 % (0.00-10.9); Hematocrit 33.7 VOL% (35.7-47.0); Hemoglobin 9.9 GM/DL (12.0-16.0); Immature Granulocytes % 0.2 %; Immature Granulocytes Absolute 0.02 #; Lymphocytes # 2.7 10*3/uL (1.4-4.0); Lymphocytes % 28.2 % (21.3-54.2); Mean Corpuscular HGB Conc 29.4 GM/DL (32-36); Mean Corpuscular Volume 72.3 FL (87-102); Monocytes # 0.4 10*3/uL (0.11-0.8); Monocytes % 3.8 % (1.7-12.7); Neutrophils % 65.4 % (38.7-73.9); Platelet Count 308 T/CUMM (130-400); Red Blood Count 4.66 MC/CUMM (3.8-5.5); Red Cell Distribution Width 26.9 % (9.3-17.3); White Blood Count 9.7 T/CUMM (4-12)
[2022-04-13] MEDS ORDERED: hydrALAZINE 20 MG/1 ML VIAL ONE (10:50)
[2022-04-13] MEDS ORDERED: PROMETHAZINE 25 MG/1 ML VIAL IM STA (10:55)
[2022-04-13] MEDS ORDERED: hydrALAZINE 20 MG/1 ML VIAL IV STA (10:55)
[2022-04-13] MEDS ORDERED: HYDROmorphone 1 MG/1 ML SYRINGE IV STA (10:55)
[2022-04-13 10:56] LABS: Albumin 3.2 G/DL (3.4-5.0); Bilirubin,Total 0.6 MG/DL (0.20-1.00); Calcium 9.5 MG/DL (8.5-10.1); Potassium 3.9 MMOL/L (3.5-5.1); Total Protein 9.4 G/DL (6.4-8.2)
[2022-04-13] MEDS ORDERED: ACETAMINOPHEN 325 MG TABLET PO PRN (14:05)
[2022-04-13] MEDS ORDERED: GLUCAGON 1 MG VIAL IM PRN (14:05)
[2022-04-13] MEDS ORDERED: LORazepam 2 MG/1 ML VIAL IV STA (14:09)
[2022-04-13] MEDS ORDERED: DEXTROSE 10% 250 ML BAG IV PRN (14:11)
[2022-04-13] MEDS: hydrALAZINE 20 MG/1 ML VIAL IV PRN ×2 (15:18→16:14)
[2022-04-13] MEDS ORDERED: LABETALOL 20 MG/4 ML SYRINGE IV ONE (15:18)
[2022-04-13] MEDS: SODIUM CHLORIDE 0.9% 1,000 ML IV SCH (16:45)
[2022-04-13] MEDS: GABAPENTIN 300 MG CAPSULE PO SCH ×2 (17:00→21:13)
[2022-04-13] MEDS: PANTOPRAZOLE 40 MG VIAL IV SCH (17:00)
[2022-04-13] MEDS ORDERED: LABETALOL 100 MG/20 ML VIAL IV STA (17:12)
[2022-04-13] MEDS: INSULIN LISPRO 100 UNIT/ML SUBCUT SCH ×2 (17:13→21:05)
[2022-04-13] MEDS: HYDROmorphone 1 MG/1 ML SYRINGE IV PRN ×2 (17:35→21:05)
[2022-04-13] MEDS: ONDANSETRON 4 MG/2 ML VIAL IV PRN ×2 (17:36→21:38)
[2022-04-13] MEDS: METOCLOPRAMIDE 10 MG/2 ML VIAL IV SCH (18:38)
[2022-04-13] MEDS: carvediloL 12.5 MG TABLET PO SCH (21:13)
[2022-04-14] MEDS: METOCLOPRAMIDE 10 MG/2 ML VIAL IV SCH ×4 (00:50→18:23)
[2022-04-14] MEDS: HYDROmorphone 1 MG/1 ML SYRINGE IV PRN ×6 (00:54→21:39)
[2022-04-14] MEDS: ONDANSETRON 4 MG/2 ML VIAL IV PRN ×4 (01:48→18:23)
[2022-04-14] MEDS: SODIUM CHLORIDE 0.9% 1,000 ML IV SCH ×3 (03:50→18:48)
[2022-04-14 05:57] LABS: Basophils # 0.1 10*3/uL (0.0-0.2); Basophils % 0.5 % (0.0-0.8); Eosinophils # 0.2 10*3/uL (0.0-0.87); Eosinophils % 1.9 % (0.00-10.9); Hematocrit 29.2 VOL% (35.7-47.0); Hemoglobin 8.6 GM/DL (12.0-16.0); Immature Granulocytes % 0.6 %; Immature Granulocytes Absolute 0.06 #; Lymphocytes # 2.6 10*3/uL (1.4-4.0); Lymphocytes % 27.5 % (21.3-54.2); Mean Corpuscular HGB Conc 29.5 GM/DL (32-36); Mean Corpuscular Volume 73.6 FL (87-102); Monocytes # 0.6 10*3/uL (0.11-0.8); Monocytes % 6.5 % (1.7-12.7); Platelet Count 273 T/CUMM (130-400); Red Blood Count 3.97 MC/CUMM (3.8-5.5); Red Cell Distribution Width 26.5 % (9.3-17.3); White Blood Count 9.5 T/CUMM (4-12)
[2022-04-14 05:59] LABS: Potassium 3.8 MMOL/L (3.5-5.1)
[2022-04-14 06:19] LABS: Hypochromia Slight; Microcytosis 1+
[2022-04-14 06:25] LABS: Platelet Estimate Normal
[2022-04-14] MEDS: INSULIN LISPRO 100 UNIT/ML SUBCUT SCH ×4 (07:44→21:47)
[2022-04-14] MEDS: GABAPENTIN 300 MG CAPSULE PO SCH ×3 (09:05→21:42)
[2022-04-14] MEDS: PANTOPRAZOLE 40 MG VIAL IV SCH (09:05)
[2022-04-14] MEDS: amLODIPine 5 MG TABLET PO SCH (09:05)
[2022-04-14] MEDS: carvediloL 12.5 MG TABLET PO SCH ×2 (09:05→21:42)
[2022-04-14] MEDS: FERROUS SULFATE 325 MG TABLET PO SCH (09:05)
[2022-04-14] MEDS ORDERED: LACTULOSE 20 GM/30 ML UDCUP PO ONE (12:59)
[2022-04-14] MEDS ORDERED: LACTULOSE 20 GM/30 ML UDCUP PO PRN (12:59)
[2022-04-14] MEDS ORDERED: HEPARIN 10,000 UNIT/10 ML VIAL IV SCH ×2 (16:00→17:00)
[2022-04-14] MEDS: DOCUSATE SODIUM 100 MG CAPSULE PO SCH (21:46)
[2022-04-15] MEDS: ONDANSETRON 4 MG/2 ML VIAL IV PRN (00:20)
[2022-04-15] MEDS: METOCLOPRAMIDE 10 MG/2 ML VIAL IV SCH ×3 (00:23→11:27)
[2022-04-15] MEDS: HYDROmorphone 1 MG/1 ML SYRINGE IV PRN ×4 (01:00→12:30)
[2022-04-15 05:37] LABS: Basophils # 0.1 10*3/uL (0.0-0.2); Basophils % 0.6 % (0.0-0.8); Eosinophils # 0.3 10*3/uL (0.0-0.87); Eosinophils % 3.5 % (0.00-10.9); Hematocrit 28.5 VOL% (35.7-47.0); Hemoglobin 8.2 GM/DL (12.0-16.0); Immature Granulocytes % 0.3 %; Immature Granulocytes Absolute 0.03 #; Lymphocytes # 2.5 10*3/uL (1.4-4.0); Lymphocytes % 28.6 % (21.3-54.2); Mean Corpuscular HGB Conc 28.8 GM/DL (32-36); Mean Corpuscular Volume 74.6 FL (87-102); Monocytes # 0.5 10*3/uL (0.11-0.8); Platelet Count 251 T/CUMM (130-400); Red Blood Count 3.82 MC/CUMM (3.8-5.5); Red Cell Distribution Width 25.7 % (9.3-17.3); White Blood Count 8.8 T/CUMM (4-12)
[2022-04-15 05:51] LABS: Calcium 8.5 MG/DL (8.5-10.1); Osmolality,Calculated 276.8 MOS/KG (273-304); Potassium 4.1 MMOL/L (3.5-5.1)
[2022-04-15 06:04] LABS: Anisocytosis 1+; Hypochromia 1+; Microcytosis 1+
[2022-04-15 06:05] LABS: Platelet Estimate Normal
[2022-04-15 07:04] LABS: Bacteria,Urine Moderate /HPF (Few); Mucus,Urine Occasional /LPF (Occasional); RBC,Urine 6 /HPF (0-4); Squamous Epithelial Cell,Urine Occasional /HPF (0-10)
[2022-04-15 07:06] LABS: Urine Appearance Slightly Hazy (Clear); Urine Color Yellow (Yellow); Urine pH 8.5 (4.5-8.0)
[2022-04-15 07:07] LABS: Bilirubin,Urine Negative (Negative); Blood, Urine Small mg/dL (Negative); Glucose,Urine (UA) 250 mg/dL (Negative); Ketones,Urine Negative (Negative); Nitrite,Urine Negative (Negative); Protein,Urine >=300 mg/dL (Negative)
[2022-04-15 07:08] LABS: Urine Urobilinogen 0.2 eU/dL (<2.0)
[2022-04-15] MEDS: INSULIN LISPRO 100 UNIT/ML SUBCUT SCH ×2 (07:14→12:33)
[2022-04-15] MEDS: carvediloL 12.5 MG TABLET PO SCH (08:30)
[2022-04-15] MEDS: FERROUS SULFATE 325 MG TABLET PO SCH (08:30)
[2022-04-15] MEDS: GABAPENTIN 300 MG CAPSULE PO SCH ×2 (08:30→16:11)
[2022-04-15] MEDS: DOCUSATE SODIUM 100 MG CAPSULE PO SCH (08:30)
[2022-04-15] MEDS: amLODIPine 5 MG TABLET PO SCH (08:30)
[2022-04-15] MEDS: PANTOPRAZOLE 40 MG VIAL IV SCH (08:31)
[2022-04-15 10:07] LABS: % Iron Saturation 23.7 % (18-50)
[2022-04-15 10:34] LABS: Folate 10.38 NG/ML (5.38-24.0)
[2022-04-15] MEDS: hydrALAZINE 20 MG/1 ML VIAL IV PRN (11:27)
[2022-04-15 12:23] VITALS: BP 168/84
[2022-04-20] MEDS ORDERED: cloNIDine 0.3 MG/24 HR PATCH TRANSDERM SCH (09:00)
== END 2022-04-15 16:09 | disposition home or self-care (01) | DRG 73 ==
LOC: EDBD → EDUNIT# → N.ED 08:59 → N.EDINP 14:05 → SUATTDRO 14:05 → N.5E 17:45
PROVIDERS: ADMIT Family Medicine; ATTEND Internal Medicine

== ENCOUNTER 2022-04-26 19:09 | Observation (INO) ==
[2022-04-26] MEDS ORDERED: SODIUM CHLORIDE 0.9% 250 ML IV STA (19:33)
[2022-04-26] MEDS ORDERED: HYDROmorphone 1 MG/1 ML SYRINGE IV STA (19:33)
[2022-04-26] MEDS ORDERED: PROMETHAZINE INJ 25 MG in SODIUM CHLORIDE 0.9% 50 ML IV STA (19:35)
[2022-04-26] MEDS ORDERED: PROMETHAZINE 25 MG/1 ML VIAL ONE (19:55)
[2022-04-26 20:39] LABS: Basophils # 0.1 10*3/uL (0.0-0.2); Basophils % 0.6 % (0.0-0.8); Eosinophils # 0.3 10*3/uL (0.0-0.87); Eosinophils % 2.2 % (0.00-10.9); Hematocrit 32.6 VOL% (35.7-47.0); Hemoglobin 9.9 GM/DL (12.0-16.0); Immature Granulocytes % 0.5 %; Immature Granulocytes Absolute 0.06 #; Lymphocytes # 2.3 10*3/uL (1.4-4.0); Lymphocytes % 20.7 % (21.3-54.2); Mean Corpuscular HGB Conc 30.4 GM/DL (32-36); Mean Corpuscular Volume 70.7 FL (87-102); Monocytes # 0.6 10*3/uL (0.11-0.8); Platelet Count 318 T/CUMM (130-400); Red Blood Count 4.61 MC/CUMM (3.8-5.5); Red Cell Distribution Width 25.3 % (9.3-17.3); White Blood Count 11.3 T/CUMM (4-12)
[2022-04-26 20:55] LABS: Bilirubin,Total 0.6 MG/DL (0.20-1.00); Calcium 8.5 MG/DL (8.5-10.1); Osmolality,Calculated 293.3 MOS/KG (273-304); Potassium 3.7 MMOL/L (3.5-5.1); Total Protein 7.9 G/DL (6.4-8.2)
[2022-04-26 20:58] LABS: Anisocytosis 1+; Microcytosis 1+; Platelet Estimate Adequate
[2022-04-26 20:59] LABS: Hypochromia 1+; Schistocytes Few
[2022-04-26] MEDS ORDERED: hydrALAZINE 20 MG/1 ML VIAL IV STA (21:19)
[2022-04-26] MEDS ORDERED: diphenhydrAMINE CAP 25 MG CAPSULE PO PRN (22:12)
[2022-04-26] MEDS ORDERED: hydrALAZINE 20 MG/1 ML VIAL IV PRN (22:12)
[2022-04-26] MEDS ORDERED: DEXTROSE 10% 250 ML BAG IV PRN (22:12)
[2022-04-26] MEDS ORDERED: guaiFENesin/DM ER 600-30 MG TABLET PO PRN (22:12)
[2022-04-26] MEDS ORDERED: GLUCAGON 1 MG VIAL IM PRN ×2 (22:12)
[2022-04-26] MEDS ORDERED: DEXTROSE 50% 25 GM/50 ML VIAL IV PRN (22:12)
[2022-04-26] MEDS ORDERED: ACETAMINOPHEN 325 MG TABLET PO PRN (22:12)
[2022-04-26] MEDS ORDERED: NICOTINE 21 MG/24 HR PATCH TRANSDERM PRN (22:12)
[2022-04-26] MEDS ORDERED: PROMETHAZINE 25 MG/1 ML VIAL IM PRN (22:12)
[2022-04-26] MEDS ORDERED: ZALEPLON 5 MG CAPSULE PO PRN (22:12)
[2022-04-26] MEDS ORDERED: LABETALOL 20 MG/4 ML SYRINGE IV STA (22:46)
[2022-04-26] MEDS ORDERED: KETOROLAC 30 MG/1 ML VIAL IV STA (22:46)
[2022-04-27] MEDS ORDERED: carvediloL 25 MG TABLET PO SCH (01:00)
[2022-04-27 05:03] LABS: Basophils # 0.1 10*3/uL (0.0-0.2); Basophils % 0.4 % (0.0-0.8); Eosinophils % 0.1 % (0.00-10.9); Hematocrit 30.3 VOL% (35.7-47.0); Hemoglobin 9.2 GM/DL (12.0-16.0); Immature Granulocytes % 0.4 %; Immature Granulocytes Absolute 0.07 #; Lymphocytes # 2.4 10*3/uL (1.4-4.0); Lymphocytes % 15.6 % (21.3-54.2); Mean Corpuscular HGB Conc 30.4 GM/DL (32-36); Mean Corpuscular Volume 71.5 FL (87-102); Monocytes # 0.4 10*3/uL (0.11-0.8); Monocytes % 2.4 % (1.7-12.7); Neutrophils % 81.1 % (38.7-73.9); Platelet Count 220 T/CUMM (130-400); Red Blood Count 4.24 MC/CUMM (3.8-5.5); Red Cell Distribution Width 25.3 % (9.3-17.3); White Blood Count 15.7 T/CUMM (4-12)
[2022-04-27 05:16] LABS: Potassium 4.1 MMOL/L (3.5-5.1)
[2022-04-27 05:25] LABS: Anisocytosis 1+; Platelet Estimate Normal
[2022-04-27] MEDS: METOPROLOL TARTRATE 5 MG/5 ML VIAL IV SCH ×3 (06:00→18:35)
[2022-04-27] MEDS: INSULIN LISPRO 100 UNIT/ML SUBCUT SCH ×4 (07:51→23:23)
[2022-04-27] MEDS: amLODIPine 10 MG TABLET PO SCH (09:00)
[2022-04-27] MEDS ORDERED: cloNIDine 0.1 MG/24 HR PATCH TRANSDERM SCH (09:00)
[2022-04-27] MEDS: HEPARIN 5,000 UNIT/1 ML VIAL SUBCUT SCH ×2 (09:00→20:33)
[2022-04-27] MEDS: PANTOPRAZOLE 40 MG TABLET PO SCH (09:00)
[2022-04-27] MEDS: BISACODYL 5 MG TABLET PO SCH (09:11)
[2022-04-27] MEDS: DOCUSATE SODIUM 100 MG CAPSULE PO SCH ×2 (09:11→20:22)
[2022-04-27] MEDS: MORPHINE 2 MG/1 ML SYRINGE IV PRN ×3 (09:45→20:30)
[2022-04-27 09:49] LABS: VBG PH 7.424
[2022-04-27 09:50] LABS: VBG HCO3 30.1 MEQ/L (24-28); VBG PCO2 45.9 MMHG (41-51)
[2022-04-27] MEDS: METOCLOPRAMIDE 10 MG/2 ML VIAL IV SCH ×2 (12:07→18:35)
[2022-04-27] MEDS: GABAPENTIN 300 MG CAPSULE PO SCH ×2 (15:38→23:21)
[2022-04-27] MEDS: ONDANSETRON 4 MG/2 ML VIAL IV PRN (18:34)
[2022-04-27] MEDS ORDERED: INSULIN GLARGINE 100 UNIT/ML SUBCUT SCH (21:00)
[2022-04-28] MEDS: METOCLOPRAMIDE 10 MG/2 ML VIAL IV SCH ×4 (01:00→18:54)
[2022-04-28] MEDS: METOPROLOL TARTRATE 5 MG/5 ML VIAL IV SCH ×2 (01:04→05:08)
[2022-04-28] MEDS: MORPHINE 2 MG/1 ML SYRINGE IV PRN ×2 (04:48→14:43)
[2022-04-28 05:40] LABS: Basophils # 0.1 10*3/uL (0.0-0.2); Basophils % 0.7 % (0.0-0.8); Eosinophils # 0.4 10*3/uL (0.0-0.87); Eosinophils % 4.6 % (0.00-10.9); Hematocrit 24.6 VOL% (35.7-47.0); Hemoglobin 7.4 GM/DL (12.0-16.0); Immature Granulocytes % 0.3 %; Immature Granulocytes Absolute 0.03 #; Mean Corpuscular HGB Conc 30.1 GM/DL (32-36); Mean Corpuscular Volume 71.9 FL (87-102); Monocytes # 0.5 10*3/uL (0.11-0.8); Monocytes % 5.1 % (1.7-12.7); Neutrophils % 46.3 % (38.7-73.9); Platelet Count 141 T/CUMM (130-400); Red Blood Count 3.42 MC/CUMM (3.8-5.5); White Blood Count 9.2 T/CUMM (4-12)
[2022-04-28 06:06] LABS: Calcium 7.6 MG/DL (8.5-10.1); Osmolality,Calculated 283.1 MOS/KG (273-304)
[2022-04-28] MEDS: INSULIN LISPRO 100 UNIT/ML SUBCUT SCH ×3 (07:57→16:46)
[2022-04-28] MEDS ORDERED: carvediloL 25 MG TABLET PO SCH (09:00)
[2022-04-28] MEDS ORDERED: FERROUS SULFATE 325 MG TABLET PO SCH ×2 (09:00→21:00)
[2022-04-28] MEDS: PANTOPRAZOLE 40 MG TABLET PO SCH (09:25)
[2022-04-28] MEDS: amLODIPine 10 MG TABLET PO SCH (09:25)
[2022-04-28] MEDS: GABAPENTIN 300 MG CAPSULE PO SCH ×2 (09:25→14:40)
[2022-04-28] MEDS: DOCUSATE SODIUM 100 MG CAPSULE PO SCH (09:26)
[2022-04-28] MEDS: BISACODYL 5 MG TABLET PO SCH (09:26)
[2022-04-28] MEDS: HEPARIN 5,000 UNIT/1 ML VIAL SUBCUT SCH (09:26)
[2022-04-28 09:46] LABS: Hematocrit 23.5 VOL% (35.7-47.0)
[2022-04-28] MEDS ORDERED: SODIUM CHLORIDE 0.9% 1,000 ML IV PRN (09:52)
[2022-04-28] MEDS ORDERED: oxyCODONE/ACETAMINOPHEN 5-325 MG TABLET PO PRN (09:57)
[2022-04-28] MEDS ORDERED: HEPARIN 10,000 UNIT/10 ML VIAL IV PRN (13:57)
[2022-04-28] MEDS: ONDANSETRON 4 MG/2 ML VIAL IV PRN (14:42)
[2022-04-28 18:18] VITALS: BP 179/101
== END 2022-04-28 19:37 | disposition home health service (06) ==
LOC: EDUNIT# → EDBD → N.EDINP 19:09 → N.ED 19:09 → SUATTDRO 22:12 → N.EDINP 04-27 16:53 → N.TELES 04-27 17:00
PROVIDERS: ADMIT Internal Medicine; ATTEND Family Medicine

== ENCOUNTER 2022-05-11 13:46 | Observation (INO) ==
[2022-05-11 14:04] LABS: Basophils # 0.1 10*3/uL (0.0-0.2); Basophils % 0.6 % (0.0-0.8); Eosinophils # 0.2 10*3/uL (0.0-0.87); Eosinophils % 1.4 % (0.00-10.9); Hematocrit 28.6 VOL% (35.7-47.0); Hemoglobin 8.6 GM/DL (12.0-16.0); Immature Granulocytes % 0.9 %; Immature Granulocytes Absolute 0.11 #; Lymphocytes # 2.4 10*3/uL (1.4-4.0); Lymphocytes % 20.2 % (21.3-54.2); Mean Corpuscular HGB Conc 30.1 GM/DL (32-36); Mean Corpuscular Volume 75.9 FL (87-102); Mean Platelet Volume 8.4 FL (9.6-12.0); Monocytes # 0.5 10*3/uL (0.11-0.8); Monocytes % 4.5 % (1.7-12.7); NRBC # 0.03 10*3/uL; Neutrophils % 72.4 % (38.7-73.9); Platelet Count 415 T/CUMM (130-400); Red Blood Count 3.77 MC/CUMM (3.8-5.5); Red Cell Distribution Width 26.6 % (9.3-17.3); White Blood Count 11.8 T/CUMM (4-12)
[2022-05-11] MEDS ORDERED: ONDANSETRON 4 MG/2 ML VIAL IV STA (14:10)
[2022-05-11] MEDS ORDERED: HYDROmorphone 1 MG/1 ML SYRINGE IV STA (14:14)
[2022-05-11 14:27] LABS: Albumin 2.7 G/DL (3.4-5.0); Bilirubin,Total 0.5 MG/DL (0.20-1.00); Calcium 8.7 MG/DL (8.5-10.1); Osmolality,Calculated 283.7 MOS/KG (273-304); Potassium 3.3 MMOL/L (3.5-5.1); Total Protein 7.8 G/DL (6.4-8.2)
[2022-05-11] MEDS ORDERED: METOCLOPRAMIDE 10 MG/2 ML VIAL IV STA (15:37)
[2022-05-11] MEDS ORDERED: GLUCAGON 1 MG VIAL IM PRN (16:52)
[2022-05-11] MEDS ORDERED: hydrALAZINE 20 MG/1 ML VIAL IV PRN (17:15)
[2022-05-11] MEDS ORDERED: ACETAMINOPHEN 650 MG SUPP RECTAL PRN (17:16)
[2022-05-11] MEDS ORDERED: DEXTROSE 10% 250 ML BAG IV PRN (17:23)
[2022-05-11] MEDS: PROMETHAZINE 25 MG/1 ML VIAL IM PRN ×2 (17:56→22:16)
[2022-05-11] MEDS: oxyCODONE/ACETAMINOPHEN 5-325 MG TABLET PO PRN (17:57)
[2022-05-11] MEDS ORDERED: INSULIN GLARGINE 100 UNIT/ML SUBCUT SCH (20:00)
[2022-05-11] MEDS ORDERED: POLYETHYLENE GLYCOL POWDER 17 GM PACK PO PRN (20:02)
[2022-05-11] MEDS ORDERED: POLYETHYLENE GLYCOL POWDER 255 GM BOTTLE PO ONE (21:00)
[2022-05-11] MEDS: GABAPENTIN 300 MG CAPSULE PO SCH (21:50)
[2022-05-11] MEDS: carvediloL 25 MG TABLET PO SCH (21:51)
[2022-05-11] MEDS: INSULIN LISPRO 100 UNIT/ML SUBCUT SCH (22:01)
[2022-05-11] MEDS: HEPARIN 5,000 UNIT/1 ML VIAL SUBCUT SCH (22:02)
[2022-05-11] MEDS: DOCUSATE SODIUM 100 MG CAPSULE PO SCH (22:02)
[2022-05-11] MEDS: METOCLOPRAMIDE 10 MG/10 ML UDCUP PO SCH (22:03)
[2022-05-11] MEDS: KETOROLAC 30 MG/1 ML VIAL IM PRN (23:03)
[2022-05-12] MEDS: oxyCODONE/ACETAMINOPHEN 5-325 MG TABLET PO PRN (05:57)
[2022-05-12] MEDS ORDERED: PANTOPRAZOLE 40 MG TABLET PO SCH ×2 (09:00)
[2022-05-12] MEDS ORDERED: amLODIPine 10 MG TABLET PO SCH (09:00)
[2022-05-12] MEDS ORDERED: tiZANidine 4 MG TABLET PO PRN (09:13)
[2022-05-12] MEDS: INSULIN LISPRO 100 UNIT/ML SUBCUT SCH ×3 (09:24→16:30)
[2022-05-12] MEDS: GABAPENTIN 300 MG CAPSULE PO SCH ×2 (09:35→16:05)
[2022-05-12] MEDS: METOCLOPRAMIDE 10 MG/10 ML UDCUP PO SCH ×2 (09:36→16:05)
[2022-05-12] MEDS: ONDANSETRON 4 MG/2 ML VIAL IV PRN ×2 (09:52→13:51)
[2022-05-12] MEDS: HEPARIN 5,000 UNIT/1 ML VIAL SUBCUT SCH (09:53)
[2022-05-12] MEDS: DOCUSATE SODIUM 100 MG CAPSULE PO SCH (10:00)
[2022-05-12] MEDS ORDERED: HEPARIN 10,000 UNIT/10 ML VIAL IV PRN (10:39)
[2022-05-12 11:05] LABS: Basophils # 0.1 10*3/uL (0.0-0.2); Basophils % 0.5 % (0.0-0.8); Eosinophils # 0.3 10*3/uL (0.0-0.87); Eosinophils % 2.1 % (0.00-10.9); Hematocrit 26.4 VOL% (35.7-47.0); Hemoglobin 7.8 GM/DL (12.0-16.0); Immature Granulocytes % 0.6 %; Immature Granulocytes Absolute 0.09 #; Lymphocytes # 2.1 10*3/uL (1.4-4.0); Lymphocytes % 15.3 % (21.3-54.2); Mean Corpuscular HGB Conc 29.5 GM/DL (32-36); Mean Corpuscular Volume 77.4 FL (87-102); Mean Platelet Volume 8.9 FL (9.6-12.0); Monocytes # 0.6 10*3/uL (0.11-0.8); Monocytes % 4.3 % (1.7-12.7); NRBC # 0.02 10*3/uL; Neutrophils % 77.2 % (38.7-73.9); Platelet Count 387 T/CUMM (130-400); Red Blood Count 3.41 MC/CUMM (3.8-5.5); Red Cell Distribution Width 26.6 % (9.3-17.3); White Blood Count 13.9 T/CUMM (4-12)
[2022-05-12 11:19] LABS: Albumin 2.5 G/DL (3.4-5.0); Bilirubin,Total 0.4 MG/DL (0.20-1.00); Calcium 8.4 MG/DL (8.5-10.1); Osmolality,Calculated 281.8 MOS/KG (273-304); Potassium 3.4 MMOL/L (3.5-5.1); Total Protein 6.8 G/DL (6.4-8.2)
[2022-05-12 11:57] LABS: Hepatitis B Core IgM Quant 0.12 Index; Hepatitis B Surface Ag Quant < 0.10 Index; Hepatitis B Surface Ag Result Non-Reactive (NonReactive); Hepatitis C Virus Ab Quant 0.06 Index; Hepatitis C Virus Ab Result Non-Reactive (NonReactive)
[2022-05-12 11:59] LABS: Anisocytosis 1+; Hypochromia 1+; Microcytosis 1+; Polychromasia Slight
[2022-05-12] MEDS: carvediloL 25 MG TABLET PO SCH (13:44)
[2022-05-12 16:24] VITALS: BP 163/87
[2022-05-15] MEDS ORDERED: cloNIDine 0.1 MG/24 HR PATCH TRANSDERM SCH (09:00)
== END 2022-05-12 20:52 | disposition home or self-care (01) ==
LOC: N.ED 13:46 → N.EDINP 13:46 → SUATTDRO 16:52 → N.3E 18:21
PROVIDERS: ADMIT Internal Medicine; ATTEND Internal Medicine

== ENCOUNTER 2022-06-03 15:06 | Observation (INO) ==
[2022-06-03] MEDS ORDERED: SODIUM CHLORIDE 0.9% 2,050 ML IV ONE (16:05)
[2022-06-03] MEDS ORDERED: MORPHINE 2 MG/1 ML SYRINGE IV STA (16:07)
[2022-06-03] MEDS ORDERED: ONDANSETRON 4 MG/2 ML VIAL IV ONE (16:07)
[2022-06-03 17:01] LABS: Basophils # 0.1 10*3/uL (0.0-0.2); Basophils % 0.6 % (0.0-0.8); Eosinophils # 0.1 10*3/uL (0.0-0.87); Eosinophils % 0.5 % (0.00-10.9); Hematocrit 35.5 VOL% (35.7-47.0); Hemoglobin 10.8 GM/DL (12.0-16.0); Immature Granulocytes % 0.7 %; Immature Granulocytes Absolute 0.08 #; Lymphocytes # 1.9 10*3/uL (1.4-4.0); Lymphocytes % 17.1 % (21.3-54.2); Mean Corpuscular HGB Conc 30.4 GM/DL (32-36); Mean Corpuscular Volume 75.7 FL (87-102); Mean Platelet Volume 9.4 FL (9.6-12.0); Monocytes # 0.5 10*3/uL (0.11-0.8); Monocytes % 4.1 % (1.7-12.7); Platelet Count 401 T/CUMM (130-400); Red Blood Count 4.69 MC/CUMM (3.8-5.5); Red Cell Distribution Width 25.2 % (9.3-17.3); White Blood Count 10.9 T/CUMM (4-12)
[2022-06-03] MEDS ORDERED: hydrALAZINE 20 MG/1 ML VIAL IV STA ×2 (17:26→18:39)
[2022-06-03 17:32] LABS: Albumin 3.1 G/DL (3.4-5.0); Bilirubin,Total 0.5 MG/DL (0.20-1.00); Calcium 9.1 MG/DL (8.5-10.1); Potassium 3.4 MMOL/L (3.5-5.1)
[2022-06-03] MEDS ORDERED: HALOPERIDOL 5 MG/ML AMP IV STA (17:41)
[2022-06-03] MEDS ORDERED: METOCLOPRAMIDE 10 MG/2 ML VIAL IV STA (18:02)
[2022-06-03] MEDS ORDERED: LABETALOL 20 MG/4 ML SYRINGE IV STA (18:39)
[2022-06-03] MEDS ORDERED: ONDANSETRON 4 MG/2 ML VIAL IV PRN (19:52)
[2022-06-03] MEDS ORDERED: GLUCAGON 1 MG VIAL IM PRN (19:52)
[2022-06-03] MEDS ORDERED: ACETAMINOPHEN 325 MG TABLET PO PRN (19:52)
[2022-06-03] MEDS ORDERED: DEXTROSE 5% NACL 0.9% 1,000 ML IV SCH (20:00)
[2022-06-03] MEDS ORDERED: POTASSIUM CHLORIDE INJ 40 MEQ in LACTATED RINGERS 1,000 ML IV SCH (20:00)
[2022-06-03] MEDS ORDERED: DEXTROSE 10% 250 ML BAG IV PRN (20:20)
[2022-06-03] MEDS ORDERED: POLYETHYLENE GLYCOL POWDER 17 GM PACK PO PRN (20:48)
[2022-06-03] MEDS ORDERED: tiZANidine 4 MG TABLET PO PRN (20:48)
[2022-06-03] MEDS ORDERED: PROCHLORPERAZINE 5 MG TABLET PO PRN (20:48)
[2022-06-03] MEDS ORDERED: HydrOXYzine PAMOATE 25 MG CAPSULE PO PRN (20:48)
[2022-06-03] MEDS ORDERED: hydrALAZINE 25 MG TABLET PO SCH (21:00)
[2022-06-03] MEDS ORDERED: METOCLOPRAMIDE 10 MG TABLET PO SCH (21:30)
[2022-06-03] MEDS: GABAPENTIN 300 MG CAPSULE PO SCH (21:44)
[2022-06-03] MEDS: carvediloL 25 MG TABLET PO SCH (21:44)
[2022-06-03] MEDS: SERTRALINE 25 MG TABLET PO SCH (21:44)
[2022-06-03] MEDS: HEPARIN 5,000 UNIT/1 ML VIAL SUBCUT SCH (21:44)
[2022-06-03] MEDS: PANTOPRAZOLE 40 MG VIAL IV SCH (21:50)
[2022-06-03] MEDS ORDERED: INSULIN REGULAR 100 UNIT/ML SUBCUT SCH (22:00)
[2022-06-03] MEDS: hydrALAZINE 20 MG/1 ML VIAL IV PRN (22:08)
[2022-06-04] MEDS: METOCLOPRAMIDE 10 MG/2 ML VIAL IV SCH ×2 (01:40→06:00)
[2022-06-04] MEDS: hydrALAZINE 20 MG/1 ML VIAL IV PRN (04:15)
[2022-06-04 05:46] LABS: Basophils # 0.1 10*3/uL (0.0-0.2); Basophils % 0.8 % (0.0-0.8); Eosinophils # 0.2 10*3/uL (0.0-0.87); Eosinophils % 1.5 % (0.00-10.9); Hematocrit 34.3 VOL% (35.7-47.0); Hemoglobin 10.3 GM/DL (12.0-16.0); Immature Granulocytes % 0.7 %; Immature Granulocytes Absolute 0.07 #; Lymphocytes # 3.4 10*3/uL (1.4-4.0); Mean Corpuscular Volume 78.9 FL (87-102); Mean Platelet Volume 9.3 FL (9.6-12.0); Monocytes # 0.7 10*3/uL (0.11-0.8); Platelet Count 385 T/CUMM (130-400); Red Blood Count 4.35 MC/CUMM (3.8-5.5); Red Cell Distribution Width 25.3 % (9.3-17.3); White Blood Count 10.6 T/CUMM (4-12)
[2022-06-04 05:56] LABS: Calcium 8.8 MG/DL (8.5-10.1); Osmolality,Calculated 284.5 MOS/KG (273-304); Potassium 3.3 MMOL/L (3.5-5.1)
[2022-06-04 07:03] LABS: Anisocytosis 3+; Hypochromia 2+; Microcytosis 1+; Platelet Estimate Normal; Schistocytes Slight; Target Cells Few
[2022-06-04] MEDS ORDERED: cloNIDine 0.2 MG/24 HR PATCH TRANSDERM SCH (09:00)
[2022-06-04] MEDS: INSULIN REGULAR 100 UNIT/ML SUBCUT SCH ×4 (10:32→22:36)
[2022-06-04] MEDS: carvediloL 25 MG TABLET PO SCH ×2 (10:36→22:35)
[2022-06-04] MEDS: HEPARIN 5,000 UNIT/1 ML VIAL SUBCUT SCH ×2 (10:36→22:35)
[2022-06-04] MEDS: GABAPENTIN 300 MG CAPSULE PO SCH ×3 (10:36→22:36)
[2022-06-04] MEDS: amLODIPine 10 MG TABLET PO SCH (10:37)
[2022-06-04] MEDS: oxyCODONE/ACETAMINOPHEN 5-325 MG TABLET PO PRN ×2 (10:37→22:37)
[2022-06-04] MEDS: PROMETHAZINE 25 MG TABLET PO PRN (10:37)
[2022-06-04] MEDS: PANTOPRAZOLE 40 MG VIAL IV SCH ×2 (10:39→22:37)
[2022-06-04] MEDS: METOCLOPRAMIDE 10 MG TABLET PO SCH ×2 (11:20→16:27)
[2022-06-04] MEDS ORDERED: VANCOMYCIN INJ 1,000 MG in SODIUM CHLORIDE 0.9% 250 ML IV ONE (15:04)
[2022-06-04] MEDS ORDERED: INSULIN GLARGINE 100 UNIT/ML SUBCUT SCH (21:00)
[2022-06-04] MEDS: SERTRALINE 25 MG TABLET PO SCH (22:37)
[2022-06-05] MEDS: PROMETHAZINE 25 MG TABLET PO PRN ×2 (04:15→12:11)
[2022-06-05 06:00] LABS: Bacteria,Urine Occasional /HPF (Few); RBC,Urine 1 /HPF (0-4); Squamous Epithelial Cell,Urine Occasional /HPF (0-10)
[2022-06-05 06:01] LABS: Bilirubin,Urine Negative (Negative); Blood, Urine Small mg/dL (Negative); Glucose,Urine (UA) 500 mg/dL (Negative); Ketones,Urine Negative (Negative); Nitrite,Urine Negative (Negative); Protein,Urine >=300 mg/dL (Negative); Urine Appearance Clear (Clear); Urine Color Yellow (Yellow); Urine Urobilinogen 0.2 eU/dL (<2.0); Urine pH 8.5 (4.5-8.0)
[2022-06-05 06:26] LABS: Barbiturates Screen,Urine Negative (Negative); Benzodiazepines Screen,Urine Negative (Negative); Cannabinoid Screen,Urine Positive (Negative); Opiate Screen,Urine Positive (Negative); Phencyclidine Screen,Urine Negative (Negative)
[2022-06-05] MEDS: INSULIN REGULAR 100 UNIT/ML SUBCUT SCH ×3 (08:51→16:54)
[2022-06-05] MEDS: PANTOPRAZOLE 40 MG VIAL IV SCH (09:40)
[2022-06-05] MEDS: GABAPENTIN 300 MG CAPSULE PO SCH ×2 (09:41→15:42)
[2022-06-05] MEDS: METOCLOPRAMIDE 10 MG TABLET PO SCH ×3 (09:41→16:57)
[2022-06-05] MEDS: carvediloL 25 MG TABLET PO SCH (09:41)
[2022-06-05] MEDS: amLODIPine 10 MG TABLET PO SCH (09:41)
[2022-06-05] MEDS: HEPARIN 5,000 UNIT/1 ML VIAL SUBCUT SCH (09:41)
[2022-06-05] MEDS ORDERED: HEPARIN 10,000 UNIT/10 ML VIAL IV PRN (10:14)
[2022-06-05] MEDS: oxyCODONE/ACETAMINOPHEN 5-325 MG TABLET PO PRN (12:11)
[2022-06-05 12:30] VITALS: BP 162/88
== END 2022-06-05 18:02 | disposition home or self-care (01) ==
LOC: EDUNIT# → N.ED 15:06 → N.EDINP 15:06 → N.TELEN 22:56
PROVIDERS: ADMIT Emergency Medicine; ATTEND Emergency Medicine

== ENCOUNTER 2022-06-17 21:36 | Inpatient (IN) ==
[2022-06-17] MEDS ORDERED: HYDROmorphone 1 MG/1 ML SYRINGE IV STA (21:58)
[2022-06-17] MEDS ORDERED: ONDANSETRON 4 MG/2 ML VIAL IV STA (21:58)
[2022-06-17 23:31] LABS: Basophils # 0.1 10*3/uL (0.0-0.2); Basophils % 0.8 % (0.0-0.8); Eosinophils # 0.2 10*3/uL (0.0-0.87); Eosinophils % 1.3 % (0.00-10.9); Hematocrit 40.7 VOL% (35.7-47.0); Hemoglobin 12.3 GM/DL (12.0-16.0); Immature Granulocytes % 0.8 %; Immature Granulocytes Absolute 0.12 #; Lymphocytes # 3.1 10*3/uL (1.4-4.0); Lymphocytes % 21.4 % (21.3-54.2); Mean Corpuscular HGB Conc 30.2 GM/DL (32-36); Mean Platelet Volume 9.5 FL (9.6-12.0); Monocytes # 0.6 10*3/uL (0.11-0.8); Monocytes % 4.1 % (1.7-12.7); Neutrophils % 71.6 % (38.7-73.9); Platelet Count 380 T/CUMM (130-400); Red Cell Distribution Width 23.8 % (9.3-17.3); White Blood Count 14.5 T/CUMM (4-12)
[2022-06-17] MEDS ORDERED: hydrALAZINE 20 MG/1 ML VIAL IV STA (23:35)
[2022-06-17] MEDS ORDERED: hydrALAZINE 20 MG/1 ML VIAL ONE (23:35)
[2022-06-18 00:24] LABS: Albumin 3.4 G/DL (3.4-5.0); Bilirubin,Total 0.8 MG/DL (0.20-1.00); Calcium 9.8 MG/DL (8.5-10.1); Osmolality,Calculated 283.8 MOS/KG (273-304); Potassium 3.5 MMOL/L (3.5-5.1); Total Protein 8.6 G/DL (6.4-8.2)
[2022-06-18] MEDS ORDERED: PROMETHAZINE 25 MG/1 ML VIAL IM STA (00:25)
[2022-06-18] MEDS ORDERED: LABETALOL 20 MG/4 ML SYRINGE IV STA ×2 (00:25→01:06)
[2022-06-18 00:43] LABS: Polychromasia 1+
[2022-06-18 00:45] LABS: Anisocytosis 1+; Platelet Estimate Normal
[2022-06-18 00:46] LABS: Hypochromia 1+
[2022-06-18] MEDS ORDERED: SODIUM CHLORIDE 0.9% 1,000 ML IV STA (00:53)
[2022-06-18] MEDS ORDERED: HYDROmorphone 1 MG/1 ML SYRINGE IV STA (01:21)
[2022-06-18] MEDS ORDERED: DILTIAZEM INJ 100 MG in SODIUM CHLORIDE 0.9% 100 ML IV SCH (01:30)
[2022-06-18] MEDS ORDERED: niCARdipine 25 MG/10 ML VIAL IV ONE (02:12)
[2022-06-18] MEDS ORDERED: niCARdipine INJ 25 MG in SODIUM CHLORIDE 0.9% 240 ML IV PRN (02:13)
[2022-06-18] MEDS ORDERED: NICOTINE 21 MG/24 HR PATCH TRANSDERM PRN (02:28)
[2022-06-18] MEDS ORDERED: ALUMINUM/MAGNES/SIMETH MAX STR 30 ML UDCUP PO PRN (02:28)
[2022-06-18] MEDS ORDERED: ALBUTEROL 2.5 MG/3 ML NEB RESP TX PRN (02:28)
[2022-06-18] MEDS ORDERED: FAMOTIDINE 20 MG/2 ML VIAL IV SCH (02:30)
[2022-06-18] MEDS: MORPHINE 2 MG/1 ML SYRINGE IV PRN ×4 (03:36→20:33)
[2022-06-18] MEDS: PROMETHAZINE 25 MG/1 ML VIAL IM PRN ×3 (03:37→20:33)
[2022-06-18] MEDS: niCARdipine INJ 50 MG in SODIUM CHLORIDE 0.9% 230 ML IV PRN ×3 (04:35→20:32)
[2022-06-18] MEDS ORDERED: tiZANidine 4 MG TABLET PO PRN (07:57)
[2022-06-18] MEDS ORDERED: POLYETHYLENE GLYCOL POWDER 17 GM PACK PO PRN (07:57)
[2022-06-18] MEDS ORDERED: cloNIDine 0.2 MG/24 HR PATCH TRANSDERM SCH (09:00)
[2022-06-18] MEDS: amLODIPine 5 MG TABLET PO SCH (11:42)
[2022-06-18] MEDS: GABAPENTIN 300 MG CAPSULE PO SCH ×3 (11:42→22:12)
[2022-06-18] MEDS: PANTOPRAZOLE 40 MG TABLET PO SCH (11:43)
[2022-06-18] MEDS: ONDANSETRON 4 MG/2 ML VIAL IV PRN (12:15)
[2022-06-18] MEDS: INSULIN REGULAR 100 UNIT/ML SUBCUT SCH ×2 (16:53→22:11)
[2022-06-18] MEDS: hydrALAZINE 20 MG/1 ML VIAL IV PRN (20:33)
[2022-06-18] MEDS ORDERED: INSULIN GLARGINE 100 UNIT/ML SUBCUT SCH (21:00)
[2022-06-19] MEDS: MORPHINE 2 MG/1 ML SYRINGE IV PRN ×6 (01:45→21:47)
[2022-06-19] MEDS: PROMETHAZINE 25 MG/1 ML VIAL IM PRN ×4 (01:46→21:47)
[2022-06-19] MEDS: hydrALAZINE 20 MG/1 ML VIAL IV PRN (04:15)
[2022-06-19 04:46] LABS: Calcium 8.4 MG/DL (8.5-10.1); Osmolality,Calculated 282.5 MOS/KG (273-304); Potassium 3.6 MMOL/L (3.5-5.1)
[2022-06-19] MEDS: INSULIN REGULAR 100 UNIT/ML SUBCUT SCH ×4 (08:42→20:14)
[2022-06-19] MEDS: PANTOPRAZOLE 40 MG TABLET PO SCH (09:16)
[2022-06-19] MEDS: GABAPENTIN 300 MG CAPSULE PO SCH ×3 (09:16→20:35)
[2022-06-19] MEDS: amLODIPine 5 MG TABLET PO SCH (09:16)
[2022-06-19] MEDS: DEXTROSE 10% 500 ML IV SCH (09:30)
[2022-06-19] MEDS ORDERED: HEPARIN 10,000 UNIT/10 ML VIAL IV PRN (14:14)
[2022-06-19] MEDS ORDERED: ACETAMINOPHEN 325 MG TABLET PO PRN (19:29)
[2022-06-19] MEDS: ONDANSETRON 4 MG/2 ML VIAL IV PRN (19:42)
[2022-06-19] MEDS: oxyCODONE/ACETAMINOPHEN 5-325 MG TABLET PO PRN (19:43)
[2022-06-19] MEDS: niCARdipine INJ 50 MG in SODIUM CHLORIDE 0.9% 230 ML IV PRN (20:25)
[2022-06-20] MEDS: MORPHINE 2 MG/1 ML SYRINGE IV PRN ×4 (00:52→20:17)
[2022-06-20] MEDS: hydrALAZINE 20 MG/1 ML VIAL IV PRN ×3 (00:56→21:27)
[2022-06-20] MEDS: DEXTROSE 10% 500 ML IV SCH (04:56)
[2022-06-20 05:27] LABS: Calcium 7.8 MG/DL (8.5-10.1); Osmolality,Calculated 276.2 MOS/KG (273-304); Potassium 4.4 MMOL/L (3.5-5.1)
[2022-06-20] MEDS: PROMETHAZINE 25 MG/1 ML VIAL IM PRN ×2 (07:24→14:04)
[2022-06-20] MEDS: amLODIPine 5 MG TABLET PO SCH (08:56)
[2022-06-20] MEDS: PANTOPRAZOLE 40 MG TABLET PO SCH (08:56)
[2022-06-20] MEDS: INSULIN REGULAR 100 UNIT/ML SUBCUT SCH ×4 (08:56→20:34)
[2022-06-20] MEDS: GABAPENTIN 300 MG CAPSULE PO SCH ×3 (08:57→20:18)
[2022-06-20] MEDS: hydrALAZINE 25 MG TABLET PO SCH ×2 (11:48→20:18)
[2022-06-20] MEDS: carvediloL 12.5 MG TABLET PO SCH ×2 (11:48→20:17)
[2022-06-20 16:09] VITALS: BP 175/108
[2022-06-20] MEDS: ONDANSETRON 4 MG/2 ML VIAL IV PRN (20:10)
[2022-06-20] MEDS: oxyCODONE/ACETAMINOPHEN 5-325 MG TABLET PO PRN (21:44)
[2022-06-21 04:51] LABS: Calcium 8.2 MG/DL (8.5-10.1); Osmolality,Calculated 269.9 MOS/KG (273-304); Potassium 4.8 MMOL/L (3.5-5.1)
[2022-06-21] MEDS: MORPHINE 2 MG/1 ML SYRINGE IV PRN (06:36)
[2022-06-21] MEDS: hydrALAZINE 20 MG/1 ML VIAL IV PRN (07:15)
[2022-06-21] MEDS: INSULIN REGULAR 100 UNIT/ML SUBCUT SCH ×2 (07:56→11:37)
[2022-06-21] MEDS: hydrALAZINE 25 MG TABLET PO SCH (08:21)
[2022-06-21] MEDS: GABAPENTIN 300 MG CAPSULE PO SCH (08:21)
[2022-06-21] MEDS: amLODIPine 5 MG TABLET PO SCH (08:21)
[2022-06-21] MEDS: carvediloL 12.5 MG TABLET PO SCH (08:21)
[2022-06-21] MEDS: PANTOPRAZOLE 40 MG TABLET PO SCH (08:22)
[2022-06-21] MEDS ORDERED: carvediloL 25 MG TABLET PO SCH (09:00)
[2022-06-21] MEDS ORDERED: amLODIPine 10 MG TABLET PO SCH (09:00)
[2022-06-21] MEDS: oxyCODONE/ACETAMINOPHEN 5-325 MG TABLET PO PRN (11:45)
== END 2022-06-21 13:58 | disposition home or self-care (01) | DRG 304 ==
LOC: N.ED 21:36 → N.ICU 06-18 02:28
PROVIDERS: ADMIT Internal Medicine; ATTEND Internal Medicine

== ENCOUNTER 2022-07-27 09:55 | Inpatient (IN) ==
[2022-07-27] MEDS ORDERED: PROMETHAZINE 25 MG/1 ML VIAL IM STA ×2 (11:11→13:23)
[2022-07-27] MEDS ORDERED: HYDROmorphone 1 MG/1 ML SYRINGE IV STA ×2 (11:11→13:23)
[2022-07-27 11:46] LABS: Basophils # 0.1 10*3/uL (0.0-0.2); Basophils % 0.5 % (0.0-0.8); Eosinophils % 0.3 % (0.00-10.9); Hematocrit 39.7 VOL% (35.7-47.0); Hemoglobin 11.9 GM/DL (12.0-16.0); Immature Granulocytes % 0.5 %; Immature Granulocytes Absolute 0.07 #; Lymphocytes # 2.3 10*3/uL (1.4-4.0); Lymphocytes % 15.5 % (21.3-54.2); Mean Corpuscular Volume 74.9 FL (87-102); Monocytes # 0.8 10*3/uL (0.11-0.8); Monocytes % 5.3 % (1.7-12.7); Neutrophils % 77.9 % (38.7-73.9); Platelet Count 223 T/CUMM (130-400); Red Cell Distribution Width 22.5 % (9.3-17.3); White Blood Count 14.6 T/CUMM (4-12)
[2022-07-27 12:03] LABS: Albumin 3.5 G/DL (3.4-5.0); Bilirubin,Total 0.8 MG/DL (0.20-1.00); Calcium 9.1 MG/DL (8.5-10.1); Osmolality,Calculated 285.4 MOS/KG (273-304); Total Protein 8.2 G/DL (6.4-8.2)
[2022-07-27] MEDS ORDERED: hydrALAZINE 20 MG/1 ML VIAL IV STA (12:33)
[2022-07-27 12:56] LABS: Anisocytosis 1+; Hypochromia 1+; Microcytosis 1+; Platelet Estimate Adequate
[2022-07-27] MEDS ORDERED: LABETALOL 100 MG/20 ML VIAL IV STA (13:07)
[2022-07-27] MEDS ORDERED: hydrALAZINE 20 MG/1 ML VIAL IV PRN (14:44)
[2022-07-27] MEDS ORDERED: PROMETHAZINE 25 MG TABLET PO PRN (14:44)
[2022-07-27] MEDS ORDERED: GLUCAGON 1 MG VIAL IM PRN (14:44)
[2022-07-27] MEDS ORDERED: ACETAMINOPHEN 325 MG TABLET PO PRN (14:44)
[2022-07-27] MEDS ORDERED: tiZANidine 4 MG TABLET PO PRN (14:51)
[2022-07-27] MEDS ORDERED: POLYETHYLENE GLYCOL POWDER 17 GM PACK PO PRN (14:51)
[2022-07-27] MEDS: GABAPENTIN 300 MG CAPSULE PO SCH ×2 (15:39→20:57)
[2022-07-27] MEDS: HEPARIN 5,000 UNIT/1 ML VIAL SUBCUT SCH (15:39)
[2022-07-27] MEDS: INSULIN LISPRO 100 UNIT/ML SUBCUT SCH ×2 (16:30→22:07)
[2022-07-27] MEDS: oxyCODONE/ACETAMINOPHEN 5-325 MG TABLET PO PRN (17:09)
[2022-07-27] MEDS: carvediloL 25 MG TABLET PO SCH (17:09)
[2022-07-27] MEDS: PROMETHAZINE 25 MG TABLET PO PRN (17:10)
[2022-07-27] MEDS: hydrALAZINE 20 MG/1 ML VIAL IV PRN (17:10)
[2022-07-27] MEDS ORDERED: cloNIDine 0.3 MG/24 HR PATCH TRANSDERM SCH (17:30)
[2022-07-27] MEDS: ONDANSETRON 4 MG/2 ML VIAL IV PRN ×2 (18:30→23:58)
[2022-07-27] MEDS: hydrALAZINE 25 MG TABLET PO SCH (20:57)
[2022-07-27] MEDS: METOCLOPRAMIDE 10 MG/10 ML UDCUP PO SCH (20:57)
[2022-07-27] MEDS: DOCUSATE SODIUM 100 MG CAPSULE PO SCH (20:57)
[2022-07-27] MEDS: SERTRALINE 50 MG TABLET PO SCH (20:57)
[2022-07-28] MEDS: HEPARIN 5,000 UNIT/1 ML VIAL SUBCUT SCH ×2 (03:02→16:19)
[2022-07-28] MEDS: ONDANSETRON 4 MG/2 ML VIAL IV PRN ×2 (04:00→07:31)
[2022-07-28 06:28] LABS: Albumin 3.6 G/DL (3.4-5.0); Bilirubin,Total 0.6 MG/DL (0.20-1.00); Calcium 8.6 MG/DL (8.5-10.1); Osmolality,Calculated 280.7 MOS/KG (273-304); Potassium 3.1 MMOL/L (3.5-5.1); Total Protein 8.2 G/DL (6.4-8.2)
[2022-07-28 06:55] LABS: Basophils # 0.1 10*3/uL (0.0-0.2); Basophils % 0.8 % (0.0-0.8); Eosinophils # 0.3 10*3/uL (0.0-0.87); Eosinophils % 2.9 % (0.00-10.9); Hematocrit 40.3 VOL% (35.7-47.0); Hemoglobin 11.8 GM/DL (12.0-16.0); Immature Granulocytes % 0.5 %; Immature Granulocytes Absolute 0.05 #; Lymphocytes # 2.1 10*3/uL (1.4-4.0); Lymphocytes % 22.4 % (21.3-54.2); Mean Corpuscular HGB Conc 29.3 GM/DL (32-36); Mean Corpuscular Volume 75.6 FL (87-102); Monocytes # 0.5 10*3/uL (0.11-0.8); Neutrophils % 68.4 % (38.7-73.9); Platelet Count 188 T/CUMM (130-400); Red Blood Count 5.33 MC/CUMM (3.8-5.5); Red Cell Distribution Width 21.9 % (9.3-17.3); White Blood Count 9.3 T/CUMM (4-12)
[2022-07-28 07:19] LABS: Platelet Estimate Normal
[2022-07-28 07:20] LABS: Anisocytosis Slight
[2022-07-28 07:34] LABS: Hypochromia Slight
[2022-07-28] MEDS: INSULIN LISPRO 100 UNIT/ML SUBCUT SCH ×4 (08:21→21:32)
[2022-07-28] MEDS: hydrALAZINE 25 MG TABLET PO SCH (08:53)
[2022-07-28] MEDS: carvediloL 25 MG TABLET PO SCH ×2 (08:53→16:22)
[2022-07-28] MEDS: PANTOPRAZOLE 40 MG TABLET PO SCH (08:53)
[2022-07-28] MEDS: amLODIPine 10 MG TABLET PO SCH (08:53)
[2022-07-28] MEDS: GABAPENTIN 300 MG CAPSULE PO SCH ×3 (08:53→21:33)
[2022-07-28] MEDS: DOCUSATE SODIUM 100 MG CAPSULE PO SCH ×2 (08:53→21:33)
[2022-07-28] MEDS: hydrALAZINE 20 MG/1 ML VIAL IV PRN (08:54)
[2022-07-28] MEDS: METOCLOPRAMIDE 10 MG/10 ML UDCUP PO SCH ×3 (09:00→21:33)
[2022-07-28] MEDS: oxyCODONE/ACETAMINOPHEN 5-325 MG TABLET PO PRN ×2 (09:00→16:13)
[2022-07-28] MEDS: SCOPOLAMINE 1.5 MG PATCH TRANSDERM SCH (09:55)
[2022-07-28] MEDS: AZITHROMYCIN INJ 500 MG in SODIUM CHLORIDE 0.9% 250 ML IV SCH (11:37)
[2022-07-28] MEDS ORDERED: HEPARIN 10,000 UNIT/10 ML VIAL IV SCH (13:30)
[2022-07-28] MEDS: PROMETHAZINE 25 MG TABLET PO PRN (16:13)
[2022-07-28] MEDS: HYDROmorphone 1 MG/1 ML SYRINGE IV PRN (20:32)
[2022-07-28] MEDS: SERTRALINE 50 MG TABLET PO SCH (21:33)
[2022-07-29] MEDS: HYDROmorphone 1 MG/1 ML SYRINGE IV PRN ×4 (01:09→22:34)
[2022-07-29] MEDS: DEXTROSE 10% 250 ML BAG IV PRN ×2 (01:10→11:22)
[2022-07-29] MEDS: PROMETHAZINE 25 MG TABLET PO PRN (01:35)
[2022-07-29] MEDS: HEPARIN 5,000 UNIT/1 ML VIAL SUBCUT SCH ×2 (02:47→15:44)
[2022-07-29] MEDS: amLODIPine 10 MG TABLET PO SCH (08:52)
[2022-07-29] MEDS: DOCUSATE SODIUM 100 MG CAPSULE PO SCH ×2 (08:52→21:29)
[2022-07-29] MEDS: carvediloL 25 MG TABLET PO SCH ×2 (08:52→18:03)
[2022-07-29] MEDS: GABAPENTIN 300 MG CAPSULE PO SCH ×3 (08:53→21:28)
[2022-07-29] MEDS: PANTOPRAZOLE 40 MG TABLET PO SCH (08:53)
[2022-07-29] MEDS: METOCLOPRAMIDE 10 MG/10 ML UDCUP PO SCH ×3 (08:55→21:28)
[2022-07-29] MEDS: INSULIN LISPRO 100 UNIT/ML SUBCUT SCH ×4 (08:59→21:46)
[2022-07-29] MEDS: ONDANSETRON 4 MG/2 ML VIAL IV PRN ×2 (11:24→22:34)
[2022-07-29] MEDS: AZITHROMYCIN INJ 500 MG in SODIUM CHLORIDE 0.9% 250 ML IV SCH (12:56)
[2022-07-29 20:55] LABS: Basophils # 0.1 10*3/uL (0.0-0.2); Basophils % 0.5 % (0.0-0.8); Eosinophils # 0.4 10*3/uL (0.0-0.87); Eosinophils % 4.5 % (0.00-10.9); Hematocrit 30.9 VOL% (35.7-47.0); Immature Granulocytes % 0.3 %; Immature Granulocytes Absolute 0.03 #; Lymphocytes # 2.5 10*3/uL (1.4-4.0); Lymphocytes % 26.2 % (21.3-54.2); Mean Corpuscular HGB Conc 29.1 GM/DL (32-36); Mean Corpuscular Volume 76.1 FL (87-102); Monocytes # 0.4 10*3/uL (0.11-0.8); Monocytes % 4.1 % (1.7-12.7); Neutrophils % 64.4 % (38.7-73.9); Platelet Count 127 T/CUMM (130-400); Red Blood Count 4.06 MC/CUMM (3.8-5.5); Red Cell Distribution Width 20.5 % (9.3-17.3); White Blood Count 9.7 T/CUMM (4-12)
[2022-07-29 21:07] LABS: Calcium 7.3 MG/DL (8.5-10.1); Osmolality,Calculated 274.1 MOS/KG (273-304); Potassium 3.5 MMOL/L (3.5-5.1)
[2022-07-29] MEDS: SERTRALINE 50 MG TABLET PO SCH (21:28)
[2022-07-29 21:31] LABS: Anisocytosis 1+
[2022-07-29 21:32] LABS: Platelet Estimate Normal
[2022-07-30] MEDS: HEPARIN 5,000 UNIT/1 ML VIAL SUBCUT SCH ×2 (02:31→14:50)
[2022-07-30] MEDS: HYDROmorphone 1 MG/1 ML SYRINGE IV PRN ×4 (03:53→22:25)
[2022-07-30 04:59] LABS: Basophils # 0.1 10*3/uL (0.0-0.2); Basophils % 0.6 % (0.0-0.8); Eosinophils # 0.5 10*3/uL (0.0-0.87); Eosinophils % 5.1 % (0.00-10.9); Hematocrit 31.2 VOL% (35.7-47.0); Hemoglobin 9.1 GM/DL (12.0-16.0); Immature Granulocytes % 0.3 %; Immature Granulocytes Absolute 0.03 #; Lymphocytes # 3.6 10*3/uL (1.4-4.0); Lymphocytes % 41.3 % (21.3-54.2); Mean Corpuscular HGB Conc 29.2 GM/DL (32-36); Mean Corpuscular Volume 76.7 FL (87-102); Monocytes # 0.4 10*3/uL (0.11-0.8); Monocytes % 4.5 % (1.7-12.7); Neutrophils % 48.2 % (38.7-73.9); Platelet Count 147 T/CUMM (130-400); Red Blood Count 4.07 MC/CUMM (3.8-5.5); Red Cell Distribution Width 20.6 % (9.3-17.3); White Blood Count 8.8 T/CUMM (4-12)
[2022-07-30 05:14] LABS: Calcium 7.7 MG/DL (8.5-10.1); Osmolality,Calculated 270.2 MOS/KG (273-304); Potassium 3.4 MMOL/L (3.5-5.1)
[2022-07-30 05:23] LABS: Hypochromia 1+
[2022-07-30 05:24] LABS: Microcytosis 1+; Ovalocytes Slight; Tear Drop Cells Slight
[2022-07-30 05:25] LABS: Platelet Estimate Adequate
[2022-07-30] MEDS: DOCUSATE SODIUM 100 MG CAPSULE PO SCH ×2 (08:06→22:07)
[2022-07-30] MEDS: hydrALAZINE 25 MG TABLET PO SCH ×2 (08:07→22:07)
[2022-07-30] MEDS: PANTOPRAZOLE 40 MG TABLET PO SCH (08:07)
[2022-07-30] MEDS: amLODIPine 10 MG TABLET PO SCH (08:07)
[2022-07-30] MEDS: carvediloL 25 MG TABLET PO SCH ×2 (08:07→17:46)
[2022-07-30] MEDS: GABAPENTIN 300 MG CAPSULE PO SCH ×3 (08:07→22:07)
[2022-07-30] MEDS: INSULIN LISPRO 100 UNIT/ML SUBCUT SCH ×4 (08:08→22:08)
[2022-07-30] MEDS: AZITHROMYCIN INJ 500 MG in SODIUM CHLORIDE 0.9% 250 ML IV SCH (10:32)
[2022-07-30] MEDS: oxyCODONE/ACETAMINOPHEN 5-325 MG TABLET PO PRN (11:25)
[2022-07-30] MEDS: METOCLOPRAMIDE 10 MG/10 ML UDCUP PO SCH ×3 (11:25→22:08)
[2022-07-30] MEDS: SERTRALINE 50 MG TABLET PO SCH (22:08)
[2022-07-30] MEDS: ONDANSETRON 4 MG/2 ML VIAL IV PRN (22:24)
[2022-07-31] MEDS: HEPARIN 5,000 UNIT/1 ML VIAL SUBCUT SCH ×2 (02:48→17:22)
[2022-07-31] MEDS: HYDROmorphone 1 MG/1 ML SYRINGE IV PRN ×3 (03:35→12:49)
[2022-07-31 05:15] LABS: Basophils # 0.1 10*3/uL (0.0-0.2); Basophils % 0.5 % (0.0-0.8); Eosinophils # 0.4 10*3/uL (0.0-0.87); Eosinophils % 4.1 % (0.00-10.9); Hematocrit 29.4 VOL% (35.7-47.0); Hemoglobin 8.9 GM/DL (12.0-16.0); Immature Granulocytes % 0.4 %; Immature Granulocytes Absolute 0.04 #; Lymphocytes # 2.6 10*3/uL (1.4-4.0); Mean Corpuscular HGB Conc 30.3 GM/DL (32-36); Monocytes # 0.5 10*3/uL (0.11-0.8); Monocytes % 5.4 % (1.7-12.7); Neutrophils % 63.6 % (38.7-73.9); Platelet Count 147 T/CUMM (130-400); Red Blood Count 3.92 MC/CUMM (3.8-5.5); Red Cell Distribution Width 20.4 % (9.3-17.3)
[2022-07-31 05:28] LABS: Calcium 7.1 MG/DL (8.5-10.1); Osmolality,Calculated 264.1 MOS/KG (273-304); Potassium 4.3 MMOL/L (3.5-5.1)
[2022-07-31 05:36] LABS: Hypochromia 1+; Microcytosis 1+; Ovalocytes Slight; Platelet Estimate Adequate
[2022-07-31] MEDS: INSULIN LISPRO 100 UNIT/ML SUBCUT SCH ×3 (08:14→17:12)
[2022-07-31] MEDS: amLODIPine 10 MG TABLET PO SCH (12:45)
[2022-07-31] MEDS: DOCUSATE SODIUM 100 MG CAPSULE PO SCH (12:45)
[2022-07-31] MEDS: GABAPENTIN 300 MG CAPSULE PO SCH ×2 (12:45→14:34)
[2022-07-31] MEDS: PANTOPRAZOLE 40 MG TABLET PO SCH (12:45)
[2022-07-31] MEDS: SCOPOLAMINE 1.5 MG PATCH TRANSDERM SCH (12:46)
[2022-07-31] MEDS: METOCLOPRAMIDE 10 MG/10 ML UDCUP PO SCH ×2 (12:46→14:34)
[2022-07-31] MEDS: carvediloL 25 MG TABLET PO SCH ×2 (12:46→17:27)
[2022-07-31] MEDS: AZITHROMYCIN INJ 500 MG in SODIUM CHLORIDE 0.9% 250 ML IV SCH (12:51)
[2022-07-31 16:41] VITALS: BP 145/85
[2022-08-03] MEDS ORDERED: cloNIDine 0.2 MG/24 HR PATCH TRANSDERM SCH (09:00)
== END 2022-07-31 18:38 | disposition home or self-care (01) | DRG 73 ==
LOC: N.ED 09:55 → SUATTDRO 14:44 → N.EDINP 14:44 → N.TELEN 17:17
PROVIDERS: ADMIT Internal Medicine; ATTEND Hospitalist

== ENCOUNTER 2022-08-20 13:40 | Inpatient (IN) ==
[2022-08-20] MEDS ORDERED: HYDROmorphone 1 MG/1 ML SYRINGE IV STA ×2 (14:38→17:04)
[2022-08-20] MEDS ORDERED: PROMETHAZINE 25 MG/1 ML VIAL IM STA (14:40)
[2022-08-20 15:37] LABS: Basophils # 0.1 10*3/uL (0.0-0.2); Basophils % 0.7 % (0.0-0.8); Eosinophils # 0.1 10*3/uL (0.0-0.87); Eosinophils % 0.9 % (0.00-10.9); Hematocrit 35.9 VOL% (35.7-47.0); Hemoglobin 10.9 GM/DL (12.0-16.0); Immature Granulocytes % 0.7 %; Immature Granulocytes Absolute 0.07 #; Lymphocytes # 1.9 10*3/uL (1.4-4.0); Lymphocytes % 19.3 % (21.3-54.2); Mean Corpuscular HGB Conc 30.4 GM/DL (32-36); Mean Corpuscular Volume 75.4 FL (87-102); Monocytes # 0.5 10*3/uL (0.11-0.8); NRBC # 0.02 10*3/uL; Neutrophils % 73.4 % (38.7-73.9); Platelet Count 418 T/CUMM (130-400); Red Blood Count 4.76 MC/CUMM (3.8-5.5)
[2022-08-20] MEDS ORDERED: hydrALAZINE 20 MG/1 ML VIAL IV STA ×3 (16:03→20:47)
[2022-08-20 16:04] LABS: Albumin 2.9 G/DL (3.4-5.0); Bilirubin,Total 0.6 MG/DL (0.20-1.00); Calcium 9.5 MG/DL (8.5-10.1); Potassium 3.9 MMOL/L (3.5-5.1); Total Protein 8.1 G/DL (6.4-8.2)
[2022-08-20 16:11] LABS: Hypochromia 1+; Microcytosis 1+; Platelet Estimate Adequate
[2022-08-20 16:12] LABS: Polychromasia Slight; Stomatocytes Slight
[2022-08-20] MEDS ORDERED: METOPROLOL TARTRATE 5 MG/5 ML VIAL IV STA (17:04)
[2022-08-20] MEDS ORDERED: PROMETHAZINE INJ 25 MG in SODIUM CHLORIDE 0.9% 50 ML IV STA (17:04)
[2022-08-20] MEDS ORDERED: GLUCAGON 1 MG VIAL IM PRN (18:48)
[2022-08-20] MEDS ORDERED: ACETAMINOPHEN 325 MG TABLET PO PRN (18:48)
[2022-08-20] MEDS ORDERED: DEXTROSE 10% 250 ML BAG IV PRN (18:48)
[2022-08-20] MEDS ORDERED: SCOPOLAMINE 1.5 MG PATCH TRANSDERM SCH (19:00)
[2022-08-20] MEDS ORDERED: cloNIDine 0.3 MG/24 HR PATCH TRANSDERM SCH (19:00)
[2022-08-20] MEDS: LABETALOL 20 MG/4 ML SYRINGE IV PRN (19:54)
[2022-08-20] MEDS: HEPARIN 5,000 UNIT/1 ML VIAL SUBCUT SCH (20:54)
[2022-08-20] MEDS: INSULIN REGULAR 100 UNIT/ML SUBCUT SCH (20:56)
[2022-08-20] MEDS: PIPERACILLIN/TAZOBACTAM 3,375 MG in SODIUM CHLORIDE 0.9% 100 ML IV SCH (20:57)
[2022-08-20] MEDS: PROMETHAZINE 25 MG/1 ML VIAL IM PRN (22:34)
[2022-08-20] MEDS: HYDROmorphone 1 MG/1 ML SYRINGE IV PRN (22:38)
[2022-08-21] MEDS ORDERED: HYDROmorphone 1 MG/1 ML SYRINGE IV ONE (00:23)
[2022-08-21] MEDS ORDERED: hydrALAZINE 20 MG/1 ML VIAL IV PRN (00:25)
[2022-08-21] MEDS: ONDANSETRON 4 MG/2 ML VIAL IV PRN ×3 (00:50→11:15)
[2022-08-21] MEDS: carvediloL 25 MG TABLET PO SCH ×3 (01:46→22:11)
[2022-08-21] MEDS: amLODIPine 10 MG TABLET PO SCH ×2 (01:47→11:10)
[2022-08-21] MEDS: HYDROmorphone 1 MG/1 ML SYRINGE IV PRN ×3 (06:33→19:51)
[2022-08-21] MEDS: HEPARIN 5,000 UNIT/1 ML VIAL SUBCUT SCH ×2 (08:07→22:11)
[2022-08-21] MEDS: INSULIN REGULAR 100 UNIT/ML SUBCUT SCH ×4 (08:08→22:11)
[2022-08-21] MEDS: LABETALOL 20 MG/4 ML SYRINGE IV PRN ×2 (08:10→17:15)
[2022-08-21] MEDS ORDERED: oxyCODONE/ACETAMINOPHEN 5-325 MG TABLET PO PRN (08:29)
[2022-08-21] MEDS ORDERED: LACTULOSE 20 GM/30 ML UDCUP PO PRN (08:30)
[2022-08-21] MEDS ORDERED: AZITHROMYCIN INJ 500 MG in SODIUM CHLORIDE 0.9% 250 ML IV SCH (09:00)
[2022-08-21 10:21] LABS: Basophils # 0.1 10*3/uL (0.0-0.2); Basophils % 0.6 % (0.0-0.8); Immature Granulocytes % 0.6 %; Immature Granulocytes Absolute 0.06 #; Neutrophils % 76.5 % (38.7-73.9)
[2022-08-21 10:40] LABS: Eosinophils # 0.1 10*3/uL (0.0-0.87); Eosinophils % 0.6 % (0.00-10.9); Hematocrit 34.4 VOL% (35.7-47.0); Lymphocytes # 1.6 10*3/uL (1.4-4.0); Lymphocytes % 16.1 % (21.3-54.2); Mean Corpuscular HGB Conc 29.9 GM/DL (32-36); Mean Corpuscular Volume 76.8 FL (87-102); Monocytes # 0.6 10*3/uL (0.11-0.8); Monocytes % 5.6 % (1.7-12.7); NRBC # 0.02 10*3/uL; Red Blood Count 4.48 MC/CUMM (3.8-5.5); Red Cell Distribution Width 25.6 % (9.3-17.3)
[2022-08-21 10:43] LABS: Hemoglobin 10.3 GM/DL (12.0-16.0); Platelet Count 194 T/CUMM (130-400)
[2022-08-21 10:48] LABS: Osmolality,Calculated 292.5 MOS/KG (273-304); Potassium 3.9 MMOL/L (3.5-5.1)
[2022-08-21] MEDS: PANTOPRAZOLE 40 MG TABLET PO SCH (11:09)
[2022-08-21] MEDS: PIPERACILLIN/TAZOBACTAM 3,375 MG in SODIUM CHLORIDE 0.9% 100 ML IV SCH ×2 (11:10→22:10)
[2022-08-21] MEDS: DOCUSATE SODIUM 100 MG CAPSULE PO SCH ×2 (11:19→22:11)
[2022-08-21] MEDS: POLYETHYLENE GLYCOL POWDER 17 GM PACK PO SCH (11:19)
[2022-08-21 11:29] LABS: Anisocytosis 2+; Platelet Estimate Normal
[2022-08-21 11:30] LABS: Macrocytosis Slight
[2022-08-21] MEDS ORDERED: HEPARIN 10,000 UNIT/10 ML VIAL IV SCH (16:30)
[2022-08-21] MEDS: PROMETHAZINE 25 MG/1 ML VIAL IM PRN (17:12)
[2022-08-21] MEDS ORDERED: KETOROLAC 15 MG/1 ML VIAL IV ONE (17:37)
[2022-08-22] MEDS ORDERED: METOCLOPRAMIDE 10 MG/2 ML VIAL IV SCH
[2022-08-22] MEDS: METOCLOPRAMIDE 10 MG/2 ML VIAL IV SCH ×2 (03:36→09:04)
[2022-08-22] MEDS: HYDROmorphone 1 MG/1 ML SYRINGE IV PRN (04:03)
[2022-08-22 04:04] LABS: Calcium 8.3 MG/DL (8.5-10.1); Osmolality,Calculated 277.1 MOS/KG (273-304)
[2022-08-22] MEDS: PROMETHAZINE 25 MG/1 ML VIAL IM PRN (04:04)
[2022-08-22 04:05] LABS: Basophils # 0.1 10*3/uL (0.0-0.2); Basophils % 0.5 % (0.0-0.8); Eosinophils # 0.2 10*3/uL (0.0-0.87); Eosinophils % 1.7 % (0.00-10.9); Hemoglobin 9.5 GM/DL (12.0-16.0); Immature Granulocytes % 0.4 %; Immature Granulocytes Absolute 0.04 #; Lymphocytes # 1.3 10*3/uL (1.4-4.0); Lymphocytes % 12.7 % (21.3-54.2); Mean Corpuscular HGB Conc 28.9 GM/DL (32-36); Mean Corpuscular Volume 79.3 FL (87-102); Mean Platelet Volume 8.9 FL (9.6-12.0); Monocytes # 0.7 10*3/uL (0.11-0.8); Monocytes % 7.2 % (1.7-12.7); NRBC # 0.02 10*3/uL; Neutrophils % 77.5 % (38.7-73.9); Platelet Count 290 T/CUMM (130-400); Red Blood Count 4.15 MC/CUMM (3.8-5.5); Red Cell Distribution Width 25.6 % (9.3-17.3); White Blood Count 10.2 T/CUMM (4-12)
[2022-08-22 04:07] LABS: Hematocrit 32.9 VOL% (35.7-47.0)
[2022-08-22 07:23] VITALS: BP 172/92
[2022-08-22] MEDS: INSULIN REGULAR 100 UNIT/ML SUBCUT SCH ×2 (09:00→12:31)
[2022-08-22] MEDS: HEPARIN 5,000 UNIT/1 ML VIAL SUBCUT SCH (09:02)
[2022-08-22] MEDS: LABETALOL 20 MG/4 ML SYRINGE IV PRN (09:07)
[2022-08-22] MEDS: PIPERACILLIN/TAZOBACTAM 3,375 MG in SODIUM CHLORIDE 0.9% 100 ML IV SCH (09:07)
[2022-08-22] MEDS: DOCUSATE SODIUM 100 MG CAPSULE PO SCH (09:14)
[2022-08-22] MEDS: PANTOPRAZOLE 40 MG TABLET PO SCH (10:41)
[2022-08-22] MEDS: POLYETHYLENE GLYCOL POWDER 17 GM PACK PO SCH (10:41)
[2022-08-22] MEDS: carvediloL 25 MG TABLET PO SCH (10:41)
[2022-08-22] MEDS: amLODIPine 10 MG TABLET PO SCH (10:41)
== END 2022-08-22 12:20 | disposition left against medical advice (07) | DRG 391 ==
LOC: EDBD → EDUNIT# → N.ED 13:40 → N.EDINP 18:29 → N.3E 22:38
PROVIDERS: ADMIT Internal Medicine; ATTEND Internal Medicine

== ENCOUNTER 2022-09-21 07:38 | Inpatient (IN) ==
[2022-09-21] MEDS ORDERED: hydrALAZINE 20 MG/1 ML VIAL IV STA ×2 (08:14→10:45)
[2022-09-21] MEDS ORDERED: HYDROmorphone 1 MG/1 ML SYRINGE IV STA ×2 (08:14→10:59)
[2022-09-21] MEDS ORDERED: ONDANSETRON 4 MG/2 ML VIAL IV STA (08:14)
[2022-09-21 08:22] LABS: Basophils # 0.1 10*3/uL (0.0-0.2); Basophils % 1.5 % (0.0-0.8); Eosinophils # 0.1 10*3/uL (0.0-0.87); Eosinophils % 1.8 % (0.00-10.9); Hematocrit 35.2 VOL% (35.7-47.0); Hemoglobin 10.8 GM/DL (12.0-16.0); Immature Granulocytes % 0.4 %; Immature Granulocytes Absolute 0.03 #; Lymphocytes # 1.8 10*3/uL (1.4-4.0); Lymphocytes % 26.9 % (21.3-54.2); Mean Corpuscular HGB Conc 30.7 GM/DL (32-36); Mean Corpuscular Volume 75.7 FL (87-102); Mean Platelet Volume 9.7 FL (9.6-12.0); Monocytes # 0.5 10*3/uL (0.11-0.8); Monocytes % 7.9 % (1.7-12.7); Neutrophils % 61.5 % (38.7-73.9); Platelet Count 265 T/CUMM (130-400); Red Blood Count 4.65 MC/CUMM (3.8-5.5); Red Cell Distribution Width 22.2 % (9.3-17.3); White Blood Count 6.7 T/CUMM (4-12)
[2022-09-21 08:33] LABS: Albumin 3.5 G/DL (3.4-5.0); Bilirubin,Total 0.6 MG/DL (0.20-1.00); Calcium 9.3 MG/DL (8.5-10.1); Osmolality,Calculated 292.5 MOS/KG (273-304); Total Protein 7.7 G/DL (6.4-8.2)
[2022-09-21 09:04] LABS: Hypochromia 1+; Microcytosis 1+
[2022-09-21 09:05] LABS: Ovalocytes Slight; Platelet Estimate Normal
[2022-09-21] MEDS ORDERED: PROMETHAZINE 25 MG/1 ML VIAL IM STA (10:59)
[2022-09-21] MEDS ORDERED: ACETAMINOPHEN 325 MG TABLET PO PRN (11:21)
[2022-09-21] MEDS ORDERED: METOCLOPRAMIDE 10 MG/2 ML VIAL IV PRN (11:24)
[2022-09-21] MEDS ORDERED: LEVOFLOXACIN INJ 500 MG/100 ML PREMIX IV ONE (11:27)
[2022-09-21] MEDS ORDERED: methylPREDNISolone SOD SUC 125 MG/2 ML VIAL IV STA (11:29)
[2022-09-21] MEDS ORDERED: oxyCODONE/ACETAMINOPHEN 5-325 MG TABLET PO PRN (11:31)
[2022-09-21] MEDS ORDERED: GLUCAGON 1 MG VIAL IM PRN (11:33)
[2022-09-21] MEDS ORDERED: DEXTROSE 10% 250 ML BAG IV PRN (11:33)
[2022-09-21] MEDS: METOCLOPRAMIDE 10 MG/2 ML VIAL IV SCH ×2 (12:10→18:03)
[2022-09-21] MEDS: HEPARIN 5,000 UNIT/1 ML VIAL SUBCUT SCH (12:10)
[2022-09-21] MEDS: PANTOPRAZOLE 40 MG VIAL IV SCH ×2 (12:10→21:26)
[2022-09-21] MEDS: metroNIDAZOLE INJ 500 MG/100 ML PREMIX IV SCH ×2 (13:37→21:24)
[2022-09-21] MEDS: cloNIDine 0.1 MG TABLET PO PRN (14:35)
[2022-09-21] MEDS: GABAPENTIN 300 MG CAPSULE PO SCH ×2 (14:35→21:24)
[2022-09-21] MEDS: ONDANSETRON 4 MG/2 ML VIAL IV PRN (14:35)
[2022-09-21] MEDS: MORPHINE 2 MG/1 ML SYRINGE IV PRN ×2 (14:35→21:26)
[2022-09-21] MEDS: INSULIN LISPRO 100 UNIT/ML SUBCUT SCH ×2 (16:56→21:25)
[2022-09-21] MEDS ORDERED: SEVELAMER CARBONATE PO SCH (17:00)
[2022-09-21] MEDS: SEVELAMER CARBONATE 800 MG TABLET PO SCH (17:05)
[2022-09-21] MEDS: methylPREDNISolone SOD SUC 40 MG/1 ML VIAL IV SCH (18:03)
[2022-09-21] MEDS: SERTRALINE 50 MG TABLET PO SCH (18:39)
[2022-09-21] MEDS ORDERED: cloNIDine 0.3 MG/24 HR PATCH TRANSDERM SCH (20:00)
[2022-09-21] MEDS ORDERED: carvediloL 12.5 MG TABLET PO SCH (21:00)
[2022-09-21] MEDS: carvediloL 25 MG TABLET PO SCH (21:25)
[2022-09-21] MEDS: VANCOMYCIN 125 MG CAPSULE PO SCH (21:26)
[2022-09-22] MEDS: hydrALAZINE 20 MG/1 ML VIAL IV PRN ×2 (00:04→06:20)
[2022-09-22] MEDS: HEPARIN 5,000 UNIT/1 ML VIAL SUBCUT SCH ×2 (00:05→11:59)
[2022-09-22] MEDS: METOCLOPRAMIDE 10 MG/2 ML VIAL IV SCH ×4 (00:05→16:59)
[2022-09-22] MEDS: methylPREDNISolone SOD SUC 40 MG/1 ML VIAL IV SCH (02:27)
[2022-09-22] MEDS: VANCOMYCIN 125 MG CAPSULE PO SCH ×4 (05:00→21:14)
[2022-09-22] MEDS: PROMETHAZINE 25 MG/1 ML VIAL IM PRN (05:00)
[2022-09-22 06:14] LABS: Basophils % 0.1 % (0.0-0.8); Hematocrit 33.7 VOL% (35.7-47.0); Hemoglobin 10.5 GM/DL (12.0-16.0); Immature Granulocytes % 1.8 %; Immature Granulocytes Absolute 0.14 #; Lymphocytes # 0.9 10*3/uL (1.4-4.0); Lymphocytes % 11.8 % (21.3-54.2); Mean Corpuscular HGB Conc 31.2 GM/DL (32-36); Mean Corpuscular Volume 74.2 FL (87-102); Mean Platelet Volume 9.2 FL (9.6-12.0); Monocytes # 0.1 10*3/uL (0.11-0.8); Monocytes % 1.8 % (1.7-12.7); Neutrophils % 84.5 % (38.7-73.9); Platelet Count 234 T/CUMM (130-400); Red Blood Count 4.54 MC/CUMM (3.8-5.5); Red Cell Distribution Width 20.9 % (9.3-17.3); White Blood Count 7.6 T/CUMM (4-12)
[2022-09-22] MEDS: metroNIDAZOLE INJ 500 MG/100 ML PREMIX IV SCH ×2 (06:17→16:58)
[2022-09-22] MEDS: MORPHINE 2 MG/1 ML SYRINGE IV PRN ×3 (06:22→17:35)
[2022-09-22 06:26] LABS: Calcium 8.3 MG/DL (8.5-10.1); Osmolality,Calculated 277.2 MOS/KG (273-304); Potassium 4.7 MMOL/L (3.5-5.1)
[2022-09-22 07:02] LABS: Platelet Estimate Normal
[2022-09-22 07:03] LABS: Acanthocytes Few; Anisocytosis 1+; Burr Cells Few; Hypochromia Slight; Poikilocytosis 1+; Tear Drop Cells Few
[2022-09-22] MEDS: SEVELAMER CARBONATE 800 MG TABLET PO SCH ×3 (08:28→16:59)
[2022-09-22] MEDS: carvediloL 25 MG TABLET PO SCH ×2 (08:29→21:14)
[2022-09-22] MEDS: PANTOPRAZOLE 40 MG VIAL IV SCH ×2 (08:29→21:13)
[2022-09-22] MEDS: amLODIPine 10 MG TABLET PO SCH (08:29)
[2022-09-22] MEDS: GABAPENTIN 300 MG CAPSULE PO SCH ×3 (08:29→21:14)
[2022-09-22] MEDS ORDERED: cloNIDine 0.1 MG/24 HR PATCH TRANSDERM SCH (09:00)
[2022-09-22] MEDS ORDERED: amLODIPine 5 MG TABLET PO SCH (09:00)
[2022-09-22] MEDS ORDERED: SODIUM CHLORIDE 0.9% 250 ML IV ONE (09:19)
[2022-09-22] MEDS: INSULIN LISPRO 100 UNIT/ML SUBCUT SCH ×4 (11:58→21:15)
[2022-09-22] MEDS ORDERED: HEPARIN 10,000 UNIT/10 ML VIAL IV SCH (14:00)
[2022-09-22] MEDS: ONDANSETRON 4 MG/2 ML VIAL IV PRN (21:13)
[2022-09-22] MEDS: oxyCODONE/ACETAMINOPHEN 5-325 MG TABLET PO PRN (21:13)
[2022-09-22] MEDS: tiZANidine 4 MG TABLET PO PRN (21:14)
[2022-09-22] MEDS: SERTRALINE 50 MG TABLET PO SCH (21:14)
[2022-09-23] MEDS: HEPARIN 5,000 UNIT/1 ML VIAL SUBCUT SCH ×3 (00:39→23:05)
[2022-09-23] MEDS: METOCLOPRAMIDE 10 MG/2 ML VIAL IV SCH ×5 (00:39→23:03)
[2022-09-23] MEDS: metroNIDAZOLE INJ 500 MG/100 ML PREMIX IV SCH ×3 (00:39→16:35)
[2022-09-23] MEDS: VANCOMYCIN 125 MG CAPSULE PO SCH ×4 (04:19→23:02)
[2022-09-23] MEDS: PROMETHAZINE 25 MG/1 ML VIAL IM PRN ×4 (04:20→23:03)
[2022-09-23] MEDS: MORPHINE 2 MG/1 ML SYRINGE IV PRN ×5 (04:20→23:04)
[2022-09-23 05:41] LABS: Basophils % 0.1 % (0.0-0.8); Hematocrit 31.4 VOL% (35.7-47.0); Hemoglobin 9.4 GM/DL (12.0-16.0); Immature Granulocytes % 0.4 %; Immature Granulocytes Absolute 0.03 #; Lymphocytes # 1.6 10*3/uL (1.4-4.0); Lymphocytes % 19.9 % (21.3-54.2); Mean Corpuscular HGB Conc 29.9 GM/DL (32-36); Mean Platelet Volume 10.2 FL (9.6-12.0); Monocytes # 0.4 10*3/uL (0.11-0.8); Monocytes % 5.4 % (1.7-12.7); Neutrophils % 74.2 % (38.7-73.9); Platelet Count 220 T/CUMM (130-400); Red Blood Count 4.08 MC/CUMM (3.8-5.5); Red Cell Distribution Width 20.9 % (9.3-17.3); White Blood Count 7.9 T/CUMM (4-12)
[2022-09-23 06:07] LABS: % Iron Saturation 69.1 % (18-50); Alanine Aminotransferase 21 U/L (13-56); Albumin 2.8 G/DL (3.4-5.0); Alkaline Phosphatase 103 U/L (45-117); Aspartate Amino Transferase 8 U/L (0-37); Bilirubin,Total < 0.39 MG/DL (0.20-1.00); Blood Urea Nitrogen 32 MG/DL (7-18); Carbon Dioxide 26 MMOL/L (21-32); Chloride 100 MMOL/L (98-107); Ferritin 900.1 ng/mL (8-252); Glucose 256 MG/DL (74-106); Iron 96 UG/DL (50-170); Iron Binding Capacity 139 UG/DL (250-450); Osmolality,Calculated 283.2 MOS/KG (273-304); Potassium 4.2 MMOL/L (3.5-5.1); Sodium 134 MMOL/L (136-145)
[2022-09-23 06:41] LABS: Anisocytosis 2+; Poikilocytosis 2+
[2022-09-23 06:42] LABS: Platelet Estimate Normal
[2022-09-23] MEDS: oxyCODONE/ACETAMINOPHEN 5-325 MG TABLET PO PRN ×2 (07:21→14:46)
[2022-09-23] MEDS: INSULIN LISPRO 100 UNIT/ML SUBCUT SCH ×4 (08:30→21:35)
[2022-09-23] MEDS: BACILLUS COAGULANS CAPLET PO SCH (08:36)
[2022-09-23] MEDS: SEVELAMER CARBONATE 800 MG TABLET PO SCH ×3 (08:36→16:35)
[2022-09-23] MEDS: PANTOPRAZOLE 40 MG VIAL IV SCH ×2 (08:37→23:03)
[2022-09-23] MEDS: carvediloL 25 MG TABLET PO SCH ×2 (08:38→23:01)
[2022-09-23] MEDS: amLODIPine 10 MG TABLET PO SCH (08:38)
[2022-09-23] MEDS: guaiFENesin 200 MG/10 ML UDCUP PO PRN ×2 (08:38→18:41)
[2022-09-23] MEDS: cloNIDine 0.1 MG TABLET PO PRN (08:39)
[2022-09-23] MEDS: GABAPENTIN 300 MG CAPSULE PO SCH ×3 (08:39→23:02)
[2022-09-23] MEDS ORDERED: LEVOFLOXACIN INJ 250 MG/50 ML PREMIX IV SCH (11:30)
[2022-09-23] MEDS: SERTRALINE 50 MG TABLET PO SCH (23:01)
[2022-09-24] MEDS: metroNIDAZOLE INJ 500 MG/100 ML PREMIX IV SCH ×2 (02:00→09:28)
[2022-09-24] MEDS: tiZANidine 4 MG TABLET PO PRN (03:25)
[2022-09-24] MEDS: VANCOMYCIN 125 MG CAPSULE PO SCH ×2 (03:25→09:22)
[2022-09-24] MEDS: guaiFENesin 200 MG/10 ML UDCUP PO PRN (03:25)
[2022-09-24] MEDS: oxyCODONE/ACETAMINOPHEN 5-325 MG TABLET PO PRN (03:25)
[2022-09-24] MEDS: METOCLOPRAMIDE 10 MG/2 ML VIAL IV SCH ×2 (05:12→12:22)
[2022-09-24] MEDS: MORPHINE 2 MG/1 ML SYRINGE IV PRN (05:12)
[2022-09-24] MEDS: PROMETHAZINE 25 MG/1 ML VIAL IM PRN (05:13)
[2022-09-24 05:32] LABS: Basophils # 0.1 10*3/uL (0.0-0.2); Basophils % 0.7 % (0.0-0.8); Eosinophils # 0.1 10*3/uL (0.0-0.87); Eosinophils % 1.4 % (0.00-10.9); Hematocrit 31.8 VOL% (35.7-47.0); Hemoglobin 9.5 GM/DL (12.0-16.0); Immature Granulocytes % 0.2 %; Immature Granulocytes Absolute 0.02 #; Lymphocytes # 2.3 10*3/uL (1.4-4.0); Lymphocytes % 26.2 % (21.3-54.2); Mean Corpuscular HGB Conc 29.9 GM/DL (32-36); Mean Corpuscular Volume 77.8 FL (87-102); Mean Platelet Volume 9.6 FL (9.6-12.0); Monocytes # 0.6 10*3/uL (0.11-0.8); Monocytes % 6.4 % (1.7-12.7); Neutrophils % 65.1 % (38.7-73.9); Platelet Count 228 T/CUMM (130-400); Red Blood Count 4.09 MC/CUMM (3.8-5.5); Red Cell Distribution Width 20.6 % (9.3-17.3); White Blood Count 8.6 T/CUMM (4-12)
[2022-09-24 05:56] LABS: Calcium 7.5 MG/DL (8.5-10.1); Potassium 4.5 MMOL/L (3.5-5.1)
[2022-09-24] MEDS: INSULIN LISPRO 100 UNIT/ML SUBCUT SCH ×2 (09:21→12:24)
[2022-09-24] MEDS: PANTOPRAZOLE 40 MG VIAL IV SCH (09:22)
[2022-09-24] MEDS: amLODIPine 10 MG TABLET PO SCH (09:22)
[2022-09-24] MEDS: GABAPENTIN 300 MG CAPSULE PO SCH (09:22)
[2022-09-24] MEDS: carvediloL 25 MG TABLET PO SCH (09:22)
[2022-09-24] MEDS: SEVELAMER CARBONATE 800 MG TABLET PO SCH ×2 (09:23→13:10)
[2022-09-24] MEDS: BACILLUS COAGULANS CAPLET PO SCH (09:23)
[2022-09-24] MEDS: cloNIDine 0.1 MG TABLET PO PRN (09:23)
[2022-09-24] MEDS: HEPARIN 5,000 UNIT/1 ML VIAL SUBCUT SCH (09:28)
[2022-09-24 12:18] VITALS: BP 182/95
== END 2022-09-24 13:45 | disposition home or self-care (01) | DRG 371 ==
LOC: N.ED 07:38 → N.EDINP 07:38 → SUATTDRO 11:21 → N.EDINP 13:47 → N.2W 13:53 → SUATTDRO 09-22 09:19 → N.5E 09-22 15:36
PROVIDERS: ADMIT Hospitalist; ATTEND Hospitalist

== ENCOUNTER 2022-10-07 01:58 | Inpatient (IN) ==
[2022-10-07] MEDS ORDERED: NITROGLYCERIN 2% OINT 1 INCH/GM PACK TOP STA (02:07)
[2022-10-07] MEDS ORDERED: ONDANSETRON ODT 4 MG TABLET PO STA (02:07)
[2022-10-07] MEDS ORDERED: MORPHINE 2 MG/1 ML SYRINGE IV STA (02:07)
[2022-10-07] MEDS ORDERED: hydrALAZINE 20 MG/1 ML VIAL IV STA (02:10)
[2022-10-07 02:37] LABS: Basophils # 0.1 10*3/uL (0.0-0.2); Basophils % 0.5 % (0.0-0.8); Eosinophils # 0.3 10*3/uL (0.0-0.87); Eosinophils % 2.2 % (0.00-10.9); Hemoglobin 8.4 GM/DL (12.0-16.0); Immature Granulocytes % 0.3 %; Immature Granulocytes Absolute 0.04 #; Lymphocytes # 1.9 10*3/uL (1.4-4.0); Mean Corpuscular HGB Conc 31.1 GM/DL (32-36); Mean Corpuscular Volume 76.1 FL (87-102); Mean Platelet Volume 8.9 FL (9.6-12.0); Monocytes # 0.6 10*3/uL (0.11-0.8); Monocytes % 5.3 % (1.7-12.7); Neutrophils % 75.7 % (38.7-73.9); Platelet Count 224 T/CUMM (130-400); Red Blood Count 3.55 MC/CUMM (3.8-5.5); Red Cell Distribution Width 21.3 % (9.3-17.3); White Blood Count 11.6 T/CUMM (4-12)
[2022-10-07 02:47] LABS: Arterial Base Excess iSTAT 12 MMOL/L (-2.5-2.5); Arterial Bicarbonate iSTAT 36.2 MMOL/L (20-26); Arterial O2 Saturation iSTAT 95 % (95-100); Arterial PCO2 iSTAT 45 MM HG (35-48); Arterial PO2 iSTAT 71 MM HG (80-95); Arterial Total CO2 iSTAT 38 MMO/L (23-27); Arterial pH iSTAT 7.509 (7.35-7.45)
[2022-10-07 02:49] LABS: PT Patient Result 11.2 SECS (10.1-12.1)
[2022-10-07] MEDS ORDERED: PIPERACILLIN/TAZOBACTAM 3,375 MG in SODIUM CHLORIDE 0.9% 100 ML IV STA (03:16)
[2022-10-07 04:01] LABS: Albumin 3.2 G/DL (3.4-5.0); Bilirubin,Total 0.5 MG/DL (0.20-1.00); Calcium 8.7 MG/DL (8.5-10.1); Osmolality,Calculated 278.7 MOS/KG (273-304); Potassium 3.7 MMOL/L (3.5-5.1); Total Protein 7.4 G/DL (6.4-8.2)
[2022-10-07] MEDS ORDERED: cloNIDine 0.1 MG/24 HR PATCH TRANSDERM STA (04:29)
[2022-10-07] MEDS ORDERED: ONDANSETRON 4 MG/2 ML VIAL IV PRN (04:44)
[2022-10-07] MEDS ORDERED: ACETAMINOPHEN 325 MG TABLET PO PRN (04:44)
[2022-10-07] MEDS ORDERED: POLYETHYLENE GLYCOL POWDER 17 GM PACK PO PRN (06:15)
[2022-10-07] MEDS ORDERED: VANCOMYCIN INJ 1,000 MG in SODIUM CHLORIDE 0.9% 250 ML IV ONE (06:30)
[2022-10-07] MEDS ORDERED: VANCOMYCIN INJ 1,500 MG in SODIUM CHLORIDE 0.9% 500 ML IV ONE (07:00)
[2022-10-07] MEDS: INSULIN LISPRO 100 UNIT/ML SUBCUT SCH ×4 (08:10→21:18)
[2022-10-07] MEDS: HEPARIN 5,000 UNIT/1 ML VIAL SUBCUT SCH ×3 (08:25→23:36)
[2022-10-07] MEDS: carvediloL 25 MG TABLET PO SCH ×2 (08:25→16:18)
[2022-10-07] MEDS: oxyCODONE/ACETAMINOPHEN 5-325 MG TABLET PO PRN ×3 (09:08→23:35)
[2022-10-07] MEDS: PANTOPRAZOLE 40 MG TABLET PO SCH (09:08)
[2022-10-07] MEDS: amLODIPine 10 MG TABLET PO SCH (09:08)
[2022-10-07] MEDS: hydrALAZINE 20 MG/1 ML VIAL IV PRN (10:02)
[2022-10-07] MEDS ORDERED: cefTRIAXone 1,000 MG in SODIUM CHLORIDE 0.9% 100 ML IV SCH (10:30)
[2022-10-07] MEDS: METOCLOPRAMIDE 10 MG/10 ML UDCUP PO SCH ×3 (10:51→21:18)
[2022-10-07] MEDS ORDERED: AZITHROMYCIN INJ 500 MG in SODIUM CHLORIDE 0.9% 250 ML IV SCH (11:00)
[2022-10-07] MEDS: SEVELAMER CARBONATE 800 MG TABLET PO SCH ×2 (14:00→16:18)
[2022-10-07] MEDS ORDERED: PIPERACILLIN/TAZOBACTAM 3,375 MG in SODIUM CHLORIDE 0.9% 100 ML IV SCH (15:30)
[2022-10-07] MEDS: PROMETHAZINE 25 MG TABLET PO PRN ×2 (15:39→23:35)
[2022-10-08] MEDS: hydrALAZINE 20 MG/1 ML VIAL IV PRN (05:07)
[2022-10-08] MEDS: INSULIN LISPRO 100 UNIT/ML SUBCUT SCH ×4 (07:38→20:42)
[2022-10-08] MEDS ORDERED: cefTRIAXone 2,000 MG in SODIUM CHLORIDE 0.9% 100 ML IV SCH (09:00)
[2022-10-08] MEDS: PANTOPRAZOLE 40 MG TABLET PO SCH (09:48)
[2022-10-08] MEDS: SEVELAMER CARBONATE 800 MG TABLET PO SCH ×3 (09:48→16:45)
[2022-10-08] MEDS: amLODIPine 10 MG TABLET PO SCH (09:48)
[2022-10-08] MEDS: METOCLOPRAMIDE 10 MG/10 ML UDCUP PO SCH ×3 (09:48→20:40)
[2022-10-08] MEDS: carvediloL 25 MG TABLET PO SCH ×2 (09:48→16:45)
[2022-10-08] MEDS: oxyCODONE/ACETAMINOPHEN 5-325 MG TABLET PO PRN ×2 (09:49→18:03)
[2022-10-08] MEDS: HEPARIN 5,000 UNIT/1 ML VIAL SUBCUT SCH ×2 (09:53→16:45)
[2022-10-08] MEDS: PROMETHAZINE 25 MG TABLET PO PRN ×2 (09:53→18:02)
[2022-10-08] MEDS ORDERED: VANCOMYCIN INJ 500 MG in SODIUM CHLORIDE 0.9% 100 ML IV PRN (10:04)
[2022-10-08 10:08] LABS: Basophils # 0.1 10*3/uL (0.0-0.2); Basophils % 0.5 % (0.0-0.8); Eosinophils # 0.2 10*3/uL (0.0-0.87); Eosinophils % 1.4 % (0.00-10.9); Hemoglobin 8.5 GM/DL (12.0-16.0); Immature Granulocytes % 0.3 %; Immature Granulocytes Absolute 0.04 #; Lymphocytes # 1.3 10*3/uL (1.4-4.0); Lymphocytes % 11.3 % (21.3-54.2); Mean Corpuscular HGB Conc 30.4 GM/DL (32-36); Mean Corpuscular Volume 76.1 FL (87-102); Mean Platelet Volume 9.3 FL (9.6-12.0); Monocytes # 0.5 10*3/uL (0.11-0.8); Monocytes % 4.5 % (1.7-12.7); Platelet Count 236 T/CUMM (130-400); Red Blood Count 3.68 MC/CUMM (3.8-5.5); Red Cell Distribution Width 21.3 % (9.3-17.3); White Blood Count 11.8 T/CUMM (4-12)
[2022-10-08 10:46] LABS: Bilirubin,Total 0.6 MG/DL (0.20-1.00); Calcium 8.7 MG/DL (8.5-10.1); Osmolality,Calculated 271.1 MOS/KG (273-304); Risk Ratio 1.54; Thyroid Stimulating Hormone 1.11 uIU/ml (0.358-3.74); Total Protein 7.7 G/DL (6.4-8.2); VLDL Cholesterol 12.2 MG/DL
[2022-10-08] MEDS ORDERED: CEFEPIME 1,000 MG in SODIUM CHLORIDE 0.9% 100 ML IV SCH (11:00)
[2022-10-08] MEDS ORDERED: cefTRIAXone 2,000 MG VIAL IM SCH (11:00)
[2022-10-08] MEDS ORDERED: VANCOMYCIN INJ 1,750 MG in SODIUM CHLORIDE 0.9% 500 ML IV ONE (11:30)
[2022-10-09] MEDS: HEPARIN 5,000 UNIT/1 ML VIAL SUBCUT SCH ×2 (01:24→08:53)
[2022-10-09] MEDS: oxyCODONE/ACETAMINOPHEN 5-325 MG TABLET PO PRN ×2 (01:50→08:52)
[2022-10-09] MEDS: PROMETHAZINE 25 MG TABLET PO PRN (01:50)
[2022-10-09] MEDS: INSULIN LISPRO 100 UNIT/ML SUBCUT SCH ×2 (08:19→13:41)
[2022-10-09] MEDS: METOCLOPRAMIDE 10 MG/10 ML UDCUP PO SCH (08:47)
[2022-10-09] MEDS: SEVELAMER CARBONATE 800 MG TABLET PO SCH ×2 (08:48→13:42)
[2022-10-09] MEDS: amLODIPine 10 MG TABLET PO SCH (08:48)
[2022-10-09] MEDS: carvediloL 25 MG TABLET PO SCH (08:48)
[2022-10-09] MEDS: PANTOPRAZOLE 40 MG TABLET PO SCH (08:48)
[2022-10-09] MEDS ORDERED: BACILLUS COAGULANS CAPLET PO SCH (09:00)
[2022-10-09 09:33] VITALS: BP 177/94
[2022-10-09 09:57] LABS: Basophils # 0.1 10*3/uL (0.0-0.2); Basophils % 0.7 % (0.0-0.8); Eosinophils # 0.3 10*3/uL (0.0-0.87); Eosinophils % 3.9 % (0.00-10.9); Hematocrit 25.1 VOL% (35.7-47.0); Hemoglobin 7.4 GM/DL (12.0-16.0); Immature Granulocytes % 0.3 %; Immature Granulocytes Absolute 0.02 #; Lymphocytes # 1.4 10*3/uL (1.4-4.0); Lymphocytes % 20.7 % (21.3-54.2); Mean Corpuscular HGB Conc 29.5 GM/DL (32-36); Mean Corpuscular Volume 78.7 FL (87-102); Mean Platelet Volume 9.3 FL (9.6-12.0); Monocytes # 0.2 10*3/uL (0.11-0.8); Monocytes % 2.5 % (1.7-12.7); Neutrophils % 71.9 % (38.7-73.9); Platelet Count 184 T/CUMM (130-400); Red Blood Count 3.19 MC/CUMM (3.8-5.5); Red Cell Distribution Width 21.4 % (9.3-17.3); White Blood Count 6.9 T/CUMM (4-12)
[2022-10-09] MEDS ORDERED: HEPARIN 10,000 UNIT/10 ML VIAL IV PRN (10:07)
[2022-10-09 10:14] LABS: Calcium 8.2 MG/DL (8.5-10.1); Osmolality,Calculated 275.8 MOS/KG (273-304); Potassium 4.1 MMOL/L (3.5-5.1)
[2022-10-09] MEDS ORDERED: VANCOMYCIN INJ 500 MG in SODIUM CHLORIDE 0.9% 100 ML IV PRN (17:00)
[2022-10-09] MEDS ORDERED: VANCOMYCIN INJ 500 MG in SODIUM CHLORIDE 0.9% 100 ML IV ONE (17:00)
[2022-10-13] MEDS ORDERED: cloNIDine 0.1 MG/24 HR PATCH TRANSDERM SCH (09:00)
== END 2022-10-09 16:33 | disposition home or self-care (01) | DRG 193 ==
LOC: N.EDINP 01:58 → N.ED 01:58 → SUATTDRO 04:44 → N.5E 11:27 → SUATTDRO 10-08 07:42
PROVIDERS: ADMIT Internal Medicine; ATTEND Internal Medicine

== ENCOUNTER 2022-11-02 02:14 | Inpatient (IN) ==
[2022-11-02] MEDS ORDERED: PROMETHAZINE 25 MG/1 ML VIAL IM STA (02:42)
[2022-11-02] MEDS ORDERED: MORPHINE 2 MG/1 ML SYRINGE IV STA (02:43)
[2022-11-02] MEDS ORDERED: SODIUM CHLORIDE 0.9% 500 ML IV STA (02:43)
[2022-11-02] MEDS ORDERED: ONDANSETRON 4 MG/2 ML VIAL IV STA (02:43)
[2022-11-02 02:54] LABS: Basophils # 0.1 10*3/uL (0.0-0.2); Basophils % 0.8 % (0.0-0.8); Eosinophils # 0.1 10*3/uL (0.0-0.87); Eosinophils % 1.3 % (0.00-10.9); Hematocrit 22.3 VOL% (35.7-47.0); Immature Granulocytes % 0.5 %; Immature Granulocytes Absolute 0.05 #; Lymphocytes # 1.4 10*3/uL (1.4-4.0); Lymphocytes % 13.5 % (21.3-54.2); Mean Corpuscular HGB Conc 31.4 GM/DL (32-36); Mean Corpuscular Volume 78.8 FL (87-102); Monocytes # 0.6 10*3/uL (0.11-0.8); Neutrophils % 77.9 % (38.7-73.9); Platelet Count 295 T/CUMM (130-400); Red Blood Count 2.83 MC/CUMM (3.8-5.5); Red Cell Distribution Width 21.1 % (9.3-17.3); White Blood Count 10.4 T/CUMM (4-12)
[2022-11-02 03:07] LABS: Arterial Base Excess iSTAT 4 MMOL/L (-2.5-2.5); Arterial Bicarbonate iSTAT 27.9 MMOL/L (20-26); Arterial O2 Saturation iSTAT 75 % (95-100); Arterial PCO2 iSTAT 37 MM HG (35-48); Arterial PO2 iSTAT 37 MM HG (80-95); Arterial Total CO2 iSTAT 29 MMO/L (23-27); Arterial pH iSTAT 7.483 (7.35-7.45)
[2022-11-02 03:24] LABS: Arterial Base Excess iSTAT 2 MMOL/L (-2.5-2.5); Arterial Bicarbonate iSTAT 26.6 MMOL/L (20-26); Arterial O2 Saturation iSTAT 94 % (95-100); Arterial PCO2 iSTAT 39 MM HG (35-48); Arterial PO2 iSTAT 66 MM HG (80-95); Arterial Total CO2 iSTAT 28 MMO/L (23-27); Arterial pH iSTAT 7.445 (7.35-7.45)
[2022-11-02 03:56] LABS: Albumin 3.5 G/DL (3.4-5.0); Bilirubin,Total 0.4 MG/DL (0.20-1.00); Calcium 9.2 MG/DL (8.5-10.1); Osmolality,Calculated 281.1 MOS/KG (273-304); Total Protein 8.5 G/DL (6.4-8.2)
[2022-11-02] MEDS ORDERED: hydrALAZINE 20 MG/1 ML VIAL IV STA (04:46)
[2022-11-02] MEDS ORDERED: carvediloL 25 MG TABLET PO SCH (04:50)
[2022-11-02] MEDS ORDERED: hydrALAZINE 25 MG TABLET PO SCH (04:50)
[2022-11-02] MEDS ORDERED: carvediloL 25 MG TABLET ONE (04:54)
[2022-11-02] MEDS ORDERED: LABETALOL 100 MG/20 ML VIAL IV STA (05:06)
[2022-11-02] MEDS ORDERED: hydrALAZINE 20 MG/1 ML VIAL IV PRN (05:07)
[2022-11-02] MEDS ORDERED: SIMETHICONE CHEW 125 MG TABLET PO PRN (05:07)
[2022-11-02] MEDS ORDERED: LABETALOL 20 MG/4 ML SYRINGE IV ONE (05:10)
[2022-11-02] MEDS: MORPHINE 2 MG/1 ML SYRINGE IV PRN ×2 (05:34→11:40)
[2022-11-02 05:58] LABS: Basophils # 0.1 10*3/uL (0.0-0.2); Basophils % 0.8 % (0.0-0.8); Eosinophils # 0.1 10*3/uL (0.0-0.87); Hematocrit 21.5 VOL% (35.7-47.0); Hemoglobin 6.6 GM/DL (12.0-16.0); Immature Granulocytes % 0.4 %; Immature Granulocytes Absolute 0.04 #; Lymphocytes # 1.9 10*3/uL (1.4-4.0); Lymphocytes % 18.9 % (21.3-54.2); Mean Corpuscular HGB Conc 30.7 GM/DL (32-36); Mean Corpuscular Volume 80.2 FL (87-102); Mean Platelet Volume 9.3 FL (9.6-12.0); Monocytes # 0.7 10*3/uL (0.11-0.8); Monocytes % 7.1 % (1.7-12.7); Neutrophils % 71.8 % (38.7-73.9); Platelet Count 270 T/CUMM (130-400); Red Blood Count 2.68 MC/CUMM (3.8-5.5); Red Cell Distribution Width 20.9 % (9.3-17.3); White Blood Count 9.8 T/CUMM (4-12)
[2022-11-02] MEDS: METOCLOPRAMIDE 10 MG/2 ML VIAL IV SCH ×3 (06:10→18:11)
[2022-11-02] MEDS ORDERED: cefTRIAXone 1,000 MG in SODIUM CHLORIDE 0.9% 100 ML IV SCH (06:15)
[2022-11-02] MEDS ORDERED: AZITHROMYCIN INJ 500 MG in SODIUM CHLORIDE 0.9% 250 ML IV SCH (06:15)
[2022-11-02 06:22] LABS: INR 1.1; PT Patient Result 11.8 SECS (10.1-12.1); Partial Thromboplastin Time 33.4 SECS (23.7-32.9)
[2022-11-02 06:23] LABS: % Iron Saturation 14.8 % (18-50)
[2022-11-02] MEDS ORDERED: LABETALOL 20 MG/4 ML SYRINGE IV PRN (06:23)
[2022-11-02] MEDS ORDERED: cloNIDine 0.2 MG/24 HR PATCH TRANSDERM SCH (06:45)
[2022-11-02 06:53] LABS: Albumin 2.9 G/DL (3.4-5.0); Bilirubin,Direct 0.15 MG/DL (0.0-0.20); Bilirubin,Indirect 0.3 MG/DL (0.0-1.0); Bilirubin,Total 0.4 MG/DL (0.20-1.00); Ferritin 18956.4 ng/mL (8-252)
[2022-11-02 07:01] LABS: Folate 9.22 NG/ML (5.38-24.0); Hepatitis B Core IgM Quant 0.11 Index; Hepatitis B Surface Ag Quant < 0.10 Index; Hepatitis B Surface Ag Result Non-Reactive (NonReactive); Hepatitis C Virus Ab Quant 0.05 Index; Hepatitis C Virus Ab Result Non-Reactive (NonReactive); Vitamin B12 337 PG/ML (211-911)
[2022-11-02 07:07] LABS: Sedimentation Rate-Westergren 103 MM/HR (0-20)
[2022-11-02] MEDS: ALBUTEROL 2.5 MG/3 ML NEB RESP TX SCH ×3 (07:42→18:58)
[2022-11-02] MEDS ORDERED: SODIUM CHLORIDE 0.9% 1,000 ML IV PRN (08:45)
[2022-11-02] MEDS: HEPARIN 5,000 UNIT/1 ML VIAL SUBCUT SCH ×2 (09:17→20:31)
[2022-11-02] MEDS: DOCUSATE SODIUM 100 MG CAPSULE PO SCH ×2 (09:18→20:28)
[2022-11-02] MEDS ORDERED: GLUCAGON 1 MG VIAL IM PRN (10:58)
[2022-11-02] MEDS ORDERED: DEXTROSE 10% 250 ML BAG IV PRN (10:58)
[2022-11-02] MEDS: INSULIN LISPRO 100 UNIT/ML SUBCUT SCH ×3 (11:42→21:20)
[2022-11-02] MEDS ORDERED: ACETAMINOPHEN 500 MG TABLET PO PRN (14:17)
[2022-11-02] MEDS ORDERED: VANCOMYCIN INJ 1,250 MG in SODIUM CHLORIDE 0.9% 250 ML IV SCH (15:30)
[2022-11-02] MEDS ORDERED: PIPERACILLIN/TAZOBACTAM 3,375 MG in SODIUM CHLORIDE 0.9% 100 ML IV SCH (15:30)
[2022-11-02] MEDS ORDERED: LEVOFLOXACIN INJ 750 MG/150 ML PREMIX IV ONE (17:00)
[2022-11-02] MEDS ORDERED: ONDANSETRON 4 MG/2 ML VIAL IV PRN (19:30)
[2022-11-02] MEDS: oxyCODONE/ACETAMINOPHEN 5-325 MG TABLET PO PRN (20:31)
[2022-11-02] MEDS: PANTOPRAZOLE 40 MG VIAL IV SCH (21:20)
[2022-11-02] MEDS: guaiFENesin/DM ER 600-30 MG TABLET PO SCH (21:21)
[2022-11-03] MEDS: ALBUTEROL 2.5 MG/3 ML NEB RESP TX SCH ×3 (00:01→13:00)
[2022-11-03] MEDS: METOCLOPRAMIDE 10 MG/2 ML VIAL IV SCH ×4 (01:59→17:10)
[2022-11-03] MEDS: oxyCODONE/ACETAMINOPHEN 5-325 MG TABLET PO PRN ×2 (08:23→17:02)
[2022-11-03] MEDS: guaiFENesin/DM ER 600-30 MG TABLET PO SCH (08:23)
[2022-11-03] MEDS: HEPARIN 5,000 UNIT/1 ML VIAL SUBCUT SCH (08:24)
[2022-11-03] MEDS: INSULIN LISPRO 100 UNIT/ML SUBCUT SCH ×3 (08:24→16:23)
[2022-11-03] MEDS: DOCUSATE SODIUM 100 MG CAPSULE PO SCH (08:25)
[2022-11-03] MEDS: PANTOPRAZOLE 40 MG VIAL IV SCH (08:25)
[2022-11-03] MEDS ORDERED: cefTRIAXone 1,000 MG in SODIUM CHLORIDE 0.9% 100 ML IV SCH (09:00)
[2022-11-03] MEDS ORDERED: AZITHROMYCIN INJ 250 MG in SODIUM CHLORIDE 0.9% 250 ML IV SCH (09:00)
[2022-11-03] MEDS ORDERED: LEVOFLOXACIN INJ 250 MG/50 ML PREMIX IV SCH (09:00)
[2022-11-03] MEDS ORDERED: HEPARIN 10,000 UNIT/10 ML VIAL IV SCH (17:00)
[2022-11-03 17:27] VITALS: BP 187/98
[2022-11-05 08:26] LABS: Hemoglobin A1 (Alkaline) 97.7 % (96.5-98.5); Hemoglobin A2 (Alkaline) 2.3 % (1.5-3.5)
== END 2022-11-03 17:52 | disposition home or self-care (01) | DRG 73 ==
LOC: EDUNIT# → EDBD → N.ED 02:14 → N.EDINP 05:40 → N.5E 13:01
PROVIDERS: ADMIT Family Medicine; ATTEND Family Medicine